=== PATIENT | female | born 1980 | race Caucasian/White ===

== ENCOUNTER 2018-09-03 10:43 | Emergency (ER) | payer OTHER ==
--- NOTE | 2018-09-03 10:47 | ERPHSYRPT ---
- History of Present Illness Time Seen by Provider: 09/03/18 10:47 Source: patient Exam Limitations: no limitations Allergies/Adverse Reactions: metoprolol Allergy (Verified 09/03/18 11:21) - Nursing Vital Signs Nursing Vital Signs: Initial Vital Signs Temperature 99.2 F 09/03/18 10:44 Pulse Rate 87 09/03/18 10:44 Respiratory Rate 16 09/03/18 10:44 Blood Pressure 136/93 09/03/18 10:44 O2 Sat by Pulse Oximetry 92 L 09/03/18 10:44 Pain Scale Pain Intensity 4 - Course Nursing assessment & vital signs reviewed: Yes EKG Interpreted by Me: RATE ([id number]), Sinus Rhythm, NORMAL AXIS, NORMAL INTERVALS, NORMAL QRS, Other (no acute ischemic changes. no comparison ekg) Ordered Tests: Active Orders 24 hr Category Date Time Status EKG-ER Only STAT Care 09/03/18 10:47 Active IV Insertion STAT Care 09/03/18 10:47 Active Pulse Oximetry (ED) STAT Care 09/03/18 10:47 Active CHEST 1 VIEW (PORTABLE) Stat Exams 09/03/18 10:47 Completed CBC W DIFF Stat Lab 09/03/18 11:00 Completed CMP Stat Lab 09/03/18 11:00 Completed D-DIMER QUANTITATION Stat Lab 09/03/18 11:00 Completed Manual Differential NC Stat Lab 09/03/18 11:00 Completed NT PRO BNP Stat Lab 09/03/18 11:00 Completed TROPONIN Q3H Lab 09/03/18 11:00 Completed TROPONIN Q3H Lab 09/03/18 14:00 Ordered TROPONIN Q3H Lab 09/03/18 17:00 Ordered TROPONIN Q3H Lab 09/03/18 20:00 Ordered TROPONIN Q3H Lab 09/03/18 23:00 Ordered Peak Expiratory Flow Rate ONCE RT 09/03/18 11:57 Completed Respiratory Therapy Assessment DAILY RT 09/03/18 11:56 Completed Medication Summary Generic Name Dose Route Start Last Admin Trade Name Freq PRN Reason Stop Dose Admin Ceftriaxone Sodium/Dextrose 1 g in 50 mls @ 100 mls/hr 09/03/18 12:19 Rocephin 1 Gm-D5w 50 Ml Bag IV 09/03/18 12:48 STAT STA Discontinued Medications Generic Name Dose Route Start Last Admin Trade Name Freq PRN Reason Stop Dose Admin Hydrocodone Bitart/Acetaminophen 10 ml 09/03/18 12:20 Hydrocodone-Acetamin 2.5-108/5 Ml Solution PO 09/03/18 12:21 STAT STA Albuterol/Ipratropium Confirm 09/03/18 11:34 Duoneb 0.5-3 Mg/3 Ml Neb Administered 09/03/18 11:35 Dose 3 ml IH .STK-MED ONE Albuterol/Ipratropium 3 ml 09/03/18 11:57 09/03/18 11:58 Duoneb 0.5-3 Mg/3 Ml Neb IH 09/03/18 11:58 3 ml STAT ONE Administration Methylprednisolone Sodium Succinate 125 mg 09/03/18 12:19 Solu-Medrol 125 Mg IV 09/03/18 12:20 STAT ONE Lab/Rad Data: Laboratory Result Diagrams 09/03/18 11:00 09/03/18 11:00 Laboratory Results 09/03/18 09/03/18 09/03/18 Range/Units 11:00 11:00 11:00 WBC (4.0-10.5) K/mm3 RBC (4.1-5.4) M/mm3 Hgb (12.0-16.0) gm/dl Hct (35-47) % MCV (78-100) fl MCH (26-32) pg MCHC (32-36) g/dl RDW (11.5-14.0) % Plt Count (150-450) K/mm3 MPV (6-9.5) fl Segmented Neutrophils (36.0-66.0) % Lymphocytes (Manual) (24-44) % Monocytes (Manual) (0.0-12.0) % Eosinophils (Manual) (0.00-3.0) % Platelet Estimate (NORMAL) RBC Morphology D-Dimer 241 (215-500) ng/mL Sodium 141 (137-145) mmol/L Potassium 4.4 (3.5-5.1) mmol/L Chloride 105 (98-107) mmol/L Carbon Dioxide 25 (22-30) mmol/L Anion Gap 16.0 H (5-15) MEQ/L BUN 20 H (7-17) mg/dL Creatinine 0.59 (0.52-1.04) mg/dL Estimated GFR > 60.0 ML/MIN Glucose 149 H (74-106) mg/dL Calcium 10.0 (8.4-10.2) mg/dL Total Bilirubin 0.40 (0.2-1.3) mg/dL AST 19 (14-36) U/L ALT 29 (0-35) U/L Alkaline Phosphatase 79 (38-126) U/L Troponin I < 0.012 (0.000-0.034) ng/mL NT-Pro-B Natriuret Pep 28.0 (0-450) pg/mL Serum Total Protein 8.2 (6.3-8.2) g/dL Albumin 4.7 (3.5-5.0) g/dL 09/03/18 Range/Units 11:00 WBC 8.4 (4.0-10.5) K/mm3 RBC 5.36 (4.1-5.4) M/mm3 Hgb 15.1 (12.0-16.0) gm/dl Hct 45.0 (35-47) % MCV 84.0 (78-100) fl MCH 28.2 (26-32) pg MCHC 33.6 (32-36) g/dl RDW 13.8 (11.5-14.0) % Plt Count 249 (150-450) K/mm3 MPV 9.7 H (6-9.5) fl Segmented Neutrophils 61 (36.0-66.0) % Lymphocytes (Manual) 33 (24-44) % Monocytes (Manual) 5 (0.0-12.0) % Eosinophils (Manual) 1 (0.00-3.0) % Platelet Estimate NORMAL (NORMAL) RBC Morphology NORMAL D-Dimer (215-500) ng/mL Sodium (137-145) mmol/L Potassium (3.5-5.1) mmol/L Chloride (98-107) mmol/L Carbon Dioxide (22-30) mmol/L Anion Gap (5-15) MEQ/L BUN (7-17) mg/dL Creatinine (0.52-1.04) mg/dL Estimated GFR ML/MIN Glucose (74-106) mg/dL Calcium (8.4-10.2) mg/dL Total Bilirubin (0.2-1.3) mg/dL AST (14-36) U/L ALT (0-35) U/L Alkaline Phosphatase (38-126) U/L Troponin I (0.000-0.034) ng/mL NT-Pro-B Natriuret Pep (0-450) pg/mL Serum Total Protein (6.3-8.2) g/dL Albumin (3.5-5.0) g/dL - Progress Progress: improved Air Movement: good Progress Note: 09/03/18 12:22 cxr-right basilar infiltrate Blood Culture(s) Obtained: No Antibiotics given: Yes Counseled pt/family regarding: lab results, diagnosis, need for follow-up, rad results - Departure Departure Disposition: Home Clinical Impression: Lung infiltrate Condition: Stable Critical Care Time: No Referrals: REKHA QUAN MD [Primary Care Provider] - Additional Instructions: drink plenty of fluids. continue same outpatient treatment plan. follow up with prescribing physician Prescriptions: Hydrocodone Bit/Acetaminophen [Hydrocodone-Acetaminophen Soln] 10 ml PO Q6H # 120 ml
[2018-09-03 11:15] LABS: Hemoglobin 15.1 gm/dl (12.0-16.0); Mean Corpuscular Hemoglobin 28.2 pg (26-32); Mean Corpuscular Hgb Concent. 33.6 g/dl (32-36); Mean Platelet Volume 9.7 fl (6-9.5); Platelet Count 249 K/mm3 (150-450); Red Blood Count 5.36 M/mm3 (4.1-5.4); Red Cell Distribution Width 13.8 % (11.5-14.0); White Blood Count 8.4 K/mm3 (4.0-10.5)
--- NOTE | 2018-09-03 11:26 | XRAY ---
Indication: Cough. Short of breath. Comparison: None Portable chest demonstrates mild right base linear opacities, infiltrate versus atelectasis. Remaining heart, lungs, and bony thorax normal.
[2018-09-03 11:31] LABS: Eosinophil 1 % (0.00-3.0); Lymphocytes 33 % (24-44); Monocyte 5 % (0.0-12.0); Neutrophils 61 % (36.0-66.0); Platelet Estimate NORMAL (NORMAL); Total Cells Counted 100
[2018-09-03] MEDS ORDERED: DUONEB 0.5-3 MG/3 ml Neb IH ONE ×2 (11:34→11:57)
[2018-09-03 11:35] LABS: ALBUMIN 4.7 g/dL (3.5-5.0); ALKALINE PHOSPHATASE 79 U/L (38-126); BLOOD UREA NITROGEN 20 mg/dL (7-17); CHLORIDE 105 mmol/L (98-107); Carbon Dioxide 25 mmol/L (22-30); Creatinine 1 0.59 mg/dL (0.52-1.04); Glucose 149 mg/dL (74-106); Potassium 4.4 mmol/L (3.5-5.1); SGOT/AST 19 U/L (14-36); SGPT/ALT 29 U/L (0-35); SODIUM 141 mmol/L (137-145); Total Protein 8.2 g/dL (6.3-8.2)
[2018-09-03 11:59] VITALS: O2SAT 96
[2018-09-03] MEDS ORDERED: ROCEPHIN 1 Gm-D5w 50 ml Bag** 1 G/50 ML IVPB IV STA (12:19)
[2018-09-03] MEDS ORDERED: solu-MEDROL 125 MG IV ONE (12:19)
[2018-09-03] MEDS ORDERED: HYDROCODONE-ACETAMIN 2.5-108/5 ML SOLUTION PO STA (12:20)
[2018-09-03] MEDS ORDERED: HYDROCODONE-ACETAMIN 2.5-108/5 ML SOLUTION ONE (12:43)
[2018-09-03] MEDS ORDERED: ROCEPHIN 1 Gm-D5w 50 ml Bag** 1 G/50 ML IVPB IV ONE (12:43)
[2018-09-03] MEDS ORDERED: solu-MEDROL 125 MG ONE (12:43)
[2018-09-03 13:27] VITALS: BP 119/77; PULSE 84
== END 2018-09-03 13:26 | disposition home or self-care (01) ==
LOC: ED 10:43
DX: R91.8 Other nonspecific abnormal finding of lung field (principal)
CPT/HCPCS: 36000; 36415; 71045; 80053; 83880; 84484; 85025; 85379; 93005; 94150; 94640; 94760; 96365; 96374; 99284; J0696; J2930; A9270-GY

== ENCOUNTER 2018-09-04 06:40 | Emergency (ER) | payer OTHER ==
[2018-09-04] MEDS ORDERED: ROCEPHIN 1 Gm-D5w 50 ml Bag** 1 G/50 ML IVPB IV STA (07:26)
[2018-09-04] MEDS ORDERED: DUONEB 0.5-3 MG/3 ml Neb IH ONE ×2 (07:26→07:35)
[2018-09-04] MEDS ORDERED: solu-MEDROL 125 MG IV ONE (07:26)
[2018-09-04] MEDS ORDERED: Sodium Chloride 0.9% 1000 ML 1,000 ML IV SCH ×2 (07:30→08:15)
--- NOTE | 2018-09-04 07:47 | ERPHSYRPT ---
- History of Present Illness Time Seen by Provider: 09/04/18 07:00 Source: patient Exam Limitations: clinical condition Patient Subjective Stated Complaint: see above Triage Nursing Assessment: see above Physician History: PATIENT WITH A HISTORY OF MORBID OBESITY, SLEEP APNEA, TYPE 2 DIABETES, YVONNE SYNDROME, HYPERTENSION WHO EVALUATED IN [facility]ALK[facility] CLIN[facility] 3 DAYS AGO AND TREATED FOR BRONCHITIS, FOR COMPLAINS OF NONPRODUCTIVE COUGH AND SHORTNESS OF BREATH. DAY 3 OF ANTIBIOTIC ZITHROMAX. EVALUATED IN EMERGENCY ROOM YESTERDAY FOR NO CHANGE IN SYMPTOMS. CHEST XRAY READING PER RADIALOGIST CONSISTENT WITH MILD RIGHT BASE LINEAR OPACITIES, INFILTRATE VS ATELECTASIS. DENIES FEVER, CHILLS. BUT COMPLAINS OF SHORTNESS OF BREATH AND CHEST TIGHTNESS. 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 TODAY PATIENT STATES SHE HAS NO IMPROVEMENT IN HER SYMPTOMS. HAS HAD INTERMITTENT CHEST PAIN HEAVINESS X 4 DAYS THIS WEEK, PAIN SCALE 4/10. Timing/Duration: day(s) Cough Quality/Degree: dry cough Possible Cause: no prior episodes Modifying Factors: Improves With: activity, exertion Associated Symptoms: shortness of breath International travel in last 2 weeks: No Allergies/Adverse Reactions: metoprolol Allergy (Verified 09/03/18 11:21) Home Medications: Albuterol Sulfate [Albuterol Sulfate Hfa] 2 puffs IH QID 09/04/18 [History] Alprazolam 0.5 mg [xanAX 0.5 MG] 0.5 mg PO TID 09/04/18 [History] Aspirin 81 gm Chew [Baby Aspirin 81 mg Chew] 81 mg PO DAILY 09/04/18 [ History] Azithromycin 250 mg [Zithromax 250 MG TABLET] 250 mg PO ZPACK 09/04/18 [ History] Dapagliflozin/Metformin HCl [Xigduo Xr 10 mg-1,000 mg Tab] 1,000 mg PO DAILY [History] Liraglutide [Victoza 2-Drew] 1.8 mg SQ DAILY 09/04/18 [History] Meloxicam 7.5 mg [Mobic 7.5 MG] 7.5 mg PO DAILY 09/04/18 [History] Nebivolol HCl 5 MG [Bystolic 5 MG] 5 mg PO DAILY 09/04/18 [History] Nitroglycerin 0.4 mg Tablet [Nitrostat 0.4 MG Tablet] 0.4 mg SL UD PRN [History] PANTOPRAZOLE 40 mg Tablet [Protonix 40MG Tablet] 40 mg PO QAM 09/04/18 [ History] PARoxetine HCl [Paroxetine HCl] 40 mg PO DAILY 09/04/18 [History] Prednisone 10 mg [Deltasone 10 mg] 20 mg PO DAILY 09/04/18 [History] Semaglutide [Ozempic] 0.5 mg IJ WEEKLY 09/04/18 [History] Hx Tetanus, Diphtheria Vaccination/Date Given: Yes Hx Influenza Vaccination/Date Given: Yes Hx Pneumococcal Vaccination/Date Given: Yes Immunizations Up to Date: Yes - Review of Systems Constitutional: No Fever, No Chills Eyes: No Symptoms Ears, Nose, & Throat: No Symptoms Respiratory: Cough, Dyspnea on Exertion (LAU), No Dyspnea Cardiac: Chest Pain, No Edema, No Syncope Abdominal/Gastrointestinal: No Abdominal Pain, No Nausea, No Vomiting, No Diarrhea Genitourinary Symptoms: No Dysuria Musculoskeletal: No Back Pain, No Neck Pain Skin: No Rash Neurological: No Dizziness, No Focal Weakness, No Sensory Changes Psychological: No Symptoms Endocrine: No Symptoms All Other Systems: Reviewed and Negative - Past Medical History Pertinent Past Medical History: Yes Cardiac History: Hypertension Endocrine Medical History: Diabetes Type II Psycho-Social History: No Pertinent History Other Medical History: cushings - Past Surgical History Past Surgical History: Yes Cardiac: Cardiac Catheterization, Cardiac Stent, Other Female Surgical History: Hysterectomy Other Surgical History: plantar fascitis surgery - Social History Smoking Status: Never smoker Drug Use: none Patient Lives Alone: No - Female History Hx Now: No (hysterectomy) - Nursing Vital Signs Nursing Vital Signs: Initial Vital Signs Temperature 97.7 F 09/04/18 06:46 Pulse Rate 68 09/04/18 06:46 Respiratory Rate 20 09/04/18 06:46 Blood Pressure 129/84 09/04/18 06:46 O2 Sat by Pulse Oximetry 98 09/04/18 06:46 Pain Scale Pain Intensity 6 - Physical Exam General Appearance: mild distress Eye Exam: PERRL/EOMI, eyes nml inspection Ears, Nose, Throat Exam: normal ENT inspection, TMs normal Neck Exam: normal inspection, non-tender Respiratory Exam: diminished breath sounds, rhonchi, wheezing (MODERATE DIFFUSE WHEEZES AND RHONCHI) Cardiovascular Exam: regular rate/rhythm, normal heart sounds Gastrointestinal/Abdomen Exam: soft, normal bowel sounds (OBESE, NONTENDER) Back Exam: normal inspection, rash Extremity Exam: normal inspection, calf tenderness Neurologic Exam: alert, oriented x 3, cooperative Skin Exam: normal color, warm SpO2 Interpretation: normal SpO2: 94 O2 Delivery: Room Air - Course EKG Interpreted by Me: RATE, Sinus Rhythm, Other (MINIMAL ST ELEVATION INFERIORLY RATE OF 76) - Radiology Exams Chest X-ray Interpretation: Interpreted by me (MINIMAL RIGHT INFRAHILAR INFILTRATE) Ordered Tests: Active Orders 24 hr Category Date Time Status CHEST 2 VIEWS (PA AND LAT) Stat Exams 09/04/18 08:24 Taken CBC W DIFF Stat Lab 09/04/18 07:45 Completed CMP Stat Lab 09/04/18 07:45 Completed Manual Differential NC Stat Lab 09/04/18 07:45 Completed PROTIME WITH INR Stat Lab 09/04/18 07:45 Completed TROPONIN Q3H Lab 09/04/18 07:45 Completed TROPONIN Q3H Lab 09/04/18 11:15 Ordered TROPONIN Q3H Lab 09/04/18 14:15 Ordered TROPONIN Q3H Lab 09/04/18 17:15 Ordered TROPONIN Q3H Lab 09/04/18 20:15 Ordered Peak Expiratory Flow Rate ONCE RT 09/04/18 07:26 Completed Respiratory Therapy Assessment DAILY RT 09/04/18 07:44 Completed Medication Summary Generic Name Dose Route Start Last Admin Trade Name Freq PRN Reason Stop Dose Admin Sodium Chloride 1,000 mls @ 50 mls/hr 09/04/18 08:15 09/04/18 08:24 Sodium Chloride 0.9% 1000 Ml IV 10/04/18 08:14 50 mls/hr .Q20H JOSE Administration Discontinued Medications Generic Name Dose Route Start Last Admin Trade Name Freq PRN Reason Stop Dose Admin Albuterol/Ipratropium 3 ml 09/04/18 07:26 09/04/18 07:44 Duoneb 0.5-3 Mg/3 Ml Neb IH 09/04/18 07:27 3 ml STAT ONE Administration Albuterol/Ipratropium Confirm 09/04/18 07:35 Duoneb 0.5-3 Mg/3 Ml Neb Administered 09/04/18 07:36 Dose 3 ml IH .STK-MED ONE Aspirin 324 mg 09/04/18 08:11 09/04/18 08:23 Baby Aspirin 81 Mg Chew PO 09/04/18 08:12 324 mg STAT ONE Administration Aspirin Confirm 09/04/18 08:21 Baby Aspirin 81 Mg Chew Administered 09/04/18 08:22 Dose 324 mg .ROUTE .STK-MED ONE Ceftriaxone Sodium/Dextrose 1 g in 50 mls @ 100 mls/hr 09/04/18 07:26 09:02 Rocephin 1 Gm-D5w 50 Ml Bag IV 09/04/18 07:55 Infused STAT STA Infusion Sodium Chloride 1,000 mls @ 100 mls/hr 09/04/18 07:30 09/04/18 07:55 Sodium Chloride 0.9% 1000 Ml IV 10/04/18 07:29 Not Given .Q10H JOSE Ceftriaxone Sodium/Dextrose Confirm 09/04/18 07:51 Rocephin 1 Gm-D5w 50 Ml Bag Administered 09/04/18 07:52 Dose 1 g in 50 mls @ ud IV .STK-MED ONE Methylprednisolone Sodium Succinate 125 mg 09/04/18 07:26 09/04/18 07:55 Solu-Medrol 125 Mg IV 09/04/18 07:27 Not Given STAT ONE Nitroglycerin 1 gm 09/04/18 08:18 09/04/18 08:24 Nitro-Bid 2% Ud Packets TOP 09/04/18 08:19 1 gm STAT ONE Administration Nitroglycerin Confirm 09/04/18 08:21 Nitro-Bid 2% Ud Packets Administered 09/04/18 08:22 Dose 1 gm .ROUTE .STK-MED ONE Lab/Rad Data: Laboratory Result Diagrams 09/04/18 07:45 09/04/18 07:45 Laboratory Results 09/04/18 09/04/18 09/04/18 Range/Units 07:45 07:45 07:45 WBC (4.0-10.5) K/mm3 RBC (4.1-5.4) M/mm3 Hgb (12.0-16.0) gm/dl Hct (35-47) % MCV (78-100) fl MCH (26-32) pg MCHC (32-36) g/dl RDW (11.5-14.0) % Plt Count (150-450) K/mm3 MPV (6-9.5) fl Segmented Neutrophils (36.0-66.0) % Band Neutrophils (0.0-2.0) % Lymphocytes (Manual) (24-44) % Monocytes (Manual) (0.0-12.0) % Eosinophils (Manual) (0.00-3.0) % Platelet Estimate (NORMAL) RBC Morphology PT 12.5 H (9.95-12.35) SECONDS INR 1.10 (0.8-3.0) Sodium 138 (137-145) mmol/L Potassium 4.3 (3.5-5.1) mmol/L Chloride 103 (98-107) mmol/L Carbon Dioxide 24 (22-30) mmol/L Anion Gap 15.0 (5-15) MEQ/L BUN 24 H (7-17) mg/dL Creatinine 0.55 (0.52-1.04) mg/dL Estimated GFR > 60.0 ML/MIN Glucose 155 H (74-106) mg/dL Calcium 9.8 (8.4-10.2) mg/dL Total Bilirubin 0.40 (0.2-1.3) mg/dL AST 15 (14-36) U/L ALT 24 (0-35) U/L Alkaline Phosphatase 76 (38-126) U/L Troponin I < 0.012 (0.000-0.034) ng/mL Serum Total Protein 7.9 (6.3-8.2) g/dL Albumin 4.6 (3.5-5.0) g/dL 09/04/18 Range/Units 07:45 WBC 10.0 (4.0-10.5) K/mm3 RBC 5.20 (4.1-5.4) M/mm3 Hgb 14.5 (12.0-16.0) gm/dl Hct 43.9 (35-47) % MCV 84.4 (78-100) fl MCH 27.9 (26-32) pg MCHC 33.0 (32-36) g/dl RDW 13.6 (11.5-14.0) % Plt Count 272 (150-450) K/mm3 MPV 9.8 H (6-9.5) fl Segmented Neutrophils 78 H (36.0-66.0) % Band Neutrophils 1 (0.0-2.0) % Lymphocytes (Manual) 14 L (24-44) % Monocytes (Manual) 6 (0.0-12.0) % Eosinophils (Manual) 1 (0.00-3.0) % Platelet Estimate NORMAL (NORMAL) RBC Morphology NORMAL PT (9.95-12.35) SECONDS INR (0.8-3.0) Sodium (137-145) mmol/L Potassium (3.5-5.1) mmol/L Chloride (98-107) mmol/L Carbon Dioxide (22-30) mmol/L Anion Gap (5-15) MEQ/L BUN (7-17) mg/dL Creatinine (0.52-1.04) mg/dL Estimated GFR ML/MIN Glucose (74-106) mg/dL Calcium (8.4-10.2) mg/dL Total Bilirubin (0.2-1.3) mg/dL AST (14-36) U/L ALT (0-35) U/L Alkaline Phosphatase (38-126) U/L Troponin I (0.000-0.034) ng/mL Serum Total Protein (6.3-8.2) g/dL Albumin (3.5-5.0) g/dL - Progress Progress: improved Progress Note: 09/04/18 09:27 IV NORMAL SALINE 50ML/HR, BABY ASPIRIN X 4 ORAL, APPLICATION NITROPASTE 1" ANTERIOR CHEST WALL, DISCUSSED WITH DR SIMS AT 0920 REGARDING CATH REPORT AND PATIENT SYMPTOMS Discussed with Dr.: Other (DISCUSSED WITH DR MILLER AT 0925 ACCEPTS TRANSFER TO [facility] VIA [facility]) - Departure Departure Disposition: Transfer Clinical Impression: ATYPICAL CHEST PAIN, ACUTE BRONCHITIS/BRONCHIOSPASM Condition: Stable Critical Care Time: No Referrals: REKHA QUAN MD [Primary Care Provider] -
[2018-09-04] MEDS ORDERED: ROCEPHIN 1 Gm-D5w 50 ml Bag** 1 G/50 ML IVPB IV ONE (07:51)
[2018-09-04] MEDS ORDERED: BABY ASPIRIN 81 MG CHEW PO ONE (08:11)
[2018-09-04] MEDS ORDERED: NITRO-BID 2% UD PACKETS TOP ONE (08:18)
[2018-09-04] MEDS ORDERED: NITRO-BID 2% UD PACKETS ONE (08:21)
[2018-09-04] MEDS ORDERED: Sodium Chloride 0.9% 1000 ML 1,000 ML ONE (08:21)
[2018-09-04] MEDS ORDERED: BABY ASPIRIN 81 MG CHEW ONE (08:21)
[2018-09-04 08:23] LABS: Hematocrit 43.9 % (35-47); Hemoglobin 14.5 gm/dl (12.0-16.0); Mean Cell Volume 84.4 fl (78-100); Mean Corpuscular Hemoglobin 27.9 pg (26-32); Mean Platelet Volume 9.8 fl (6-9.5); Platelet Count 272 K/mm3 (150-450); Red Cell Distribution Width 13.6 % (11.5-14.0)
[2018-09-04 08:32] LABS: INR 1.1 (0.8-3.0); PROTIME 12.5 SECONDS (9.95-12.35)
[2018-09-04 08:45] LABS: ALBUMIN 4.6 g/dL (3.5-5.0); ALKALINE PHOSPHATASE 76 U/L (38-126); BLOOD UREA NITROGEN 24 mg/dL (7-17); CHLORIDE 103 mmol/L (98-107); Calcium 9.8 mg/dL (8.4-10.2); Carbon Dioxide 24 mmol/L (22-30); Creatinine 1 0.55 mg/dL (0.52-1.04); Glucose 155 mg/dL (74-106); Potassium 4.3 mmol/L (3.5-5.1); SGOT/AST 15 U/L (14-36); SGPT/ALT 24 U/L (0-35); SODIUM 138 mmol/L (137-145); Total Protein 7.9 g/dL (6.3-8.2)
[2018-09-04 09:17] LABS: BAND 1 % (0.0-2.0); Eosinophil 1 % (0.00-3.0); Lymphocytes 14 % (24-44); Monocyte 6 % (0.0-12.0); Neutrophils 78 % (36.0-66.0); Platelet Estimate NORMAL (NORMAL); Total Cells Counted 100
[2018-09-04 09:54] VITALS: BP 111/63; PULSE 90
[2018-09-04 10:02] VITALS: O2SAT 94
--- NOTE | 2018-09-04 23:35 | XRAY ---
Indication: Cough. Dyspnea. Comparison: One day earlier. PA/lateral chest unchanged again demonstrating subtle right base infiltrate versus atelectasis. Remaining heart, lungs, and bony thorax are unremarkable.
== END 2018-09-04 10:00 | disposition short-term general hospital (02) ==
LOC: ED 06:40
DX: R07.89 Other chest pain (principal); J20.9 Acute bronchitis, unspecified; J98.01 Acute bronchospasm; Z79.899 Other long term (current) drug therapy; E11.9 Type 2 diabetes mellitus without complications; G47.30 Sleep apnea, unspecified; E24.9 Cushing's syndrome, unspecified
CPT/HCPCS: 36000; 36415; 71046; 80053; 84484; 85025; 85610; 93041; 94150; 94640; 96360; 96365; 99285; J0696; A9270-GY

== ENCOUNTER 2018-09-11 21:42 | Observation (INO) | payer OTHER ==
[2018-09-11] MEDS ORDERED: BABY ASPIRIN 81 MG CHEW PO ONE (21:57)
[2018-09-11] MEDS ORDERED: Sodium Chloride 0.9% 1000 ML 1,000 ML IV SCH (22:00)
[2018-09-11] MEDS ORDERED: BABY ASPIRIN 81 MG CHEW ONE (22:09)
[2018-09-11] MEDS ORDERED: Sodium Chloride 0.9% 1000 ML 1,000 ML ONE ×2 (22:09→23:26)
--- NOTE | 2018-09-11 22:11 | ERPHSYRPT ---
- History of Present Illness Time Seen by Provider: 09/11/18 22:06 Historian: patient, family Exam Limitations: no limitations Patient Subjective Stated Complaint: PT IS ALERT AND ORIENTED. PT IS AMBULATORY WITH A STEADY GAIT. PT COMES IN WITH C/O DIZZINESS. PT STATES THAT SHE WAS DIAGNOSED WITH PNEUMONIA EARLIER THIS MONTH AND THAT SHE FEELS HER COUGH AND CHEST CONGESTIONS HAS CLEARED BUT THAT SHE BEGAN FEELING DIZZY AND HAVING BODY ACHES AND CHILLS. PT SKIN IS PWD. PT IS AFEBRILE. PT BREATHING EASILY. PT MUCOUS MEMBRANES MOIST. PERRLA. PT IS SPEAKING CLEARLY AND APPROPRIATELY. Triage Nursing Assessment: SEE ABOVE Physician History: pt got out of hospital last weekend for pneumonia and has shortness of breath now with CP ( known CAD at 50% blockages recently found) now has aches and weakness all over and dizziness along with new type of posterior headache; no meningismis or reported fever; no focal neuro findings on exam; chest with few rhonchi Timing/Duration: today Activities at Onset: none Quality: pressure, tightness Location: substernal Severity of Pain-Max: moderate Severity of Pain-Current: moderate Modifying Factors: Improves With: nothing Associated Symptoms: shortness of breath, cough, fatigue, weakness, headache, dizziness Prior Chest Pain/Cardiac Workup: cardiac cath, recently seen/treated, recent hospitalization Nitro Today/Relief: no nitro taken today Aspirin Treatment Today: 81 mg x 4, provided by ED Allergies/Adverse Reactions: metoprolol Allergy (Verified 09/03/18 11:21) Home Medications: Albuterol Sulfate [Albuterol Sulfate Hfa] 2 puffs IH QID 09/04/18 [History] Alprazolam 0.5 mg [xanAX 0.5 MG] 0.5 mg PO TID 09/04/18 [History] Aspirin 81 gm Chew [Baby Aspirin 81 mg Chew] 81 mg PO DAILY 09/04/18 [ History] Azithromycin 250 mg [Zithromax 250 MG TABLET] 250 mg PO ZPACK 09/04/18 [ History] Dapagliflozin/Metformin HCl [Xigduo Xr 10 mg-1,000 mg Tab] 1,000 mg PO DAILY [History] Liraglutide [Victoza 2-Drew] 1.8 mg SQ DAILY 09/04/18 [History] Meloxicam 7.5 mg [Mobic 7.5 MG] 7.5 mg PO DAILY 09/04/18 [History] Nebivolol HCl 5 MG [Bystolic 5 MG] 5 mg PO DAILY 09/04/18 [History] Nitroglycerin 0.4 mg Tablet [Nitrostat 0.4 MG Tablet] 0.4 mg SL UD PRN [History] PANTOPRAZOLE 40 mg Tablet [Protonix 40MG Tablet] 40 mg PO QAM 09/04/18 [ History] PARoxetine HCl [Paroxetine HCl] 40 mg PO DAILY 09/04/18 [History] Prednisone 10 mg [Deltasone 10 mg] 20 mg PO DAILY 09/04/18 [History] Semaglutide [Ozempic] 0.5 mg IJ WEEKLY 09/04/18 [History] Hx Tetanus, Diphtheria Vaccination/Date Given: Yes Hx Influenza Vaccination/Date Given: Yes Hx Pneumococcal Vaccination/Date Given: Yes Immunizations Up to Date: Yes - Review of Systems Constitutional: Fatigue, Malaise, Weakness, No Fever, No Chills Eyes: No Symptoms Ears, Nose, & Throat: No Symptoms Respiratory: Cough, Dyspnea Cardiac: Chest Pain, No Edema, No Syncope Abdominal/Gastrointestinal: No Abdominal Pain, No Nausea, No Vomiting, No Diarrhea Genitourinary Symptoms: No Dysuria Musculoskeletal: Arthralgias, No Back Pain, No Neck Pain Skin: No Rash Neurological: Dizziness, No Focal Weakness, No Sensory Changes Psychological: No Symptoms Endocrine: No Symptoms Hematologic/Lymphatic: No Symptoms Immunological/Allergic: No Symptoms All Other Systems: Reviewed and Negative - Past Medical History Pertinent Past Medical History: Yes Cardiac History: Hypertension Endocrine Medical History: Diabetes Type II Psycho-Social History: No Pertinent History Other Medical History: cushings - Past Surgical History Past Surgical History: Yes Cardiac: Cardiac Catheterization, Cardiac Stent, Other Female Surgical History: Hysterectomy Other Surgical History: plantar fascitis surgery - Social History Smoking Status: Never smoker Drug Use: none Patient Lives Alone: No - Female History Hx Now: No - Nursing Vital Signs Nursing Vital Signs: Initial Vital Signs Temperature 97.8 F 09/11/18 21:47 Pulse Rate 93 H 09/11/18 21:47 Respiratory Rate 18 09/11/18 21:47 Blood Pressure 126/89 09/11/18 21:47 O2 Sat by Pulse Oximetry 96 09/11/18 21:47 Pain Scale Pain Intensity 7 - Physical Exam General Appearance: no apparent distress, alert Eye Exam: PERRL/EOMI, eyes nml inspection Ears, Nose, Throat Exam: normal ENT inspection, moist mucous membranes Neck Exam: normal inspection, non-tender, supple, full range of motion Respiratory Exam: rhonchi, No respiratory distress Cardiovascular Exam: regular rate/rhythm, normal heart sounds Gastrointestinal/Abdomen Exam: soft, No tenderness, No mass Pelvic Exam: deferred Rectal Exam: deferred Back Exam: normal inspection, No CVA tenderness, No vertebral tenderness Extremity Exam: normal inspection, normal range of motion Neurologic Exam: alert, oriented x 3, cooperative, normal mood/affect, sensation nml, No motor deficits Skin Exam: normal color, warm, dry SpO2: 96 - Course Nursing assessment & vital signs reviewed: Yes EKG Interpreted by Me: Sinus Rhythm, NORMAL AXIS, NORMAL INTERVALS, Non- specific ST Changes, Other (poor r wave progression) - Radiology Exams Chest X-ray Interpretation: Reviewed by me, Infiltrates - CT Exams Head CT Interpretation: Tele-radiologist Report, No/Intracranial Hemorrhag Ordered Tests: Active Orders 24 hr Category Date Time Status Spiral Runner STAT Care 09/11/18 21:59 Active EKG-ER Only STAT Care 09/11/18 21:57 Active IV Insertion STAT Care 09/11/18 21:57 Active Pulse Oximetry (ED) STAT Care 09/11/18 21:57 Active CHEST 2 VIEWS (PA AND LAT) Stat Exams 09/11/18 21:58 Taken HEAD WITHOUT CONTRAST [CT] Stat Exams 09/11/18 22:04 Taken CBC W DIFF Stat Lab 09/11/18 22:17 Completed CMP Stat Lab 09/11/18 22:17 Completed D-DIMER QUANTITATION Stat Lab 09/11/18 22:17 Completed HCG QUALITATIVE,SERUM Stat Lab 09/11/18 22:17 Completed Lactic Acid Stat Lab 09/11/18 22:10 Completed Lactic Acid Stat Lab 09/12/18 00:14 Ordered NT PRO BNP Stat Lab 09/11/18 22:17 Completed T4 (Thyroxine) Stat Lab 09/11/18 22:17 Completed TROPONIN Q3H Lab 09/12/18 01:00 Ordered TROPONIN Q3H Lab 09/12/18 04:00 Ordered TROPONIN Q3H Lab 09/12/18 07:00 Ordered TROPONIN Q3H Lab 09/12/18 10:00 Ordered TROPONIN Stat Lab 09/11/18 22:17 Completed TSH, 3RD Generation Stat Lab 09/11/18 22:17 Completed UA W/RFX UR CULTURE Stat Lab 09/11/18 22:17 Completed Medication Summary Generic Name Dose Route Start Last Admin Trade Name Freq PRN Reason Stop Dose Admin Sodium Chloride 1,000 mls @ 100 mls/hr 09/11/18 22:00 09/11/18 23:50 Sodium Chloride 0.9% 1000 Ml IV 10/11/18 21:59 Infused .Q10H JOSE Infusion Discontinued Medications Generic Name Dose Route Start Last Admin Trade Name Freq PRN Reason Stop Dose Admin Aspirin 324 mg 09/11/18 21:57 09/11/18 22:10 Baby Aspirin 81 Mg Chew PO 09/11/18 21:58 324 mg STAT ONE Administration Aspirin Confirm 09/11/18 22:09 Baby Aspirin 81 Mg Chew Administered 09/11/18 22:10 Dose 324 mg .ROUTE .STK-MED ONE Sodium Chloride 1,000 mls @ 999 mls/hr 09/11/18 22:39 09/11/18 23:50 Sodium Chloride 0.9% 1000 Ml IV 09/11/18 23:39 Not Given .Q1H1M STA Piperacillin Sod/Tazobactam Sod 3.375 gm in 100 mls @ 200 mls/hr 09/11/18 23: 26 09/12/18 00:01 Zosyn 3.375gm/100 Ml D5w IV 09/11/18 23:55 200 mls/hr STAT ONE Administration Sodium Chloride 1,000 mls @ 999 mls/hr 09/11/18 23:27 09/11/18 23:51 Sodium Chloride 0.9% 1000 Ml IV 09/12/18 00:27 999 mls/hr .Q1H1M STA Administration Piperacillin Sod/Tazobactam Sod Confirm 09/11/18 23:53 Zosyn 3.375gm/100 Ml D5w Administered 09/11/18 23:54 Dose 3.375 gm in 100 mls @ ud IV .STK-MED ONE Morphine Sulfate 4 mg 09/11/18 23:25 09/12/18 00:02 Morphine Sulfate 4 Mg Inj IV 09/11/18 23:26 4 mg STAT ONE Administration Morphine Sulfate Confirm 09/11/18 23:53 Morphine Sulfate 4 Mg Inj Administered 09/11/18 23:54 Dose 4 mg .ROUTE .STK-MED ONE Lab/Rad Data: Laboratory Result Diagrams 09/11/18 22:17 09/11/18 22:17 Laboratory Results 09/11/18 09/11/18 09/11/18 Range/Units 22:57 22:17 22:17 WBC (4.0-10.5) K/mm3 RBC (4.1-5.4) M/mm3 Hgb (12.0-16.0) gm/dl Hct (35-47) % MCV (78-100) fl MCH (26-32) pg MCHC (32-36) g/dl RDW (11.5-14.0) % Plt Count (150-450) K/mm3 MPV (6-9.5) fl Gran % (36.0-66.0) % Eos # (Auto) (0-0.5) Absolute Lymphs (auto) (1.0-4.6) Absolute Monos (auto) (0.0-1.3) Lymphocytes % (24.0-44.0) % Monocytes % (0.0-12.0) % Eosinophils % (0.00-5.0) % Basophils % (0.0-0.4) % Absolute Granulocytes (1.4-6.9) Basophils # (0-0.4) D-Dimer (215-500) ng/mL Sodium (137-145) mmol/L Potassium (3.5-5.1) mmol/L Chloride (98-107) mmol/L Carbon Dioxide (22-30) mmol/L Anion Gap (5-15) MEQ/L BUN (7-17) mg/dL Creatinine (0.52-1.04) mg/dL Estimated GFR ML/MIN Glucose (74-106) mg/dL Lactic Acid (0.4-2.0) Calcium (8.4-10.2) mg/dL Total Bilirubin (0.2-1.3) mg/dL AST (14-36) U/L ALT (0-35) U/L Alkaline Phosphatase (38-126) U/L Troponin I (0.000-0.034) ng/mL NT-Pro-B Natriuret Pep (0-450) pg/mL Serum Total Protein (6.3-8.2) g/dL Albumin (3.5-5.0) g/dL Thyroxine (T4) (5.53-10.96) ug/dL TSH 3rd Generation (0.47-4.68) mIU/L Serum , Qual NEGATIVE (Negative) Urine Color YELLOW (YELLOW) Urine Appearance CLEAR (CLEAR) Urine pH 5.0 (5-6) Ur Specific Mitchell 1.038 (1.005-1.025) Urine Protein NEGATIVE (Negative) Urine Ketones TRACE (NEGATIVE) Urine Blood NEGATIVE (0-5) John/ul Urine Nitrite NEGATIVE (NEGATIVE) Urine Bilirubin NEGATIVE (NEGATIVE) Urine Urobilinogen 2 (0-1) mg/dL Ur Leukocyte Esterase NEGATIVE (NEGATIVE) Urine WBC (Auto) 3-5 (0-5) /HPF Urine RBC (Auto) NONE (0-2) /HPF U Epithel Cells (Auto) RARE (FEW) /HPF Urine Bacteria (Auto) NONE (NEGATIVE) /HPF Urine Mucus (Auto) SLIGHT (NEGATIVE) /HPF Urine Culture Reflexed NO (NO) Urine Glucose >=500 (NEGATIVE) mg/dL Influenza Type A Ag NEGATIVE (NEGATIVE) Influenza Type B Ag NEGATIVE (NEGATIVE) RSV (PCR) NEGATIVE (Negative) 09/11/18 09/11/18 09/11/18 Range/Units 22:17 22:17 22:17 WBC 10.1 (4.0-10.5) K/mm3 RBC 5.24 (4.1-5.4) M/mm3 Hgb 14.8 (12.0-16.0) gm/dl Hct 44.3 (35-47) % MCV 84.5 (78-100) fl MCH 28.2 (26-32) pg MCHC 33.4 (32-36) g/dl RDW 13.9 (11.5-14.0) % Plt Count 235 (150-450) K/mm3 MPV 9.3 (6-9.5) fl Gran % 56.5 (36.0-66.0) % Eos # (Auto) 0.31 (0-0.5) Absolute Lymphs (auto) 3.57 (1.0-4.6) Absolute Monos (auto) 0.48 (0.0-1.3) Lymphocytes % 35.3 (24.0-44.0) % Monocytes % 4.7 (0.0-12.0) % Eosinophils % 3.1 (0.00-5.0) % Basophils % 0.4 (0.0-0.4) % Absolute Granulocytes 5.72 (1.4-6.9) Basophils # 0.04 (0-0.4) D-Dimer < 109 L (215-500) ng/mL Sodium 138 (137-145) mmol/L Potassium 3.8 (3.5-5.1) mmol/L Chloride 102 (98-107) mmol/L Carbon Dioxide 27 (22-30) mmol/L Anion Gap 13.4 (5-15) MEQ/L BUN 20 H (7-17) mg/dL Creatinine 0.61 (0.52-1.04) mg/dL Estimated GFR > 60.0 ML/MIN Glucose 138 H (74-106) mg/dL Lactic Acid (0.4-2.0) Calcium 9.2 (8.4-10.2) mg/dL Total Bilirubin 0.30 (0.2-1.3) mg/dL AST 18 (14-36) U/L ALT 25 (0-35) U/L Alkaline Phosphatase 83 (38-126) U/L Troponin I < 0.012 (0.000-0.034) ng/mL NT-Pro-B Natriuret Pep 21.5 (0-450) pg/mL Serum Total Protein 7.0 (6.3-8.2) g/dL Albumin 4.1 (3.5-5.0) g/dL Thyroxine (T4) 8.59 (5.53-10.96) ug/dL TSH 3rd Generation 4.240 (0.47-4.68) mIU/L Serum , Qual (Negative) Urine Color (YELLOW) Urine Appearance (CLEAR) Urine pH (5-6) Ur Specific Mitchell (1.005-1.025) Urine Protein (Negative) Urine Ketones (NEGATIVE) Urine Blood (0-5) John/ul Urine Nitrite (NEGATIVE) Urine Bilirubin (NEGATIVE) Urine Urobilinogen (0-1) mg/dL Ur Leukocyte Esterase (NEGATIVE) Urine WBC (Auto) (0-5) /HPF Urine RBC (Auto) (0-2) /HPF U Epithel Cells (Auto) (FEW) /HPF Urine Bacteria (Auto) (NEGATIVE) /HPF Urine Mucus (Auto) (NEGATIVE) /HPF Urine Culture Reflexed (NO) Urine Glucose (NEGATIVE) mg/dL Influenza Type A Ag (NEGATIVE) Influenza Type B Ag (NEGATIVE) RSV (PCR) (Negative) 09/11/18 Range/Units 22:10 WBC (4.0-10.5) K/mm3 RBC (4.1-5.4) M/mm3 Hgb (12.0-16.0) gm/dl Hct (35-47) % MCV (78-100) fl MCH (26-32) pg MCHC (32-36) g/dl RDW (11.5-14.0) % Plt Count (150-450) K/mm3 MPV (6-9.5) fl Gran % (36.0-66.0) % Eos # (Auto) (0-0.5) Absolute Lymphs (auto) (1.0-4.6) Absolute Monos (auto) (0.0-1.3) Lymphocytes % (24.0-44.0) % Monocytes % (0.0-12.0) % Eosinophils % (0.00-5.0) % Basophils % (0.0-0.4) % Absolute Granulocytes (1.4-6.9) Basophils # (0-0.4) D-Dimer (215-500) ng/mL Sodium (137-145) mmol/L Potassium (3.5-5.1) mmol/L Chloride (98-107) mmol/L Carbon Dioxide (22-30) mmol/L Anion Gap (5-15) MEQ/L BUN (7-17) mg/dL Creatinine (0.52-1.04) mg/dL Estimated GFR ML/MIN Glucose (74-106) mg/dL Lactic Acid 2.4 H (0.4-2.0) Calcium (8.4-10.2) mg/dL Total Bilirubin (0.2-1.3) mg/dL AST (14-36) U/L ALT (0-35) U/L Alkaline Phosphatase (38-126) U/L Troponin I (0.000-0.034) ng/mL NT-Pro-B Natriuret Pep (0-450) pg/mL Serum Total Protein (6.3-8.2) g/dL Albumin (3.5-5.0) g/dL Thyroxine (T4) (5.53-10.96) ug/dL TSH 3rd Generation (0.47-4.68) mIU/L Serum , Qual (Negative) Urine Color (YELLOW) Urine Appearance (CLEAR) Urine pH (5-6) Ur Specific Mitchell (1.005-1.025) Urine Protein (Negative) Urine Ketones (NEGATIVE) Urine Blood (0-5) John/ul Urine Nitrite (NEGATIVE) Urine Bilirubin (NEGATIVE) Urine Urobilinogen (0-1) mg/dL Ur Leukocyte Esterase (NEGATIVE) Urine WBC (Auto) (0-5) /HPF Urine RBC (Auto) (0-2) /HPF U Epithel Cells (Auto) (FEW) /HPF Urine Bacteria (Auto) (NEGATIVE) /HPF Urine Mucus (Auto) (NEGATIVE) /HPF Urine Culture Reflexed (NO) Urine Glucose (NEGATIVE) mg/dL Influenza Type A Ag (NEGATIVE) Influenza Type B Ag (NEGATIVE) RSV (PCR) (Negative) - Progress Progress: improved, re-examined Air Movement: good Progress Note: 09/12/18 00:29 pt still had some mild CP and has prior reactions with nitro, so given MS ; 09/12/18 00:50 pt has decreased pain; discussed with pt /family and Dr. Cano and all agree best to place pt on obs due to CAD and watch trops overnight; will also change ab to zosyn; Blood Culture(s) Obtained: No Antibiotics given: Yes Discussed with : Rachael Will see patient in: hospital (observation) Counseled pt/family regarding: lab results, diagnosis, need for follow-up, rad results - Departure Departure Disposition: Observation Clinical Impression: RML pneumonia, Chest pain Condition: Good Critical Care Time: No Referrals: REKHA QUAN MD [Primary Care Provider] -
[2018-09-11 22:14] LABS: Lactic Acid 2.4 (0.4-2.0)
[2018-09-11 22:16] LABS: BASOPHIL % 0.4 % (0.0-0.4); Basophil (Absolute #) 0.04 (0-0.4); Eosinophil % 3.1 % (0.00-5.0); Eosinophil (Absolute #) 0.31 (0-0.5); Granulocyte Absolute (ANC) 5.72 (1.4-6.9); Granulocytes % 56.5 % (36.0-66.0); Hematocrit 44.3 % (35-47); Hemoglobin 14.8 gm/dl (12.0-16.0); Lymphocyte (Absolute #) 3.57 (1.0-4.6); Lymphocytes % 35.3 % (24.0-44.0); Mean Cell Volume 84.5 fl (78-100); Mean Corpuscular Hemoglobin 28.2 pg (26-32); Mean Corpuscular Hgb Concent. 33.4 g/dl (32-36); Mean Platelet Volume 9.3 fl (6-9.5); Monocyte (Absolute #) 0.48 (0.0-1.3); Monocytes % 4.7 % (0.0-12.0); Platelet Count 235 K/mm3 (150-450); Red Blood Count 5.24 M/mm3 (4.1-5.4); Red Cell Distribution Width 13.9 % (11.5-14.0); White Blood Count 10.1 K/mm3 (4.0-10.5)
[2018-09-11 22:23] LABS: Appearance CLEAR (CLEAR); Bilirubin NEGATIVE (NEGATIVE); Blood NEGATIVE Ery/ul (0-5); Epithelial Cells RARE /HPF (FEW); Glucose >=500 mg/dL (NEGATIVE); Ketones TRACE (NEGATIVE); Leukocyte Esterase NEGATIVE (NEGATIVE); Mucus SLIGHT /HPF (NEGATIVE); Nitrite NEGATIVE (NEGATIVE); Protein,Urine Dip NEGATIVE (Negative); Specific Gravity 1.038 (1.005-1.025); Urobilinogen 2 mg/dL (0-1)
[2018-09-11] MEDS ORDERED: Sodium Chloride 0.9% 1000 ML 1,000 ML IV STA ×2 (22:39→23:27)
[2018-09-11 22:58] LABS: ALBUMIN 4.1 g/dL (3.5-5.0); ALKALINE PHOSPHATASE 83 U/L (38-126); ANION GAP 13.4 MEQ/L (5-15); BLOOD UREA NITROGEN 20 mg/dL (7-17); CHLORIDE 102 mmol/L (98-107); Calcium 9.2 mg/dL (8.4-10.2); Carbon Dioxide 27 mmol/L (22-30); Creatinine 1 0.61 mg/dL (0.52-1.04); Glucose 138 mg/dL (74-106); NT PRO BNP 21.5 pg/mL (0-450); Potassium 3.8 mmol/L (3.5-5.1); SGOT/AST 18 U/L (14-36); SGPT/ALT 25 U/L (0-35); SODIUM 138 mmol/L (137-145); T4 (Thyroxine) 8.59 ug/dL (5.53-10.96)
[2018-09-11 23:04] LABS: TROPONIN < 0.012 ng/mL (0.000-0.034)
[2018-09-11] MEDS ORDERED: MORPHINE SULFATE 4 MG INJ IV ONE (23:25)
[2018-09-11] MEDS ORDERED: Zosyn 3.375GM/100 Ml D5W 3.375 GM/100 ML IVPB IV ONE ×2 (23:26→23:53)
[2018-09-11 23:36] LABS: INFLUENZA A NEGATIVE (NEGATIVE); INFLUENZA B NEGATIVE (NEGATIVE); RESPIRATORY SYNCTIAL VIRUS NEGATIVE (Negative)
[2018-09-11] MEDS ORDERED: MORPHINE SULFATE 4 MG INJ ONE (23:53)
[2018-09-12] MEDS ORDERED: Zofran 4 MG/2 ML VIAL IV PRN (01:20)
[2018-09-12] MEDS ORDERED: DUONEB 0.5-3 MG/3 ml Neb IH PRN (01:20)
[2018-09-12] MEDS ORDERED: Sodium Chloride 0.9% 1000 ML 1,000 ML IV SCH (01:20)
[2018-09-12] MEDS ORDERED: TYLENOL 325 MG PO PRN (01:20)
[2018-09-12] MEDS: MORPHINE SULFATE 4 MG INJ IV PRN ×4 (04:38→22:13)
[2018-09-12 04:39] LABS: BASOPHIL % 0.3 % (0.0-0.4); Basophil (Absolute #) 0.02 (0-0.4); Eosinophil % 3.3 % (0.00-5.0); Eosinophil (Absolute #) 0.25 (0-0.5); Granulocyte Absolute (ANC) 3.95 (1.4-6.9); Granulocytes % 51.5 % (36.0-66.0); Hematocrit 40.2 % (35-47); Hemoglobin 13.2 gm/dl (12.0-16.0); Lymphocyte (Absolute #) 3.05 (1.0-4.6); Lymphocytes % 39.8 % (24.0-44.0); Mean Cell Volume 85.5 fl (78-100); Mean Corpuscular Hemoglobin 28.1 pg (26-32); Mean Corpuscular Hgb Concent. 32.8 g/dl (32-36); Mean Platelet Volume 9.2 fl (6-9.5); Monocyte (Absolute #) 0.39 (0.0-1.3); Monocytes % 5.1 % (0.0-12.0); Platelet Count 183 K/mm3 (150-450); Red Cell Distribution Width 13.7 % (11.5-14.0); White Blood Count 7.7 K/mm3 (4.0-10.5)
[2018-09-12 04:56] LABS: ALBUMIN 3.5 g/dL (3.5-5.0); ALKALINE PHOSPHATASE 72 U/L (38-126); ANION GAP 11.2 MEQ/L (5-15); BLOOD UREA NITROGEN 20 mg/dL (7-17); CHLORIDE 108 mmol/L (98-107); Calcium 8.9 mg/dL (8.4-10.2); Carbon Dioxide 24 mmol/L (22-30); Creatinine 1 0.49 mg/dL (0.52-1.04); Glucose 132 mg/dL (74-106); Potassium 4.1 mmol/L (3.5-5.1); SGOT/AST 17 U/L (14-36); SGPT/ALT 22 U/L (0-35); SODIUM 139 mmol/L (137-145); Total Protein 6.1 g/dL (6.3-8.2)
[2018-09-12] MEDS: Zosyn 3.375GM/100 Ml D5W 3.375 GM/100 ML IVPB IV SCH ×3 (05:26→17:55)
[2018-09-12] MEDS: DUONEB 0.5-3 MG/3 ml Neb IH SCH ×4 (06:46→19:54)
[2018-09-12] MEDS ORDERED: xanAX 0.5 MG PO PRN (09:12)
[2018-09-12] MEDS ORDERED: Nitrostat 0.4 MG Tablet SL PRN (09:12)
[2018-09-12] MEDS ORDERED: SEMAGLUTIDE 0.5 MG SQ SCH (09:15)
[2018-09-12] MEDS ORDERED: NON-FORMULARY ITEM (Paroxetine Hcl [Paroxetine Hcl] 40 MG) PO SCH (10:00)
[2018-09-12] MEDS ORDERED: BABY ASPIRIN 81 MG CHEW PO SCH (10:00)
[2018-09-12] MEDS ORDERED: METFORMIN HCL PO SCH (10:00)
[2018-09-12] MEDS ORDERED: INSULIN GLARGINE HUM REC ANLOG 15 UNIT SQ SCH (10:00)
[2018-09-12] MEDS ORDERED: [UNRECOGNIZED DRUG - OTHER] PO SCH (10:00)
[2018-09-12] MEDS ORDERED: Ventolin Hfa MDI IH SCH (10:00)
[2018-09-12] MEDS ORDERED: DAPAGLIFLOZIN PO SCH (10:00)
[2018-09-12] MEDS: Cardizem CD 120 MG PO SCH (10:07)
[2018-09-12] MEDS: Lantus Insulin SQ SCH (10:07)
[2018-09-12] MEDS: Protonix 40MG Tablet PO SCH (10:07)
[2018-09-12] MEDS: Paxil 20 MG PO SCH (10:07)
[2018-09-12] MEDS: Bystolic 5 MG PO SCH (10:08)
[2018-09-12] MEDS: Pepcid 20 MG VIAL IV SCH ×2 (10:08→20:38)
[2018-09-12] MEDS: ECOTRIN 81 MG PO SCH (10:08)
[2018-09-12] MEDS: Mobic 7.5 MG PO SCH (10:08)
[2018-09-12] MEDS ORDERED: MEDICATION INTERVENTION MC SCH ×3 (10:30→10:45)
[2018-09-12] MEDS ORDERED: PROVENTIL COMMON CANISTER IH SCH (11:00)
[2018-09-12] MEDS: PATIENT OWN MEDICATION PO SCH (12:21)
--- NOTE | 2018-09-12 13:14 | XRAY ---
Indication: Short of breath and chest pain. Comparison: September 04, 2018. PA/lateral chest obtained. Lateral view limited by respiration artifact. No focal infiltrate, consolidation, or large effusion. Heart and mediastinal structures within normal limits. Bony thorax intact. Impression: Nonacute limited chest.
--- NOTE | 2018-09-12 13:17 | XRAY ---
Indication: Headache and dizziness. Multiple contiguous axial images obtained through the head without contrast. Comparison: None Normal appearing brain parenchyma, ventricles, and bony calvarium. 1.2 cm left maxillary sinus polyp/retention cyst. Remaining visualized paranasal sinuses and mastoid air cells are clear. Impression: Left sinus polyp/retention cyst. No acute intracranial abnormalities. Comment: Preliminary interpretation was made by [facility]. No critical discrepancy. CTDI 68.15
[2018-09-13] MEDS: Zosyn 3.375GM/100 Ml D5W 3.375 GM/100 ML IVPB IV SCH ×4 (00:01→17:37)
[2018-09-13] MEDS: MORPHINE SULFATE 4 MG INJ IV PRN ×2 (02:18→06:49)
[2018-09-13 05:41] LABS: BASOPHIL % 0.3 % (0.0-0.4); Basophil (Absolute #) 0.02 (0-0.4); Eosinophil (Absolute #) 0.19 (0-0.5); Granulocyte Absolute (ANC) 3.77 (1.4-6.9); Granulocytes % 60.6 % (36.0-66.0); Hematocrit 42.5 % (35-47); Hemoglobin 13.6 gm/dl (12.0-16.0); Lymphocyte (Absolute #) 1.87 (1.0-4.6); Mean Cell Volume 86.4 fl (78-100); Mean Corpuscular Hemoglobin 27.6 pg (26-32); Mean Platelet Volume 9.5 fl (6-9.5); Monocyte (Absolute #) 0.38 (0.0-1.3); Monocytes % 6.1 % (0.0-12.0); Platelet Count 191 K/mm3 (150-450); Red Blood Count 4.92 M/mm3 (4.1-5.4); White Blood Count 6.2 K/mm3 (4.0-10.5)
[2018-09-13 06:03] LABS: ANION GAP 9.7 MEQ/L (5-15); BLOOD UREA NITROGEN 14 mg/dL (7-17); CHLORIDE 101 mmol/L (98-107); Calcium 9.4 mg/dL (8.4-10.2); Carbon Dioxide 33 mmol/L (22-30); Creatinine 1 0.62 mg/dL (0.52-1.04); Glucose 120 mg/dL (74-106); Potassium 5.1 mmol/L (3.5-5.1); SODIUM 139 mmol/L (137-145)
[2018-09-13] MEDS ORDERED: Sodium Chloride 0.9% 10 ML FLUSH Syringe IV PRN (07:00)
[2018-09-13] MEDS: DUONEB 0.5-3 MG/3 ml Neb IH SCH (07:04)
--- NOTE | 2018-09-13 08:43 | PCM.NOTE ---
Date and Time: 09/13/18 0839 Subjective Assessment: patient continues to complain of burning in her chest and heaviness, has some nonproductive cough. no fever Objective Exam General Appearance: no apparent distress, alert, obese Skin Exam: normal color, warm, dry Respiratory Exam: normal breath sounds, lungs clear, No respiratory distress Cardiovascular Exam: regular rate/rhythm, normal heart sounds Gastrointestinal/Abdomen Exam: soft, No tenderness, No mass Extremity Exam: normal inspection, normal range of motion OBJECTIVE DATA Vital Signs: Vital Signs - 24 hr Temp Pulse Resp BP Pulse Ox 09/13/18 07:21 97.6 F 72 18 122/60 92 L 09/13/18 07:07 71 18 96 09/13/18 04:05 97.8 F 80 20 99/54 09/12/18 23:59 98.2 F 76 18 99/58 94 L 09/12/18 20:00 97.6 F 82 18 112/72 95 09/12/18 19:54 70 18 95 09/12/18 16:00 98.3 F 87 18 108/56 91 L 09/12/18 15:29 73 18 95 09/12/18 11:58 97.8 F 93 H 18 115/57 92 L 09/12/18 10:46 71 18 96 Pain Assessment - Last Documented Pain Intensity 5 Pain Scale Used 0-10 Pain Scale Intake and Output: Intake & Output 09/10/18 09/11/18 09/12/18 09/13/18 11:59 11:59 11:59 11:59 Intake Total 1421 1720 Output Total 300 Balance 1121 1720 Weight 131 kg 132 kg Lab Results: Accuchecks Date 09/13/18 Date 09/12/18 Date 09/12/18 Date 09/12/18 Time 07:30 Time 21:30 Time 16:30 Time 11:30 Accucheck Value: 118 Accucheck Value: 126 Accucheck Value: 121 Lab Results-Last 24 Hours 09/12/18 09/12/18 09/13/18 Range/Units 05:30 10:01 05:10 WBC (4.0-10.5) K/mm3 RBC (4.1-5.4) M/mm3 Hgb (12.0-16.0) gm/dl Hct (35-47) % MCV (78-100) fl MCH (26-32) pg MCHC (32-36) g/dl RDW (11.5-14.0) % Plt Count (150-450) K/mm3 MPV (6-9.5) fl Gran % (36.0-66.0) % Eos # (Auto) (0-0.5) Absolute Lymphs (auto) (1.0-4.6) Absolute Monos (auto) (0.0-1.3) Lymphocytes % (24.0-44.0) % Monocytes % (0.0-12.0) % Eosinophils % (0.00-5.0) % Basophils % (0.0-0.4) % Absolute Granulocytes (1.4-6.9) Basophils # (0-0.4) Sodium 139 (137-145) mmol/L Potassium 5.1 D (3.5-5.1) mmol/L Chloride 101 (98-107) mmol/L Carbon Dioxide 33 H (22-30) mmol/L Anion Gap 9.7 (5-15) MEQ/L BUN 14 (7-17) mg/dL Creatinine 0.62 (0.52-1.04) mg/dL Estimated GFR > 60.0 ML/MIN Glucose 120 H (74-106) mg/dL Hemoglobin A1c 6.41 H (4.5-6.0) % Calcium 9.4 (8.4-10.2) mg/dL Troponin I < 0.012 (0.000-0.034) ng/mL 09/13/18 Range/Units 05:10 WBC 6.2 (4.0-10.5) K/mm3 RBC 4.92 (4.1-5.4) M/mm3 Hgb 13.6 (12.0-16.0) gm/dl Hct 42.5 (35-47) % MCV 86.4 (78-100) fl MCH 27.6 (26-32) pg MCHC 32.0 (32-36) g/dl RDW 14.0 (11.5-14.0) % Plt Count 191 (150-450) K/mm3 MPV 9.5 (6-9.5) fl Gran % 60.6 (36.0-66.0) % Eos # (Auto) 0.19 (0-0.5) Absolute Lymphs (auto) 1.87 (1.0-4.6) Absolute Monos (auto) 0.38 (0.0-1.3) Lymphocytes % 30.0 (24.0-44.0) % Monocytes % 6.1 (0.0-12.0) % Eosinophils % 3.0 (0.00-5.0) % Basophils % 0.3 (0.0-0.4) % Absolute Granulocytes 3.77 (1.4-6.9) Basophils # 0.02 (0-0.4) Sodium (137-145) mmol/L Potassium (3.5-5.1) mmol/L Chloride (98-107) mmol/L Carbon Dioxide (22-30) mmol/L Anion Gap (5-15) MEQ/L BUN (7-17) mg/dL Creatinine (0.52-1.04) mg/dL Estimated GFR ML/MIN Glucose (74-106) mg/dL Hemoglobin A1c (4.5-6.0) % Calcium (8.4-10.2) mg/dL Troponin I (0.000-0.034) ng/mL Radiology Exams: Radiology Procedures Category Date Time Status CHEST 2 VIEWS (PA AND LAT) Stat Exams 09/11/18 21:58 Completed HEAD WITHOUT CONTRAST [CT] Stat Exams 09/11/18 22:04 Completed Assessment/Plan (1) RML pneumonia Current Visit: Yes Status: Acute Assessment & Plan: clinically appears to be doing well, currently on zosyn. pulm consult is pending. will schedule nebs and continue current management. burning in chest does improve with nebs Code(s): J18.1 - LOBAR PNEUMONIA, UNSPECIFIED ORGANISM (2) Chest pain Current Visit: Yes Status: Acute Assessment & Plan: recent heart cath mild, non-critical disease. noncardiac Code(s): R07.9 - CHEST PAIN, UNSPECIFIED
[2018-09-13] MEDS: NORCO 5/325 MG PO PRN ×3 (09:34→18:34)
[2018-09-13] MEDS: Cardizem CD 120 MG PO SCH (09:34)
[2018-09-13] MEDS: Bystolic 5 MG PO SCH (09:34)
[2018-09-13] MEDS: Mobic 7.5 MG PO SCH (09:35)
[2018-09-13] MEDS: Colace 100 MG PO SCH ×2 (09:35→21:50)
[2018-09-13] MEDS: ECOTRIN 81 MG PO SCH (09:35)
[2018-09-13] MEDS: Protonix 40MG Tablet PO SCH (09:35)
[2018-09-13] MEDS: PATIENT OWN MEDICATION PO SCH (09:36)
[2018-09-13] MEDS: Paxil 20 MG PO SCH (09:36)
[2018-09-13] MEDS: Lantus Insulin SQ SCH (09:37)
[2018-09-13] MEDS: Pepcid 20 MG VIAL IV SCH ×2 (09:37→21:50)
--- NOTE | 2018-09-13 10:05 | HP ---
CHIEF COMPLAINT: Dizzy, burning-type chest pain, body aches. HISTORY OF PRESENT ILLNESS: The patient is a 38 year-old white female who had stent in overnight stay at [facility] for pneumonia earlier in the week. She was placed on Augmentin and sent home. The patient called yesterday with these complaints and was instructed to go to the emergency room after which she was admitted to the hospital for evaluation and management for suspicion of pneumonia. The patient also had a heart catheterization last week that showed less than 50% blockages. Due to the chest discomfort and complaints otherwise, we did run some serial troponins which have thus far been negative. PAST MEDICAL/SURGICAL HISTORY: Otherwise significant for diabetes mellitus type 2, morbid obesity. She also had hysterectomy and plantar fasciitis surgeries. HOME MEDICATIONS: Include Albuterol, Alprazolam 0.5 mg t.i.d. PRN anxiety. She has been taking Augmentin 875 mg b.i.d., aspirin 81 mg a day, Xigduo 10 mg - 1,000 mg in the morning, diltiazem 120 mg daily. She is on insulin, Basaglar 15 units daily, Victoza 1.8 mg subcu daily, meloxicam 7.5 mg a day, Bystolic 5 mg a day, nitroglycerin PRN, pantoprazole 40 mg daily, paroxetine 40 mg, Ozempic 0.5 mg weekly. ALLERGIES: METOPROLOL. PHYSICAL EXAMINATION: The patient's vital signs in the emergency room showed temperature 97.8F, pulse 93, respiratory rate 18, blood pressure 126/89. O2 saturation 96%. HEENT: Normocephalic, atraumatic. Pupils equal round reactive to light. Extraocular movements intact. Oropharynx is pink and moist. NECK: Supple without lymphadenopathy, thyromegaly or JVD. CHEST: Clear to auscultation with good air movement bilaterally. HEART: Regular rate and rhythm. ABDOMEN: Soft. No palpable masses. EXTREMITIES: Without cyanosis, clubbing or edema. NEUROLOGIC: The patient is alert and oriented x3. LAB DATA AND TESTS: Again, troponins less than 0.012. Her initial sugar was 132, BUN 20, creatinine 0.49. Electrolytes were normal. Liver enzymes were normal. CBC was entirely normal also with a white count of 7,700, hemoglobin 13.2, PLT count 183,000. She had a lactic acid of 2.0. ProBNP was normal. TSH was normal. T4 was normal. UA showed specific gravity 1.038, glucose greater than 500 and nitrite negative, 3-5 white blood cells per high power field. The first lactic acid was 2.4. D-dimer was less than 1.09. Influenza A, B and respiratory syncytial virus were negative. HCG was negative. She also had a CT scan of the head which was negative for acute abnormalities. ASSESSMENT: A patient with history of pneumonia. Chest x-ray has not cleared although her white count is normal and she is afebrile. We have admitted her for IV Zosyn and IV fluid hydration. We will maintain her usual home medications otherwise for her diabetes and other medication.
[2018-09-13] MEDS: PROVENTIL 2.5 MG/3 ML NEB IH SCH ×4 (11:05→22:24)
[2018-09-13] MEDS: Norco 10/325 MG Tablet PO PRN (22:40)
[2018-09-14] MEDS: Zosyn 3.375GM/100 Ml D5W 3.375 GM/100 ML IVPB IV SCH ×5 (00:26→23:35)
[2018-09-14] MEDS: PROVENTIL 2.5 MG/3 ML NEB IH SCH ×6 (02:48→23:33)
[2018-09-14] MEDS: Norco 10/325 MG Tablet PO PRN ×3 (06:04→22:06)
--- NOTE | 2018-09-14 09:12 | PCM.NOTE ---
Date and Time: 09/14/18910 Subjective Assessment: She is still having burning in the chest - was 8/10 last night, now is 3/10. Intermittent. - Review of Systems Constitutional: No Fever Respiratory: Cough, Short Of Breath Objective Exam General Appearance: no apparent distress, alert, obese Neurologic Exam: oriented x 3, cooperative Skin Exam: normal color, warm, dry, No rash Ears, Nose, Throat Exam: moist mucous membranes Neck Exam: normal inspection Respiratory Exam: normal breath sounds, lungs clear, No crackles/rales, No rhonchi, No wheezing Cardiovascular Exam: regular rate/rhythm, normal heart sounds, No murmur Extremity Exam: normal inspection, No pedal edema, No swelling OBJECTIVE DATA Vital Signs: Vital Signs - 24 hr Temp Pulse Resp BP Pulse Ox 09/14/18 07:27 97.9 F 75 18 106/57 98 09/14/18 07:07 75 18 98 09/14/18 04:00 97.9 F 85 18 108/61 93 L 09/14/18 02:49 77 18 93 L 09/14/18 00:00 97.8 F 68 20 123/75 94 L 09/13/18 22:25 81 16 97 09/13/18 20:00 98.2 F 74 18 108/59 96 09/13/18 18:47 77 18 97 09/13/18 16:00 98.4 F 71 18 115/56 93 L 09/13/18 14:21 63 18 97 09/13/18 12:00 97.7 F 79 18 110/68 91 L 09/13/18 11:10 69 18 94 L Oxygen-Last 24 hours O2 Percentage 1 Liter = 24% Pain Assessment - Last Documented Pain Intensity 3 Pain Scale Used 0-10 Pain Scale Intake and Output: Intake & Output 09/11/18 09/12/18 09/13/18 09/14/18 11:59 11:59 11:59 11:59 Intake Total 1421 2080 2152 Output Total 300 500 Balance 1121 1580 2152 Weight 131 kg 132 kg 131.6 kg Lab Results: Accuchecks Date 09/14/18 Date 09/13/18 Date 09/13/18 Date 09/13/18 Time 07:30 Time 22:00 Time 16:30 Time 11:30 Accucheck Value: 121 Accucheck Value: 151 Accucheck Value: 123 Accucheck Value: 127 Assessment/Plan (1) RML pneumonia Current Visit: Yes Status: Acute Qualifiers: Pneumonia type: due to unspecified organism Qualified Code(s): J18.1 - Lobar pneumonia, unspecified organism Assessment & Plan: She is on IV zosyn. Await pulmonology consult, thank you. Code(s): J18.1 - LOBAR PNEUMONIA, UNSPECIFIED ORGANISM (2) Chest pain Current Visit: Yes Status: Acute Qualifiers: Chest pain type: other chest pain Qualified Code(s): R07.89 - Other chest pain; R07.8 - Other chest pain Assessment & Plan: Persistent but intermittent. Better this morning. Code(s): R07.9 - CHEST PAIN, UNSPECIFIED
[2018-09-14] MEDS: Bystolic 5 MG PO SCH (10:27)
[2018-09-14] MEDS: Cardizem CD 120 MG PO SCH (10:28)
[2018-09-14] MEDS: Pepcid 20 MG VIAL IV SCH ×2 (10:28→22:16)
[2018-09-14] MEDS: Protonix 40MG Tablet PO SCH (10:28)
[2018-09-14] MEDS: Colace 100 MG PO SCH ×2 (10:28→22:16)
[2018-09-14] MEDS: Mobic 7.5 MG PO SCH (10:28)
[2018-09-14] MEDS: ECOTRIN 81 MG PO SCH (10:28)
[2018-09-14] MEDS: Paxil 20 MG PO SCH (10:28)
[2018-09-14] MEDS: Lantus Insulin SQ SCH (10:29)
[2018-09-14] MEDS: PATIENT OWN MEDICATION PO SCH (10:29)
[2018-09-14] MEDS: NovoLIN R SQ PRN (22:17)
[2018-09-15] MEDS: Norco 10/325 MG Tablet PO PRN (02:42)
[2018-09-15] MEDS: PROVENTIL 2.5 MG/3 ML NEB IH SCH ×6 (03:28→23:26)
[2018-09-15] MEDS: Zosyn 3.375GM/100 Ml D5W 3.375 GM/100 ML IVPB IV SCH ×4 (05:45→23:32)
--- NOTE | 2018-09-15 07:59 | CONS ---
CONSULT DATE: 09/15/2018 HISTORY: Aure Cedeño is a 38 year-old morbidly obese woman with multiple health problems who has been hospitalized with complaints of dizziness, lightheadedness and body aches. The patient was suspected of having possible bronchopneumonia. She recently had cardiac cath at [facility] that showed two blockages of 50% per patient for which medical management was advised. She was having bronchitis-like symptoms at the time and was discharged home on Augmentin. She did report shortness of breath and chest tightness upon admission. Her D-dimer was negative. CT head was negative as well. The patient has been admitted and being treated with IV antibiotics and bronchodilators with some clinical improvement. At the time of my evaluation she is awake, comfortable and reports improvement in symptoms. She is able to talk without difficulty. Nursing staff reports that the patient does desaturate but stays above 90% on ambulation. The patient also has underlying history of obstructive sleep apnea for which she uses CPAP. PAST MEDICAL HISTORY: Positive for history of hypertension, diabetes mellitus, gastroesophageal reflux disease, anxiety and depression. SOCIAL HISTORY: The patient is a nonsmoker. FAMILY HISTORY: Her father has chronic obstructive pulmonary disease although he has been a nonsmoker. Her mother of chronic obstructive pulmonary disease at age 53. MEDICATIONS: Home and current medications are reviewed. ALLERGIES: METOPROLOL CAUSES HIVES. PHYSICAL EXAMINATION: This is a middle aged woman who appears comfortable. Vital signs noted. HEENT: Normocephalic. Pupils are reactive. Oropharynx shows very small oropharynx. NECK: Short and supple. CVS: First and second heart sounds are normal, regular, rhythmic. RESPIRATORY: Shows diminished breath sounds, clear to auscultation. ABDOMEN: Shows truncal obesity. EXTREMITIES: Lower extremities show no significant edema. LABORATORY DATA AND TESTS: X-rays reviewed. ASSESSMENT: This is a 38 year old woman admitted with: 1) Shortness of breath, etiology? 2) Symptoms of bronchopneumonia improving with antibiotic therapy. 3) Mild hypoxemia particularly with activity. 4) Underlying obstructive sleep apnea on CPAP therapy. 5) Coronary artery disease with recent cardiac cath. 6) History of hypertension. 7) Diabetes mellitus. 8) History of problem with [place]? Followed by Dr. Argueta. 9) Obesity. RECOMMENDATIONS: 1) I agree with the current treatment. 2) The patient's D-dimer was negative. Hence, possibility of deep venous thrombosis or pulmonary embolism appears less likely. 3) Continue bronchodilators. 4) Continue antibiotics. 5) Will obtain PFT as well as possibly CT chest without IV contrast to assess pulmonary symptoms better. Deep venous thrombosis prophylaxis, continue other care, will continue to follow. I discussed this plan of care with patient. Continue CPAP therapy. Thank you, Dr. Bass, for allowing me to participate in the care of this young patient.
--- NOTE | 2018-09-15 09:01 | XRAY ---
Indication: Chest pain. Pneumonia. Multiple contiguous axial images obtained through the chest without contrast as ordered. Comparison: None Lungs are slated with minimal right middle and left lower lobe fibrosis/scarring. No suspicious pulmonary mass, infiltrate, or effusion. Heart is not enlarged. Aorta is normal in course and caliber. No pathologic mediastinal lymphadenopathy. Bony thorax intact with minimal degenerative changes throughout the spine. Limited upper abdomen demonstrates hepatic steatosis and 15 cm splenomegaly. Impression: 1. Minimal fibrosis/scarring, fatty liver, and splenomegaly. 2. Remaining CT chest without contrast exam is negative. CT DI 17.76
--- NOTE | 2018-09-15 09:26 | PCM.NOTE ---
Date and Time: 09/15/18923 Subjective Assessment: cough improved, continues to have burning chest pain, was seen by Dr Bahena who recommended ct and PFT which are pending. Objective Exam General Appearance: no apparent distress, obese Skin Exam: normal color, warm, dry Respiratory Exam: normal breath sounds, lungs clear, No respiratory distress Cardiovascular Exam: regular rate/rhythm, normal heart sounds Gastrointestinal/Abdomen Exam: soft, No tenderness, No mass Extremity Exam: normal inspection, normal range of motion OBJECTIVE DATA Vital Signs: Vital Signs - 24 hr Temp Pulse Resp BP Pulse Ox 09/15/18 08:38 98 09/15/18 07:27 97.5 F 69 20 125/59 97 09/15/18 04:05 97.4 F 63 20 117/67 95 09/15/18 03:33 70 20 98 09/15/18 00:09 98.1 F 72 18 113/56 95 09/14/18 23:37 74 20 95 09/14/18 20:00 98.3 F 73 20 112/74 96 09/14/18 19:21 70 18 96 09/14/18 16:00 98.8 F 77 18 109/61 92 L 09/14/18 15:29 84 18 97 09/14/18 12:00 98.2 F 84 18 113/54 99 09/14/18 10:45 76 18 97 Oxygen-Last 24 hours O2 Percentage 1 Liter = 24% O2 Percentage 1 Liter = 24% Pain Assessment - Last Documented Pain Intensity 8 Pain Scale Used 0-10 Pain Scale Intake and Output: Intake & Output 09/12/18 09/13/18 09/14/18 09/15/18 11:59 11:59 11:59 11:59 Intake Total 1421 2080 2512 1676 Output Total 300 500 Balance 1121 1580 2512 1676 Weight 131 kg 132 kg 131.6 kg 131.8 kg Lab Results: Accuchecks Date 09/15/18 Date 09/14/18 Date 09/14/18 Time 08:17 Time 16:30 Time 12:28 Accucheck Value: 129 Accucheck Value: 182 Accucheck Value: 136 Accucheck Value: 149 Radiology Exams: Radiology Procedures Category Date Time Status CHEST WITHOUT CONTRAST [CT] Routine Exams 09/15/18 08:00 Completed Multi-Disciplinary Progress Notes: Multi-Disciplinary Progress Notes 09/14/18 15:10 Case Management Note by Radha Saeed Talked with BRENDA OLSON regarding needs at time of discharge. Patient reports residing at [home]. Patient reports plans on returning to [ home] upon discharge. Will continue to follow for all Discharge needs. Initialized on 09/14/18 15:10 - END OF NOTE Assessment/Plan (1) RML pneumonia Current Visit: Yes Status: Acute Qualifiers: Pneumonia type: due to unspecified organism Qualified Code(s): J18.1 - Lobar pneumonia, unspecified organism Assessment & Plan: on zosyn, clinically improved Code(s): J18.1 - LOBAR PNEUMONIA, UNSPECIFIED ORGANISM (2) Chest pain Current Visit: Yes Status: Acute Qualifiers: Chest pain type: other chest pain Qualified Code(s): R07.89 - Other chest pain; R07.8 - Other chest pain Assessment & Plan: ct chest and PFT pending. Code(s): R07.9 - CHEST PAIN, UNSPECIFIED
[2018-09-15] MEDS: Cardizem CD 120 MG PO SCH (10:29)
[2018-09-15] MEDS: Bystolic 5 MG PO SCH (10:29)
[2018-09-15] MEDS: Paxil 20 MG PO SCH (10:29)
[2018-09-15] MEDS: ECOTRIN 81 MG PO SCH (10:29)
[2018-09-15] MEDS: Protonix 40MG Tablet PO SCH (10:29)
[2018-09-15] MEDS: Colace 100 MG PO SCH ×2 (10:29→22:09)
[2018-09-15] MEDS: Lantus Insulin SQ SCH (10:29)
[2018-09-15] MEDS: Mobic 7.5 MG PO SCH (10:29)
[2018-09-15] MEDS: Pepcid 20 MG VIAL IV SCH ×2 (10:29→22:09)
[2018-09-15] MEDS: PATIENT OWN MEDICATION PO SCH (10:30)
--- NOTE | 2018-09-15 16:59 | PCM.DS ---
Discharge Summary Date of Admission: 09/12/18 01:16 Admitting Physician: REKHA QUAN Consults: Consults on Case 09/12/18 01:20 Consult Pulmonology Primary Care Provider: REKHA QUAN Allergies Allergies metoprolol Allergy (Verified 09/12/18 01:34) Hospital Summary - Hospital Course Hospital Course: patient was admitted with recent pneumonia, burning pain in chest. continues to have chest pain. had minimal 50% disease on recent cardiac cath. seen by pulm, ct shows minimal fibrosis/scarring. sats are good on room air, normal white count and no fever. seen by Dr Lee, will f/u as outpatient. to continue augmentin at home upon discharge - Vitals & Intake/Output Vital Signs: Vital Signs Temperature 97.7 F 09/15/18 16:00 Pulse Rate 77 09/15/18 16:00 Respiratory Rate 18 09/15/18 16:00 Blood Pressure 98/68 09/15/18 16:00 O2 Sat by Pulse Oximetry 96 09/15/18 16:00 Oxygen-Last Documented O2 Percentage 1 Liter = 24% Intake & Output: Intake & Output 09/13/18 09/14/18 09/15/18 09/16/18 11:59 11:59 11:59 11:59 Intake Total 2080 2512 1676 600 Output Total 500 400 Balance 1580 2512 1676 200 Weight 132 kg 131.6 kg 131.8 kg - Lab Result Diagrams: 09/13/18 05:10 09/13/18 05:10 Lab Results-Last 24 Hrs: Accuchecks Date 09/15/18 Date 09/15/18 Time 11:35 Time 08:17 Accucheck Value: 182 Accucheck Value: 129 Accucheck Value: 182 Micro Results-Entire Visit: Accuchecks Date 09/15/18 Date 09/15/18 Time 11:35 Time 08:17 Accucheck Value: 182 Accucheck Value: 129 Accucheck Value: 182 - Radiology Exams Ordered Rad Exams-Entire Visit: Radiology Procedures Category Date Time Status CHEST WITHOUT CONTRAST [CT] Routine Exams 09/15/18 08:00 Completed - Procedures and Test Procedures and Tests throughout Hospitalization: Therapy Orders & Screens 09/12/18 02:24 RT Screen per Nursing Assess Comment: Protocol Order Physician Instructions: Greater than 3 points order RT Admission Screen Reason For Exam: Triggered on Admission Diagnosis: RML Pneumonia; Chest Pain Diagnosis: RML Pneumonia; Chest Pain Pneumonia: Yes Home O2: No Asthma: No CHF: No Home CPAP/BIPAP: Yes Home Nebs/MDI: Yes Total Points: 13 09/12/18 03:50 Peak Expiratory Flow Rate ONCE Comment: Reason For Exam: Diagnosis: RML Pneumonia; Chest Pain Respiratory Therapy Assessment DAILY Comment: Diagnosis: RML Pneumonia; Chest Pain 09/12/18 21:26 BiPap/CPAP ROUTINE Comment: Diagnosis: RML Pneumonia; Chest Pain 09/13/18 11:09 Oxygen NASAL CANNULA 1 lpm Comment: Diagnosis: RML Pneumonia; Chest Pain 09/15/18 07:00 PFT ONCE Comment: Reason For Exam: CHEST PAIN Diagnosis: RML Pneumonia; Chest Pain 09/15/18 08:33 PFT-Body Box-RT ONCE Comment: Reason For Exam: Diagnosis: RML Pneumonia; Chest Pain [id number] ONCE Comment: Reason For Exam: Diagnosis: RML Pneumonia; Chest Pain Discharge Exam General Appearance: no apparent distress, obese Neurologic Exam: alert, oriented x 3 Respiratory Exam: normal breath sounds, lungs clear, No respiratory distress Cardiovascular Exam: regular rate/rhythm, normal heart sounds Gastrointestinal/Abdomen Exam: soft, No tenderness, No mass Extremity Exam: normal inspection, normal range of motion Skin Exam: normal color, warm, dry Final Diagnosis/Problem List - Final Discharge Diagnosis/Problem (1) RML pneumonia Current Visit: Yes Status: Acute Code(s): J18.1 - LOBAR PNEUMONIA, UNSPECIFIED ORGANISM (2) Chest pain Current Visit: Yes Status: Acute Code(s): R07.9 - CHEST PAIN, UNSPECIFIED - Discharge Disposition: Home, Self-Care Condition: Good Prescriptions: Continue Liraglutide [Victoza 2-Drew] 1.8 mg SQ DAILY PANTOPRAZOLE 40 mg Tablet [Protonix 40MG Tablet] 40 mg PO QAM Semaglutide [Ozempic] 0.5 mg SQ WEEKLY PARoxetine HCl [Paroxetine HCl] 40 mg PO DAILY Nitroglycerin 0.4 mg Tablet [Nitrostat 0.4 MG Tablet] 0.4 mg SL UD PRN PRN Reason: Pain Nebivolol HCl 5 MG [Bystolic 5 MG] 5 mg PO DAILY Meloxicam 7.5 mg [Mobic 7.5 MG] 7.5 mg PO DAILY Dapagliflozin/Metformin HCl [Xigduo Xr 10 mg-1,000 mg Tab] 1,000 mg PO DAILY Aspirin 81 gm Chew [Baby Aspirin 81 mg Chew] 81 mg PO DAILY Alprazolam 0.5 mg [xanAX 0.5 MG] 0.5 mg PO TID PRN PRN PRN Reason: Anxiety Albuterol Sulfate [Albuterol Sulfate Hfa] 2 puffs IH QID Insulin Glargine,Hum.rec.anlog [Basaglar Kwikpen U-100] 15 unit SQ DAILY Amoxicillin 875 mg PO BID Diltiazem HCl [Cardizem Cd] 120 mg PO DAILY Follow up with: AMELIA LEE [ACTIVE STAFF] - 1 Week REKHA QUAN MD [Primary Care Provider] - 1 Week
[2018-09-15] MEDS: NovoLIN R SQ PRN (22:10)
[2018-09-16] MEDS: PROVENTIL 2.5 MG/3 ML NEB IH SCH ×3 (03:12→10:42)
[2018-09-16] MEDS: Zosyn 3.375GM/100 Ml D5W 3.375 GM/100 ML IVPB IV SCH ×2 (06:19→11:43)
[2018-09-16 07:18] VITALS: O2SAT 96
[2018-09-16] MEDS: NovoLIN R SQ PRN ×2 (07:42→11:43)
--- NOTE | 2018-09-16 08:47 | PCM.DS ---
Discharge Summary Date of Admission: 09/12/18 01:16 Admitting Physician: REKHA QUAN Consults: Consults on Case 09/12/18 01:20 Consult Pulmonology Primary Care Provider: REKHA QUAN Allergies Allergies metoprolol Allergy (Verified 09/12/18 01:34) Hospital Summary - Hospital Course Hospital Course: patient was admitted with pneumonia, having recurrent chest pain. had recent cath with no significant disease. seen by Dr Lee, her cough is better but continues to have some burning chest pain. had pft and ct that showed minimal fibrosis/scarring on 09/15 - Vitals & Intake/Output Vital Signs: Vital Signs Temperature 97.8 F 09/16/18 07:17 Pulse Rate 86 09/16/18 07:17 Respiratory Rate 20 09/16/18 07:17 Blood Pressure 105/52 09/16/18 07:17 O2 Sat by Pulse Oximetry 96 09/16/18 07:17 Oxygen-Last Documented O2 Percentage 1 Liter = 24% Intake & Output: Intake & Output 09/13/18 09/14/18 09/15/18 09/16/18 11:59 11:59 11:59 11:59 Intake Total 2080 2512 1676 2486 Output Total 500 1000 Balance 1580 2512 1676 1486 Weight 132 kg 131.6 kg 131.8 kg 131.1 kg - Lab Result Diagrams: 09/13/18 05:10 09/13/18 05:10 Lab Results-Last 24 Hrs: Accuchecks Date 09/16/18 Date 09/15/18 Date 09/15/18 Time 16:30 Time 11:35 Accucheck Value: 211 Accucheck Value: 186 Accucheck Value: 160 Accucheck Value: 182 Micro Results-Entire Visit: Accuchecks Date 09/16/18 Date 09/15/18 Date 09/15/18 Time 16:30 Time 11:35 Accucheck Value: 211 Accucheck Value: 186 Accucheck Value: 160 Accucheck Value: 182 - Radiology Exams Ordered Rad Exams-Entire Visit: Radiology Procedures Category Date Time Status CHEST WITHOUT CONTRAST [CT] Routine Exams 09/15/18 08:00 Completed - Procedures and Test Procedures and Tests throughout Hospitalization: Therapy Orders & Screens 09/12/18 02:24 RT Screen per Nursing Assess Comment: Protocol Order Physician Instructions: Greater than 3 points order RT Admission Screen Reason For Exam: Triggered on Admission Diagnosis: RML Pneumonia; Chest Pain Diagnosis: RML Pneumonia; Chest Pain Pneumonia: Yes Home O2: No Asthma: No CHF: No Home CPAP/BIPAP: Yes Home Nebs/MDI: Yes Total Points: 13 09/12/18 03:50 Peak Expiratory Flow Rate ONCE Comment: Reason For Exam: Diagnosis: RML Pneumonia; Chest Pain Respiratory Therapy Assessment DAILY Comment: Diagnosis: RML Pneumonia; Chest Pain 09/12/18 21:26 BiPap/CPAP ROUTINE Comment: Diagnosis: RML Pneumonia; Chest Pain 09/13/18 11:09 Oxygen NASAL CANNULA 1 lpm Comment: Diagnosis: RML Pneumonia; Chest Pain 09/15/18 07:00 PFT ONCE Comment: Reason For Exam: CHEST PAIN Diagnosis: RML Pneumonia; Chest Pain 09/15/18 08:33 PFT-Body Box-RT ONCE Comment: Reason For Exam: Diagnosis: RML Pneumonia; Chest Pain [id number] ONCE Comment: Reason For Exam: Diagnosis: RML Pneumonia; Chest Pain Discharge Exam General Appearance: no apparent distress, obese Neurologic Exam: alert Respiratory Exam: normal breath sounds, lungs clear, No respiratory distress Cardiovascular Exam: regular rate/rhythm, normal heart sounds Gastrointestinal/Abdomen Exam: soft, No tenderness, No mass Extremity Exam: normal inspection, normal range of motion Skin Exam: normal color, warm, dry Final Diagnosis/Problem List - Final Discharge Diagnosis/Problem (1) RML pneumonia Current Visit: Yes Status: Acute Code(s): J18.1 - LOBAR PNEUMONIA, UNSPECIFIED ORGANISM (2) Chest pain Current Visit: Yes Status: Acute Code(s): R07.9 - CHEST PAIN, UNSPECIFIED - Discharge Disposition: Home, Self-Care Condition: Good Prescriptions: Continue Liraglutide [Victoza 2-Drew] 1.8 mg SQ DAILY PANTOPRAZOLE 40 mg Tablet [Protonix 40MG Tablet] 40 mg PO QAM Semaglutide [Ozempic] 0.5 mg SQ WEEKLY PARoxetine HCl [Paroxetine HCl] 40 mg PO DAILY Nitroglycerin 0.4 mg Tablet [Nitrostat 0.4 MG Tablet] 0.4 mg SL UD PRN PRN Reason: Pain Nebivolol HCl 5 MG [Bystolic 5 MG] 5 mg PO DAILY Meloxicam 7.5 mg [Mobic 7.5 MG] 7.5 mg PO DAILY Dapagliflozin/Metformin HCl [Xigduo Xr 10 mg-1,000 mg Tab] 1,000 mg PO DAILY Aspirin 81 gm Chew [Baby Aspirin 81 mg Chew] 81 mg PO DAILY Alprazolam 0.5 mg [xanAX 0.5 MG] 0.5 mg PO TID PRN PRN PRN Reason: Anxiety Albuterol Sulfate [Albuterol Sulfate Hfa] 2 puffs IH QID Insulin Glargine,Hum.rec.anlog [Basaglar Kwikpen U-100] 15 unit SQ DAILY Amoxicillin 875 mg PO BID Diltiazem HCl [Cardizem Cd] 120 mg PO DAILY Follow up with: AMELIA LEE [ACTIVE STAFF] - 1 Week REKHA QUAN MD [Primary Care Provider] - 1 Week
[2018-09-16] MEDS: Protonix 40MG Tablet PO SCH (08:53)
[2018-09-16] MEDS: Paxil 20 MG PO SCH (08:53)
[2018-09-16] MEDS: Cardizem CD 120 MG PO SCH (08:53)
[2018-09-16] MEDS: Pepcid 20 MG VIAL IV SCH (08:53)
[2018-09-16] MEDS: Mobic 7.5 MG PO SCH (08:53)
[2018-09-16] MEDS: Lantus Insulin SQ SCH (08:54)
[2018-09-16] MEDS: Colace 100 MG PO SCH (08:54)
[2018-09-16] MEDS: Bystolic 5 MG PO SCH (08:54)
[2018-09-16] MEDS: ECOTRIN 81 MG PO SCH (08:54)
[2018-09-16] MEDS: PATIENT OWN MEDICATION PO SCH (10:26)
[2018-09-16 12:22] VITALS: BP 112/64; PULSE 88
--- NOTE | 2018-09-16 12:54 | PFT ---
INDICATION: Evaluation of shortness of breath. IMPRESSION: 1) Spirometry does not show obstructive pattern. 2) A post-bronchodilator spirometry does not show statistically significant improvement in FEV1 or FVC, this however should not preclude use of these medications if clinically indicated. 3) Maximum voluntary ventilation is mildly reduced. 4) Lung volumes are within normal limits. 5) Diffusion capacity is mildly reduced but normalizes when corrected for alveolar volume. 6) Flow volume loop is unremarkable.
== END 2018-09-16 13:10 | disposition home or self-care (01) ==
LOC: ED 21:42 → MED SURG 09-12 01:16
PROVIDERS: ADMIT Family Medicine; ATTEND Family Medicine
DX: J18.1 Lobar pneumonia, unspecified organism (principal); R42 Dizziness and giddiness; R07.9 Chest pain, unspecified; E11.9 Type 2 diabetes mellitus without complications; I10 Essential (primary) hypertension; R09.02 Hypoxemia; R52 Pain, unspecified; G47.30 Sleep apnea, unspecified; E66.01 Morbid (severe) obesity due to excess calories; Z68.42 Body mass index [BMI] 45.0-49.9, adult; Z79.899 Other long term (current) drug therapy
CPT/HCPCS: 36000; 36415; 70450; 71046; 71250; 80048; 80053; 81001; 81025; 82962; 83036; 83605; 83880; 84436; 84443; 84484; 85025; 85379; 87631; 93005; 93041; 93268; 94060; 94150; 94640; 94660; 94726; 94729; 94760; 94762; 96360; 96361; 96365; 96374; 99285; G0378; J2270; J2405; J2543; J7609; A9270-GY

== ENCOUNTER 2018-10-27 14:33 | Emergency (ER) | payer OTHER ==
[2018-10-27 14:54] VITALS: O2SAT 95
--- NOTE | 2018-10-27 15:19 | ERPHSYRPT ---
- History of Present Illness Time Seen by Provider: 10/27/18 15:05 Historian: patient Exam Limitations: no limitations Patient Subjective Stated Complaint: vomitting since , she upped her Ozempic this past week from 0.5mg to 1mg but didn't take her shot this past Thursday, unable to keep any food down but is able to keep liquids down, went to [facility] yesterday and was given Zofran that hasn't helped, hs of [facility] Triage Nursing Assessment: Pt walked into the ER, vitals wnl, pulses normal, skin N/W/D, abdomen tender to palpatation in the RUQ, bowel sounds heard in all 4, doesn't appear to be in any distress Physician History: patient has had nausea and vomiting for the past 6 days. 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 Patient has had an average of 3 episodes of vomiting per day over the past 6 days with eating being a trigger. patient was seen at an outside clinic on 10/26/2018 and prescribe Zofran, which has not helped her nausea and vomiting with her eating. Timing/Duration: day(s) (6) Activities at Onset: none Quality: other (no pain, only some discomfort after vomiting) Abdominal Pain Onset Location: other (no pain currently) Pain Radiation: no radiation Severity of Pain-Max: mild Severity of Pain-Current: none Modifying Factors: Improves With: eating, vomiting. Worsens With: breathing, coughing, defecating, exercise, lying down, palpation, urinating, position, walking Associated Symptoms: nausea, vomiting, No back, No chest pain, No diaphoresis, No diarrhea, No fever/chills, No fatigue, No headache, No heartburn, No loss of appetite, No neck pain, No rash, No shortness of breath, No syncope, No weakness Previous symptoms: no prior history Allergies/Adverse Reactions: metoprolol Allergy (Verified 10/27/18 14:54) Home Medications: Alprazolam 0.5 mg [xanAX 0.5 MG] 0.5 mg PO TID PRN PRN 09/04/18 [History] Aspirin 81 gm Chew [Baby Aspirin 81 mg Chew] 81 mg PO DAILY 09/04/18 [ History] Dapagliflozin/Metformin HCl [Xigduo Xr 10 mg-1,000 mg Tab] 1,000 mg PO DAILY [History] Liraglutide [Victoza 2-Drew] 1.8 mg SQ DAILY 09/04/18 [History] Meloxicam 7.5 mg [Mobic 7.5 MG] 7.5 mg PO DAILY 09/04/18 [History] Nebivolol HCl 5 MG [Bystolic 5 MG] 5 mg PO DAILY 09/04/18 [History] Nitroglycerin 0.4 mg Tablet [Nitrostat 0.4 MG Tablet] 0.4 mg SL UD PRN [History] PANTOPRAZOLE 40 mg Tablet [Protonix 40MG Tablet] 40 mg PO QAM 09/04/18 [ History] PARoxetine HCl [Paroxetine HCl] 40 mg PO DAILY 09/04/18 [History] Semaglutide [Ozempic] 1 mg SQ WEEKLY 09/04/18 [History] Insulin Glargine,Hum.rec.anlog [Basaglar Kwikpen U-100] 15 unit SQ DAILY [History] Amlodipine Besylate [Norvasc] 2.5 mg PO DAILY 10/27/18 [History] Mifepristone [Korlym] 300 mg PO DAILY 10/27/18 [History] Hx Tetanus, Diphtheria Vaccination/Date Given: Yes Hx Influenza Vaccination/Date Given: Yes Hx Pneumococcal Vaccination/Date Given: Yes - Review of Systems Constitutional: No Fever, No Chills Eyes: No Symptoms, No Eye Redness, No Photophobia Ears, Nose, & Throat: No Symptoms, No Nose Discharge, No Throat Pain, No Painful Swallowing Respiratory: No Cough, No Dyspnea Cardiac: No Chest Pain, No Edema, No Syncope Abdominal/Gastrointestinal: Nausea, Vomiting, No Abdominal Pain, No Diarrhea, No Hematemesis, No Hematochezia, No Melena Genitourinary Symptoms: No Dysuria, No Hematuria, No Flank Pain Musculoskeletal: No Back Pain, No Neck Pain Skin: No Rash Neurological: No Dizziness, No Focal Weakness, No Sensory Changes Psychological: No Symptoms Endocrine: No Symptoms All Other Systems: Reviewed and Negative - Past Medical History Pertinent Past Medical History: Yes Neurological History: No Pertinent History ENT History: No Pertinent History Cardiac History: Angina, Coronary Artery Disease, Hypertension Respiratory History: Pneumonia Endocrine Medical History: Diabetes Type II, Other Musculoskeletal History: No Pertinent History GI Medical History: GERD, Gallbladder Disease History: No Pertinent History Psycho-Social History: Anxiety, Other Female Reproductive Disorders: Fibroids Other Medical History: cushings, 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 mass from cushings; inflammed lymph nodes around kidneys;OCD - Past Surgical History Past Surgical History: Yes Neuro Surgical History: No Pertinent History Cardiac: Cardiac Catheterization, Other Respiratory: No Pertinent History Gastrointestinal: Cholecystectomy Musculoskeletal: Other Female Surgical History: Hysterectomy Other Surgical History: plantar fascitis surgery - Social History Smoking Status: Never smoker Exposure to second hand smoke: No Drug Use: none Patient Lives Alone: No - Female History Hx Now: No (hysterectomy) - Nursing Vital Signs Nursing Vital Signs: Initial Vital Signs Temperature 98.1 F 10/27/18 14:43 Pulse Rate 89 10/27/18 14:43 Blood Pressure 117/80 10/27/18 14:43 O2 Sat by Pulse Oximetry 95 10/27/18 14:43 Pain Scale Pain Intensity 0 - Physical Exam General Appearance: no apparent distress, alert Eye Exam: PERRL/EOMI, eyes nml inspection, No scleral icterus, No pale conjunctivae Ears, Nose, Throat Exam: normal ENT inspection, pharynx normal, moist mucous membranes Neck Exam: normal inspection, non-tender, supple, full range of motion Respiratory Exam: normal breath sounds, lungs clear, No respiratory distress Cardiovascular Exam: regular rate/rhythm, normal heart sounds Gastrointestinal/Abdomen Exam: soft, No tenderness, No mass Back Exam: normal inspection, normal range of motion, No CVA tenderness, No vertebral tenderness Extremity Exam: normal inspection, normal range of motion, pelvis stable Neurologic Exam: alert, oriented x 3, cooperative, normal mood/affect, nml cerebellar function, sensation nml, No motor deficits Skin Exam: normal color, warm, dry SpO2: 95 - CT Exams Abdomen/Pelvis CT Interpretation: Negative, Other (stable hepatomegaly and splenomegaly with no acute intra-abdominal or intrapelvic abnormalities per radiologist interpretation) Ordered Tests: Active Orders 24 hr Category Date Time Status IV Insertion STAT Care 10/27/18 15:48 Active Re-Check Vital Signs STAT Care 10/27/18 15:48 Active ABDOMEN AND PELVIS W CONTRAST [CT] Stat Exams 10/27/18 15:48 Completed AMYLASE Stat Lab 10/27/18 16:09 Completed CBC W DIFF Stat Lab 10/27/18 16:09 Completed CMP Stat Lab 10/27/18 16:09 Completed LIPASE Stat Lab 10/27/18 16:09 Completed Lactic Acid Stat Lab 10/27/18 16:25 Completed Medication Summary Discontinued Medications Generic Name Dose Route Start Last Admin Trade Name Freq PRN Reason Stop Dose Admin Famotidine 20 mg 10/27/18 15:48 10/27/18 16:11 Pepcid 20 Mg Vial IV 10/27/18 15:49 20 mg STAT ONE Administration Famotidine Confirm 10/27/18 16:09 Pepcid 20 Mg Vial Administered 10/27/18 16:10 Dose 20 mg IV .STK-MED ONE Sodium Chloride 1,000 mls @ 999 mls/hr 10/27/18 15:48 10/27/18 17:29 Sodium Chloride 0.9% 1000 Ml IV 10/27/18 16:48 Infused .Q1H1M STA Infusion Sodium Chloride Confirm 10/27/18 16:09 Sodium Chloride 0.9% 1000 Ml Administered 10/27/18 16:10 Dose 1,000 mls @ ud .ROUTE .STK-MED ONE Metoclopramide HCl 10 mg 10/27/18 15:48 10/27/18 16:11 Reglan 10 Mg/2 Ml IV 10/27/18 15:49 10 mg STAT ONE Administration Metoclopramide HCl Confirm 10/27/18 16:09 Reglan 10 Mg/2 Ml Administered 10/27/18 16:10 Dose 10 mg .ROUTE .STK-MED ONE Lab/Rad Data: Laboratory Result Diagrams 10/27/18 16:09 10/27/18 16:09 Laboratory Results 10/27/18 10/27/18 10/27/18 Range/Units 16:25 16:09 16:09 WBC 8.2 (4.0-10.5) K/mm3 RBC 5.55 H (4.1-5.4) M/mm3 Hgb 15.3 (12.0-16.0) gm/dl Hct 47.0 (35-47) % MCV 84.7 (78-100) fl MCH 27.5 (26-32) pg MCHC 32.6 (32-36) g/dl RDW 13.9 (11.5-14.0) % Plt Count 239 (150-450) K/mm3 MPV 9.7 H (6-9.5) fl Gran % 61.0 (36.0-66.0) % Eos # (Auto) 0.23 (0-0.5) Absolute Lymphs (auto) 2.36 (1.0-4.6) Absolute Monos (auto) 0.60 (0.0-1.3) Lymphocytes % 28.7 (24.0-44.0) % Monocytes % 7.3 (0.0-12.0) % Eosinophils % 2.8 (0.00-5.0) % Basophils % 0.2 (0.0-0.4) % Absolute Granulocytes 5.00 (1.4-6.9) Basophils # 0.02 (0-0.4) Sodium 140 (137-145) mmol/L Potassium 4.3 (3.5-5.1) mmol/L Chloride 100 (98-107) mmol/L Carbon Dioxide 28 (22-30) mmol/L Anion Gap 15.4 H (5-15) MEQ/L BUN 14 (7-17) mg/dL Creatinine 0.60 (0.52-1.04) mg/dL Estimated GFR > 60.0 ML/MIN Glucose 144 H (74-106) mg/dL Lactic Acid 1.3 (0.4-2.0) Calcium 9.7 (8.4-10.2) mg/dL Total Bilirubin 0.40 (0.2-1.3) mg/dL AST 42 H (14-36) U/L ALT 65 H (0-35) U/L Alkaline Phosphatase 72 (38-126) U/L Serum Total Protein 7.9 (6.3-8.2) g/dL Albumin 4.6 (3.5-5.0) g/dL Amylase 54 (30-110) U/L Lipase 71 (23-300) U/L - Progress Progress: improved, re-examined Progress Note: 10/27/18 17:31 patient has no abdominal pain and her nausea vomiting has improved after IV hydration and medication. Patient has no new pain on reexamination of the abdomen. Counseled pt/family regarding: lab results, diagnosis, need for follow-up, rad results - Departure Departure Disposition: Home Clinical Impression: Nausea and vomiting in adult patient, Fatty liver, Splenomegaly Condition: Good Critical Care Time: No Referrals: UGO NUÑEZ DO [Primary Care Provider] - 10/28/18 Instructions: Nausea -- Adult, Vomiting -- Adult, Nonalcoholic Fatty Liver Disease (DC) Additional Instructions: return immediately back to the emergency department if unable even drink, have uncontrollable nausea vomiting, any new abdominal pain, or any other concerning signs or symptoms that were not present today and return visit for immediate reevaluation. Do not use your metformin per protocol for the next two days since you had IV contrast today. Prescriptions: Metoclopramide HCl [Reglan] 10 mg PO TID PRN #10 tablet PRN Reason: Nausea Omeprazole 40 mg PO DAILY #7 capsule.
[2018-10-27] MEDS ORDERED: Reglan 10 MG/2 ML IV ONE (15:48)
[2018-10-27] MEDS ORDERED: Sodium Chloride 0.9% 1000 ML 1,000 ML IV STA (15:48)
[2018-10-27] MEDS ORDERED: Pepcid 20 MG VIAL IV ONE ×2 (15:48→16:09)
[2018-10-27] MEDS ORDERED: Reglan 10 MG/2 ML ONE (16:09)
[2018-10-27] MEDS ORDERED: Sodium Chloride 0.9% 1000 ML 1,000 ML ONE (16:09)
[2018-10-27 16:12] LABS: BASOPHIL % 0.2 % (0.0-0.4); Basophil (Absolute #) 0.02 (0-0.4); Eosinophil % 2.8 % (0.00-5.0); Eosinophil (Absolute #) 0.23 (0-0.5); Hemoglobin 15.3 gm/dl (12.0-16.0); Lymphocyte (Absolute #) 2.36 (1.0-4.6); Lymphocytes % 28.7 % (24.0-44.0); Mean Cell Volume 84.7 fl (78-100); Mean Corpuscular Hgb Concent. 32.6 g/dl (32-36); Mean Platelet Volume 9.7 fl (6-9.5); Monocytes % 7.3 % (0.0-12.0); Platelet Count 239 K/mm3 (150-450); Red Blood Count 5.55 M/mm3 (4.1-5.4); Red Cell Distribution Width 13.9 % (11.5-14.0); White Blood Count 8.2 K/mm3 (4.0-10.5)
[2018-10-27 16:20] LABS: Mean Corpuscular Hemoglobin 27.5 pg (26-32)
[2018-10-27 16:30] LABS: ALBUMIN 4.6 g/dL (3.5-5.0); ALKALINE PHOSPHATASE 72 U/L (38-126); AMYLASE 54 U/L (30-110); ANION GAP 15.4 MEQ/L (5-15); BLOOD UREA NITROGEN 14 mg/dL (7-17); CHLORIDE 100 mmol/L (98-107); Calcium 9.7 mg/dL (8.4-10.2); Carbon Dioxide 28 mmol/L (22-30); Glucose 144 mg/dL (74-106); LIPASE 71 U/L (23-300); Potassium 4.3 mmol/L (3.5-5.1); SGOT/AST 42 U/L (14-36); SGPT/ALT 65 U/L (0-35); SODIUM 140 mmol/L (137-145); Total Protein 7.9 g/dL (6.3-8.2)
--- NOTE | 2018-10-27 16:52 | XRAY ---
Indication: Nausea and vomiting. History Chelsea's disease. Multiple contiguous axial images obtained through the abdomen and pelvis using 80 cc Isovue-370 contrast only. Comparison: June 04, 2018. Lung bases demonstrates minimal bibasilar dependent atelectasis. Heart is not enlarged. Again small hiatal hernia. Noncontrasted stomach and bowel loops again appear nonobstructed. Normal appendix. Patient's reports cholecystectomy and hysterectomy. Again fatty hepatomegaly today measuring 23.4 cm in greatest CC dimension. Also stable splenomegaly today measuring 14.2 cm in greatest axial dimension. No free fluid/air. Remaining liver, pancreas, spleen, adrenal glands, kidneys, ureters, bladder, and aorta appear unremarkable. No pathologic retroperitoneal lymphadenopathy. Osseous structures intact. Impression: 1. Stable fatty hepatomegaly, splenomegaly, and small hiatal hernia. 2. No new or acute intra-abdominal/pelvic abnormalities. CTDI 35.17
[2018-10-27 18:52] VITALS: PULSE 77
[2018-10-27 19:05] VITALS: BP 104/70
== END 2018-10-27 18:55 | disposition home or self-care (01) ==
LOC: ED 14:33
DX: R11.2 Nausea with vomiting, unspecified (principal); K76.0 Fatty (change of) liver, not elsewhere classified; R16.1 Splenomegaly, not elsewhere classified
CPT/HCPCS: 36000; 36415; 74177; 80053; 82150; 83605; 83690; 85025; 96360; 96374; 96375; 99284

== ENCOUNTER 2018-11-05 13:11 | Emergency (ER) | payer OTHER ==
--- NOTE | 2018-11-05 13:26 | ERPHSYRPT ---
- History of Present Illness Time Seen by Provider: 11/05/18 13:19 Source: patient Exam Limitations: no limitations Physician History: 38 y/o white female with h/o htn, diabetes, cushings syndrome presents with 3 day h/o intraoral and perioral numbness, bilateral upper ext weakness and bilateral hand weakness. pt was recently evaluated in the ED for cp and this work up was negative. pt denies abd pain, cp, and soa. Dr. Dillard, pts pcp, sent pt to ED for MRI evaluation and repeat lab evaluation. pt was placed on a new medication by her concaving machine operator one month ago. they were contacted and stated the new med should not cause these sx. pt recently had labs drawn, , and the results were normal. pt has seen a neurologist, Dr. Elizabeth, out of [place]. Allergies/Adverse Reactions: metoprolol Allergy (Verified 10/27/18 14:54) Home Medications: Alprazolam 0.5 mg [xanAX 0.5 MG] 0.5 mg PO TID PRN PRN 09/04/18 [History] Aspirin 81 gm Chew [Baby Aspirin 81 mg Chew] 81 mg PO DAILY 09/04/18 [ History] Dapagliflozin/Metformin HCl [Xigduo Xr 10 mg-1,000 mg Tab] 1,000 mg PO DAILY [History] Liraglutide [Victoza 2-Drew] 1.8 mg SQ DAILY 09/04/18 [History] Meloxicam 7.5 mg [Mobic 7.5 MG] 7.5 mg PO DAILY 09/04/18 [History] Nebivolol HCl 5 MG [Bystolic 5 MG] 5 mg PO DAILY 09/04/18 [History] Nitroglycerin 0.4 mg Tablet [Nitrostat 0.4 MG Tablet] 0.4 mg SL UD PRN [History] PARoxetine HCl [Paroxetine HCl] 40 mg PO DAILY 09/04/18 [History] Semaglutide [Ozempic] 1 mg SQ WEEKLY 09/04/18 [History] Insulin Glargine,Hum.rec.anlog [Basaglar Kwikpen U-100] 15 unit SQ DAILY [History] Mifepristone [Korlym] 300 mg PO DAILY 10/27/18 [History] Valsartan 80 mg PO DAILY 11/05/18 [History] Hx Tetanus, Diphtheria Vaccination/Date Given: Yes Hx Influenza Vaccination/Date Given: Yes Hx Pneumococcal Vaccination/Date Given: Yes - Review of Systems Constitutional: Weakness (bilat upper ext) Eyes: No Symptoms Ears, Nose, & Throat: No Symptoms Respiratory: No Symptoms Cardiac: No Symptoms Abdominal/Gastrointestinal: No Symptoms Genitourinary Symptoms: No Symptoms Musculoskeletal: No Symptoms Neurological: Parasthesia (bilat hands) Psychological: No Symptoms Endocrine: No Symptoms Hematologic/Lymphatic: No Symptoms Immunological/Allergic: No Symptoms All Other Systems: Reviewed and Negative - Past Medical History Pertinent Past Medical History: Yes Neurological History: No Pertinent History ENT History: No Pertinent History Cardiac History: Angina, Coronary Artery Disease, Hypertension Respiratory History: Pneumonia Endocrine Medical History: Diabetes Type II, Other Musculoskeletal History: No Pertinent History GI Medical History: GERD, Gallbladder Disease History: No Pertinent History Psycho-Social History: Anxiety, Other Female Reproductive Disorders: Fibroids Other Medical History: cushings, 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 mass from cushings; inflammed lymph nodes around kidneys;OCD - Past Surgical History Past Surgical History: Yes Neuro Surgical History: No Pertinent History Cardiac: Cardiac Catheterization, Other Respiratory: No Pertinent History Gastrointestinal: Cholecystectomy Musculoskeletal: Other Female Surgical History: Hysterectomy Other Surgical History: plantar fascitis surgery - Social History Smoking Status: Never smoker Exposure to second hand smoke: No Drug Use: none Patient Lives Alone: No - Nursing Vital Signs Nursing Vital Signs: Initial Vital Signs Temperature 97.6 F 11/05/18 13:14 Pulse Rate 88 11/05/18 13:14 Respiratory Rate 22 11/05/18 13:14 Blood Pressure 121/75 11/05/18 13:14 O2 Sat by Pulse Oximetry 99 11/05/18 13:14 Pain Scale Pain Intensity 2 - [place] Coma Scale Best Eye Response ([place]): (4) open spontaneously Best Verbal Response ([place]): (5) oriented Best Motor Response ([place]): (6) obeys commands [place] Total: 15 - Physical Exam General Appearance: no apparent distress, alert, anxiety Eye Exam: bilateral eye: normal inspection, PERRL, EOMI Ears, Nose, Throat Exam: normal ENT inspection, moist mucous membranes Neck Exam: normal inspection, non-tender, supple, full range of motion Respiratory: normal breath sounds, lungs clear, airway intact, No chest tenderness, No respiratory distress Cardiovascular: regular rate/rhythm, normal heart sounds, normal peripheral pulses Gastrointestinal: soft, normal bowel sounds, No tenderness Pelvic Exam: not done Rectal Exam: not done Back Exam: normal inspection, normal range of motion, No CVA tenderness, No vertebral tenderness Extremity Exam: normal inspection, normal range of motion, pelvis stable Mental Status: alert, oriented x 3, cooperative primer inspector Exam: normal hearing, normal speech, PERRL, tongue midline Coordination/Gait: normal finger to nose, normal gait, normal cerebellar function Motor/Sensory: no motor deficit, no sensory deficit, no pronator drift Skin Exam: normal color, warm, dry SpO2 Interpretation: normal O2 Delivery: Room Air - Course Nursing assessment & vital signs reviewed: Yes EKG Interpreted by Me: RATE (73), Sinus Rhythm, NORMAL AXIS, NORMAL INTERVALS, NORMAL QRS, Other (no change in EKG from comparison EKG dated 09/11/18) Ordered Tests: Active Orders 24 hr Category Date Time Status IV Insertion STAT Care 11/05/18 13:26 Active Pulse Oximetry (ED) STAT Care 11/05/18 13:26 Active HEAD WITHOUT CONTRAST [CT] Stat Exams 11/05/18 14:19 Completed CBC W DIFF Stat Lab 11/05/18 13:40 Completed CMP Stat Lab 11/05/18 13:40 Completed CULTURE,URINE Stat Lab 11/05/18 13:45 Received MAGNESIUM Stat Lab 11/05/18 13:40 Completed UA W/RFX UR CULTURE Stat Lab 11/05/18 13:45 Completed Medication Summary Discontinued Medications Generic Name Dose Route Start Last Admin Trade Name Freq PRN Reason Stop Dose Admin Lorazepam 1 mg 11/05/18 14:17 11/05/18 14:24 Ativan 2 Mg/1 Ml Vial IV 11/05/18 14:18 1 mg STAT ONE Administration Lorazepam Confirm 11/05/18 14:20 Ativan 2 Mg/1 Ml Vial Administered 11/05/18 14:21 Dose 2 mg .ROUTE .[employer] ONE Lab/Rad Data: Laboratory Result Diagrams 11/05/18 13:40 11/05/18 13:40 Laboratory Results 11/05/18 11/05/18 11/05/18 Range/Units 13:45 13:40 13:40 WBC (4.0-10.5) K/mm3 RBC (4.1-5.4) M/mm3 Hgb (12.0-16.0) gm/dl Hct (35-47) % MCV (78-100) fl MCH (26-32) pg MCHC (32-36) g/dl RDW (11.5-14.0) % Plt Count (150-450) K/mm3 MPV (6-9.5) fl Gran % (36.0-66.0) % Eos # (Auto) (0-0.5) Absolute Lymphs (auto) (1.0-4.6) Absolute Monos (auto) (0.0-1.3) Lymphocytes % (24.0-44.0) % Monocytes % (0.0-12.0) % Eosinophils % (0.00-5.0) % Basophils % (0.0-0.4) % Absolute Granulocytes (1.4-6.9) Basophils # (0-0.4) Sodium 141 (137-145) mmol/L Potassium 4.2 (3.5-5.1) mmol/L Chloride 100 (98-107) mmol/L Carbon Dioxide 26 (22-30) mmol/L Anion Gap 19.5 H (5-15) MEQ/L BUN 13 (7-17) mg/dL Creatinine 0.58 (0.52-1.04) mg/dL Estimated GFR > 60.0 ML/MIN Glucose 119 H (74-106) mg/dL Calcium 9.6 (8.4-10.2) mg/dL Magnesium 1.7 (1.6-2.3) mg/dL Total Bilirubin 0.80 (0.2-1.3) mg/dL AST 57 H (14-36) U/L ALT 83 H (0-35) U/L Alkaline Phosphatase 67 (38-126) U/L Serum Total Protein 8.1 (6.3-8.2) g/dL Albumin 4.8 (3.5-5.0) g/dL Urine Color YELLOW (YELLOW) Urine Appearance SLIGHTLY CLOUDY (CLEAR) Urine pH 5.0 (5-6) Ur Specific [place] 1.030 (1.005-1.025) Urine Protein 30 (Negative) Urine Ketones TRACE (NEGATIVE) Urine Blood NEGATIVE (0-5) John/ul Urine Nitrite NEGATIVE (NEGATIVE) Urine Bilirubin NEGATIVE (NEGATIVE) Urine Urobilinogen NEGATIVE (0-1) mg/dL Ur Leukocyte Esterase NEGATIVE (NEGATIVE) Urine WBC (Auto) 6-10 (0-5) /HPF Urine RBC (Auto) 6-10 (0-2) /HPF U Epithel Cells (Auto) RARE (FEW) /HPF Urine Bacteria (Auto) FEW (NEGATIVE) /HPF Urine Mucus (Auto) MANY (NEGATIVE) /HPF Urine Culture Reflexed YES (NO) Urine Glucose >=500 (NEGATIVE) mg/dL 11/05/18 Range/Units 13:40 WBC 8.5 (4.0-10.5) K/mm3 RBC 5.67 H (4.1-5.4) M/mm3 Hgb 15.8 (12.0-16.0) gm/dl Hct 47.8 H (35-47) % MCV 84.3 (78-100) fl MCH 27.8 (26-32) pg MCHC 33.1 (32-36) g/dl RDW 14.0 (11.5-14.0) % Plt Count 229 (150-450) K/mm3 MPV 9.8 H (6-9.5) fl Gran % 61.8 (36.0-66.0) % Eos # (Auto) 0.21 (0-0.5) Absolute Lymphs (auto) 2.46 (1.0-4.6) Absolute Monos (auto) 0.56 (0.0-1.3) Lymphocytes % 28.9 (24.0-44.0) % Monocytes % 6.6 (0.0-12.0) % Eosinophils % 2.5 (0.00-5.0) % Basophils % 0.2 (0.0-0.4) % Absolute Granulocytes 5.26 (1.4-6.9) Basophils # 0.02 (0-0.4) Sodium (137-145) mmol/L Potassium (3.5-5.1) mmol/L Chloride (98-107) mmol/L Carbon Dioxide (22-30) mmol/L Anion Gap (5-15) MEQ/L BUN (7-17) mg/dL Creatinine (0.52-1.04) mg/dL Estimated GFR ML/MIN Glucose (74-106) mg/dL Calcium (8.4-10.2) mg/dL Magnesium (1.6-2.3) mg/dL Total Bilirubin (0.2-1.3) mg/dL AST (14-36) U/L ALT (0-35) U/L Alkaline Phosphatase (38-126) U/L Serum Total Protein (6.3-8.2) g/dL Albumin (3.5-5.0) g/dL Urine Color (YELLOW) Urine Appearance (CLEAR) Urine pH (5-6) Ur Specific [place] (1.005-1.025) Urine Protein (Negative) Urine Ketones (NEGATIVE) Urine Blood (0-5) John/ul Urine Nitrite (NEGATIVE) Urine Bilirubin (NEGATIVE) Urine Urobilinogen (0-1) mg/dL Ur Leukocyte Esterase (NEGATIVE) Urine WBC (Auto) (0-5) /HPF Urine RBC (Auto) (0-2) /HPF U Epithel Cells (Auto) (FEW) /HPF Urine Bacteria (Auto) (NEGATIVE) /HPF Urine Mucus (Auto) (NEGATIVE) /HPF Urine Culture Reflexed (NO) Urine Glucose (NEGATIVE) mg/dL - Progress Progress: unchanged Progress Note: 11/05/18 15:13 ct head-no acute process. pt was sent initially to radiology dept to have mri brain. however, pt was unable to fit in mri machine and pt became claustrophobic. we gave pt ativan iv and then performed a ct head. this was normal exam. i called pts neurologist dr. elizabeth in [place]. he is out of town until 11/15/18. pts remainder of workup negative. clinically, there is no evidence of an acute cva. pts sx present for 3 days and have had improvement. pt will be discharged to home to follow up with her specialists next and dr elizabeth the following week. Counseled pt/family regarding: lab results, diagnosis, need for follow-up, rad results - Departure Departure Disposition: Home Clinical Impression: Numbness and tingling in both hands Condition: Stable Critical Care Time: No Referrals: UGO DILLARD, [Primary Care Provider] - Additional Instructions: call your primary care doctor, neurologist, pin machine operator, and concaving machine operator on Thursday11/08/18 to arrange follow up appointment. take your medications as prescribed
[2018-11-05 13:46] LABS: BASOPHIL % 0.2 % (0.0-0.4); Basophil (Absolute #) 0.02 (0-0.4); Eosinophil % 2.5 % (0.00-5.0); Eosinophil (Absolute #) 0.21 (0-0.5); Granulocyte Absolute (ANC) 5.26 (1.4-6.9); Granulocytes % 61.8 % (36.0-66.0); Hematocrit 47.8 % (35-47); Hemoglobin 15.8 gm/dl (12.0-16.0); Lymphocyte (Absolute #) 2.46 (1.0-4.6); Lymphocytes % 28.9 % (24.0-44.0); Mean Cell Volume 84.3 fl (78-100); Mean Corpuscular Hgb Concent. 33.1 g/dl (32-36); Mean Platelet Volume 9.8 fl (6-9.5); Monocyte (Absolute #) 0.56 (0.0-1.3); Monocytes % 6.6 % (0.0-12.0); Platelet Count 229 K/mm3 (150-450); Red Blood Count 5.67 M/mm3 (4.1-5.4); White Blood Count 8.5 K/mm3 (4.0-10.5)
[2018-11-05 13:49] LABS: Mean Corpuscular Hemoglobin 27.8 pg (26-32)
[2018-11-05 14:00] LABS: ALBUMIN 4.8 g/dL (3.5-5.0); ALKALINE PHOSPHATASE 67 U/L (38-126); ANION GAP 19.5 MEQ/L (5-15); BLOOD UREA NITROGEN 13 mg/dL (7-17); CHLORIDE 100 mmol/L (98-107); Calcium 9.6 mg/dL (8.4-10.2); Carbon Dioxide 26 mmol/L (22-30); Creatinine 1 0.58 mg/dL (0.52-1.04); Glucose 119 mg/dL (74-106); Potassium 4.2 mmol/L (3.5-5.1); SGOT/AST 57 U/L (14-36); SGPT/ALT 83 U/L (0-35); SODIUM 141 mmol/L (137-145); Total Protein 8.1 g/dL (6.3-8.2)
[2018-11-05 14:15] LABS: Appearance SLIGHTLY CLOUDY (CLEAR); Bacteria FEW /HPF (NEGATIVE); Bilirubin NEGATIVE (NEGATIVE); Blood NEGATIVE Ery/ul (0-5); Epithelial Cells RARE /HPF (FEW); Glucose >=500 mg/dL (NEGATIVE); Ketones TRACE (NEGATIVE); Leukocyte Esterase NEGATIVE (NEGATIVE); Mucus MANY /HPF (NEGATIVE); Nitrite NEGATIVE (NEGATIVE); Protein,Urine Dip 30 (Negative); Urobilinogen NEGATIVE mg/dL (0-1)
[2018-11-05] MEDS ORDERED: Ativan 2 MG/1 ML VIAL IV ONE (14:17)
[2018-11-05] MEDS ORDERED: Ativan 2 MG/1 ML VIAL ONE (14:20)
[2018-11-05 15:02] VITALS: BP 108/81
--- NOTE | 2018-11-05 15:04 | XRAY ---
Indication: Facial, arm, and leg numbness 1-2 weeks.. Jumbled speech. Multiple contiguous axial images obtained through the head without contrast. Comparison: September 11, 2018. Again normal appearing brain parenchyma, ventricles, and bony calvarium. 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 Impression: Stable left maxillary sinus polyp/retention cyst. CT head without contrast exam remains normal. CTDI 71.08
[2018-11-05 15:40] VITALS: PULSE 88; O2SAT 94
== END 2018-11-05 15:41 | disposition home or self-care (01) ==
LOC: ED 13:11
DX: R20.0 Anesthesia of skin (principal); R20.2 Paresthesia of skin
CPT/HCPCS: 36415; 70450; 80053; 81001; 83735; 85025; 87086; 94760; 96374; 99284; J2060

== ENCOUNTER 2018-11-09 18:20 | Observation (INO) | payer OTHER ==
[2018-11-09 20:36] LABS: Mean Cell Volume 84.7 fl (78-100); Mean Corpuscular Hemoglobin 27.6 pg (26-32); Mean Corpuscular Hgb Concent. 32.6 g/dl (32-36); Mean Platelet Volume 9.8 fl (6-9.5); Platelet Count 258 K/mm3 (150-450); Red Blood Count 5.43 M/mm3 (4.1-5.4); Red Cell Distribution Width 13.8 % (11.5-14.0); White Blood Count 8.1 K/mm3 (4.0-10.5)
[2018-11-09 21:21] LABS: ALBUMIN 4.7 g/dL (3.5-5.0); ALKALINE PHOSPHATASE 70 U/L (38-126); ANION GAP 18.9 MEQ/L (5-15); BLOOD UREA NITROGEN 13 mg/dL (7-17); CHLORIDE 98 mmol/L (98-107); Calcium 9.8 mg/dL (8.4-10.2); Carbon Dioxide 30 mmol/L (22-30); Creatinine 1 0.64 mg/dL (0.52-1.04); Glucose 161 mg/dL (74-106); MAGNESIUM 1.6 mg/dL (1.6-2.3); Potassium 4.8 mmol/L (3.5-5.1); SGOT/AST 46 U/L (14-36); SGPT/ALT 59 U/L (0-35); SODIUM 142 mmol/L (137-145); Total Protein 7.8 g/dL (6.3-8.2)
[2018-11-09] MEDS ORDERED: DIOVAN 80 MG PO SCH (22:00)
[2018-11-09] MEDS ORDERED: Bystolic 5 MG PO SCH (22:00)
[2018-11-09] MEDS ORDERED: Paxil 20 MG PO SCH (22:00)
[2018-11-09] MEDS ORDERED: BABY ASPIRIN 81 MG CHEW PO SCH (22:00)
[2018-11-09] MEDS ORDERED: xanAX 0.5 MG PO PRN (22:00)
[2018-11-09] MEDS ORDERED: MORPHINE SULFATE 4 MG INJ IV PRN (23:30)
[2018-11-09 23:55] VITALS: BP 113/55; PULSE 85; O2SAT 96
[2018-11-10] MEDS ORDERED: NORCO 5/325 MG PO PRN
[2018-11-10] MEDS ORDERED: Zosyn 3.375GM/100 Ml D5W 3.375 GM/100 ML IVPB IV SCH
[2018-11-10] MEDS ORDERED: Zofran 4 MG/2 ML VIAL IV PRN
--- NOTE | 2018-12-02 14:03 | PCM.SSS ---
History of Present Illness - Chief Complaint Chief Complaint: PERIORAL AND TONGUE NUMBNESS PROGRESSED TO DIFFICULTY SWALLOWING, DIPLOPIA Date: 11/10/18 History of Present Illness: is a 38 year old female who developed symptoms of numbness and burning pain in her hands and feet which started about a week ago ,then developed numbness in the back of her throat and roof of mouth and tongue. The day of admission she developed difficulty swallowing even her own saliva. She has an appt with her Neurologist but he is currently out of town. 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 Patient is followed by [facility] for DM2 and Adrenal Cushings.Patient also has hypertension and Sleep apnea and uses her Cpap faithfully. - Review of Systems Constitutional: No Symptoms Eyes: Double Vision (transient ) Ears, Nose, & Throat: Other (numbness intraoral and throat and tongue progressed to trouble swallowing today) Respiratory: No Cough, No Short Of Breath Cardiac: No Chest Pain, No Edema, No Syncope Abdominal/Gastrointestinal: No Abdominal Pain, No Nausea, No Vomiting, No Diarrhea Musculoskeletal: No Back Pain, No Neck Pain Skin: No Rash Neurological: Other (numb inside entire mouth and tongue progressed to trouble swallowing day of admission) Medications & Allergies Home Medications: Home Medication List Alprazolam 0.5 mg [xanAX 0.5 MG] 0.5 mg PO TID PRN PRN 09/04/18 [History Confirmed 11/09/18] Aspirin 81 gm Chew [Baby Aspirin 81 mg Chew] 81 mg PO HS 09/04/18 [ History Confirmed 11/09/18] Dapagliflozin/Metformin HCl [Xigduo Xr 10 mg-1,000 mg Tab] 1,000 mg PO HS [History Confirmed 11/09/18] Liraglutide [Victoza 2-Drew] 1.8 mg SQ HS 09/04/18 [History Confirmed 11/09/18] Nebivolol HCl 5 MG [Bystolic 5 MG] 5 mg PO HS 09/04/18 [History Confirmed 11/09/18] Nitroglycerin 0.4 mg Tablet [Nitrostat 0.4 MG Tablet] 0.4 mg SL UD PRN [History Confirmed 11/09/18] PARoxetine HCl [Paroxetine HCl] 40 mg PO HS 09/04/18 [History Confirmed 11/09/18 ] Semaglutide [Ozempic] 1 mg SQ WEEKLY 09/04/18 [History Confirmed 11/09/18] Insulin Glargine,Hum.rec.anlog [Basaglar Kwikpen U-100] 18 unit SQ DAILY [History Confirmed 11/09/18] Metoclopramide HCl [Reglan] 10 mg PO TID PRN #10 tablet 10/27/18 [Rx Confirmed 11/09/18] Mifepristone [Korlym] 300 mg PO HS 10/27/18 [History Confirmed 11/09/18] Valsartan 80 mg PO HS 11/05/18 [History Confirmed 11/09/18] Omeprazole 40 mg PO HS 11/09/18 [History Confirmed 11/09/18] Allergies/Adverse Reactions: Allergies Allergy/AdvReac Type Severity Reaction Status Date / Time metoprolol Allergy Verified 10/27/18 14:54 - Past Medical History Past Medical History: Yes Neurological History: No Pertinent History ENT History: No Pertinent History Cardiac History: Angina, Coronary Artery Disease, Hypertension, Other Respiratory History: Pneumonia, Sleep Apnea Endocrine Medical History: Diabetes Type II, Other (cushings,adrenal) Musculoskelatal History: No Pertinent History GI Medical History: GERD, Gallbladder Disease History: No Pertinent History Pyscho-Social History: Anxiety, Other Reproductive Disorders: Fibroids Comment: cushings, 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 mass from cushings; inflammed lymph nodes around kidneys;OCD - Female History Are you now?: No - Past Surgical History Past Surgical History: Yes Neuro Surgical History: No Pertinent History Cardiac History: Cardiac Catheterization, Other Respiratory Surgery: No Pertinent History GI Surgical History: Cholecystectomy Musculskeletal Surgical Hx: Other Female Surgical History: Hysterectomy Other Surgical History: plantar fascitis surgery - Social History Smoking Status: Never smoker Exposure to second hand smoke: No Alcohol: None Drug Use: none - Physical Exam General Appearance: anxiety Neurologic Exam: alert, oriented x 3, cooperative, nml cerebellar function, nml station & gait, sensory deficit (intraoral and tongue,trouble swallowing) Eye Exam: PERRL/EOMI Ears, Nose, Throat Exam: moist mucous membranes (some drool present) Neck Exam: normal inspection Respiratory Exam: normal breath sounds Cardiovascular Exam: regular rate/rhythm Gastrointestinal/Abdomen Exam: soft (j), normal bowel sounds, No tenderness, No mass Rectal Exam: deferred Extremity Exam: swelling (hands and feet) Skin Exam: normal color, dry, other (face flushed) Assessment/Plan (1) Difficulty swallowing Status: Acute Qualifiers: Dysphagia type: oropharyngeal phase Qualified Code(s): R13.12 - Dysphagia, oropharyngeal phase Assessment & Plan: Neurology for work up and management Code(s): R13.10 - DYSPHAGIA, UNSPECIFIED (2) Paresthesia of upper and lower extremities of both sides Status: Acute Code(s): R20.2 - PARESTHESIA OF SKIN (3) Numbness of tongue Status: Acute Assessment & Plan: progressed to difficulty swallowing -workup and management referred to Neurology Code(s): R20.0 - ANESTHESIA OF SKIN (4) Adrenal Chelsea's syndrome Status: Acute Assessment & Plan: is followed by [facility] on medication [facility] Code(s): E24.9 - CHELSEA'S SYNDROME, UNSPECIFIED Hospital Summary - Vitals & Intake/Output Vital Signs: Vital Signs Temperature 98.1 F 11/09/18 23:54 Pulse Rate 85 11/09/18 23:54 Respiratory Rate 21 11/09/18 23:54 Blood Pressure 113/55 11/09/18 23:54 O2 Sat by Pulse Oximetry 96 11/09/18 23:54 - Lab Result Diagrams: 11/09/18 20:33 11/09/18 20:33 - Procedures and Test Procedures and Tests throughout Hospitalization: Therapy Orders & Screens 11/09/18 19:42 Respiratory Therapy Consult ROUTINE Comment: HOME CPAP AT HOME SETTINGS Reason For Exam: Diagnosis: PERIORAL AND TONGUE NUMBNESS PROGRESSED TO DIFFICULTY SWALLOWING, DIPLOPIA 11/09/18 20:18 BiPap/CPAP QHS Comment: Diagnosis: PERIORAL AND TONGUE NUMBNESS PROGRESSED TO DIFFICULTY SWALLOWING, DIPLOPIA 11/10/18 08:00 EEG 41-60 Minutes (Normal) ONCE Comment: Reason For Exam: Diagnosis: PERIORAL AND TONGUE NUMBNESS PROGRESSED TO DIFFICULTY SWALLOWING, DIPLOPIA - Discharge Disposition: DC TO OTHER HOSP Condition: Stable Prescriptions: No Action Liraglutide [Victoza 2-Drew] 1.8 mg SQ HS Semaglutide [Ozempic] 1 mg SQ WEEKLY PARoxetine HCl [Paroxetine HCl] 40 mg PO HS Nitroglycerin 0.4 mg Tablet [Nitrostat 0.4 MG Tablet] 0.4 mg SL UD PRN PRN Reason: Pain Nebivolol HCl 5 MG [Bystolic 5 MG] 5 mg PO HS Dapagliflozin/Metformin HCl [Xigduo Xr 10 mg-1,000 mg Tab] 1,000 mg PO HS Aspirin 81 gm Chew [Baby Aspirin 81 mg Chew] 81 mg PO HS Alprazolam 0.5 mg [xanAX 0.5 MG] 0.5 mg PO TID PRN PRN PRN Reason: Anxiety Insulin Glargine,Hum.rec.anlog [Aimeeaglvenkat Shepard U-100] 18 unit SQ DAILY Mifepristone [Korlym] 300 mg PO HS Metoclopramide HCl [Reglan] 10 mg PO TID PRN #10 tablet PRN Reason: Nausea Valsartan 80 mg PO HS Omeprazole 40 mg PO HS Follow up with: UGO NUÑEZ DO [Primary Care Provider] - 1 Week
== END 2018-11-10 02:20 ==
LOC: MED SURG 19:21
PROVIDERS: ADMIT Family Medicine; ATTEND Family Medicine
DX: R13.10 Dysphagia, unspecified (principal); R20.0 Anesthesia of skin; H53.2 Diplopia; E24.9 Cushing's syndrome, unspecified; E11.9 Type 2 diabetes mellitus without complications; I10 Essential (primary) hypertension; Z79.899 Other long term (current) drug therapy
CPT/HCPCS: 36415; 80053; 82533; 82962; 83036; 83735; 84443; 85027; 93268; 94760; G0378; Q3014

== ENCOUNTER 2019-03-01 10:27 | Observation (INO) | payer OTHER ==
[2019-03-01] MEDS ORDERED: SUBLIMAZE 100 MCG/2 ML IV ONE ×2 (10:35→12:20)
[2019-03-01] MEDS ORDERED: Sodium Chloride 0.9% 1000 ML 1,000 ML IV STA ×2 (10:35→13:00)
[2019-03-01] MEDS ORDERED: Zofran 4 MG/2 ML VIAL IV ONE (10:35)
[2019-03-01 11:03] LABS: A-aADO2 26; ABG POTASSIUM 4.1 (3.5-5.1); ARTERIAL BLOOD GAS BASE EXCESS 1.7 (-2.0-2.0); ARTERIAL BLOOD GAS PCO2 45 mmHg (35-45); ARTERIAL BLOOD GAS PO2 67 mmHg (75-100); ARTERIAL BLOOD GAS pH 7.39 (7.35-7.45); HCO3- 27.2 (22-28); HGB O2 SAT 93.8 g/dF (94-100); Lactic Acid 2.6 (0.4-2.0); Methhemoglobin 0.8 % (1.4-1.5); paO2 pAO1 0.72
[2019-03-01 11:04] LABS: ABG HEMOGLOBIN 14.7
[2019-03-01 11:05] LABS: Absolute Neutrophil Ct (ANC) 3.83 (1.4-6.9); BASOPHIL % 0.3 % (0.0-0.4); Basophil (Absolute #) 0.02 (0-0.4); Eosinophil % 1.2 % (0.00-5.0); Eosinophil (Absolute #) 0.08 (0-0.5); Hematocrit 42.2 % (35-47); Hemoglobin 14.2 gm/dl (12.0-16.0); Lymphocyte (Absolute #) 2.33 (1.0-4.6); Mean Cell Volume 85.6 fl (78-100); Mean Corpuscular Hemoglobin 28.8 pg (26-32); Mean Corpuscular Hgb Concent. 33.6 g/dl (32-36); Mean Platelet Volume 9.8 fl (7.5-11.0); Monocyte (Absolute #) 0.39 (0.0-1.3); Monocytes % 5.9 % (0.0-12.0); Neutrophil % 57.6 % (36.0-66.0); PROTIME 11.3 SECONDS (9.95-12.35); Platelet Count 217 K/mm3 (150-450); Red Blood Count 4.93 M/mm3 (4.1-5.4); White Blood Count 6.7 K/mm3 (4.0-10.5)
[2019-03-01 11:05] LABS: ARTERIAL BLOOD GAS FIO2 21 %
[2019-03-01 11:06] LABS: ABG SITE RIGHT RADIAL; ALLEN TEST OK? YES
[2019-03-01 11:10] LABS: ARTERIAL BLD GAS O2 SATURATION 96.4 % (95-100)
--- NOTE | 2019-03-01 11:10 | XRAY ---
Indication: Chest pain. Comparison: September 11, 2018. Portable chest again demonstrates normal heart and lungs. Bony thorax intact.
[2019-03-01] MEDS ORDERED: Zofran 4 MG/2 ML VIAL ONE (11:11)
[2019-03-01] MEDS ORDERED: Sodium Chloride 0.9% 1000 ML 1,000 ML ONE ×2 (11:11→13:02)
[2019-03-01] MEDS ORDERED: SUBLIMAZE 100 MCG/2 ML ONE ×2 (11:11→12:26)
[2019-03-01 11:19] LABS: ALBUMIN 4.3 g/dL (3.5-5.0); ALKALINE PHOSPHATASE 79 U/L (38-126); AMYLASE 41 U/L (30-110); ANION GAP 12.4 MEQ/L (5-15); BLOOD UREA NITROGEN 11 mg/dL (7-17); CHLORIDE 99 mmol/L (98-107); CK-Creatinine Phosphokinase 57 U/L (30-135); Calcium 9.5 mg/dL (8.4-10.2); Carbon Dioxide 29 mmol/L (22-30); Glucose 300 mg/dL (74-106); LIPASE 42 U/L (23-300); MAGNESIUM 1.7 mg/dL (1.6-2.3); Potassium 4.3 mmol/L (3.5-5.1); SGOT/AST 26 U/L (14-36); SGPT/ALT 35 U/L (0-35); SODIUM 136 mmol/L (137-145); Total Protein 7.4 g/dL (6.3-8.2)
[2019-03-01 11:22] LABS: Appearance CLEAR (CLEAR); Bilirubin NEGATIVE (NEGATIVE); Blood NEGATIVE Ery/ul (0-5); Epithelial Cells RARE /HPF (FEW); Glucose >=500 mg/dL (NEGATIVE); Ketones NEGATIVE (NEGATIVE); Leukocyte Esterase NEGATIVE (NEGATIVE); Nitrite NEGATIVE (NEGATIVE); Protein,Urine Dip NEGATIVE (Negative); Specific Gravity 1.017 (1.005-1.025); Urobilinogen NEGATIVE mg/dL (0-1); WBC 0-2 /HPF (0-5)
[2019-03-01 11:25] LABS: D-DIMER QUANTITATIVE < 215 ng/mL (215-500)
[2019-03-01 13:17] LABS: Lactic Acid 2.8 (0.4-2.0)
--- NOTE | 2019-03-01 13:42 | ERPHSYRPT ---
- History of Present Illness Time Seen by Provider: 03/01/19 10:40 Patient Subjective Stated Complaint: PATIENT ARRIVED TO ER WITH COMPLAINTS OF CHEST PAIN. PATIENT STATES " MY CHEST JUST FEELS REALLY HEAVY" PATIENT STATES PAIN IN CHEST IS 7 AND IT RADIATES AROUND INTO HER BACK. PATIENT STATED SHE WAS AT DR. UMANZOR OFFICE ON 02/28/18 AND RECEIVED SOME FLUIDS AND ATB INJECTION R/ T LEFT EAR INFECTION. PATIENT STATES SHE TOOK NITRO FOR PAIN AROUND 1000 THEN SHE STATED SHE VOMITED AFTERWORD. Triage Nursing Assessment: PATIENT ARRIVED TO ER BY FRIEND WITH COMPLAINTS NOF CHEST PAIN. CENTRAL COLOR FAIR. SKIN WARM DRY INTACT. PATIENT ABLE TO ANSWER ALL QUESTIONS APPROPRIATLEY. PATIENT NOTED WITH MOST COUGH. PATIENT STATED SHE GETS UP LITTLE AMOUNTS OF MUCOUS AT A TIME AND IT IS WHITE IN COLOR. PATIENT HAS COMPLAINTS OF LEFT EAR PAIN. LUNGS CLEAR WITH EXCEPTION SOME RHONCI/ WHEEZING HEARD IN UPPER LOBE ON INSPIRATORY AND EXPIRATORY. 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 She describes the discomfort as heaviness her blood sugars have been running extremely high she did have some urinary incontinence because of her diuresis. She was started on Humalog yesterday her blood sugar down to the 300 range blood infusion help yesterday as an outpatient she is also noted to have an ear infection by her PCP was given a Rocephin shot in her office cardiac- dias she is followed by Dr. Bowling. Timing/Duration: yesterday Activities at Onset: none Quality: fullness, tightness Location: substernal Chest Pain Radiation: back Severity of Pain-Max: mild Severity of Pain-Current: mild Modifying Factors: Improves With: nothing Associated Symptoms: nausea, vomiting, diaphoresis Nitro Today/Relief: no nitro taken today Aspirin Treatment Today: 325 mg x 1, provided by ED Allergies/Adverse Reactions: metoprolol Allergy (Mild, Verified 03/01/19 10:49) Hives Home Medications: Alprazolam 0.5 mg [xanAX 0.5 MG] 0.5 mg PO TID PRN PRN 09/04/18 [History] Aspirin 81 gm Chew [Baby Aspirin 81 mg Chew] 81 mg PO HS 09/04/18 [History ] Nebivolol HCl 5 MG [Bystolic 5 MG] 5 mg PO HS 09/04/18 [History] Nitroglycerin 0.4 mg Tablet [Nitrostat 0.4 MG Tablet] 0.4 mg SL UD PRN [History] PARoxetine HCl [Paroxetine HCl] 40 mg PO HS 09/04/18 [History] Semaglutide [Ozempic] 1 mg SQ WEEKLY 09/04/18 [History] Insulin Glargine,Hum.rec.anlog [Basaglar Kwikpen U-100] 30 unit SQ DAILY [History] Mifepristone [Korlym] 300 mg PO HS 10/27/18 [History] Valsartan 80 mg PO HS 11/05/18 [History] Omeprazole 40 mg PO HS 11/09/18 [History] Metformin HCl 500 mg [Glucophage 500 MG] 500 mg PO BIDWM 02/28/19 [History ] Hx Tetanus, Diphtheria Vaccination/Date Given: Yes Hx Influenza Vaccination/Date Given: No Hx Pneumococcal Vaccination/Date Given: Yes - Review of Systems Constitutional: Lethargy, Malaise, No Fever, No Chills Eyes: No Symptoms Ears, Nose, & Throat: No Symptoms Respiratory: Dyspnea, No Cough Cardiac: Chest Pain, No Edema, No Syncope Abdominal/Gastrointestinal: Nausea, Vomiting, No Abdominal Pain, No Diarrhea Genitourinary Symptoms: No Dysuria Musculoskeletal: No Back Pain, No Neck Pain Skin: No Rash Neurological: No Dizziness, No Focal Weakness, No Sensory Changes Psychological: No Symptoms Endocrine: No Symptoms All Other Systems: Reviewed and Negative - Past Medical History Pertinent Past Medical History: Yes Neurological History: Other ENT History: No Pertinent History Cardiac History: Angina, Coronary Artery Disease, Hypertension, Other Respiratory History: Pneumonia, Sleep Apnea Endocrine Medical History: Diabetes Type II, Other Musculoskeletal History: No Pertinent History GI Medical History: GERD, Gallbladder Disease History: No Pertinent History Psycho-Social History: Anxiety, Other Female Reproductive Disorders: Fibroids Other Medical History: cushings, 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 neurological testing currently due to swallowing issues and facial numbness- R/O Guillan barre and MS - Past Surgical History Past Surgical History: Yes Neuro Surgical History: No Pertinent History Cardiac: Cardiac Catheterization, Other Respiratory: No Pertinent History Gastrointestinal: Cholecystectomy Genitourinary: No Pertinent History Musculoskeletal: Other Female Surgical History: Hysterectomy Other Surgical History: plantar fascitis surgery - Social History Smoking Status: Never smoker Exposure to second hand smoke: No Drug Use: none Patient Lives Alone: No - Female History Hx Last Menstrual Period: HYSTERECTOMY Hx Now: No - Nursing Vital Signs Nursing Vital Signs: Initial Vital Signs Temperature 97.9 F 03/01/19 10:32 Pulse Rate 86 03/01/19 10:32 Respiratory Rate 16 03/01/19 10:32 Blood Pressure 125/81 03/01/19 10:32 O2 Sat by Pulse Oximetry 96 03/01/19 10:32 Pain Scale Pain Intensity 3 - Physical Exam General Appearance: no apparent distress, alert Eye Exam: PERRL/EOMI, eyes nml inspection Ears, Nose, Throat Exam: normal ENT inspection, moist mucous membranes Neck Exam: normal inspection, non-tender, supple, full range of motion Respiratory Exam: normal breath sounds, lungs clear, No respiratory distress Cardiovascular Exam: regular rate/rhythm, normal heart sounds Gastrointestinal/Abdomen Exam: soft, No tenderness, No mass Back Exam: normal inspection, No CVA tenderness, No vertebral tenderness Extremity Exam: normal inspection, normal range of motion Neurologic Exam: alert, oriented x 3, cooperative, normal mood/affect, sensation nml, No motor deficits Skin Exam: normal color, warm, dry SpO2 Interpretation: normal SpO2: 99 O2 Delivery: Room Air - Course Nursing assessment & vital signs reviewed: Yes EKG Interpreted by Me: RATE ([id number]), Sinus Rhythm, NORMAL AXIS, NORMAL INTERVALS, NORMAL QRS, Non-specific ST Changes - Radiology Exams Chest X-ray Interpretation: Negative Ordered Tests: Active Orders 24 hr Category Date Time Status Accucheck STAT Care 03/01/19 10:38 Active Hander In STAT Care 03/01/19 10:36 Active EKG-ER Only STAT Care 03/01/19 10:35 Active IV Insertion STAT Care 03/01/19 10:35 Active Oxygen-ED Only Nasal Cannula 2 lpm Care 03/01/19 11:23 Active CHEST 1 VIEW (PORTABLE) Stat Exams 03/01/19 10:36 Completed AMYLASE Stat Lab 03/01/19 10:40 Completed ARTERIAL BLOOD GASES Urgent Lab 03/01/19 10:55 Completed CBC W DIFF Stat Lab 03/01/19 10:40 Completed CK-Creatinine Phosphokinase Stat Lab 03/01/19 10:40 Completed CMP Stat Lab 03/01/19 10:40 Completed D-DIMER QUANTITATIVE Stat Lab 03/01/19 10:40 Completed LIPASE Stat Lab 03/01/19 10:40 Completed Lactic Acid Stat Lab 03/01/19 13:02 Results Lactic Acid Urgent Lab 03/01/19 10:55 Completed MAGNESIUM Stat Lab 03/01/19 10:40 Completed NT PRO BNP Stat Lab 03/01/19 10:40 Completed PROTIME WITH INR Stat Lab 03/01/19 10:40 Completed TROPONIN Q3H Lab 03/01/19 10:40 Completed TROPONIN Q3H Lab 03/01/19 12:37 Completed TROPONIN Q3H Lab 03/01/19 16:45 Ordered TROPONIN Q3H Lab 03/01/19 19:45 Ordered TROPONIN Q3H Lab 03/01/19 22:45 Ordered UA W/RFX UR CULTURE Stat Lab 03/01/19 11:10 Completed Medication Summary Generic Name Dose Route Start Last Admin Trade Name Freq PRN Reason Stop Dose Admin Sodium Chloride 1,000 mls @ 999 mls/hr 03/01/19 13:00 03/01/19 13:03 Sodium Chloride 0.9% 1000 Ml IV 03/01/19 14:00 999 mls/hr .Q1H1M STA Administration Discontinued Medications Generic Name Dose Route Start Last Admin Trade Name Freq PRN Reason Stop Dose Admin Fentanyl Citrate 75 mcg 03/01/19 10:35 03/01/19 11:15 Sublimaze 100 Mcg/2 Ml IV 03/01/19 10:36 75 mcg STAT ONE Administration Fentanyl Citrate Confirm 03/01/19 11:11 Sublimaze 100 Mcg/2 Ml Administered 03/01/19 11:12 Dose 100 mcg .ROUTE .STK-MED ONE Fentanyl Citrate 75 mcg 03/01/19 12:20 03/01/19 12:28 Sublimaze 100 Mcg/2 Ml IV 03/01/19 12:21 75 mcg STAT ONE Administration Fentanyl Citrate Confirm 03/01/19 12:26 Sublimaze 100 Mcg/2 Ml Administered 03/01/19 12:27 Dose 100 mcg .ROUTE .STK-MED ONE Sodium Chloride 1,000 mls @ 999 mls/hr 03/01/19 10:35 03/01/19 12:16 Sodium Chloride 0.9% 1000 Ml IV 03/01/19 11:35 Infused .Q1H1M STA Infusion Sodium Chloride Confirm 03/01/19 11:11 Sodium Chloride 0.9% 1000 Ml Administered 03/01/19 11:12 Dose 1,000 mls @ ud .ROUTE .STK-MED ONE Sodium Chloride Confirm 03/01/19 13:02 Sodium Chloride 0.9% 1000 Ml Administered 03/01/19 13:03 Dose 1,000 mls @ ud .ROUTE .STK-MED ONE Ondansetron HCl 4 mg 03/01/19 10:35 03/01/19 11:14 Zofran 4 Mg/2 Ml Vial IV 03/01/19 10:36 4 mg STAT ONE Administration Ondansetron HCl Confirm 03/01/19 11:11 Zofran 4 Mg/2 Ml Vial Administered 03/01/19 11:12 Dose 4 mg .ROUTE .STK-MED ONE Lab/Rad Data: Laboratory Result Diagrams 03/01/19 10:40 03/01/19 10:40 Laboratory Results 03/01/19 03/01/19 03/01/19 Range/Units 13:02 12:37 11:10 WBC (4.0-10.5) K/mm3 RBC (4.1-5.4) M/mm3 Hgb (12.0-16.0) gm/dl Hct (35-47) % MCV (78-100) fl MCH (26-32) pg MCHC (32-36) g/dl RDW (11.5-14.0) % Plt Count (150-450) K/mm3 MPV (7.5-11.0) fl Gran % (36.0-66.0) % Eos # (Auto) (0-0.5) Absolute Lymphs (auto) (1.0-4.6) Absolute Monos (auto) (0.0-1.3) Lymphocytes % (24.0-44.0) % Monocytes % (0.0-12.0) % Eosinophils % (0.00-5.0) % Basophils % (0.0-0.4) % Absolute Granulocytes (1.4-6.9) Basophils # (0-0.4) PT (9.95-12.35) SECONDS INR (0.8-3.0) D-Dimer (215-500) ng/mL Puncture Site pCO2 (35-45) mmHg pO2 (75-100) mmHg Base Excess (-2.0-2.0) O2 Saturation (94-100) g/dF ABG pH (7.35-7.45) ABG HCO3 (22-28) ABG O2 Sat (Measured) (95-100) % Michael Test A-a Gradient a/A Ratio Hemoglobin Carboxyhemoglobin (0.0-6.9) % THgb Methemoglobin (1.4-1.5) % Temperature C POC O2 Flow Rate % Sodium (137-145) mmol/L Potassium (3.5-5.1) mmol/L Chloride (98-107) mmol/L Carbon Dioxide (22-30) mmol/L Anion Gap (5-15) MEQ/L BUN (7-17) mg/dL Creatinine (0.52-1.04) mg/dL Estimated GFR ML/MIN Glucose (74-106) mg/dL Lactic Acid 2.8 H (0.4-2.0) Calcium (8.4-10.2) mg/dL Magnesium (1.6-2.3) mg/dL Total Bilirubin (0.2-1.3) mg/dL AST (14-36) U/L ALT (0-35) U/L Alkaline Phosphatase (38-126) U/L Creatine Kinase (30-135) U/L Troponin I < 0.012 (0.000-0.034) ng/mL NT-Pro-B Natriuret Pep (0-450) pg/mL Serum Total Protein (6.3-8.2) g/dL Albumin (3.5-5.0) g/dL Amylase (30-110) U/L Lipase (23-300) U/L Urine Color YELLOW (YELLOW) Urine Appearance CLEAR (CLEAR) Urine pH 6.0 (5-6) Ur Specific [place] 1.017 (1.005-1.025) Urine Protein NEGATIVE (Negative) Urine Ketones NEGATIVE (NEGATIVE) Urine Blood NEGATIVE (0-5) John/ul Urine Nitrite NEGATIVE (NEGATIVE) Urine Bilirubin NEGATIVE (NEGATIVE) Urine Urobilinogen NEGATIVE (0-1) mg/dL Ur Leukocyte Esterase NEGATIVE (NEGATIVE) Urine WBC (Auto) 0-2 (0-5) /HPF Urine RBC (Auto) NONE (0-2) /HPF U Epithel Cells (Auto) RARE (FEW) /HPF Urine Bacteria (Auto) NONE (NEGATIVE) /HPF Urine Culture Reflexed NO (NO) Urine Glucose >=500 (NEGATIVE) mg/dL 03/01/19 03/01/19 03/01/19 Range/Units 10:55 10:40 10:40 WBC (4.0-10.5) K/mm3 RBC (4.1-5.4) M/mm3 Hgb (12.0-16.0) gm/dl Hct (35-47) % MCV (78-100) fl MCH (26-32) pg MCHC (32-36) g/dl RDW (11.5-14.0) % Plt Count (150-450) K/mm3 MPV (7.5-11.0) fl Gran % (36.0-66.0) % Eos # (Auto) (0-0.5) Absolute Lymphs (auto) (1.0-4.6) Absolute Monos (auto) (0.0-1.3) Lymphocytes % (24.0-44.0) % Monocytes % (0.0-12.0) % Eosinophils % (0.00-5.0) % Basophils % (0.0-0.4) % Absolute Granulocytes (1.4-6.9) Basophils # (0-0.4) PT 11.3 (9.95-12.35) SECONDS INR 1.00 (0.8-3.0) D-Dimer < 215 L (215-500) ng/mL Puncture Site RIGHT RADIAL pCO2 45 (35-45) mmHg pO2 67 L (75-100) mmHg Base Excess 1.7 (-2.0-2.0) O2 Saturation 93.8 L (94-100) g/dF ABG pH 7.39 (7.35-7.45) ABG HCO3 27.2 (22-28) ABG O2 Sat (Measured) 96.4 (95-100) % Michael Test YES A-a Gradient 26 a/A Ratio 0.72 Hemoglobin 14.7 Carboxyhemoglobin 2.0 (0.0-6.9) % THgb Methemoglobin 0.8 L (1.4-1.5) % Temperature 37.0 C POC O2 Flow Rate 21 % Sodium (137-145) mmol/L Potassium 4.1 (3.5-5.1) mmol/L Chloride (98-107) mmol/L Carbon Dioxide (22-30) mmol/L Anion Gap (5-15) MEQ/L BUN (7-17) mg/dL Creatinine (0.52-1.04) mg/dL Estimated GFR ML/MIN Glucose (74-106) mg/dL Lactic Acid 2.6 H (0.4-2.0) Calcium (8.4-10.2) mg/dL Magnesium (1.6-2.3) mg/dL Total Bilirubin (0.2-1.3) mg/dL AST (14-36) U/L ALT (0-35) U/L Alkaline Phosphatase (38-126) U/L Creatine Kinase (30-135) U/L Troponin I < 0.012 (0.000-0.034) ng/mL NT-Pro-B Natriuret Pep (0-450) pg/mL Serum Total Protein (6.3-8.2) g/dL Albumin (3.5-5.0) g/dL Amylase (30-110) U/L Lipase (23-300) U/L Urine Color (YELLOW) Urine Appearance (CLEAR) Urine pH (5-6) Ur Specific [place] (1.005-1.025) Urine Protein (Negative) Urine Ketones (NEGATIVE) Urine Blood (0-5) John/ul Urine Nitrite (NEGATIVE) Urine Bilirubin (NEGATIVE) Urine Urobilinogen (0-1) mg/dL Ur Leukocyte Esterase (NEGATIVE) Urine WBC (Auto) (0-5) /HPF Urine RBC (Auto) (0-2) /HPF U Epithel Cells (Auto) (FEW) /HPF Urine Bacteria (Auto) (NEGATIVE) /HPF Urine Culture Reflexed (NO) Urine Glucose (NEGATIVE) mg/dL 03/01/19 03/01/19 Range/Units 10:40 10:40 WBC 6.7 (4.0-10.5) K/mm3 RBC 4.93 (4.1-5.4) M/mm3 Hgb 14.2 (12.0-16.0) gm/dl Hct 42.2 (35-47) % MCV 85.6 (78-100) fl MCH 28.8 (26-32) pg MCHC 33.6 (32-36) g/dl RDW 13.0 (11.5-14.0) % Plt Count 217 (150-450) K/mm3 MPV 9.8 (7.5-11.0) fl Gran % 57.6 (36.0-66.0) % Eos # (Auto) 0.08 (0-0.5) Absolute Lymphs (auto) 2.33 (1.0-4.6) Absolute Monos (auto) 0.39 (0.0-1.3) Lymphocytes % 35.0 (24.0-44.0) % Monocytes % 5.9 (0.0-12.0) % Eosinophils % 1.2 (0.00-5.0) % Basophils % 0.3 (0.0-0.4) % Absolute Granulocytes 3.83 (1.4-6.9) Basophils # 0.02 (0-0.4) PT (9.95-12.35) SECONDS INR (0.8-3.0) D-Dimer (215-500) ng/mL Puncture Site pCO2 (35-45) mmHg pO2 (75-100) mmHg Base Excess (-2.0-2.0) O2 Saturation (94-100) g/dF ABG pH (7.35-7.45) ABG HCO3 (22-28) ABG O2 Sat (Measured) (95-100) % Michael Test A-a Gradient a/A Ratio Hemoglobin Carboxyhemoglobin (0.0-6.9) % THgb Methemoglobin (1.4-1.5) % Temperature C POC O2 Flow Rate % Sodium 136 L (137-145) mmol/L Potassium 4.3 (3.5-5.1) mmol/L Chloride 99 (98-107) mmol/L Carbon Dioxide 29 (22-30) mmol/L Anion Gap 12.4 (5-15) MEQ/L BUN 11 (7-17) mg/dL Creatinine 0.60 (0.52-1.04) mg/dL Estimated GFR > 60.0 ML/MIN Glucose 300 H (74-106) mg/dL Lactic Acid (0.4-2.0) Calcium 9.5 (8.4-10.2) mg/dL Magnesium 1.7 (1.6-2.3) mg/dL Total Bilirubin 0.50 (0.2-1.3) mg/dL AST 26 (14-36) U/L ALT 35 (0-35) U/L Alkaline Phosphatase 79 (38-126) U/L Creatine Kinase 57 (30-135) U/L Troponin I (0.000-0.034) ng/mL NT-Pro-B Natriuret Pep 19.0 (0-450) pg/mL Serum Total Protein 7.4 (6.3-8.2) g/dL Albumin 4.3 (3.5-5.0) g/dL Amylase 41 (30-110) U/L Lipase 42 (23-300) U/L Urine Color (YELLOW) Urine Appearance (CLEAR) Urine pH (5-6) Ur Specific [place] (1.005-1.025) Urine Protein (Negative) Urine Ketones (NEGATIVE) Urine Blood (0-5) John/ul Urine Nitrite (NEGATIVE) Urine Bilirubin (NEGATIVE) Urine Urobilinogen (0-1) mg/dL Ur Leukocyte Esterase (NEGATIVE) Urine WBC (Auto) (0-5) /HPF Urine RBC (Auto) (0-2) /HPF U Epithel Cells (Auto) (FEW) /HPF Urine Bacteria (Auto) (NEGATIVE) /HPF Urine Culture Reflexed (NO) Urine Glucose (NEGATIVE) mg/dL - Progress Progress: unchanged Air Movement: fair Blood Culture(s) Obtained: No Antibiotics given: No Discussed with : Sujit Will see patient in: hospital (observation) - Departure Departure Disposition: Observation Clinical Impression: Dehydration, Lactic acidosis Condition: Fair Critical Care Time: No Referrals: UGO NUÑEZ DO [Primary Care Provider] -
[2019-03-01] MEDS ORDERED: TYLENOL 325 MG PO PRN ×4 (13:44→14:33)
[2019-03-01] MEDS ORDERED: Zofran 4 MG/2 ML VIAL IV PRN ×4 (13:44→14:33)
[2019-03-01] MEDS ORDERED: MAALOX ES 30 ML UNIT DOSE PO PRN ×4 (13:44→14:33)
[2019-03-01] MEDS ORDERED: Senokot-S Tablet PO PRN ×4 (13:44→14:33)
[2019-03-01] MEDS ORDERED: MILK OF MAGNESIA 30 ML PO PRN ×4 (13:44→14:33)
[2019-03-01] MEDS ORDERED: Cyclobenzaprine 10 MG PO PRN (15:33)
[2019-03-01] MEDS ORDERED: NovoLOG Insulin SQ PRN (15:45)
[2019-03-01] MEDS ORDERED: Nitrostat 0.4 MG Tablet SL PRN (15:46)
[2019-03-01] MEDS ORDERED: xanAX 0.5 MG PO PRN (15:46)
[2019-03-01] MEDS ORDERED: Reglan 10 MG PO PRN (15:46)
[2019-03-01] MEDS ORDERED: MEDICATION INTERVENTION PO SCH (16:15)
[2019-03-01] MEDS ORDERED: MEDICATION INTERVENTION MC SCH (16:15)
[2019-03-01] MEDS ORDERED: INSULIN LISPRO 20 UNIT SQ SCH (17:00)
[2019-03-01] MEDS: Glucophage 500 MG PO SCH (17:25)
[2019-03-01] MEDS: NovoLOG Insulin SQ SCH (17:59)
[2019-03-01] MEDS: ROCEPHIN 1 Gm-D5w 50 ml Bag** 1 G/50 ML IVPB IV SCH ×2 (21:54→23:01)
[2019-03-01] MEDS ORDERED: ECOTRIN 81 MG PO SCH (22:00)
[2019-03-01] MEDS ORDERED: [UNRECOGNIZED DRUG - OTHER] PO SCH (22:00)
[2019-03-01] MEDS ORDERED: NON-FORMULARY ITEM (Omeprazole [Omeprazole] 40 MG) PO SCH (22:00)
[2019-03-01] MEDS ORDERED: Paxil 20 MG PO SCH (22:00)
[2019-03-01] MEDS ORDERED: DIOVAN 80 MG PO SCH (22:00)
[2019-03-01] MEDS ORDERED: NON-FORMULARY ITEM (Paroxetine Hcl [Paroxetine Hcl] 40 MG) PO SCH (22:00)
[2019-03-01] MEDS ORDERED: Protonix 40MG Tablet PO SCH (22:00)
[2019-03-01] MEDS ORDERED: Bystolic 5 MG PO SCH (22:00)
[2019-03-01] MEDS ORDERED: BABY ASPIRIN 81 MG CHEW PO SCH (22:00)
[2019-03-02 04:38] LABS: Lactic Acid 2.3 (0.4-2.0)
[2019-03-02 04:54] LABS: Absolute Neutrophil Ct (ANC) 2.89 (1.4-6.9); BASOPHIL % 0.4 % (0.0-0.4); Basophil (Absolute #) 0.02 (0-0.4); Eosinophil % 2.7 % (0.00-5.0); Eosinophil (Absolute #) 0.15 (0-0.5); Hematocrit 38.9 % (35-47); Lymphocyte (Absolute #) 2.17 (1.0-4.6); Lymphocytes % 38.9 % (24.0-44.0); Mean Corpuscular Hemoglobin 29.1 pg (26-32); Mean Corpuscular Hgb Concent. 33.4 g/dl (32-36); Mean Platelet Volume 9.8 fl (7.5-11.0); Monocyte (Absolute #) 0.35 (0.0-1.3); Monocytes % 6.3 % (0.0-12.0); Neutrophil % 51.7 % (36.0-66.0); Platelet Count 189 K/mm3 (150-450); Red Blood Count 4.47 M/mm3 (4.1-5.4); Red Cell Distribution Width 13.1 % (11.5-14.0); White Blood Count 5.6 K/mm3 (4.0-10.5)
[2019-03-02 04:56] LABS: ALBUMIN 3.8 g/dL (3.5-5.0); ALKALINE PHOSPHATASE 59 U/L (38-126); ANION GAP 10.1 MEQ/L (5-15); BLOOD UREA NITROGEN 10 mg/dL (7-17); CHLORIDE 102 mmol/L (98-107); Carbon Dioxide 29 mmol/L (22-30); Glucose 259 mg/dL (74-106); Potassium 4.2 mmol/L (3.5-5.1); SGOT/AST 26 U/L (14-36); SGPT/ALT 34 U/L (0-35); SODIUM 137 mmol/L (137-145); Total Protein 6.4 g/dL (6.3-8.2)
[2019-03-02] MEDS: Glucophage 500 MG PO SCH ×2 (08:34→17:22)
[2019-03-02] MEDS: NovoLOG Insulin SQ SCH ×3 (08:35→17:22)
[2019-03-02] MEDS ORDERED: Lantus Insulin SQ SCH (10:00)
[2019-03-02] MEDS ORDERED: NON-FORMULARY ITEM (Insulin Glargine,Hum.Rec.Anlog [Basaglar Kwikpen U-100] 30 UNIT) SQ SCH (10:00)
--- NOTE | 2019-03-02 12:24 | PCM.SSS ---
History of Present Illness - Chief Complaint Chief Complaint: CHEST PAIN History of Present Illness: is a 38 year old female. - Review of Systems Constitutional: Weakness Eyes: No Symptoms Ears, Nose, & Throat: Other (is on antibiotic for ear/sinus infection) Respiratory: No Symptoms Cardiac: Chest Pain Abdominal/Gastrointestinal: Abdominal Pain (on exam -across low abdomen) Genitourinary Symptoms: Incontinence, Other (polyuria 2-3 weeks) Musculoskeletal: Myalgias (muscle cramps) Neurological: Parasthesia (intra oral has improved,will be following with Neurologist in [place]) Endocrine: Polyuria, Polydipsia (was managed by Dr Argueta for DM2 and Adrenal cushings) Hematologic/Lymphatic: No Symptoms Medications & Allergies Home Medications: Home Medication List Alprazolam 0.5 mg [xanAX 0.5 MG] 0.5 mg PO TID PRN PRN 09/04/18 [History Confirmed 03/01/19] Aspirin 81 gm Chew [Baby Aspirin 81 mg Chew] 81 mg PO HS 09/04/18 [ History Confirmed 03/01/19] Nebivolol HCl 5 MG [Bystolic 5 MG] 5 mg PO HS 09/04/18 [History Confirmed 03/01/19] Nitroglycerin 0.4 mg Tablet [Nitrostat 0.4 MG Tablet] 0.4 mg SL UD PRN [History Confirmed 03/01/19] PARoxetine HCl [Paroxetine HCl] 40 mg PO HS 09/04/18 [History Confirmed 03/01/19 ] Semaglutide [Ozempic] 1 mg SQ WEEKLY 09/04/18 [History Confirmed 03/01/19] Insulin Glargine,Hum.rec.anlog [Basaglar Kwikpen U-100] 30 unit SQ DAILY [History Confirmed 03/01/19] Metoclopramide HCl [Reglan] 10 mg PO TID PRN #10 tablet 10/27/18 [Rx Confirmed 03/01/19] Mifepristone [Korlym] 300 mg PO HS 10/27/18 [History Confirmed 03/01/19] Valsartan 80 mg PO HS 11/05/18 [History Confirmed 03/01/19] Omeprazole 40 mg PO HS 11/09/18 [History Confirmed 03/01/19] Metformin HCl 500 mg [Glucophage 500 MG] 500 mg PO BIDWM 02/28/19 [ History Confirmed 03/01/19] Insulin Lispro [Humalog Kwikpen] 20 unit SQ TIDWM 03/01/19 [History Confirmed ] Allergies/Adverse Reactions: Allergies Allergy/AdvReac Type Severity Reaction Status Date / Time metoprolol Allergy Mild Hives Verified 03/01/19 10:49 - Past Medical History Past Medical History: Yes Neurological History: Other ENT History: No Pertinent History Cardiac History: Angina, Coronary Artery Disease, Hypertension, Other Respiratory History: Pneumonia, Sleep Apnea Endocrine Medical History: Diabetes Type II, Other Musculoskelatal History: No Pertinent History GI Medical History: GERD, Gallbladder Disease History: No Pertinent History Pyscho-Social History: Anxiety, Other Reproductive Disorders: Fibroids Comment: cushings, 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 neurological testing currently due to swallowing issues and facial numbness- R/O Guillan barre and MS - Female History Hx Last Menstrual Period: HYSTERECTOMY Are you now?: No - Past Surgical History Past Surgical History: Yes Neuro Surgical History: No Pertinent History Cardiac History: Cardiac Catheterization, Other Respiratory Surgery: No Pertinent History GI Surgical History: Cholecystectomy Genitourinary Surgical Hx: No Pertinent History Musculskeletal Surgical Hx: Other Female Surgical History: Hysterectomy Other Surgical History: plantar fascitis surgery - Social History Smoking Status: Never smoker Exposure to second hand smoke: No Alcohol: None Drug Use: none - Physical Exam Vital Signs: Vital Signs - 24 hr Temp Pulse Resp BP Pulse Ox 03/02/19 12:00 98.0 F 83 18 125/73 95 03/02/19 08:00 97.6 F 78 16 108/65 93 L 03/02/19 07:43 92 L 03/02/19 04:00 97.8 F 80 16 107/61 95 03/02/19 00:00 98.1 F 79 20 99/51 93 L 03/01/19 22:47 94 L 03/01/19 20:00 98.2 F 89 20 104/53 93 L 03/01/19 14:49 97 03/01/19 14:35 97.7 F 81 20 112/64 98 03/01/19 13:45 74 20 97/62 97 03/01/19 13:43 99 03/01/19 12:59 84 16 100/65 99 03/01/19 12:29 76 20 102/60 96 Oxygen-Last 24 hours O2 Percentage 2 Liters = 28% O2 Percentage 2 Liters = 28% O2 Percentage 2 Liters = 28% O2 Percentage 2 Liters = 28% General Appearance: no apparent distress, other (ramirez faces apple shaped , morbidly obese) Neurologic Exam: alert, oriented x 3, cooperative, normal mood/affect Eye Exam: PERRL/EOMI Ears, Nose, Throat Exam: TM abnormal (L) (inflamed,mild nasal congestion) Neck Exam: normal inspection Respiratory Exam: normal breath sounds Cardiovascular Exam: regular rate/rhythm Gastrointestinal/Abdomen Exam: soft, normal bowel sounds, tenderness (RLQ and LLQ tenderness2+/4 no guarding no rebound) Pelvic Exam: not done Rectal Exam: not done Back Exam: normal inspection Extremity Exam: normal inspection (no edema) Results - Labs Lab/Micro Results: Accuchecks Date 03/02/19 Time 07:30 Accucheck Value: 259 Accucheck Value: 184 Lab Results-Last 24 Hours 03/01/19 03/01/19 03/01/19 Range/Units 12:37 13:02 16:30 WBC (4.0-10.5) K/mm3 RBC (4.1-5.4) M/mm3 Hgb (12.0-16.0) gm/dl Hct (35-47) % MCV (78-100) fl MCH (26-32) pg MCHC (32-36) g/dl RDW (11.5-14.0) % Plt Count (150-450) K/mm3 MPV (7.5-11.0) fl Gran % (36.0-66.0) % Eos # (Auto) (0-0.5) Absolute Lymphs (auto) (1.0-4.6) Absolute Monos (auto) (0.0-1.3) Lymphocytes % (24.0-44.0) % Monocytes % (0.0-12.0) % Eosinophils % (0.00-5.0) % Basophils % (0.0-0.4) % Absolute Granulocytes (1.4-6.9) Basophils # (0-0.4) Sodium (137-145) mmol/L Potassium (3.5-5.1) mmol/L Chloride (98-107) mmol/L Carbon Dioxide (22-30) mmol/L Anion Gap (5-15) MEQ/L BUN (7-17) mg/dL Creatinine (0.52-1.04) mg/dL Estimated GFR ML/MIN Glucose (74-106) mg/dL Hemoglobin A1c (4.5-6.0) % Lactic Acid 2.8 H (0.4-2.0) Calcium (8.4-10.2) mg/dL Total Bilirubin (0.2-1.3) mg/dL AST (14-36) U/L ALT (0-35) U/L Alkaline Phosphatase (38-126) U/L Troponin I < 0.012 < 0.012 (0.000-0.034) ng/mL Serum Total Protein (6.3-8.2) g/dL Albumin (3.5-5.0) g/dL 03/01/19 03/01/19 03/02/19 Range/Units 19:45 22:58 04:20 WBC (4.0-10.5) K/mm3 RBC (4.1-5.4) M/mm3 Hgb (12.0-16.0) gm/dl Hct (35-47) % MCV (78-100) fl MCH (26-32) pg MCHC (32-36) g/dl RDW (11.5-14.0) % Plt Count (150-450) K/mm3 MPV (7.5-11.0) fl Gran % (36.0-66.0) % Eos # (Auto) (0-0.5) Absolute Lymphs (auto) (1.0-4.6) Absolute Monos (auto) (0.0-1.3) Lymphocytes % (24.0-44.0) % Monocytes % (0.0-12.0) % Eosinophils % (0.00-5.0) % Basophils % (0.0-0.4) % Absolute Granulocytes (1.4-6.9) Basophils # (0-0.4) Sodium (137-145) mmol/L Potassium (3.5-5.1) mmol/L Chloride (98-107) mmol/L Carbon Dioxide (22-30) mmol/L Anion Gap (5-15) MEQ/L BUN (7-17) mg/dL Creatinine (0.52-1.04) mg/dL Estimated GFR ML/MIN Glucose (74-106) mg/dL Hemoglobin A1c (4.5-6.0) % Lactic Acid 2.3 H (0.4-2.0) Calcium (8.4-10.2) mg/dL Total Bilirubin (0.2-1.3) mg/dL AST (14-36) U/L ALT (0-35) U/L Alkaline Phosphatase (38-126) U/L Troponin I < 0.012 < 0.012 (0.000-0.034) ng/mL Serum Total Protein (6.3-8.2) g/dL Albumin (3.5-5.0) g/dL 03/02/19 03/02/19 03/02/19 Range/Units 04:43 04:43 05:00 WBC 5.6 (4.0-10.5) K/mm3 RBC 4.47 (4.1-5.4) M/mm3 Hgb 13.0 (12.0-16.0) gm/dl Hct 38.9 (35-47) % MCV 87.0 (78-100) fl MCH 29.1 (26-32) pg MCHC 33.4 (32-36) g/dl RDW 13.1 (11.5-14.0) % Plt Count 189 (150-450) K/mm3 MPV 9.8 (7.5-11.0) fl Gran % 51.7 (36.0-66.0) % Eos # (Auto) 0.15 (0-0.5) Absolute Lymphs (auto) 2.17 (1.0-4.6) Absolute Monos (auto) 0.35 (0.0-1.3) Lymphocytes % 38.9 (24.0-44.0) % Monocytes % 6.3 (0.0-12.0) % Eosinophils % 2.7 (0.00-5.0) % Basophils % 0.4 (0.0-0.4) % Absolute Granulocytes 2.89 (1.4-6.9) Basophils # 0.02 (0-0.4) Sodium 137 (137-145) mmol/L Potassium 4.2 (3.5-5.1) mmol/L Chloride 102 (98-107) mmol/L Carbon Dioxide 29 (22-30) mmol/L Anion Gap 10.1 (5-15) MEQ/L BUN 10 (7-17) mg/dL Creatinine 0.50 L (0.52-1.04) mg/dL Estimated GFR > 60.0 ML/MIN Glucose 259 H (74-106) mg/dL Hemoglobin A1c 8.96 H (4.5-6.0) % Lactic Acid (0.4-2.0) Calcium 9.0 (8.4-10.2) mg/dL Total Bilirubin 0.40 (0.2-1.3) mg/dL AST 26 (14-36) U/L ALT 34 (0-35) U/L Alkaline Phosphatase 59 (38-126) U/L Troponin I (0.000-0.034) ng/mL Serum Total Protein 6.4 (6.3-8.2) g/dL Albumin 3.8 (3.5-5.0) g/dL Accuchecks Date 03/02/19 Time 07:30 Accucheck Value: 259 Accucheck Value: 184 - Radiology Impressions Radiology Exams & Impressions: Radiology Procedures Category Date Time Status ABDOMEN AND PELVIS W CONTRAST [CT] Stat Exams 03/02/19 12:21 Ordered CHEST 1 VIEW (PORTABLE) Stat Exams 03/01/19 10:36 Completed - Other Procedures and Tests Respiratory Therapy 03/01/19 14:50 Oxygen NASAL CANNULA 2 lpm 03/02/19 21:00 BiPap/CPAP ROUTINE 03/03/19 05:00 EKG ONCE 03/04/19 05:00 EKG ONCE Assessment/Plan (1) Chest pain Status: Ruled-out Qualifiers: Chest pain type: other chest pain Qualified Code(s): R07.89 - Other chest pain; R07.8 - Other chest pain Assessment & Plan: troponin serial not elevated,symptoms resolved with hydration Code(s): R07.9 - CHEST PAIN, UNSPECIFIED (2) Dehydration Status: Acute Assessment & Plan: volume depletion due to polyuria due to 2 weeks hyperglycemia 300s-400s over the Holidays. Code(s): E86.0 - DEHYDRATION (3) Abdominal pain determined by examination Status: Acute Assessment & Plan: CT abd and pelvis no acute findings Code(s): R10.9 - UNSPECIFIED ABDOMINAL PAIN Hospital Summary - Vitals & Intake/Output Vital Signs: Vital Signs Temperature 98.0 F 03/02/19 12:00 Pulse Rate 83 03/02/19 12:00 Respiratory Rate 18 03/02/19 12:00 Blood Pressure 125/73 03/02/19 12:00 O2 Sat by Pulse Oximetry 95 03/02/19 12:00 Oxygen-Last Documented O2 Percentage 2 Liters = 28% Intake & Output: Intake & Output 02/28/19 03/01/19 03/02/19 03/03/19 11:59 11:59 11:59 11:59 Intake Total 881 Balance 881 Weight 134.263 kg 134.4 kg - Lab Result Diagrams: 03/02/19 04:43 03/02/19 04:43 Lab Results-Last 24 Hrs: Accuchecks Date 03/02/19 Time 07:30 Accucheck Value: 259 Accucheck Value: 184 Lab Results-Last 24 Hours 03/01/19 03/01/19 03/01/19 Range/Units 12:37 13:02 16:30 WBC (4.0-10.5) K/mm3 RBC (4.1-5.4) M/mm3 Hgb (12.0-16.0) gm/dl Hct (35-47) % MCV (78-100) fl MCH (26-32) pg MCHC (32-36) g/dl RDW (11.5-14.0) % Plt Count (150-450) K/mm3 MPV (7.5-11.0) fl Gran % (36.0-66.0) % Eos # (Auto) (0-0.5) Absolute Lymphs (auto) (1.0-4.6) Absolute Monos (auto) (0.0-1.3) Lymphocytes % (24.0-44.0) % Monocytes % (0.0-12.0) % Eosinophils % (0.00-5.0) % Basophils % (0.0-0.4) % Absolute Granulocytes (1.4-6.9) Basophils # (0-0.4) Sodium (137-145) mmol/L Potassium (3.5-5.1) mmol/L Chloride (98-107) mmol/L Carbon Dioxide (22-30) mmol/L Anion Gap (5-15) MEQ/L BUN (7-17) mg/dL Creatinine (0.52-1.04) mg/dL Estimated GFR ML/MIN Glucose (74-106) mg/dL Hemoglobin A1c (4.5-6.0) % Lactic Acid 2.8 H (0.4-2.0) Calcium (8.4-10.2) mg/dL Total Bilirubin (0.2-1.3) mg/dL AST (14-36) U/L ALT (0-35) U/L Alkaline Phosphatase (38-126) U/L Troponin I < 0.012 < 0.012 (0.000-0.034) ng/mL Serum Total Protein (6.3-8.2) g/dL Albumin (3.5-5.0) g/dL 03/01/19 03/01/19 03/02/19 Range/Units 19:45 22:58 04:20 WBC (4.0-10.5) K/mm3 RBC (4.1-5.4) M/mm3 Hgb (12.0-16.0) gm/dl Hct (35-47) % MCV (78-100) fl MCH (26-32) pg MCHC (32-36) g/dl RDW (11.5-14.0) % Plt Count (150-450) K/mm3 MPV (7.5-11.0) fl Gran % (36.0-66.0) % Eos # (Auto) (0-0.5) Absolute Lymphs (auto) (1.0-4.6) Absolute Monos (auto) (0.0-1.3) Lymphocytes % (24.0-44.0) % Monocytes % (0.0-12.0) % Eosinophils % (0.00-5.0) % Basophils % (0.0-0.4) % Absolute Granulocytes (1.4-6.9) Basophils # (0-0.4) Sodium (137-145) mmol/L Potassium (3.5-5.1) mmol/L Chloride (98-107) mmol/L Carbon Dioxide (22-30) mmol/L Anion Gap (5-15) MEQ/L BUN (7-17) mg/dL Creatinine (0.52-1.04) mg/dL Estimated GFR ML/MIN Glucose (74-106) mg/dL Hemoglobin A1c (4.5-6.0) % Lactic Acid 2.3 H (0.4-2.0) Calcium (8.4-10.2) mg/dL Total Bilirubin (0.2-1.3) mg/dL AST (14-36) U/L ALT (0-35) U/L Alkaline Phosphatase (38-126) U/L Troponin I < 0.012 < 0.012 (0.000-0.034) ng/mL Serum Total Protein (6.3-8.2) g/dL Albumin (3.5-5.0) g/dL 03/02/19 03/02/19 03/02/19 Range/Units 04:43 04:43 05:00 WBC 5.6 (4.0-10.5) K/mm3 RBC 4.47 (4.1-5.4) M/mm3 Hgb 13.0 (12.0-16.0) gm/dl Hct 38.9 (35-47) % MCV 87.0 (78-100) fl MCH 29.1 (26-32) pg MCHC 33.4 (32-36) g/dl RDW 13.1 (11.5-14.0) % Plt Count 189 (150-450) K/mm3 MPV 9.8 (7.5-11.0) fl Gran % 51.7 (36.0-66.0) % Eos # (Auto) 0.15 (0-0.5) Absolute Lymphs (auto) 2.17 (1.0-4.6) Absolute Monos (auto) 0.35 (0.0-1.3) Lymphocytes % 38.9 (24.0-44.0) % Monocytes % 6.3 (0.0-12.0) % Eosinophils % 2.7 (0.00-5.0) % Basophils % 0.4 (0.0-0.4) % Absolute Granulocytes 2.89 (1.4-6.9) Basophils # 0.02 (0-0.4) Sodium 137 (137-145) mmol/L Potassium 4.2 (3.5-5.1) mmol/L Chloride 102 (98-107) mmol/L Carbon Dioxide 29 (22-30) mmol/L Anion Gap 10.1 (5-15) MEQ/L BUN 10 (7-17) mg/dL Creatinine 0.50 L (0.52-1.04) mg/dL Estimated GFR > 60.0 ML/MIN Glucose 259 H (74-106) mg/dL Hemoglobin A1c 8.96 H (4.5-6.0) % Lactic Acid (0.4-2.0) Calcium 9.0 (8.4-10.2) mg/dL Total Bilirubin 0.40 (0.2-1.3) mg/dL AST 26 (14-36) U/L ALT 34 (0-35) U/L Alkaline Phosphatase 59 (38-126) U/L Troponin I (0.000-0.034) ng/mL Serum Total Protein 6.4 (6.3-8.2) g/dL Albumin 3.8 (3.5-5.0) g/dL Micro Results-Entire Visit: Accuchecks Date 03/02/19 Time 07:30 Accucheck Value: 259 Accucheck Value: 184 - Radiology Exams Ordered Rad Exams-Entire Visit: Radiology Procedures Category Date Time Status ABDOMEN AND PELVIS W CONTRAST [CT] Stat Exams 03/02/19 12:21 Ordered CHEST 1 VIEW (PORTABLE) Stat Exams 03/01/19 10:36 Completed - Procedures and Test Procedures and Tests throughout Hospitalization: Therapy Orders & Screens 03/01/19 14:50 Oxygen NASAL CANNULA 2 lpm Comment: Diagnosis: CHEST PAIN 03/01/19 18:30 EKG ONCE Comment: Q8 X2, QAM X 3, PRN Diagnosis: CHEST PAIN 03/02/19 05:00 EKG ONCE Comment: QAM Diagnosis: CHEST PAIN 03/02/19 21:00 BiPap/CPAP ROUTINE Comment: HOME CPAP UNIT Diagnosis: CHEST PAIN 03/03/19 05:00 EKG ONCE Comment: QAM Diagnosis: CHEST PAIN 03/04/19 05:00 EKG ONCE Comment: Diagnosis: CHEST PAIN - Discharge Disposition: Home, Self-Care Condition: Fair Prescriptions: No Action Semaglutide [Ozempic] 1 mg SQ WEEKLY PARoxetine HCl [Paroxetine HCl] 40 mg PO HS Nitroglycerin 0.4 mg Tablet [Nitrostat 0.4 MG Tablet] 0.4 mg SL UD PRN PRN Reason: Pain Nebivolol HCl 5 MG [Bystolic 5 MG] 5 mg PO HS Aspirin 81 gm Chew [Baby Aspirin 81 mg Chew] 81 mg PO HS Alprazolam 0.5 mg [xanAX 0.5 MG] 0.5 mg PO TID PRN PRN PRN Reason: Anxiety Insulin Glargine,Hum.rec.anlog [Basaglar Kwikpen U-100] 30 unit SQ DAILY Mifepristone [Korlym] 300 mg PO HS Metoclopramide HCl [Reglan] 10 mg PO TID PRN #10 tablet PRN Reason: Nausea Valsartan 80 mg PO HS Omeprazole 40 mg PO HS Metformin HCl 500 mg [Glucophage 500 MG] 500 mg PO BIDWM Insulin Lispro [Humalog Kwikpen] 20 unit SQ TIDWM Instructions: Chest Pain That Is Not Caused by the Heart (DC) Additional Instructions: no restrictions Follow up with: UGO NUÑEZ DO [Primary Care Provider] - 03/04/19 10:30 am Forms: Discharge Instructions
--- NOTE | 2019-03-02 13:12 | XRAY ---
Indication: Lower abdomen pain. Elevated lactic acid. Multiple contiguous axial images obtained through the abdomen and pelvis using 80 cc Isovue 370 contrast only. Comparison: October 27, 2018. Lung bases are clear. Heart is not enlarged. Noncontrasted stomach and bowel loops appear nonobstructed. Normal appendix. There is now mild diffuse scattered colonic fecal debris throughout. Again previous cholecystectomy and hysterectomy. There remains fatty hepatomegaly today measuring 25 cm and splenomegaly today measuring 15 cm. No free fluid/air. Remaining pancreas, adrenal glands, kidneys, ureters, bladder, and aorta appear unremarkable. No pathologic retroperitoneal lymphadenopathy. Osseous structures remain intact. Impression: 1. New mild diffuse fecal stasis without obstruction. 2. Stable fatty hepatomegaly and splenomegaly. 3. Remaining CT abdomen/pelvis with contrast exam is negative.
[2019-03-02] MEDS ORDERED: Sodium Chloride 0.9% 1000 ML 1,000 ML IV SCH (15:30)
[2019-03-02 17:11] VITALS: BP 107/63; PULSE 86; O2SAT 93
[2019-03-02] MEDS: ROCEPHIN 1 Gm-D5w 50 ml Bag** 1 G/50 ML IVPB IV SCH (18:10)
== END 2019-03-02 19:00 | disposition home or self-care (01) ==
LOC: ED 10:27 → INTOOBSV 14:10 → MED SURG 14:10 → ED 14:11
PROVIDERS: ADMIT Family Medicine; ATTEND Family Medicine
DX: R07.9 Chest pain, unspecified (principal); I10 Essential (primary) hypertension; E11.9 Type 2 diabetes mellitus without complications; I25.10 Atherosclerotic heart disease of native coronary artery without angina pectoris; E24.9 Cushing's syndrome, unspecified; Z79.899 Other long term (current) drug therapy
CPT/HCPCS: 36000; 36415; 36600; 71045; 74177; 80053; 81001; 82150; 82375; 82550; 82803; 82962; 83036; 83605; 83690; 83735; 83880; 84484; 85025; 85379; 85610; 87040; 93005; 93041; 93268; 94760; 96360; 96374; 96375; 96376; 99285; J0696; J2405; J3010; A9270-GY; G0378

== ENCOUNTER 2019-03-09 16:47 | Emergency (ER) | payer OTHER ==
[2019-03-09] MEDS ORDERED: MORPHINE SULFATE 4 MG INJ IV ONE (18:00)
[2019-03-09] MEDS ORDERED: Zofran 4 MG/2 ML VIAL IV ONE (18:00)
[2019-03-09] MEDS ORDERED: Sodium Chloride 0.9% 1000 ML 1,000 ML IV STA (18:00)
[2019-03-09 18:13] LABS: Absolute Neutrophil Ct (ANC) 3.56 (1.4-6.9); BASOPHIL % 0.4 % (0.0-0.4); Basophil (Absolute #) 0.03 (0-0.4); Eosinophil % 1.9 % (0.00-5.0); Eosinophil (Absolute #) 0.13 (0-0.5); Hematocrit 44.9 % (35-47); Hemoglobin 15.1 gm/dl (12.0-16.0); Lymphocyte (Absolute #) 2.79 (1.0-4.6); Lymphocytes % 39.9 % (24.0-44.0); Mean Cell Volume 85.7 fl (78-100); Mean Corpuscular Hemoglobin 28.8 pg (26-32); Mean Corpuscular Hgb Concent. 33.6 g/dl (32-36); Mean Platelet Volume 9.7 fl (7.5-11.0); Monocyte (Absolute #) 0.48 (0.0-1.3); Monocytes % 6.9 % (0.0-12.0); Neutrophil % 50.9 % (36.0-66.0); Platelet Count 246 K/mm3 (150-450); Red Blood Count 5.24 M/mm3 (4.1-5.4); Red Cell Distribution Width 12.9 % (11.5-14.0)
[2019-03-09] MEDS ORDERED: Sodium Chloride 0.9% 1000 ML 1,000 ML ONE (18:16)
[2019-03-09] MEDS ORDERED: Zofran 4 MG/2 ML VIAL ONE (18:16)
[2019-03-09] MEDS ORDERED: MORPHINE SULFATE 4 MG INJ ONE (18:16)
[2019-03-09 18:20] LABS: Appearance SLIGHTLY CLOUDY (CLEAR); Bilirubin NEGATIVE (NEGATIVE); Blood NEGATIVE Ery/ul (0-5); Epithelial Cells MODERATE /HPF (FEW); Glucose 150 mg/dL (NEGATIVE); Ketones NEGATIVE (NEGATIVE); Leukocyte Esterase NEGATIVE (NEGATIVE); Mucus SLIGHT /HPF (NEGATIVE); Nitrite NEGATIVE (NEGATIVE); Protein,Urine Dip NEGATIVE (Negative); Urobilinogen NEGATIVE mg/dL (0-1)
[2019-03-09 18:24] LABS: ALBUMIN 4.7 g/dL (3.5-5.0); ALKALINE PHOSPHATASE 67 U/L (38-126); ANION GAP 15.3 MEQ/L (5-15); BLOOD UREA NITROGEN 11 mg/dL (7-17); CHLORIDE 97 mmol/L (98-107); Calcium 9.3 mg/dL (8.4-10.2); Carbon Dioxide 30 mmol/L (22-30); Creatinine 1 0.58 mg/dL (0.52-1.04); Glucose 155 mg/dL (74-106); LIPASE 53 U/L (23-300); Potassium 4.2 mmol/L (3.5-5.1); SGOT/AST 33 U/L (14-36); SGPT/ALT 43 U/L (0-35); SODIUM 138 mmol/L (137-145); Total Protein 7.8 g/dL (6.3-8.2)
--- NOTE | 2019-03-09 18:31 | ERPHSYRPT ---
<CHELSEY MENON - Last Filed: 03/09/19 19:44> - History of Present Illness Historian: patient Exam Limitations: no limitations Patient Subjective Stated Complaint: Flank pain Triage Nursing Assessment: Patient ambulated back to ED and transferred self to bed. Patient A+O X3. Patient's skin pink, warm and dry. Patient complains of left sided flank pain for the past two days that has gotten worse. Patient denies any problems urinating. Patient states pain is constant throbbing and intermittent sharp. Abdomen round and distended with BS X 4. Timing/Duration: day(s) (1) Activities at Onset: rest Quality: sharpness, stabbing Abdominal Pain Onset Location: LUQ, flank Pain Radiation: back Severity of Pain-Max: moderate Severity of Pain-Current: moderate Modifying Factors: Improves With: movement, palpation Associated Symptoms: nausea Hx Tetanus, Diphtheria Vaccination/Date Given: Yes Hx Influenza Vaccination/Date Given: No Hx Pneumococcal Vaccination/Date Given: Yes Immunizations Up to Date: Yes <SHAKIRA FOLEY - Last Filed: 03/10/19 16:47> - History of Present Illness Time Seen by Provider: 03/09/19 17:27 Physician History: 38 years old female wwith diabetes mellitus/[place]'s syndrome resided in the ER with chief complaint of left flank pain since yesterday, gradual onset, border to severe intensity, sharp stabbing in nature, intermittent,, aggravated with movement and palpation, sutured with nausea but no vomiting. Denies any urinary frequency urgency or hematuria. No fever but has chills at times. (SHAKIRA FOLEY) Allergies/Adverse Reactions: metoprolol Allergy (Mild, Verified 03/09/19 17:34) Hives Home Medications: Alprazolam 0.5 mg [xanAX 0.5 MG] 0.5 mg PO TID PRN PRN 09/04/18 [History] Aspirin 81 gm Chew [Baby Aspirin 81 mg Chew] 81 mg PO HS 09/04/18 [History ] Nebivolol HCl 5 MG [Bystolic 5 MG] 5 mg PO HS 09/04/18 [History] Nitroglycerin 0.4 mg Tablet [Nitrostat 0.4 MG Tablet] 0.4 mg SL UD PRN [History] PARoxetine HCl [Paroxetine HCl] 40 mg PO HS 09/04/18 [History] Semaglutide [Ozempic] 1 mg SQ WEEKLY 09/04/18 [History] Insulin Glargine,Hum.rec.anlog [Basaglar Kwikpen U-100] 30 unit SQ DAILY [History] Mifepristone [Korlym] 300 mg PO HS 10/27/18 [History] Valsartan 80 mg PO HS 11/05/18 [History] Omeprazole 40 mg PO HS 11/09/18 [History] Metformin HCl 500 mg [Glucophage 500 MG] 500 mg PO BIDWM 02/28/19 [History ] Insulin Lispro [Humalog Kwikpen] 20 unit SQ TIDWM 03/01/19 [History] - Review of Systems Constitutional: Chills Eyes: No Symptoms Ears, Nose, & Throat: No Symptoms Respiratory: No Symptoms Cardiac: No Symptoms Abdominal/Gastrointestinal: Abdominal Pain, Nausea Genitourinary Symptoms: No Symptoms Musculoskeletal: No Symptoms Skin: No Symptoms Neurological: No Symptoms Psychological: No Symptoms Endocrine: No Symptoms Hematologic/Lymphatic: No Symptoms Immunological/Allergic: No Symptoms <SHAKIRA FOLEY - Last Filed: 03/10/19 16:47> - Past Medical History Pertinent Past Medical History: Yes Neurological History: Other ENT History: No Pertinent History Cardiac History: Angina, Coronary Artery Disease, Hypertension, Other Respiratory History: Pneumonia, Sleep Apnea Endocrine Medical History: Diabetes Type II, Other Musculoskeletal History: No Pertinent History GI Medical History: GERD, Gallbladder Disease History: No Pertinent History Psycho-Social History: Anxiety, Other Female Reproductive Disorders: Fibroids Other Medical History: cushings, 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 neurological testing currently due to swallowing issues and facial numbness- R/O Guill[place] barre and MS - Past Surgical History Past Surgical History: Yes Neuro Surgical History: No Pertinent History Cardiac: Cardiac Catheterization, Other Respiratory: No Pertinent History Gastrointestinal: Cholecystectomy Genitourinary: No Pertinent History Musculoskeletal: Other Female Surgical History: Hysterectomy Other Surgical History: plantar fascitis surgery - Social History Smoking Status: Never smoker Exposure to second hand smoke: No Drug Use: none Patient Lives Alone: No - Female History Hx Last Menstrual Period: complete hysterectomy Hx Now: No <ALAINA,SHAKIRA - Last Filed: 03/10/19 16:47> - Physical Exam General Appearance: no apparent distress Eye Exam: PERRL/EOMI, eyes nml inspection Ears, Nose, Throat Exam: normal ENT inspection, TMs normal, pharynx normal Neck Exam: normal inspection, non-tender, supple Respiratory Exam: normal breath sounds, lungs clear Cardiovascular Exam: regular rate/rhythm, normal heart sounds Gastrointestinal/Abdomen Exam: soft, tenderness (left flank ), No distention, No mass Back Exam: normal inspection, normal range of motion, CVA tenderness Extremity Exam: normal inspection, normal range of motion Neurologic Exam: alert, oriented x 3, cooperative, normal mood/affect Skin Exam: normal color SpO2 Interpretation: normal SpO2: 94 O2 Delivery: Room Air <ALAINASHAKIRA - Last Filed: 03/10/19 16:47> - Nursing Vital Signs Nursing Vital Signs: Initial Vital Signs Pulse Rate 83 03/09/19 17:34 Respiratory Rate 18 03/09/19 17:34 Blood Pressure 133/92 03/09/19 17:34 O2 Sat by Pulse Oximetry 95 03/09/19 17:34 Pain Scale Pain Intensity 4 - Course Nursing assessment & vital signs reviewed: Yes <CHELSEY MENON - Last Filed: 03/09/19 19:44> Ordered Tests: Active Orders 24 hr Category Date Time Status IV Insertion STAT Care 03/09/19 18:00 Active ABDOMEN AND PELVIS W CONTRAST [CT] Stat Exams 03/09/19 18:01 Completed CBC W DIFF Stat Lab 03/09/19 18:06 Completed CMP Stat Lab 03/09/19 18:06 Completed HCG,QUALITATIVE URINE Stat Lab 03/09/19 18:06 Completed LIPASE Stat Lab 03/09/19 18:06 Completed UA W/RFX UR CULTURE Stat Lab 03/09/19 18:06 Completed Medication Summary Discontinued Medications Generic Name Dose Route Start Last Admin Trade Name Freq PRN Reason Stop Dose Admin Hydromorphone HCl 1 mg 03/09/19 19:43 03/09/19 19:49 Hydromorphone 1 Mg/Ml Ampule IV 03/09/19 19:44 1 mg STAT ONE Administration Hydromorphone HCl Confirm 03/09/19 19:47 Hydromorphone 1 Mg/Ml Ampule Administered 03/09/19 19:48 Dose 1 mg .ROUTE .STK-MED ONE Sodium Chloride 1,000 mls @ 999 mls/hr 03/09/19 18:00 03/09/19 19:39 Sodium Chloride 0.9% 1000 Ml IV 03/09/19 19:00 Infused .Q1H1M STA Infusion Sodium Chloride Confirm 03/09/19 18:16 Sodium Chloride 0.9% 1000 Ml Administered 03/09/19 18:17 Dose 1,000 mls @ ud .ROUTE .STK-MED ONE Morphine Sulfate 4 mg 03/09/19 18:00 03/09/19 18:19 Morphine Sulfate 4 Mg Inj IV 03/09/19 18:01 4 mg STAT ONE Administration Morphine Sulfate Confirm 03/09/19 18:16 Morphine Sulfate 4 Mg Inj Administered 03/09/19 18:17 Dose 4 mg .ROUTE .STK-MED ONE Ondansetron HCl 4 mg 03/09/19 18:00 03/09/19 18:18 Zofran 4 Mg/2 Ml Vial IV 03/09/19 18:01 4 mg STAT ONE Administration Ondansetron HCl Confirm 03/09/19 18:16 Zofran 4 Mg/2 Ml Vial Administered 03/09/19 18:17 Dose 4 mg .ROUTE .STK-MED ONE Lab/Rad Data: Laboratory Result Diagrams 03/09/19 18:06 03/09/19 18:06 Laboratory Results 03/09/19 03/09/19 03/09/19 Range/Units 18:06 18:06 18:06 WBC (4.0-10.5) K/mm3 RBC (4.1-5.4) M/mm3 Hgb (12.0-16.0) gm/dl Hct (35-47) % MCV (78-100) fl MCH (26-32) pg MCHC (32-36) g/dl RDW (11.5-14.0) % Plt Count (150-450) K/mm3 MPV (7.5-11.0) fl Gran % (36.0-66.0) % Eos # (Auto) (0-0.5) Absolute Lymphs (auto) (1.0-4.6) Absolute Monos (auto) (0.0-1.3) Lymphocytes % (24.0-44.0) % Monocytes % (0.0-12.0) % Eosinophils % (0.00-5.0) % Basophils % (0.0-0.4) % Absolute Granulocytes (1.4-6.9) Basophils # (0-0.4) Sodium 138 (137-145) mmol/L Potassium 4.2 (3.5-5.1) mmol/L Chloride 97 L (98-107) mmol/L Carbon Dioxide 30 (22-30) mmol/L Anion Gap 15.3 H (5-15) MEQ/L BUN 11 (7-17) mg/dL Creatinine 0.58 (0.52-1.04) mg/dL Estimated GFR > 60.0 ML/MIN Glucose 155 H (74-106) mg/dL Calcium 9.3 (8.4-10.2) mg/dL Total Bilirubin 0.50 (0.2-1.3) mg/dL AST 33 (14-36) U/L ALT 43 H (0-35) U/L Alkaline Phosphatase 67 (38-126) U/L Serum Total Protein 7.8 (6.3-8.2) g/dL Albumin 4.7 (3.5-5.0) g/dL Lipase 53 (23-300) U/L Urine Color YELLOW (YELLOW) Urine Appearance SLIGHTLY CLOUDY (CLEAR) Urine pH 6.0 (5-6) Ur Specific [place] 1.010 (1.005-1.025) Urine Protein NEGATIVE (Negative) Urine Ketones NEGATIVE (NEGATIVE) Urine Blood NEGATIVE (0-5) John/ul Urine Nitrite NEGATIVE (NEGATIVE) Urine Bilirubin NEGATIVE (NEGATIVE) Urine Urobilinogen NEGATIVE (0-1) mg/dL Ur Leukocyte Esterase NEGATIVE (NEGATIVE) Urine WBC (Auto) NONE (0-5) /HPF Urine RBC (Auto) NONE (0-2) /HPF U Epithel Cells (Auto) MODERATE (FEW) /HPF Urine Bacteria (Auto) NONE (NEGATIVE) /HPF Urine Mucus (Auto) SLIGHT (NEGATIVE) /HPF Urine Culture Reflexed NO (NO) Urine Glucose 150 (NEGATIVE) mg/dL Urine HCG, Qual NEGATIVE (Negative) 03/09/19 Range/Units 18:06 WBC 7.0 (4.0-10.5) K/mm3 RBC 5.24 (4.1-5.4) M/mm3 Hgb 15.1 (12.0-16.0) gm/dl Hct 44.9 (35-47) % MCV 85.7 (78-100) fl MCH 28.8 (26-32) pg MCHC 33.6 (32-36) g/dl RDW 12.9 (11.5-14.0) % Plt Count 246 (150-450) K/mm3 MPV 9.7 (7.5-11.0) fl Gran % 50.9 (36.0-66.0) % Eos # (Auto) 0.13 (0-0.5) Absolute Lymphs (auto) 2.79 (1.0-4.6) Absolute Monos (auto) 0.48 (0.0-1.3) Lymphocytes % 39.9 (24.0-44.0) % Monocytes % 6.9 (0.0-12.0) % Eosinophils % 1.9 (0.00-5.0) % Basophils % 0.4 (0.0-0.4) % Absolute Granulocytes 3.56 (1.4-6.9) Basophils # 0.03 (0-0.4) Sodium (137-145) mmol/L Potassium (3.5-5.1) mmol/L Chloride (98-107) mmol/L Carbon Dioxide (22-30) mmol/L Anion Gap (5-15) MEQ/L BUN (7-17) mg/dL Creatinine (0.52-1.04) mg/dL Estimated GFR ML/MIN Glucose (74-106) mg/dL Calcium (8.4-10.2) mg/dL Total Bilirubin (0.2-1.3) mg/dL AST (14-36) U/L ALT (0-35) U/L Alkaline Phosphatase (38-126) U/L Serum Total Protein (6.3-8.2) g/dL Albumin (3.5-5.0) g/dL Lipase (23-300) U/L Urine Color (YELLOW) Urine Appearance (CLEAR) Urine pH (5-6) Ur Specific [place] (1.005-1.025) Urine Protein (Negative) Urine Ketones (NEGATIVE) Urine Blood (0-5) John/ul Urine Nitrite (NEGATIVE) Urine Bilirubin (NEGATIVE) Urine Urobilinogen (0-1) mg/dL Ur Leukocyte Esterase (NEGATIVE) Urine WBC (Auto) (0-5) /HPF Urine RBC (Auto) (0-2) /HPF U Epithel Cells (Auto) (FEW) /HPF Urine Bacteria (Auto) (NEGATIVE) /HPF Urine Mucus (Auto) (NEGATIVE) /HPF Urine Culture Reflexed (NO) Urine Glucose (NEGATIVE) mg/dL Urine HCG, Qual (Negative) - Progress Progress: improved, pain not gone completely, re-examined Counseled pt/family regarding: lab results, diagnosis, need for follow-up, rad results <CHELSEY MENON - Last Filed: 03/09/19 19:44> <SHAKIRA FOLEY - Last Filed: 03/10/19 16:47> - Progress Progress Note: 03/09/19 19:44 ct abd/pelvis-no acute process. (CHELSEY MENON) - Departure Departure Disposition: Home Critical Care Time: No <CHELSEY MENON - Last Filed: 03/09/19 19:44> <SHAKIRA FOLEY - Last Filed: 03/10/19 16:47> - Departure Clinical Impression: Abdominal pain Condition: Stable Referrals: UGO NUÑEZ DO [Primary Care Provider] - Additional Instructions: drink clear liquids. may use stool softeners, over the counter enemas or suppositories. follow up with primary doctor for further management Prescriptions: Hydrocodone/APAP 5-325 Tab^^^ [[place] 5-325 Tablet^^^] 1 tab PO Q8H PRN PRN #7 tablet MDD 6 PRN Reason: Pain
[2019-03-09] MEDS ORDERED: Hydromorphone 1 mg/ml Ampule IV ONE (19:43)
[2019-03-09] MEDS ORDERED: Hydromorphone 1 mg/ml Ampule ONE (19:47)
[2019-03-09 19:54] VITALS: PULSE 94
[2019-03-09 19:55] VITALS: BP 118/73
--- NOTE | 2019-03-10 08:42 | XRAY ---
Indication: Right abdomen/right flank pain. Multiple contiguous axial images obtained through the abdomen and pelvis using 80 cc Isovue 370 contrast only. Comparison: March 02, 2019. Lung bases demonstrates minimal right middle lobe fibrosis/scarring and minimal bibasilar dependent atelectasis. No infiltrate or effusion. Heart is not enlarged. Noncontrasted stomach and bowel loops remain nonobstructed. Normal appendix. There remains mild scattered colonic fecal debris throughout, fatty hepatomegaly, splenomegaly, cholecystectomy, and hysterectomy. No free fluid/air. Remaining pancreas, adrenal glands, kidneys, ureters, and bladder are unremarkable. Stable minimal aortic calcifications. No AAA or pathologic retroperitoneal lymphadenopathy. Osseous structures again intact. Impression: 1. Stable mild fecal stasis, fatty hepatomegaly, and splenomegaly. 2. Remaining CT abdomen/pelvis with contrast exam remains negative.
[2019-03-10 16:47] VITALS: O2SAT 94
== END 2019-03-09 20:39 | disposition home or self-care (01) ==
LOC: ED 16:47
DX: R10.9 Unspecified abdominal pain (principal); I10 Essential (primary) hypertension; I25.10 Atherosclerotic heart disease of native coronary artery without angina pectoris; E11.9 Type 2 diabetes mellitus without complications; G47.30 Sleep apnea, unspecified; K21.9 Gastro-esophageal reflux disease without esophagitis; F41.9 Anxiety disorder, unspecified; E24.9 Cushing's syndrome, unspecified; Z79.4 Long term (current) use of insulin; Z79.899 Other long term (current) drug therapy
CPT/HCPCS: 36000; 36415; 74177; 80053; 81001; 83690; 84703; 85025; 96360; 96374; 96375; 99284; J1170; J2270; J2405

== ENCOUNTER 2019-03-24 16:28 | Emergency (ER) | payer OTHER ==
[2019-03-24] MEDS ORDERED: TORAdol 30 mg Injection IM ONE (17:27)
[2019-03-24] MEDS ORDERED: Norflex 60 MG/2 ML IM ONE (17:27)
[2019-03-24] MEDS ORDERED: Zofran 4 MG/2 ML VIAL IV ONE (17:30)
[2019-03-24] MEDS ORDERED: Sodium Chloride 0.9% 1000 ML 1,000 ML IV STA (17:30)
[2019-03-24] MEDS ORDERED: MORPHINE SULFATE 4 MG INJ IV ONE (17:30)
[2019-03-24 18:00] LABS: Absolute Neutrophil Ct (ANC) 4.86 (1.4-6.9); BASOPHIL % 0.2 % (0.0-0.4); Basophil (Absolute #) 0.02 (0-0.4); Eosinophil % 1.7 % (0.00-5.0); Eosinophil (Absolute #) 0.14 (0-0.5); Hematocrit 43.6 % (35-47); Hemoglobin 14.8 gm/dl (12.0-16.0); Lymphocyte (Absolute #) 2.47 (1.0-4.6); Lymphocytes % 30.8 % (24.0-44.0); Mean Cell Volume 85.7 fl (78-100); Mean Corpuscular Hemoglobin 29.1 pg (26-32); Mean Corpuscular Hgb Concent. 33.9 g/dl (32-36); Mean Platelet Volume 9.3 fl (7.5-11.0); Monocyte (Absolute #) 0.54 (0.0-1.3); Monocytes % 6.7 % (0.0-12.0); Neutrophil % 60.6 % (36.0-66.0); Platelet Count 224 K/mm3 (150-450); Red Blood Count 5.09 M/mm3 (4.1-5.4); Red Cell Distribution Width 12.6 % (11.5-14.0)
[2019-03-24 18:01] LABS: Appearance SLIGHTLY CLOUDY (CLEAR); Bacteria RARE /HPF (NEGATIVE); Bilirubin NEGATIVE (NEGATIVE); Blood NEGATIVE Ery/ul (0-5); Epithelial Cells RARE /HPF (FEW); Glucose NEGATIVE (NEGATIVE); Hyaline Casts 0-2 /LPF (0-2); Ketones NEGATIVE (NEGATIVE); Leukocyte Esterase NEGATIVE (NEGATIVE); Mucus SLIGHT /HPF (NEGATIVE); Nitrite NEGATIVE (NEGATIVE); Protein,Urine Dip 100 (Negative); Specific Gravity 1.021 (1.005-1.025); Urobilinogen NEGATIVE mg/dL (0-1); WBC 0-2 /HPF (0-5)
[2019-03-24] MEDS ORDERED: MORPHINE SULFATE 4 MG INJ ONE (18:11)
[2019-03-24] MEDS ORDERED: Zofran 4 MG/2 ML VIAL ONE (18:11)
[2019-03-24] MEDS ORDERED: Sodium Chloride 0.9% 1000 ML 1,000 ML ONE (18:11)
[2019-03-24 18:12] VITALS: BP 115/86; PULSE 87; O2SAT 93
[2019-03-24 18:12] LABS: ALBUMIN 4.6 g/dL (3.5-5.0); ALKALINE PHOSPHATASE 73 U/L (38-126); AMYLASE 41 U/L (30-110); ANION GAP 14.4 MEQ/L (5-15); BLOOD UREA NITROGEN 13 mg/dL (7-17); CHLORIDE 98 mmol/L (98-107); Calcium 9.5 mg/dL (8.4-10.2); Carbon Dioxide 32 mmol/L (22-30); Creatinine 1 0.67 mg/dL (0.52-1.04); Glucose 126 mg/dL (74-106); LIPASE 38 U/L (23-300); Potassium 4.5 mmol/L (3.5-5.1); SGOT/AST 30 U/L (14-36); SGPT/ALT 38 U/L (0-35); SODIUM 139 mmol/L (137-145); Total Protein 7.6 g/dL (6.3-8.2)
--- NOTE | 2019-03-24 18:33 | ERPHSYRPT ---
- History of Present Illness Time Seen by Provider: 03/24/19 17:11 Historian: patient Exam Limitations: no limitations Patient Subjective Stated Complaint: pt here for upper left abd pain for 2 weeks now with nausea, she has been seen in er and seen family doc as well as dr Whitley, he ordered testing for thursday morning. pt was called in an antiboitc today but has not filled camren Triage Nursing Assessment: pt alert, walked in, holding left side, resp easy, skin w/d/p. abd soft, moves all ext well Physician History: 38 years old female with history ofdiabetes mellitus, pushing syndrome with left upper quadrant pain going on for the last few weeks, was evaluated initially [facility] and later here in the middle of February this year with no acute findings on the CT at the bases presented again with the same left upper quadrant/flank area pain, border to severe menorrhagia that moments and palpation and no significant relieving factors. She was evaluated by GI and general surgeon is scheduled to have upper GI with follow-through study early next week. Patient reports her pain is gradually worsening and is also having loose stool or correction with constipation for the last few days. Denies any nausea or vomiting. No fever chills reported. Pain is similar to previous episodes. Patient called her primary care and is sent in here for evaluation. I have discussed with Dr. Leon, recommended lab work and calling her back with results. Timing/Duration: week(s), intermittent, worse Quality: sharpness, stabbing Abdominal Pain Onset Location: LLQ, flank Pain Radiation: no radiation Severity of Pain-Max: moderate Severity of Pain-Current: severe Modifying Factors: Improves With: movement, palpation Associated Symptoms: diarrhea, nausea Previous symptoms: no prior history (review does) Allergies/Adverse Reactions: metoprolol Allergy (Mild, Verified 03/24/19 16:53) Hives Home Medications: Alprazolam 0.5 mg [xanAX 0.5 MG] 0.5 mg PO TID PRN PRN 09/04/18 [History] Aspirin 81 gm Chew [Baby Aspirin 81 mg Chew] 81 mg PO HS 09/04/18 [History ] Nebivolol HCl 5 MG [Bystolic 5 MG] 5 mg PO HS 09/04/18 [History] Nitroglycerin 0.4 mg Tablet [Nitrostat 0.4 MG Tablet] 0.4 mg SL UD PRN [History] PARoxetine HCl [Paroxetine HCl] 40 mg PO HS 09/04/18 [History] Semaglutide [Ozempic] 1 mg SQ WEEKLY 09/04/18 [History] Insulin Glargine,Hum.rec.anlog [Basaglar Kwikpen U-100] 30 unit SQ DAILY [History] Mifepristone [Korlym] 300 mg PO HS 10/27/18 [History] Valsartan 80 mg PO HS 11/05/18 [History] Omeprazole 40 mg PO HS 11/09/18 [History] Metformin HCl 500 mg [Glucophage 500 MG] 500 mg PO BIDWM 02/28/19 [History ] Insulin Lispro [Humalog Kwikpen U-100] 20 unit SQ TIDWM 03/01/19 [History] Hx Tetanus, Diphtheria Vaccination/Date Given: Yes Hx Influenza Vaccination/Date Given: No Hx Pneumococcal Vaccination/Date Given: No Immunizations Up to Date: Yes - Review of Systems Constitutional: No Symptoms Eyes: No Symptoms Ears, Nose, & Throat: No Symptoms Respiratory: No Symptoms Cardiac: No Symptoms ( like to see the) Abdominal/Gastrointestinal: Nausea (codeGI bleed he had he is a), Diarrhea Genitourinary Symptoms: No Symptoms Musculoskeletal: No Symptoms Skin: No Symptoms Neurological: No Symptoms Psychological: No Symptoms Endocrine: No Symptoms Hematologic/Lymphatic: No Symptoms Immunological/Allergic: No Symptoms - Past Medical History Pertinent Past Medical History: Yes Neurological History: Other ENT History: No Pertinent History Cardiac History: Angina, Coronary Artery Disease, Hypertension, Other Respiratory History: Pneumonia, Sleep Apnea Endocrine Medical History: Diabetes Type II, Other Musculoskeletal History: No Pertinent History GI Medical History: GERD, Gallbladder Disease History: No Pertinent History Psycho-Social History: Anxiety, Other Female Reproductive Disorders: Fibroids Other Medical History: cushings, 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 - Past Surgical History Past Surgical History: Yes Neuro Surgical History: No Pertinent History Cardiac: Cardiac Catheterization, Other Respiratory: No Pertinent History Gastrointestinal: Cholecystectomy Genitourinary: No Pertinent History Musculoskeletal: Other Female Surgical History: Hysterectomy Other Surgical History: plantar fascitis surgery - Social History Smoking Status: Never smoker Exposure to second hand smoke: No Drug Use: none Patient Lives Alone: No - Female History Hx Last Menstrual Period: hyster Hx Now: No - Nursing Vital Signs Nursing Vital Signs: Initial Vital Signs Temperature 98.1 F 03/24/19 16:44 Pulse Rate 91 H 03/24/19 16:44 Respiratory Rate 16 03/24/19 16:44 Blood Pressure 134/89 03/24/19 16:44 O2 Sat by Pulse Oximetry 96 03/24/19 16:44 Pain Scale Pain Intensity 10 - Physical Exam General Appearance: no apparent distress Eye Exam: eyes nml inspection Ears, Nose, Throat Exam: normal ENT inspection, pharynx normal Neck Exam: normal inspection, non-tender, full range of motion Respiratory Exam: normal breath sounds, lungs clear Cardiovascular Exam: regular rate/rhythm, normal heart sounds Gastrointestinal/Abdomen Exam: soft, normal bowel sounds, tenderness (LUQ/Flank ), No guarding, No rebound Back Exam: normal inspection, normal range of motion, No CVA tenderness Extremity Exam: normal inspection Neurologic Exam: alert, oriented x 3, cooperative Skin Exam: normal color SpO2 Interpretation: normal SpO2: 93 O2 Delivery: Room Air - Course Nursing assessment & vital signs reviewed: Yes Ordered Tests: Active Orders 24 hr Category Date Time Status IV Insertion STAT Care 03/24/19 17:30 Active AMYLASE Stat Lab 03/24/19 17:50 Completed CBC W DIFF Stat Lab 03/24/19 17:50 Completed CMP Stat Lab 03/24/19 17:50 Completed HCG,QUALITATIVE URINE Stat Lab 03/24/19 17:50 Completed LIPASE Stat Lab 03/24/19 17:50 Completed Lactic Acid Stat Lab 03/24/19 18:18 Completed UA W/RFX UR CULTURE Stat Lab 03/24/19 17:50 Completed Medication Summary Discontinued Medications Generic Name Dose Route Start Last Admin Trade Name Freq PRN Reason Stop Dose Admin Sodium Chloride 1,000 mls @ 999 mls/hr 03/24/19 17:30 03/24/19 19:53 Sodium Chloride 0.9% 1000 Ml IV 03/24/19 18:30 Infused .Q1H1M STA Infusion Sodium Chloride Confirm 03/24/19 18:11 Sodium Chloride 0.9% 1000 Ml Administered 03/24/19 18:12 Dose 1,000 mls @ ud .ROUTE .STK-MED ONE Ketorolac Tromethamine 30 mg 03/24/19 17:27 03/24/19 18:10 Toradol 30 Mg Injection IM 03/24/19 17:28 Not Given STAT ONE Morphine Sulfate 4 mg 03/24/19 17:30 03/24/19 18:17 Morphine Sulfate 4 Mg Inj IV 03/24/19 17:31 4 mg STAT ONE Administration Morphine Sulfate Confirm 03/24/19 18:11 Morphine Sulfate 4 Mg Inj Administered 03/24/19 18:12 Dose 4 mg .ROUTE .STK-MED ONE Ondansetron HCl 4 mg 03/24/19 17:30 03/24/19 18:16 Zofran 4 Mg/2 Ml Vial IV 03/24/19 17:31 4 mg STAT ONE Administration Ondansetron HCl Confirm 03/24/19 18:11 Zofran 4 Mg/2 Ml Vial Administered 03/24/19 18:12 Dose 4 mg .ROUTE .STK-MED ONE Orphenadrine Citrate 60 mg 03/24/19 17:27 03/24/19 18:10 Norflex 60 Mg/2 Ml IM 03/24/19 17:28 Not Given STAT ONE Lab/Rad Data: Laboratory Result Diagrams 03/24/19 17:50 03/24/19 17:50 Laboratory Results 03/24/19 03/24/19 03/24/19 Range/Units 18:18 17:50 17:50 WBC (4.0-10.5) K/mm3 RBC (4.1-5.4) M/mm3 Hgb (12.0-16.0) gm/dl Hct (35-47) % MCV (78-100) fl MCH (26-32) pg MCHC (32-36) g/dl RDW (11.5-14.0) % Plt Count (150-450) K/mm3 MPV (7.5-11.0) fl Gran % (36.0-66.0) % Eos # (Auto) (0-0.5) Absolute Lymphs (auto) (1.0-4.6) Absolute Monos (auto) (0.0-1.3) Lymphocytes % (24.0-44.0) % Monocytes % (0.0-12.0) % Eosinophils % (0.00-5.0) % Basophils % (0.0-0.4) % Absolute Granulocytes (1.4-6.9) Basophils # (0-0.4) Sodium (137-145) mmol/L Potassium (3.5-5.1) mmol/L Chloride (98-107) mmol/L Carbon Dioxide (22-30) mmol/L Anion Gap (5-15) MEQ/L BUN (7-17) mg/dL Creatinine (0.52-1.04) mg/dL Estimated GFR ML/MIN Glucose (74-106) mg/dL Lactic Acid 1.4 (0.4-2.0) Calcium (8.4-10.2) mg/dL Total Bilirubin (0.2-1.3) mg/dL AST (14-36) U/L ALT (0-35) U/L Alkaline Phosphatase (38-126) U/L Serum Total Protein (6.3-8.2) g/dL Albumin (3.5-5.0) g/dL Amylase (30-110) U/L Lipase (23-300) U/L Urine Color YELLOW (YELLOW) Urine Appearance SLIGHTLY CLOUDY (CLEAR) Urine pH 6.0 (5-6) Ur Specific [place] 1.021 (1.005-1.025) Urine Protein 100 (Negative) Urine Ketones NEGATIVE (NEGATIVE) Urine Blood NEGATIVE (0-5) John/ul Urine Nitrite NEGATIVE (NEGATIVE) Urine Bilirubin NEGATIVE (NEGATIVE) Urine Urobilinogen NEGATIVE (0-1) mg/dL Ur Leukocyte Esterase NEGATIVE (NEGATIVE) Urine WBC (Auto) 0-2 (0-5) /HPF Urine RBC (Auto) NONE (0-2) /HPF U Hyaline Cast (Auto) 0-2 (0-2) /LPF U Epithel Cells (Auto) RARE (FEW) /HPF Urine Bacteria (Auto) RARE (NEGATIVE) /HPF Urine Mucus (Auto) SLIGHT (NEGATIVE) /HPF Urine Culture Reflexed NO (NO) Urine Glucose NEGATIVE (NEGATIVE) mg/dL Urine HCG, Qual NEGATIVE (Negative) 03/24/19 03/24/19 Range/Units 17:50 17:50 WBC 8.0 (4.0-10.5) K/mm3 RBC 5.09 (4.1-5.4) M/mm3 Hgb 14.8 (12.0-16.0) gm/dl Hct 43.6 (35-47) % MCV 85.7 (78-100) fl MCH 29.1 (26-32) pg MCHC 33.9 (32-36) g/dl RDW 12.6 (11.5-14.0) % Plt Count 224 (150-450) K/mm3 MPV 9.3 (7.5-11.0) fl Gran % 60.6 (36.0-66.0) % Eos # (Auto) 0.14 (0-0.5) Absolute Lymphs (auto) 2.47 (1.0-4.6) Absolute Monos (auto) 0.54 (0.0-1.3) Lymphocytes % 30.8 (24.0-44.0) % Monocytes % 6.7 (0.0-12.0) % Eosinophils % 1.7 (0.00-5.0) % Basophils % 0.2 (0.0-0.4) % Absolute Granulocytes 4.86 (1.4-6.9) Basophils # 0.02 (0-0.4) Sodium 139 (137-145) mmol/L Potassium 4.5 (3.5-5.1) mmol/L Chloride 98 (98-107) mmol/L Carbon Dioxide 32 H (22-30) mmol/L Anion Gap 14.4 (5-15) MEQ/L BUN 13 (7-17) mg/dL Creatinine 0.67 (0.52-1.04) mg/dL Estimated GFR > 60.0 ML/MIN Glucose 126 H (74-106) mg/dL Lactic Acid (0.4-2.0) Calcium 9.5 (8.4-10.2) mg/dL Total Bilirubin 0.50 (0.2-1.3) mg/dL AST 30 (14-36) U/L ALT 38 H (0-35) U/L Alkaline Phosphatase 73 (38-126) U/L Serum Total Protein 7.6 (6.3-8.2) g/dL Albumin 4.6 (3.5-5.0) g/dL Amylase 41 (30-110) U/L Lipase 38 (23-300) U/L Urine Color (YELLOW) Urine Appearance (CLEAR) Urine pH (5-6) Ur Specific [place] (1.005-1.025) Urine Protein (Negative) Urine Ketones (NEGATIVE) Urine Blood (0-5) John/ul Urine Nitrite (NEGATIVE) Urine Bilirubin (NEGATIVE) Urine Urobilinogen (0-1) mg/dL Ur Leukocyte Esterase (NEGATIVE) Urine WBC (Auto) (0-5) /HPF Urine RBC (Auto) (0-2) /HPF U Hyaline Cast (Auto) (0-2) /LPF U Epithel Cells (Auto) (FEW) /HPF Urine Bacteria (Auto) (NEGATIVE) /HPF Urine Mucus (Auto) (NEGATIVE) /HPF Urine Culture Reflexed (NO) Urine Glucose (NEGATIVE) mg/dL Urine HCG, Qual (Negative) - Progress Progress: improved, pain not gone completely, re-examined Progress Note: 03/24/19 19:53 38 years old is evaluated for leftupper quadrant/flank pain. She's been having this pain for quite some times. She has no guarding or rebound tenderness. ppain is better after one dose of morphine. No vomiting, does have some intermittent diarrhea/constipation alternating. I have seen her in the past as well and was obtained CT which did not show any acute finding but constipation. The patient is scheduled to see her GI and general surgery for barium swallow with upper GI with follow-through study. No acute findings in thelab work. I have discussed lab findings with Dr. Joyce who does not think patient needs another CAT/imaging and I agree with that. Recommended giving pain medication until morning and she would evaluate her in the office again tomorrow. Discussed signs of worsening ER with patient in detail but she seems understanding. Discussed with : Sujit Will see patient in: office Counseled pt/family regarding: lab results, diagnosis, need for follow-up - Departure Departure Disposition: Home Clinical Impression: Abdominal pain Qualifiers: Abdominal location: left upper quadrant Qualified Code(s): R10.12 - Left upper quadrant pain Condition: Stable Critical Care Time: No Referrals: UGO NUÑEZ, [Primary Care Provider] - (tomorrow for re evaluation) Instructions: Acute Abdomen (Belly Pain), Adult (DC) Additional Instructions: take pain medications as needed. Followup with your primary care physician for reevaluation in the morning. Return to ER for any worsening. Keep appointment with GI and general surgery for reevaluation. Prescriptions: Hydrocodone/Acetaminophen [[place] 7.5-325 Tablet] 1 each PO Q4-6HPRN PRN 1 Days # 4 tablet MDD 4 tabs PRN Reason: Pain
== END 2019-03-24 20:11 | disposition home or self-care (01) ==
LOC: ED 16:28
DX: R10.12 Left upper quadrant pain (principal); I10 Essential (primary) hypertension; I25.10 Atherosclerotic heart disease of native coronary artery without angina pectoris; E11.9 Type 2 diabetes mellitus without complications; Z79.4 Long term (current) use of insulin; G47.30 Sleep apnea, unspecified; K21.9 Gastro-esophageal reflux disease without esophagitis; F41.9 Anxiety disorder, unspecified
CPT/HCPCS: 36000; 36415; 80053; 81001; 82150; 83605; 83690; 84703; 85025; 96360; 96374; 96375; 99284; J2270; J2405

== ENCOUNTER 2019-08-06 18:45 | Observation (INO) | payer OTHER ==
[2019-08-06] MEDS ORDERED: MORPHINE SULFATE 4 MG INJ IV ONE ×2 (19:32→21:22)
[2019-08-06] MEDS ORDERED: Sodium Chloride 0.9% 1000 ML 1,000 ML IV STA (19:32)
[2019-08-06] MEDS ORDERED: Zofran 4 MG/2 ML VIAL IV ONE (19:32)
[2019-08-06] MEDS ORDERED: ROCEPHIN 1 Gm-D5w 50 ml Bag** 1 G/50 ML IVPB IV STA (19:36)
[2019-08-06] MEDS ORDERED: Zofran 4 MG/2 ML VIAL ONE (19:40)
[2019-08-06] MEDS ORDERED: MORPHINE SULFATE 4 MG INJ ONE ×2 (19:40→21:45)
[2019-08-06] MEDS ORDERED: Sodium Chloride 0.9% 1000 ML 1,000 ML ONE (19:40)
[2019-08-06] MEDS ORDERED: ROCEPHIN 1 Gm-D5w 50 ml Bag** 1 G/50 ML IVPB IV ONE (19:40)
--- NOTE | 2019-08-06 19:41 | ERPHSYRPT ---
- History of Present Illness Time Seen by Provider: 08/06/19 19:37 Historian: patient, family Exam Limitations: no limitations Patient Subjective Stated Complaint: pt states that on Thursday for a rectal fistula repair, pt states that yesterday she began to not feel well, pt states that she took her temp this morning and temp was 99.9, pt states that she took a norco at 1300, pt states that she took 1,000 mg of extra strength tylenol at 1700, pt states that she has heaviness to chest, headache, be nausea, dizziness , sleepy Triage Nursing Assessment: pt ambulated into the er, pt is axo x3, pt c/o fever , afebrile, c/o chest heaviness, nausea, dizziness, sleepiness, RUL wheezing with exhaulation, hypoactive bowel sounds, hypertensive, pupils 3 mm and PERRL, strong pulses to all extremities, abdomen obsese, soft, non tender with palpation, c/o 7/10 pain to head, c/o headache Physician History: pt has fever SP drainage of rectal abscess; n but no V. no resp symptoms denies Covid exposure/travel abd is nontender but some distension. Timing/Duration: today Activities at Onset: none Abdominal Pain Onset Location: generalized abdomen Pain Radiation: other (rectum) Severity of Pain-Max: moderate Severity of Pain-Current: moderate Modifying Factors: Improves With: nothing Associated Symptoms: diaphoresis, fever/chills, nausea Previous symptoms: no prior history Allergies/Adverse Reactions: metoprolol Allergy (Mild, Verified 08/06/19 18:56) Hives Home Medications: Alprazolam 0.5 mg [xanAX 0.5 MG] 0.5 mg PO TID PRN PRN 09/04/18 [History] Aspirin 81 gm Chew [Baby Aspirin 81 mg Chew] 81 mg PO HS 09/04/18 [History ] Nebivolol HCl 5 MG [Bystolic 5 MG] 5 mg PO HS 09/04/18 [History] Nitroglycerin 0.4 mg Tablet [Nitrostat 0.4 MG Tablet] 0.4 mg SL UD PRN [History] PARoxetine HCL [Paroxetine HCl] 40 mg PO HS 09/04/18 [History] Insulin Glargine,Hum.rec.anlog [Basaglar Kwikpen U-100] 30 unit SQ DAILY [History] Valsartan 80 mg PO HS 11/05/18 [History] Omeprazole 40 mg PO HS 11/09/18 [History] Metformin HCl 500 mg [Glucophage 500 MG] 500 mg PO BIDWM 02/28/19 [History ] Insulin Lispro [Humalog Kwikpen U-100] 20 unit SQ TIDWM 03/01/19 [History] Hx Tetanus, Diphtheria Vaccination/Date Given: Yes Hx Influenza Vaccination/Date Given: No Hx Pneumococcal Vaccination/Date Given: No Travel Risk - International Travel Have you traveled outside of the country in past 3 weeks: No - Coronavirus Screening Close contact with a COVID-19 positive Pt in past 14-21 Days: No - Review of Systems Constitutional: Fever, Chills, Malaise Eyes: No Symptoms Ears, Nose, & Throat: No Symptoms Respiratory: No Cough, No Dyspnea Cardiac: No Chest Pain, No Edema, No Syncope Abdominal/Gastrointestinal: Abdominal Pain, Nausea, No Vomiting, No Diarrhea Genitourinary Symptoms: No Dysuria Musculoskeletal: No Symptoms, No Back Pain, No Neck Pain Skin: No Symptoms, No Rash Neurological: No Symptoms, No Dizziness, No Focal Weakness, No Sensory Changes Psychological: No Symptoms Endocrine: No Symptoms All Other Systems: Reviewed and Negative - Past Medical History Pertinent Past Medical History: Yes Neurological History: Other ENT History: No Pertinent History Cardiac History: Angina, Coronary Artery Disease, Hypertension, Other Respiratory History: Pneumonia, Sleep Apnea Endocrine Medical History: Diabetes Type II, Other Musculoskeletal History: No Pertinent History GI Medical History: GERD, Gallbladder Disease, Irritable Bowel History: No Pertinent History Psycho-Social History: Anxiety, Other Female Reproductive Disorders: Fibroids Other Medical History: cushings, 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 - Past Surgical History Past Surgical History: Yes Neuro Surgical History: No Pertinent History Cardiac: Cardiac Catheterization, Other Respiratory: No Pertinent History Gastrointestinal: Cholecystectomy Genitourinary: No Pertinent History Musculoskeletal: Other Female Surgical History: Hysterectomy Other Surgical History: plantar fascitis surgery, rectal fistula repair - Social History Smoking Status: Never smoker Exposure to second hand smoke: No Drug Use: none Patient Lives Alone: No - Female History Hx Now: No - Nursing Vital Signs Nursing Vital Signs: Initial Vital Signs Temperature 98.6 F 08/06/19 19:00 Pulse Rate 88 08/06/19 19:00 Respiratory Rate 22 08/06/19 19:00 Blood Pressure 149/97 08/06/19 19:00 O2 Sat by Pulse Oximetry 95 08/06/19 19:00 Pain Scale Pain Intensity 6 - Physical Exam General Appearance: no apparent distress, alert Eye Exam: PERRL/EOMI, eyes nml inspection Ears, Nose, Throat Exam: normal ENT inspection, pharynx normal, moist mucous membranes Neck Exam: normal inspection, non-tender, supple, full range of motion Respiratory Exam: normal breath sounds, lungs clear, No respiratory distress Cardiovascular Exam: regular rate/rhythm, normal heart sounds Gastrointestinal/Abdomen Exam: soft, No tenderness, No mass Pelvic Exam: deferred Rectal Exam: deferred, other (wound has minimal drainage and minimal erythema good granulation- rectal) Back Exam: normal inspection, normal range of motion, No CVA tenderness, No vertebral tenderness Extremity Exam: normal inspection, normal range of motion, pelvis stable Neurologic Exam: alert, oriented x 3, cooperative, normal mood/affect, nml cerebellar function, sensation nml, No motor deficits Skin Exam: normal color, warm, dry SpO2 Interpretation: normal SpO2: 95 O2 Delivery: Room Air - Course Nursing assessment & vital signs reviewed: Yes EKG Interpreted by Me: Sinus Rhythm, NORMAL AXIS, NORMAL INTERVALS, NORMAL QRS, NORMAL ST-T - Radiology Exams Chest X-ray Interpretation: Reviewed by me, Infiltrates (rml may be similar to the previous) Abdomen X-ray Interpretation: Teleradiologist Report, Other (no abscess - fluid in anterior umbilical area extraperitoneal) - CT Exams Abdomen/Pelvis CT Interpretation: Tele-radiologist Report, Other (umbilical collection 3 x 2 cm ) Head CT Interpretation: Tele-radiologist Report Ordered Tests: Active Orders 24 hr Category Date Time Status EKG-ER Only STAT Care 08/06/19 19:32 Active IV Insertion STAT Care 08/06/19 19:32 Active ABDOMEN AND PELVIS W CONTRAST [CT] Stat Exams 08/06/19 19:33 Taken CHEST 1 VIEW (PORTABLE) Stat Exams 08/06/19 22:59 Taken HEAD WITHOUT CONTRAST [CT] Stat Exams 08/07/19 00:14 Taken AMYLASE Stat Lab 08/06/19 20:10 Completed BLOOD CULTURE Stat Lab 08/06/19 20:10 Received CBC W DIFF Stat Lab 08/06/19 20:10 Completed CMP Stat Lab 08/06/19 20:10 Completed LIPASE Stat Lab 08/06/19 20:10 Completed Lactic Acid Stat Lab 08/06/19 20:05 Completed UA W/RFX UR CULTURE Stat Lab 08/06/19 20:10 Completed Medication Summary Discontinued Medications Generic Name Dose Route Start Last Admin Trade Name Freq PRN Reason Stop Dose Admin Diphenhydramine HCl 25 mg 08/07/19 00:16 08/07/19 00:36 Benadryl 50 Mg/Ml IV 08/07/19 00:17 25 mg STAT ONE Administration Diphenhydramine HCl Confirm 08/07/19 00:34 Benadryl 50 Mg/Ml Administered 08/07/19 00:35 Dose 50 mg .ROUTE .STK-MED ONE Sodium Chloride 1,000 mls @ 999 mls/hr 08/06/19 19:32 08/06/19 21:07 Sodium Chloride 0.9% 1000 Ml IV 08/06/19 20:32 Infused .Q1H1M STA Infusion Ceftriaxone Sodium/Dextrose 1 g in 50 mls @ 100 mls/hr 08/06/19 19:36 21:06 Rocephin 1 Gm-D5w 50 Ml Bag IV 08/06/19 20:05 Infused STAT STA Infusion Sodium Chloride Confirm 08/06/19 19:40 Sodium Chloride 0.9% 1000 Ml Administered 08/06/19 19:41 Dose 1,000 mls @ ud .ROUTE .STK-MED ONE Ceftriaxone Sodium/Dextrose Confirm 08/06/19 19:40 Rocephin 1 Gm-D5w 50 Ml Bag Administered 08/06/19 19:41 Dose 1 g in 50 mls @ ud IV .STK-MED ONE Metoclopramide HCl 10 mg 08/07/19 00:15 08/07/19 00:36 Reglan 10 Mg/2 Ml IV 08/07/19 00:16 10 mg STAT ONE Administration Metoclopramide HCl Confirm 08/07/19 00:34 Reglan 10 Mg/2 Ml Administered 08/07/19 00:35 Dose 10 mg .ROUTE .STK-MED ONE Morphine Sulfate 4 mg 08/06/19 19:32 08/06/19 19:42 Morphine Sulfate 4 Mg Inj IV 08/06/19 19:33 4 mg STAT ONE Administration Morphine Sulfate Confirm 08/06/19 19:40 Morphine Sulfate 4 Mg Inj Administered 08/06/19 19:41 Dose 4 mg .ROUTE .STK-MED ONE Morphine Sulfate 4 mg 08/06/19 21:22 08/06/19 21:49 Morphine Sulfate 4 Mg Inj IV 08/06/19 21:23 4 mg STAT ONE Administration Morphine Sulfate Confirm 08/06/19 21:45 Morphine Sulfate 4 Mg Inj Administered 08/06/19 21:46 Dose 4 mg .ROUTE .STK-MED ONE Ondansetron HCl 4 mg 08/06/19 19:32 08/06/19 19:42 Zofran 4 Mg/2 Ml Vial IV 08/06/19 19:33 4 mg STAT ONE Administration Ondansetron HCl Confirm 08/06/19 19:40 Zofran 4 Mg/2 Ml Vial Administered 08/06/19 19:41 Dose 4 mg .ROUTE .STK-MED ONE Promethazine HCl 25 mg 08/06/19 21:22 08/06/19 21:49 Phenergan 25 Mg Inj IM 08/06/19 21:23 25 mg STAT ONE Administration Promethazine HCl Confirm 08/06/19 21:44 Phenergan 25 Mg Inj Administered 08/06/19 21:45 Dose 25 mg .ROUTE .STK-MED ONE Lab/Rad Data: Laboratory Result Diagrams 08/06/19 20:10 08/06/19 20:10 Laboratory Results 08/06/19 08/06/19 08/06/19 Range/Units 20:10 20:10 20:10 WBC 7.5 (4.0-10.5) K/mm3 RBC 5.22 (4.1-5.4) M/mm3 Hgb 14.9 (12.0-16.0) gm/dl Hct 44.0 (35-47) % MCV 84.3 (78-100) fl MCH 28.5 (26-32) pg MCHC 33.9 (32-36) g/dl RDW 12.9 (11.5-14.0) % Plt Count 212 (150-450) K/mm3 MPV 9.8 (7.5-11.0) fl Gran % 65.0 (36.0-66.0) % Eos # (Auto) 0.26 (0-0.5) Absolute Lymphs (auto) 1.92 (1.0-4.6) Absolute Monos (auto) 0.41 (0.0-1.3) Lymphocytes % 25.7 (24.0-44.0) % Monocytes % 5.5 (0.0-12.0) % Eosinophils % 3.5 (0.00-5.0) % Basophils % 0.3 (0.0-0.4) % Absolute Granulocytes 4.87 (1.4-6.9) Basophils # 0.02 (0-0.4) Sodium 139 (137-145) mmol/L Potassium 4.1 (3.5-5.1) mmol/L Chloride 99 (98-107) mmol/L Carbon Dioxide 30 (22-30) mmol/L Anion Gap 14.4 (5-15) MEQ/L BUN 11 (7-17) mg/dL Creatinine 0.53 (0.52-1.04) mg/dL Estimated GFR > 60.0 ML/MIN Glucose 175 H (74-106) mg/dL Lactic Acid (0.4-2.0) Calcium 9.5 (8.4-10.2) mg/dL Total Bilirubin 0.60 (0.2-1.3) mg/dL AST 27 (14-36) U/L ALT 35 (0-35) U/L Alkaline Phosphatase 112 (38-126) U/L Serum Total Protein 7.6 (6.3-8.2) g/dL Albumin 4.3 (3.5-5.0) g/dL Amylase 41 (30-110) U/L Lipase 19 L (23-300) U/L Urine Color YELLOW (YELLOW) Urine Appearance SLIGHTLY CLOUDY (CLEAR) Urine pH 7.0 (5-6) Ur Specific [place] 1.012 (1.005-1.025) Urine Protein NEGATIVE (Negative) Urine Ketones NEGATIVE (NEGATIVE) Urine Blood NEGATIVE (0-5) John/ul Urine Nitrite NEGATIVE (NEGATIVE) Urine Bilirubin NEGATIVE (NEGATIVE) Urine Urobilinogen NEGATIVE (0-1) mg/dL Ur Leukocyte Esterase NEGATIVE (NEGATIVE) Urine WBC (Auto) NONE (0-5) /HPF Urine RBC (Auto) NONE (0-2) /HPF U Epithel Cells (Auto) RARE (FEW) /HPF Urine Bacteria (Auto) NONE SEEN (NEGATIVE) /HPF Urine Mucus (Auto) SLIGHT (NEGATIVE) /HPF Urine Culture Reflexed NO (NO) Urine Glucose NEGATIVE (NEGATIVE) mg/dL 08/06/19 Range/Units 20:05 WBC (4.0-10.5) K/mm3 RBC (4.1-5.4) M/mm3 Hgb (12.0-16.0) gm/dl Hct (35-47) % MCV (78-100) fl MCH (26-32) pg MCHC (32-36) g/dl RDW (11.5-14.0) % Plt Count (150-450) K/mm3 MPV (7.5-11.0) fl Gran % (36.0-66.0) % Eos # (Auto) (0-0.5) Absolute Lymphs (auto) (1.0-4.6) Absolute Monos (auto) (0.0-1.3) Lymphocytes % (24.0-44.0) % Monocytes % (0.0-12.0) % Eosinophils % (0.00-5.0) % Basophils % (0.0-0.4) % Absolute Granulocytes (1.4-6.9) Basophils # (0-0.4) Sodium (137-145) mmol/L Potassium (3.5-5.1) mmol/L Chloride (98-107) mmol/L Carbon Dioxide (22-30) mmol/L Anion Gap (5-15) MEQ/L BUN (7-17) mg/dL Creatinine (0.52-1.04) mg/dL Estimated GFR ML/MIN Glucose (74-106) mg/dL Lactic Acid 1.8 (0.4-2.0) Calcium (8.4-10.2) mg/dL Total Bilirubin (0.2-1.3) mg/dL AST (14-36) U/L ALT (0-35) U/L Alkaline Phosphatase (38-126) U/L Serum Total Protein (6.3-8.2) g/dL Albumin (3.5-5.0) g/dL Amylase (30-110) U/L Lipase (23-300) U/L Urine Color (YELLOW) Urine Appearance (CLEAR) Urine pH (5-6) Ur Specific [place] (1.005-1.025) Urine Protein (Negative) Urine Ketones (NEGATIVE) Urine Blood (0-5) John/ul Urine Nitrite (NEGATIVE) Urine Bilirubin (NEGATIVE) Urine Urobilinogen (0-1) mg/dL Ur Leukocyte Esterase (NEGATIVE) Urine WBC (Auto) (0-5) /HPF Urine RBC (Auto) (0-2) /HPF U Epithel Cells (Auto) (FEW) /HPF Urine Bacteria (Auto) (NEGATIVE) /HPF Urine Mucus (Auto) (NEGATIVE) /HPF Urine Culture Reflexed (NO) Urine Glucose (NEGATIVE) mg/dL - Progress Progress: improved, re-examined Progress Note: 08/06/19 23:16 pt has pleural effusions on ABd CT. and needs CXR to rule out pathology with fever but x-ray is backed up so will take longer. 08/07/19 00:13 pt now complains of headache and wishes CT after discussion of risk and benefit 08/07/19 01:58 discussed with pt and Dr. Kali eugene and will place in on obs for pain control and to obs wbc and for fever. and for nausea - we will hold off on surgery consult at this time as no indication on CT or exam. 08/07/19 01:59 pt had negative covid test on the 4th for this surgery. Counseled pt/family regarding: lab results, diagnosis, need for follow-up, rad results - Departure Departure Disposition: Observation Clinical Impression: intractible pain SP drainage of rectal a, nausea / anorexia , Abdominal pain Condition: Good Critical Care Time: No Referrals: UGO NUÑEZ DO [Primary Care Provider] -
[2019-08-06 20:09] LABS: Absolute Neutrophil Ct (ANC) 4.87 (1.4-6.9); BASOPHIL % 0.3 % (0.0-0.4); Basophil (Absolute #) 0.02 (0-0.4); Eosinophil % 3.5 % (0.00-5.0); Eosinophil (Absolute #) 0.26 (0-0.5); Hemoglobin 14.9 gm/dl (12.0-16.0); Lymphocyte (Absolute #) 1.92 (1.0-4.6); Lymphocytes % 25.7 % (24.0-44.0); Mean Cell Volume 84.3 fl (78-100); Mean Corpuscular Hemoglobin 28.5 pg (26-32); Mean Corpuscular Hgb Concent. 33.9 g/dl (32-36); Mean Platelet Volume 9.8 fl (7.5-11.0); Monocyte (Absolute #) 0.41 (0.0-1.3); Monocytes % 5.5 % (0.0-12.0); Platelet Count 212 K/mm3 (150-450); Red Blood Count 5.22 M/mm3 (4.1-5.4); Red Cell Distribution Width 12.9 % (11.5-14.0); White Blood Count 7.5 K/mm3 (4.0-10.5)
[2019-08-06 20:21] LABS: Appearance SLIGHTLY CLOUDY (CLEAR); Bilirubin NEGATIVE (NEGATIVE); Blood NEGATIVE Ery/ul (0-5); Epithelial Cells RARE /HPF (FEW); Glucose NEGATIVE (NEGATIVE); Ketones NEGATIVE (NEGATIVE); Leukocyte Esterase NEGATIVE (NEGATIVE); Mucus SLIGHT /HPF (NEGATIVE); Nitrite NEGATIVE (NEGATIVE); Protein,Urine Dip NEGATIVE (Negative); Specific Gravity 1.012 (1.005-1.025); Urobilinogen NEGATIVE mg/dL (0-1)
[2019-08-06 20:22] LABS: ALBUMIN 4.3 g/dL (3.5-5.0); ALKALINE PHOSPHATASE 112 U/L (38-126); AMYLASE 41 U/L (30-110); ANION GAP 14.4 MEQ/L (5-15); BLOOD UREA NITROGEN 11 mg/dL (7-17); CHLORIDE 99 mmol/L (98-107); Calcium 9.5 mg/dL (8.4-10.2); Carbon Dioxide 30 mmol/L (22-30); Creatinine 1 0.53 mg/dL (0.52-1.04); Glucose 175 mg/dL (74-106); LIPASE 19 U/L (23-300); Potassium 4.1 mmol/L (3.5-5.1); SGOT/AST 27 U/L (14-36); SGPT/ALT 35 U/L (0-35); SODIUM 139 mmol/L (137-145); Total Protein 7.6 g/dL (6.3-8.2)
[2019-08-06 20:25] LABS: Bacteria NONE SEEN /HPF (NEGATIVE)
[2019-08-06] MEDS ORDERED: Phenergan 25 MG INJ IM ONE (21:22)
[2019-08-06] MEDS ORDERED: Phenergan 25 MG INJ ONE (21:44)
[2019-08-07] MEDS ORDERED: Reglan 10 MG/2 ML IV ONE (00:15)
[2019-08-07] MEDS ORDERED: BENADRYL 50 MG/ML IV ONE (00:16)
[2019-08-07] MEDS ORDERED: Reglan 10 MG/2 ML ONE (00:34)
[2019-08-07] MEDS ORDERED: BENADRYL 50 MG/ML ONE (00:34)
[2019-08-07] MEDS ORDERED: Phenergan 25 MG INJ IM PRN (02:42)
[2019-08-07] MEDS ORDERED: Zofran 4 MG/2 ML VIAL IV PRN (02:42)
[2019-08-07] MEDS ORDERED: TYLENOL 325 MG PO PRN (02:42)
[2019-08-07] MEDS: DILAUDID 2 MG INJECTION IV PRN ×4 (03:42→21:34)
[2019-08-07 06:15] LABS: Absolute Neutrophil Ct (ANC) 3.71 (1.4-6.9); BASOPHIL % 0.3 % (0.0-0.4); Basophil (Absolute #) 0.02 (0-0.4); Eosinophil (Absolute #) 0.25 (0-0.5); Hematocrit 40.4 % (35-47); Hemoglobin 13.2 gm/dl (12.0-16.0); Lymphocyte (Absolute #) 1.94 (1.0-4.6); Lymphocytes % 30.7 % (24.0-44.0); Mean Cell Volume 86.3 fl (78-100); Mean Corpuscular Hemoglobin 28.2 pg (26-32); Mean Corpuscular Hgb Concent. 32.7 g/dl (32-36); Mean Platelet Volume 9.7 fl (7.5-11.0); Monocyte (Absolute #) 0.39 (0.0-1.3); Monocytes % 6.2 % (0.0-12.0); Neutrophil % 58.8 % (36.0-66.0); Platelet Count 188 K/mm3 (150-450); Red Blood Count 4.68 M/mm3 (4.1-5.4); Red Cell Distribution Width 13.1 % (11.5-14.0); White Blood Count 6.3 K/mm3 (4.0-10.5)
[2019-08-07 06:23] LABS: ALBUMIN 3.8 g/dL (3.5-5.0); ALKALINE PHOSPHATASE 99 U/L (38-126); ANION GAP 11.9 MEQ/L (5-15); BLOOD UREA NITROGEN 9 mg/dL (7-17); CHLORIDE 102 mmol/L (98-107); Calcium 8.7 mg/dL (8.4-10.2); Carbon Dioxide 30 mmol/L (22-30); Creatinine 1 0.46 mg/dL (0.52-1.04); Glucose 190 mg/dL (74-106); Potassium 3.9 mmol/L (3.5-5.1); SGOT/AST 28 U/L (14-36); SGPT/ALT 30 U/L (0-35); SODIUM 139 mmol/L (137-145); Total Protein 6.6 g/dL (6.3-8.2)
--- NOTE | 2019-08-07 06:40 | XRAY ---
Indication: Abdomen and rectal pain. Nausea and fever. Status post surgery for rectal fistula repair August 01, 2019. Multiple contiguous axial images obtained through the abdomen and pelvis using 80 cc Isovue 370 contrast only. Comparison: March 09, 2019. Lung bases demonstrates new small bibasilar effusions without cardiomegaly. Noncontrasted stomach and bowel loops remain nonobstructed. Normal appendix. No free fluid/air. Stable fatty hepatomegaly, splenomegaly, cholecystectomy, and hysterectomy. Remaining pancreas, adrenal glands, kidneys, ureters, and bladder are unremarkable. Stable minimal aortic calcifications. Again no AAA or pathological 2. Lymphadenopathy. Osseous structures intact. Umbilicus demonstrates new small fluid collection measuring 3.2 x 2.3 cm without abnormal enhancement or air bubbles. No ventral or inguinal hernias. Impression: 1. New small indeterminant but benign appearing umbilicus fluid collection. 2. New small bibasilar effusions without cardiomegaly. 3. Stable fatty hepatomegaly and splenomegaly. Comment: Preliminary interpretation was made by [facility]. No critical discrepancy.
--- NOTE | 2019-08-07 07:00 | XRAY ---
Indication: Postop fever. Comparison: March 01, 2019. Portable apical lordotic chest less inflated with now mild medial right base infiltrate versus atelectasis. Remaining heart, lungs, and bony thorax unremarkable.
--- NOTE | 2019-08-07 07:02 | XRAY ---
Indication: Headache. Multiple contiguous axial images obtained through the head without contrast. Comparison: November 05, 2018. Continued normal-appearing brain parenchyma, ventricles, and bony calvarium. Again minimal left maxillary sinus mucosal thickening. Remaining visualized paranasal sinuses and mastoid air cells are clear. Impression: Stable left maxillary sinus disease. Remaining CT head without contrast exam is normal. Comment: Preliminary interpretation was made by [facility]. No critical discrepancy.
[2019-08-07] MEDS: HUMULIN R SQ PRN ×4 (08:55→21:35)
--- NOTE | 2019-08-07 10:06 | PCM.SSS ---
History of Present Illness - Chief Complaint Chief Complaint: intractable pain SP rectal surgery, nausea anorexia, subjective fever sensa History of Present Illness: is a 39 year old female who had drainage of rectal abscess 6 days ago, she complains of pain in her upper stomach and rectum, nausea but no vomiting, no fever, no cough, no shortness of breath. She continues to have some pain but requests to go home today, has prior hernia repair and cholecystectomy. - Review of Systems Constitutional: No Fever, No Chills Respiratory: No Cough, No Short Of Breath Cardiac: No Chest Pain, No Edema, No Syncope Abdominal/Gastrointestinal: Abdominal Pain, Nausea, No Vomiting, No Diarrhea, No Constipation Genitourinary Symptoms: No Dysuria All Other Systems: Reviewed and Negative Medications & Allergies Home Medications: Home Medication List Alprazolam 0.5 mg [xanAX 0.5 MG] 0.5 mg PO BID PRN PRN 09/04/18 [History Confirmed 08/07/19] Aspirin 81 gm Chew [Baby Aspirin 81 mg Chew] 81 mg PO HS 09/04/18 [ History Confirmed 08/07/19] Nebivolol HCl 5 MG [Bystolic 5 MG] 5 mg PO HS 09/04/18 [History Confirmed 08/07/19] Nitroglycerin 0.4 mg Tablet [Nitrostat 0.4 MG Tablet] 0.4 mg SL UD PRN [History Confirmed 08/07/19] PARoxetine HCL [Paroxetine HCl] 40 mg PO HS 09/04/18 [History Confirmed 08/07/19 ] Insulin Glargine,Hum.rec.anlog [Basaglar Kwikpen U-100] 30 unit SQ DAILY [History Confirmed 08/07/19] Valsartan 80 mg PO HS 11/05/18 [History Confirmed 08/07/19] Omeprazole 40 mg PO HS 11/09/18 [History Confirmed 08/07/19] Metformin HCl 500 mg [Glucophage 500 MG] 500 mg PO BIDWM 02/28/19 [ History Confirmed 08/07/19] Hydrocodone/Acetaminophen [[place] 7.5-325 Tablet] 1 each PO Q4-6HPRN PRN 1 Days # 4 tablet MDD 4 tabs 03/24/19 [Rx Confirmed 08/07/19] Promethazine HCl 12.5 mg PO Q6-8HPRN PRN #20 tablet 08/07/19 [Rx] Allergies/Adverse Reactions: Allergies Allergy/AdvReac Type Severity Reaction Status Date / Time metoprolol Allergy Mild Hives Verified 08/06/19 18:56 - Past Medical History Past Medical History: Yes Neurological History: Other ENT History: No Pertinent History Cardiac History: Angina, Coronary Artery Disease, Hypertension, Other Respiratory History: Pneumonia, Sleep Apnea Endocrine Medical History: Diabetes Type II, Other Musculoskelatal History: No Pertinent History GI Medical History: GERD, Gallbladder Disease, Irritable Bowel History: No Pertinent History Pyscho-Social History: Anxiety, Other Reproductive Disorders: Fibroids Comment: cushings, 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 - Female History Are you now?: No - Past Surgical History Past Surgical History: Yes Neuro Surgical History: No Pertinent History Cardiac History: Cardiac Catheterization, Other Respiratory Surgery: No Pertinent History GI Surgical History: Cholecystectomy Genitourinary Surgical Hx: No Pertinent History Musculskeletal Surgical Hx: Other Female Surgical History: Hysterectomy Other Surgical History: plantar fascitis surgery, rectal fistula repair, umbilical hernia repair and adhesion removal - Social History Smoking Status: Never smoker Exposure to second hand smoke: No Alcohol: None Drug Use: none - Physical Exam Vital Signs: Vital Signs - 24 hr Temp Pulse Resp BP Pulse Ox 08/07/19 07:08 98.1 F 82 18 114/68 94 L 08/07/19 03:55 96 08/07/19 03:53 97.9 F 81 18 136/67 91 L 08/07/19 03:50 86 17 89 L 08/07/19 02:58 97.9 F 81 18 136/67 91 L 08/07/19 02:42 91 L 08/07/19 02:03 95 08/07/19 02:00 88 18 146/98 98 08/07/19 00:00 78 18 140/79 95 08/06/19 23:02 89 18 135/78 98 08/06/19 22:57 83 18 134/78 93 L 08/06/19 20:48 89 139/89 93 L 08/06/19 19:00 98.6 F 88 22 149/97 95 General Appearance: no apparent distress, alert, obese Neurologic Exam: alert, oriented x 3, cooperative Respiratory Exam: normal breath sounds, lungs clear, No respiratory distress Cardiovascular Exam: regular rate/rhythm, normal heart sounds, normal peripheral pulses Gastrointestinal/Abdomen Exam: soft, other (morbidly obese), No tenderness, No distention, No mass, No guarding Rectal Exam: other (wound appears healing) Results - Labs Lab/Micro Results: Lab Results-Last 24 Hours 08/06/19 08/06/19 08/06/19 Range/Units 20:05 20:10 20:10 WBC 7.5 (4.0-10.5) K/mm3 RBC 5.22 (4.1-5.4) M/mm3 Hgb 14.9 (12.0-16.0) gm/dl Hct 44.0 (35-47) % MCV 84.3 (78-100) fl MCH 28.5 (26-32) pg MCHC 33.9 (32-36) g/dl RDW 12.9 (11.5-14.0) % Plt Count 212 (150-450) K/mm3 MPV 9.8 (7.5-11.0) fl Gran % 65.0 (36.0-66.0) % Eos # (Auto) 0.26 (0-0.5) Absolute Lymphs (auto) 1.92 (1.0-4.6) Absolute Monos (auto) 0.41 (0.0-1.3) Lymphocytes % 25.7 (24.0-44.0) % Monocytes % 5.5 (0.0-12.0) % Eosinophils % 3.5 (0.00-5.0) % Basophils % 0.3 (0.0-0.4) % Absolute Granulocytes 4.87 (1.4-6.9) Basophils # 0.02 (0-0.4) Sodium 139 (137-145) mmol/L Potassium 4.1 (3.5-5.1) mmol/L Chloride 99 (98-107) mmol/L Carbon Dioxide 30 (22-30) mmol/L Anion Gap 14.4 (5-15) MEQ/L BUN 11 (7-17) mg/dL Creatinine 0.53 (0.52-1.04) mg/dL Estimated GFR > 60.0 ML/MIN Glucose 175 H (74-106) mg/dL Lactic Acid 1.8 (0.4-2.0) Calcium 9.5 (8.4-10.2) mg/dL Total Bilirubin 0.60 (0.2-1.3) mg/dL AST 27 (14-36) U/L ALT 35 (0-35) U/L Alkaline Phosphatase 112 (38-126) U/L Serum Total Protein 7.6 (6.3-8.2) g/dL Albumin 4.3 (3.5-5.0) g/dL Amylase 41 (30-110) U/L Lipase 19 L (23-300) U/L Urine Color (YELLOW) Urine Appearance (CLEAR) Urine pH (5-6) Ur Specific [place] (1.005-1.025) Urine Protein (Negative) Urine Ketones (NEGATIVE) Urine Blood (0-5) John/ul Urine Nitrite (NEGATIVE) Urine Bilirubin (NEGATIVE) Urine Urobilinogen (0-1) mg/dL Ur Leukocyte Esterase (NEGATIVE) Urine WBC (Auto) (0-5) /HPF Urine RBC (Auto) (0-2) /HPF U Epithel Cells (Auto) (FEW) /HPF Urine Bacteria (Auto) (NEGATIVE) /HPF Urine Mucus (Auto) (NEGATIVE) /HPF Urine Culture Reflexed (NO) Urine Glucose (NEGATIVE) mg/dL 08/06/19 08/07/19 08/07/19 Range/Units 20:10 05:40 05:40 WBC 6.3 (4.0-10.5) K/mm3 RBC 4.68 (4.1-5.4) M/mm3 Hgb 13.2 (12.0-16.0) gm/dl Hct 40.4 (35-47) % MCV 86.3 (78-100) fl MCH 28.2 (26-32) pg MCHC 32.7 (32-36) g/dl RDW 13.1 (11.5-14.0) % Plt Count 188 (150-450) K/mm3 MPV 9.7 (7.5-11.0) fl Gran % 58.8 (36.0-66.0) % Eos # (Auto) 0.25 (0-0.5) Absolute Lymphs (auto) 1.94 (1.0-4.6) Absolute Monos (auto) 0.39 (0.0-1.3) Lymphocytes % 30.7 (24.0-44.0) % Monocytes % 6.2 (0.0-12.0) % Eosinophils % 4.0 (0.00-5.0) % Basophils % 0.3 (0.0-0.4) % Absolute Granulocytes 3.71 (1.4-6.9) Basophils # 0.02 (0-0.4) Sodium 139 (137-145) mmol/L Potassium 3.9 (3.5-5.1) mmol/L Chloride 102 (98-107) mmol/L Carbon Dioxide 30 (22-30) mmol/L Anion Gap 11.9 (5-15) MEQ/L BUN 9 (7-17) mg/dL Creatinine 0.46 L (0.52-1.04) mg/dL Estimated GFR > 60.0 ML/MIN Glucose 190 H (74-106) mg/dL Lactic Acid (0.4-2.0) Calcium 8.7 (8.4-10.2) mg/dL Total Bilirubin 0.40 (0.2-1.3) mg/dL AST 28 (14-36) U/L ALT 30 (0-35) U/L Alkaline Phosphatase 99 (38-126) U/L Serum Total Protein 6.6 (6.3-8.2) g/dL Albumin 3.8 (3.5-5.0) g/dL Amylase (30-110) U/L Lipase (23-300) U/L Urine Color YELLOW (YELLOW) Urine Appearance SLIGHTLY CLOUDY (CLEAR) Urine pH 7.0 (5-6) Ur Specific [place] 1.012 (1.005-1.025) Urine Protein NEGATIVE (Negative) Urine Ketones NEGATIVE (NEGATIVE) Urine Blood NEGATIVE (0-5) John/ul Urine Nitrite NEGATIVE (NEGATIVE) Urine Bilirubin NEGATIVE (NEGATIVE) Urine Urobilinogen NEGATIVE (0-1) mg/dL Ur Leukocyte Esterase NEGATIVE (NEGATIVE) Urine WBC (Auto) NONE (0-5) /HPF Urine RBC (Auto) NONE (0-2) /HPF U Epithel Cells (Auto) RARE (FEW) /HPF Urine Bacteria (Auto) NONE SEEN (NEGATIVE) /HPF Urine Mucus (Auto) SLIGHT (NEGATIVE) /HPF Urine Culture Reflexed NO (NO) Urine Glucose NEGATIVE (NEGATIVE) mg/dL 08/07/19 Range/Units 05:48 WBC (4.0-10.5) K/mm3 RBC (4.1-5.4) M/mm3 Hgb (12.0-16.0) gm/dl Hct (35-47) % MCV (78-100) fl MCH (26-32) pg MCHC (32-36) g/dl RDW (11.5-14.0) % Plt Count (150-450) K/mm3 MPV (7.5-11.0) fl Gran % (36.0-66.0) % Eos # (Auto) (0-0.5) Absolute Lymphs (auto) (1.0-4.6) Absolute Monos (auto) (0.0-1.3) Lymphocytes % (24.0-44.0) % Monocytes % (0.0-12.0) % Eosinophils % (0.00-5.0) % Basophils % (0.0-0.4) % Absolute Granulocytes (1.4-6.9) Basophils # (0-0.4) Sodium (137-145) mmol/L Potassium (3.5-5.1) mmol/L Chloride (98-107) mmol/L Carbon Dioxide (22-30) mmol/L Anion Gap (5-15) MEQ/L BUN (7-17) mg/dL Creatinine (0.52-1.04) mg/dL Estimated GFR ML/MIN Glucose (74-106) mg/dL Lactic Acid 1.2 (0.4-2.0) Calcium (8.4-10.2) mg/dL Total Bilirubin (0.2-1.3) mg/dL AST (14-36) U/L ALT (0-35) U/L Alkaline Phosphatase (38-126) U/L Serum Total Protein (6.3-8.2) g/dL Albumin (3.5-5.0) g/dL Amylase (30-110) U/L Lipase (23-300) U/L Urine Color (YELLOW) Urine Appearance (CLEAR) Urine pH (5-6) Ur Specific [place] (1.005-1.025) Urine Protein (Negative) Urine Ketones (NEGATIVE) Urine Blood (0-5) John/ul Urine Nitrite (NEGATIVE) Urine Bilirubin (NEGATIVE) Urine Urobilinogen (0-1) mg/dL Ur Leukocyte Esterase (NEGATIVE) Urine WBC (Auto) (0-5) /HPF Urine RBC (Auto) (0-2) /HPF U Epithel Cells (Auto) (FEW) /HPF Urine Bacteria (Auto) (NEGATIVE) /HPF Urine Mucus (Auto) (NEGATIVE) /HPF Urine Culture Reflexed (NO) Urine Glucose (NEGATIVE) mg/dL - Radiology Impressions Radiology Exams & Impressions: Radiology Procedures Category Date Time Status ABDOMEN AND PELVIS W CONTRAST [CT] Stat Exams 08/06/19 19:33 Completed CHEST 1 VIEW (PORTABLE) Stat Exams 08/06/19 22:59 Completed HEAD WITHOUT CONTRAST [CT] Stat Exams 08/07/19 00:14 Completed - Other Procedures and Tests Respiratory Therapy 08/07/19 03:56 BiPap/CPAP ROUTINE Oxygen NASAL CANNULA 2 lpm Respiratory Therapy Assessment DAILY Assessment/Plan (1) Rectal pain Current Visit: Yes Status: Acute Code(s): K62.89 - OTHER SPECIFIED DISEASES OF ANUS AND RECTUM (2) Abdominal pain Current Visit: Yes Status: Acute Code(s): R10.9 - UNSPECIFIED ABDOMINAL PAIN (3) Nausea and vomiting in adult patient Current Visit: No Status: Acute Code(s): R11.2 - NAUSEA WITH VOMITING, UNSPECIFIED Hospital Summary - Vitals & Intake/Output Vital Signs: Vital Signs Temperature 98.1 F 08/07/19 07:08 Pulse Rate 82 08/07/19 07:08 Respiratory Rate 18 08/07/19 07:08 Blood Pressure 114/68 08/07/19 07:08 O2 Sat by Pulse Oximetry 94 L 08/07/19 07:08 Intake & Output: Intake & Output 08/04/19 08/05/19 08/06/19 08/07/19 11:59 11:59 11:59 11:59 Intake Total 240 Balance 240 Weight 135.2 kg - Lab Result Diagrams: 08/07/19 05:40 08/07/19 05:40 Lab Results-Last 24 Hrs: Lab Results-Last 24 Hours 08/06/19 08/06/19 08/06/19 Range/Units 20:05 20:10 20:10 WBC 7.5 (4.0-10.5) K/mm3 RBC 5.22 (4.1-5.4) M/mm3 Hgb 14.9 (12.0-16.0) gm/dl Hct 44.0 (35-47) % MCV 84.3 (78-100) fl MCH 28.5 (26-32) pg MCHC 33.9 (32-36) g/dl RDW 12.9 (11.5-14.0) % Plt Count 212 (150-450) K/mm3 MPV 9.8 (7.5-11.0) fl Gran % 65.0 (36.0-66.0) % Eos # (Auto) 0.26 (0-0.5) Absolute Lymphs (auto) 1.92 (1.0-4.6) Absolute Monos (auto) 0.41 (0.0-1.3) Lymphocytes % 25.7 (24.0-44.0) % Monocytes % 5.5 (0.0-12.0) % Eosinophils % 3.5 (0.00-5.0) % Basophils % 0.3 (0.0-0.4) % Absolute Granulocytes 4.87 (1.4-6.9) Basophils # 0.02 (0-0.4) Sodium 139 (137-145) mmol/L Potassium 4.1 (3.5-5.1) mmol/L Chloride 99 (98-107) mmol/L Carbon Dioxide 30 (22-30) mmol/L Anion Gap 14.4 (5-15) MEQ/L BUN 11 (7-17) mg/dL Creatinine 0.53 (0.52-1.04) mg/dL Estimated GFR > 60.0 ML/MIN Glucose 175 H (74-106) mg/dL Lactic Acid 1.8 (0.4-2.0) Calcium 9.5 (8.4-10.2) mg/dL Total Bilirubin 0.60 (0.2-1.3) mg/dL AST 27 (14-36) U/L ALT 35 (0-35) U/L Alkaline Phosphatase 112 (38-126) U/L Serum Total Protein 7.6 (6.3-8.2) g/dL Albumin 4.3 (3.5-5.0) g/dL Amylase 41 (30-110) U/L Lipase 19 L (23-300) U/L Urine Color (YELLOW) Urine Appearance (CLEAR) Urine pH (5-6) Ur Specific [place] (1.005-1.025) Urine Protein (Negative) Urine Ketones (NEGATIVE) Urine Blood (0-5) John/ul Urine Nitrite (NEGATIVE) Urine Bilirubin (NEGATIVE) Urine Urobilinogen (0-1) mg/dL Ur Leukocyte Esterase (NEGATIVE) Urine WBC (Auto) (0-5) /HPF Urine RBC (Auto) (0-2) /HPF U Epithel Cells (Auto) (FEW) /HPF Urine Bacteria (Auto) (NEGATIVE) /HPF Urine Mucus (Auto) (NEGATIVE) /HPF Urine Culture Reflexed (NO) Urine Glucose (NEGATIVE) mg/dL 08/06/19 08/07/19 08/07/19 Range/Units 20:10 05:40 05:40 WBC 6.3 (4.0-10.5) K/mm3 RBC 4.68 (4.1-5.4) M/mm3 Hgb 13.2 (12.0-16.0) gm/dl Hct 40.4 (35-47) % MCV 86.3 (78-100) fl MCH 28.2 (26-32) pg MCHC 32.7 (32-36) g/dl RDW 13.1 (11.5-14.0) % Plt Count 188 (150-450) K/mm3 MPV 9.7 (7.5-11.0) fl Gran % 58.8 (36.0-66.0) % Eos # (Auto) 0.25 (0-0.5) Absolute Lymphs (auto) 1.94 (1.0-4.6) Absolute Monos (auto) 0.39 (0.0-1.3) Lymphocytes % 30.7 (24.0-44.0) % Monocytes % 6.2 (0.0-12.0) % Eosinophils % 4.0 (0.00-5.0) % Basophils % 0.3 (0.0-0.4) % Absolute Granulocytes 3.71 (1.4-6.9) Basophils # 0.02 (0-0.4) Sodium 139 (137-145) mmol/L Potassium 3.9 (3.5-5.1) mmol/L Chloride 102 (98-107) mmol/L Carbon Dioxide 30 (22-30) mmol/L Anion Gap 11.9 (5-15) MEQ/L BUN 9 (7-17) mg/dL Creatinine 0.46 L (0.52-1.04) mg/dL Estimated GFR > 60.0 ML/MIN Glucose 190 H (74-106) mg/dL Lactic Acid (0.4-2.0) Calcium 8.7 (8.4-10.2) mg/dL Total Bilirubin 0.40 (0.2-1.3) mg/dL AST 28 (14-36) U/L ALT 30 (0-35) U/L Alkaline Phosphatase 99 (38-126) U/L Serum Total Protein 6.6 (6.3-8.2) g/dL Albumin 3.8 (3.5-5.0) g/dL Amylase (30-110) U/L Lipase (23-300) U/L Urine Color YELLOW (YELLOW) Urine Appearance SLIGHTLY CLOUDY (CLEAR) Urine pH 7.0 (5-6) Ur Specific [place] 1.012 (1.005-1.025) Urine Protein NEGATIVE (Negative) Urine Ketones NEGATIVE (NEGATIVE) Urine Blood NEGATIVE (0-5) John/ul Urine Nitrite NEGATIVE (NEGATIVE) Urine Bilirubin NEGATIVE (NEGATIVE) Urine Urobilinogen NEGATIVE (0-1) mg/dL Ur Leukocyte Esterase NEGATIVE (NEGATIVE) Urine WBC (Auto) NONE (0-5) /HPF Urine RBC (Auto) NONE (0-2) /HPF U Epithel Cells (Auto) RARE (FEW) /HPF Urine Bacteria (Auto) NONE SEEN (NEGATIVE) /HPF Urine Mucus (Auto) SLIGHT (NEGATIVE) /HPF Urine Culture Reflexed NO (NO) Urine Glucose NEGATIVE (NEGATIVE) mg/dL 08/07/19 Range/Units 05:48 WBC (4.0-10.5) K/mm3 RBC (4.1-5.4) M/mm3 Hgb (12.0-16.0) gm/dl Hct (35-47) % MCV (78-100) fl MCH (26-32) pg MCHC (32-36) g/dl RDW (11.5-14.0) % Plt Count (150-450) K/mm3 MPV (7.5-11.0) fl Gran % (36.0-66.0) % Eos # (Auto) (0-0.5) Absolute Lymphs (auto) (1.0-4.6) Absolute Monos (auto) (0.0-1.3) Lymphocytes % (24.0-44.0) % Monocytes % (0.0-12.0) % Eosinophils % (0.00-5.0) % Basophils % (0.0-0.4) % Absolute Granulocytes (1.4-6.9) Basophils # (0-0.4) Sodium (137-145) mmol/L Potassium (3.5-5.1) mmol/L Chloride (98-107) mmol/L Carbon Dioxide (22-30) mmol/L Anion Gap (5-15) MEQ/L BUN (7-17) mg/dL Creatinine (0.52-1.04) mg/dL Estimated GFR ML/MIN Glucose (74-106) mg/dL Lactic Acid 1.2 (0.4-2.0) Calcium (8.4-10.2) mg/dL Total Bilirubin (0.2-1.3) mg/dL AST (14-36) U/L ALT (0-35) U/L Alkaline Phosphatase (38-126) U/L Serum Total Protein (6.3-8.2) g/dL Albumin (3.5-5.0) g/dL Amylase (30-110) U/L Lipase (23-300) U/L Urine Color (YELLOW) Urine Appearance (CLEAR) Urine pH (5-6) Ur Specific [place] (1.005-1.025) Urine Protein (Negative) Urine Ketones (NEGATIVE) Urine Blood (0-5) John/ul Urine Nitrite (NEGATIVE) Urine Bilirubin (NEGATIVE) Urine Urobilinogen (0-1) mg/dL Ur Leukocyte Esterase (NEGATIVE) Urine WBC (Auto) (0-5) /HPF Urine RBC (Auto) (0-2) /HPF U Epithel Cells (Auto) (FEW) /HPF Urine Bacteria (Auto) (NEGATIVE) /HPF Urine Mucus (Auto) (NEGATIVE) /HPF Urine Culture Reflexed (NO) Urine Glucose (NEGATIVE) mg/dL - Radiology Exams Ordered Rad Exams-Entire Visit: Radiology Procedures Category Date Time Status ABDOMEN AND PELVIS W CONTRAST [CT] Stat Exams 08/06/19 19:33 Completed CHEST 1 VIEW (PORTABLE) Stat Exams 08/06/19 22:59 Completed HEAD WITHOUT CONTRAST [CT] Stat Exams 08/07/19 00:14 Completed - Procedures and Test Procedures and Tests throughout Hospitalization: Therapy Orders & Screens 08/07/19 02:42 Respiratory Therapy Consult ROUTINE Comment: Reason For Exam: 08/07/19 03:56 BiPap/CPAP ROUTINE Comment: CPAP 12 Diagnosis: intractable pain SP rectal surgery, nausea anorexia, subjective fever sensa Oxygen NASAL CANNULA 2 lpm Comment: Diagnosis: intractable pain SP rectal surgery, nausea anorexia, subjective fever sensa Respiratory Therapy Assessment DAILY Comment: Diagnosis: intractable pain SP rectal surgery, nausea anorexia, subjective fever sensa - Discharge Disposition: Home, Self-Care Condition: Good Prescriptions: New Promethazine HCl 12.5 mg PO Q6-8HPRN PRN #20 tablet PRN Reason: Nausea Continue PARoxetine HCL [Paroxetine HCl] 40 mg PO HS Nitroglycerin 0.4 mg Tablet [Nitrostat 0.4 MG Tablet] 0.4 mg SL UD PRN PRN Reason: Pain Nebivolol HCl 5 MG [Bystolic 5 MG] 5 mg PO HS Aspirin 81 gm Chew [Baby Aspirin 81 mg Chew] 81 mg PO HS Alprazolam 0.5 mg [xanAX 0.5 MG] 0.5 mg PO BID PRN PRN PRN Reason: Anxiety Insulin Glargine,Hum.rec.anlog [Basaglvenkat [place] U-100] 30 unit SQ DAILY Valsartan 80 mg PO HS Omeprazole 40 mg PO HS Metformin HCl 500 mg [Glucophage 500 MG] 500 mg PO BIDWM Hydrocodone/Acetaminophen [[place] 7.5-325 Tablet] 1 each PO Q4-6HPRN PRN 1 Days #4 tablet MDD 4 tabs PRN Reason: Pain Follow up with: UGO NUÑEZ DO [Primary Care Provider] - 1 Week
[2019-08-07] MEDS: Pepcid 20 MG VIAL IV SCH ×2 (10:17→21:35)
[2019-08-07] MEDS ORDERED: NORCO 7.5/325 MG TAB PO PRN (11:59)
[2019-08-07] MEDS ORDERED: Nitrostat 0.4 MG Tablet SL PRN (11:59)
[2019-08-07] MEDS ORDERED: xanAX 0.5 MG PO PRN (11:59)
[2019-08-07] MEDS: Lantus Insulin SQ SCH (12:32)
[2019-08-07] MEDS: Sodium Chloride 0.9% 1000 ML 1,000 ML IV SCH ×2 (12:32→21:36)
[2019-08-07] MEDS: Glucophage 500 MG PO SCH (17:01)
[2019-08-07] MEDS ORDERED: DIOVAN 80 MG PO SCH (22:00)
[2019-08-07] MEDS ORDERED: Paxil 20 MG PO SCH (22:00)
[2019-08-07] MEDS ORDERED: ECOTRIN 81 MG PO SCH (22:00)
[2019-08-07] MEDS ORDERED: Bystolic 5 MG PO SCH (22:00)
[2019-08-07] MEDS ORDERED: NON-FORMULARY ITEM (Omeprazole [Omeprazole] 40 MG) PO SCH (22:00)
[2019-08-07] MEDS ORDERED: ROCEPHIN 1 Gm-D5w 50 ml Bag** 1 G/50 ML IVPB IV SCH (22:00)
[2019-08-07] MEDS ORDERED: Protonix 40MG Tablet PO SCH (22:00)
[2019-08-07] MEDS ORDERED: NON-FORMULARY ITEM (Paroxetine Hcl [Paroxetine Hcl] 40 MG) PO SCH (22:00)
[2019-08-07] MEDS ORDERED: BABY ASPIRIN 81 MG CHEW PO SCH (22:00)
[2019-08-08] MEDS: Glucophage 500 MG PO SCH (07:59)
[2019-08-08] MEDS: Lantus Insulin SQ SCH (07:59)
[2019-08-08] MEDS: HUMULIN R SQ PRN ×2 (07:59→12:39)
[2019-08-08] MEDS: Pepcid 20 MG VIAL IV SCH (08:00)
--- NOTE | 2019-08-08 08:55 | PCM.DS ---
Discharge Summary Date of Admission: 08/07/19 02:22 Admitting Physician: REKHA QUAN Primary Care Provider: UGO DILLARD DO Allergies Allergies metoprolol Allergy (Mild, Verified 08/06/19 18:56) [facility] Summary - Hospital Course Hospital Course: Pt is 39 yo female pt of Dr. Dillard with DM who was admitted for pain control after having rectal abscess drained 1 week ago. She is now just taking po norco with good pain control. Tolerating po. She did have some hypoxemia into the high 80s when she was tired - does use CPAP regularly at home and is morbidly obese. She had pleural effusions on CT chest, mild. She is on day #2 of rocephin here. Will discharge pt to home. Discussed that since she uses CPAP it's likely when she was sleepy her respiratory effort was decreased. She is tolerating po well. Afebrile. Pain is now controlled with po meds, and she states she has norco at home. Resume home antibiotics. - Vitals & Intake/Output Vital Signs: Vital Signs Temperature 97.3 F 08/08/19 07:51 Pulse Rate 68 08/08/19 07:51 Respiratory Rate 16 08/08/19 07:51 Blood Pressure 124/60 08/08/19 07:51 O2 Sat by Pulse Oximetry 92 L 08/08/19 07:51 Intake & Output: Intake & Output 08/05/19 08/06/19 08/07/19 08/08/19 11:59 11:59 11:59 11:59 Intake Total 240 5756 Output Total 500 Balance 240 5256 Weight 135.2 kg 135 kg - Lab Result Diagrams: 08/07/19 05:40 08/07/19 05:40 Micro Results-Entire Visit: Microbiology 08/06/19 20:10 Blood Culture - Preliminary Blood NO GROWTH TO DATE 08/06/19 20:10 Blood Culture - Preliminary Blood NO GROWTH TO DATE - Radiology Exams Ordered Rad Exams-Entire Visit: Radiology Procedures Category Date Time Status ABDOMEN AND PELVIS W CONTRAST [CT] Stat Exams 08/06/19 19:33 Completed CHEST 1 VIEW (PORTABLE) Stat Exams 08/06/19 22:59 Completed HEAD WITHOUT CONTRAST [CT] Stat Exams 08/07/19 00:14 Completed - Procedures and Test Procedures and Tests throughout Hospitalization: Therapy Orders & Screens 08/07/19 02:42 Respiratory Therapy Consult ROUTINE Comment: Reason For Exam: 08/07/19 03:56 BiPap/CPAP ROUTINE Comment: CPAP 12 Diagnosis: intractable pain SP rectal surgery, nausea anorexia, subjective fever sensa Oxygen NASAL CANNULA 2 lpm Comment: Diagnosis: intractable pain SP rectal surgery, nausea anorexia, subjective fever sensa Respiratory Therapy Assessment DAILY Comment: Diagnosis: intractable pain SP rectal surgery, nausea anorexia, subjective fever sensa Discharge Exam General Appearance: no apparent distress, alert, obese Neurologic Exam: oriented x 3, cooperative Eye Exam: eyes nml inspection Ears, Nose, Throat Exam: moist mucous membranes Respiratory Exam: normal breath sounds, lungs clear, No crackles/rales, No rhonchi, No wheezing Cardiovascular Exam: regular rate/rhythm, normal heart sounds, No murmur Gastrointestinal/Abdomen Exam: soft, normal bowel sounds, No tenderness, No distention, No mass, No guarding Rectal Exam: other (perirectal area without induration or erythema; there is a small open defect with some sanguinous drainage.) Extremity Exam: No pedal edema, No swelling Skin Exam: normal color, warm, dry, No rash Final Diagnosis/Problem List - Final Discharge Diagnosis/Problem (1) Perirectal abscess Current Visit: Yes Status: Resolved Assessment & Plan: Her pain is better and the abscess is still draining. Would have her finish her previously rx'd course of antibiotics. F/u with surgery in 1 week as already scheduled (surgeon in [place]). Code(s): K61.1 - RECTAL ABSCESS (2) Rectal pain Current Visit: Yes Status: Acute Assessment & Plan: improved Code(s): K62.89 - OTHER SPECIFIED DISEASES OF ANUS AND RECTUM (3) Diabetes mellitus Current Visit: Yes Status: Chronic Code(s): E11.9 - TYPE 2 DIABETES MELLITUS WITHOUT COMPLICATIONS (4) Hypoxemia Current Visit: Yes Status: Acute Assessment & Plan: RN just told me that pt's O2 sat dropped when they were walking yesterday; will try walking pt again today. If sats drop, pt may either need to stay or to be sent home on O2 temporarily. Code(s): R09.02 - HYPOXEMIA - Discharge Disposition: Home, Self-Care Condition: Good Prescriptions: New Promethazine HCl 12.5 mg PO Q6-8HPRN PRN #20 tablet PRN Reason: Nausea Continue PARoxetine HCL [Paroxetine HCl] 40 mg PO HS Nitroglycerin 0.4 mg Tablet [Nitrostat 0.4 MG Tablet] 0.4 mg SL UD PRN PRN Reason: Pain Nebivolol HCl 5 MG [Bystolic 5 MG] 5 mg PO HS Aspirin 81 gm Chew [Baby Aspirin 81 mg Chew] 81 mg PO HS Alprazolam 0.5 mg [xanAX 0.5 MG] 0.5 mg PO BID PRN PRN PRN Reason: Anxiety Insulin Glargine,Hum.rec.anlog [Basaglar Kwikpen U-100] 30 unit SQ DAILY Valsartan 80 mg PO HS Omeprazole 40 mg PO HS Metformin HCl 500 mg [Glucophage 500 MG] 500 mg PO BIDWM Hydrocodone/Acetaminophen [[place] 7.5-325 Tablet] 1 each PO Q4-6HPRN PRN 1 Days #4 tablet MDD 4 tabs PRN Reason: Pain Instructions: Acute Abdomen (Belly Pain), Adult (DC) Follow up with: UGO DILLARD DO [Primary Care Provider] - 1 Week Forms: Discharge Instructions
[2019-08-08] MEDS ORDERED: NON-FORMULARY ITEM (Insulin Glargine,Hum.Rec.Anlog [Basaglar Kwikpen U-100] 30 UNIT) SQ SCH (10:00)
[2019-08-08 12:16] VITALS: BP 131/69; PULSE 82; O2SAT 98
== END 2019-08-08 15:55 | disposition home or self-care (01) ==
LOC: ED 18:45 → MED SURG 08-07 02:22
PROVIDERS: ADMIT Family Medicine; ATTEND Family Medicine
DX: K61.1 Rectal abscess (principal); K62.89 Other specified diseases of anus and rectum; G89.18 Other acute postprocedural pain; E11.9 Type 2 diabetes mellitus without complications; J96.91 Respiratory failure, unspecified with hypoxia; I10 Essential (primary) hypertension; R51 Headache; Z98.890 Other specified postprocedural states; G47.30 Sleep apnea, unspecified; R11.2 Nausea with vomiting, unspecified; E24.9 Cushing's syndrome, unspecified; Z79.899 Other long term (current) drug therapy
CPT/HCPCS: 36000; 36415; 70450; 71045; 74177; 80053; 81001; 82150; 82962; 83036; 83605; 83690; 85025; 87040; 93005; 93268; 94660; 94762; 96360; 96365; 96372; 96374; 96375; 99285; G0378; J0696; J1170; J1200; J1815; J2270; J2405; J2550; A9270-GY

== ENCOUNTER 2019-08-19 14:00 | Observation (INO) | payer OTHER ==
--- NOTE | 2019-08-19 14:49 | XRAY ---
Indication: Chest pain. Short of breath. Comparison: August 06, 2019. Portable chest again demonstrates mild right hemidiaphragm elevation with adjacent atelectasis/scarring. Remaining heart, lungs, and bony thorax unremarkable. No new/acute findings.
[2019-08-19 14:50] LABS: Absolute Neutrophil Ct (ANC) 2.95 (1.4-6.9); BASOPHIL % 0.4 % (0.0-0.4); Basophil (Absolute #) 0.02 (0-0.4); Eosinophil % 5.4 % (0.00-5.0); Eosinophil (Absolute #) 0.29 (0-0.5); Hematocrit 41.2 % (35-47); Hemoglobin 13.8 gm/dl (12.0-16.0); Lymphocyte (Absolute #) 1.82 (1.0-4.6); Lymphocytes % 33.6 % (24.0-44.0); Mean Cell Volume 84.9 fl (78-100); Mean Corpuscular Hemoglobin 28.5 pg (26-32); Mean Corpuscular Hgb Concent. 33.5 g/dl (32-36); Monocyte (Absolute #) 0.34 (0.0-1.3); Monocytes % 6.3 % (0.0-12.0); Neutrophil % 54.3 % (36.0-66.0); Platelet Count 191 K/mm3 (150-450); Red Blood Count 4.85 M/mm3 (4.1-5.4); Red Cell Distribution Width 12.8 % (11.5-14.0); White Blood Count 5.4 K/mm3 (4.0-10.5)
[2019-08-19 14:56] LABS: INR 1.07 (0.8-3.0); PROTIME 12.1 SECONDS (9.95-12.35)
[2019-08-19 14:58] LABS: PTT 29.3 SECONDS (25.3-37.0)
[2019-08-19 15:09] LABS: ALBUMIN 4.3 g/dL (3.5-5.0); ALKALINE PHOSPHATASE 124 U/L (38-126); AMYLASE 42 U/L (30-110); ANION GAP 14.7 MEQ/L (5-15); BLOOD UREA NITROGEN 13 mg/dL (7-17); CHLORIDE 98 mmol/L (98-107); Calcium 9.5 mg/dL (8.4-10.2); Carbon Dioxide 28 mmol/L (22-30); Creatinine 1 0.47 mg/dL (0.52-1.04); Glucose 240 mg/dL (74-106); LIPASE 45 U/L (23-300); MAGNESIUM 1.6 mg/dL (1.6-2.3); Potassium 3.9 mmol/L (3.5-5.1); SGOT/AST 25 U/L (14-36); SGPT/ALT 31 U/L (0-35); SODIUM 137 mmol/L (137-145); Total Protein 7.4 g/dL (6.3-8.2)
--- NOTE | 2019-08-19 15:34 | ERPHSYRPT ---
- History of Present Illness Time Seen by Provider: 08/19/19 14:20 Patient Subjective Stated Complaint: pt reports anterior chest pain starting last evening. pt reports she took a nitro which helped and she went to bed. pt reports this morning she was short of breath as well as experiencing chest heaviness again, states she called her tire installer who advised her to take another nitro and present to the ED for evaluation. pt states she was hospitalized recently for a fistula repair and would desat while walking, so she has home oxygen she wears at 3L. pt reports she also saw her copyist yesterday and was prescribed symbicort and told her lungs were weak. Triage Nursing Assessment: pt is aox3, pupils perrl, afebrile, pt appears slightly short of breath with exertion, pt lung sounds are clear throughout all segundo, radial pulses are strong and equal, cap refill < 3 seconds. pt skin pink warm dry. Physician History: Patient is a 39-year-old female who presents with chest heaviness and shortness of breath started last night at approximately 4 AM she took a nitroglycerin and to get some relief and this morning when she awoke the discomfort and heaviness in her chest return. She took a nitroglycerin today which did not seem to help that much she called Dr. Lopez's office and was directed to come to the ER. She recently had a fistula repair at [place] and during that hospitalization was noted to have low O2 sats especially when sleeping she saw her copyist Dr. jessica lilly and had some pulmonary function test done apparently and was sta rted on Symbicort for "weak lungs" she did have a cath a year ago which showed minimal disease according to Dr. Dial who is on-call for Dr. Burkett. Activities at Onset: none, sleep Quality: pressure Location: substernal Chest Pain Radiation: back Severity of Pain-Max: mild Severity of Pain-Current: mild Modifying Factors: Improves With: nothing Associated Symptoms: denies symptoms Prior Chest Pain/Cardiac Workup: cardiac cath (Cardiac cath done 1 year ago essentially negative per Dr. Dial) Nitro Today/Relief: 0.4 mg x 2 Aspirin Treatment Today: unknown Allergies/Adverse Reactions: metoprolol Allergy (Mild, Verified 08/19/19 14:22) Hives Home Medications: Alprazolam 0.5 mg [xanAX 0.5 MG] 0.5 mg PO BID PRN PRN 09/04/18 [History] Aspirin 81 gm Chew [Baby Aspirin 81 mg Chew] 81 mg PO HS 09/04/18 [History] Nebivolol HCl 5 MG [Bystolic 5 MG] 5 mg PO HS 09/04/18 [History] Nitroglycerin 0.4 mg Tablet [Nitrostat 0.4 MG Tablet] 0.4 mg SL UD PRN 09/04/18 [History] PARoxetine HCL [Paroxetine HCl] 40 mg PO HS 09/04/18 [History] Insulin Glargine,Hum.rec.anlog [Basaglar Kwikpen U-100] 30 unit SQ DAILY 09/12/18 [History] Valsartan 80 mg PO HS 11/05/18 [History] Omeprazole 40 mg PO HS 11/09/18 [History] Metformin HCl 500 mg [Glucophage 500 MG] 500 mg PO BIDWM 02/28/19 [History] Albuterol Sulfate [Albuterol Sulfate Hfa] 1 puff IH Q4-6HPRN PRN 08/19/19 [History] Budesonide/Formoterol Fumarate [Symbicort 80-4.5 Mcg Inhaler] 2 puffs IH BID 08/19/19 [History] Hx Tetanus, Diphtheria Vaccination/Date Given: Yes Hx Influenza Vaccination/Date Given: No Hx Pneumococcal Vaccination/Date Given: Yes Immunizations Up to Date: Yes Travel Risk - International Travel Have you traveled outside of the country in past 3 weeks: No - Coronavirus Screening Close contact with a COVID-19 positive Pt in past 14-21 Days: No - Review of Systems Constitutional: No Fever, No Chills Eyes: No Symptoms Ears, Nose, & Throat: No Symptoms Respiratory: Dyspnea, No Cough Cardiac: Chest Pain, No Edema, No Syncope Abdominal/Gastrointestinal: No Abdominal Pain, No Nausea, No Vomiting, No Diarrhea Genitourinary Symptoms: No Dysuria Musculoskeletal: No Back Pain, No Neck Pain Skin: No Rash Neurological: No Dizziness, No Focal Weakness, No Sensory Changes Psychological: No Symptoms Endocrine: No Symptoms All Other Systems: Reviewed and Negative - Past Medical History Pertinent Past Medical History: Yes Neurological History: Other ENT History: No Pertinent History Cardiac History: Angina, Coronary Artery Disease, Hypertension, Other Respiratory History: Pneumonia, Sleep Apnea Endocrine Medical History: Diabetes Type II, Other Musculoskeletal History: No Pertinent History GI Medical History: GERD, Gallbladder Disease, Irritable Bowel History: No Pertinent History Psycho-Social History: Anxiety, Other Female Reproductive Disorders: Fibroids Other Medical History: cushings, 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 - Past Surgical History Past Surgical History: Yes Neuro Surgical History: No Pertinent History Cardiac: Cardiac Catheterization, Other Respiratory: No Pertinent History Gastrointestinal: Cholecystectomy Genitourinary: No Pertinent History Musculoskeletal: Other Female Surgical History: Hysterectomy Other Surgical History: plantar fascitis surgery, rectal fistula repair, umbilical hernia repair and adhesion removal - Social History Smoking Status: Never smoker Exposure to second hand smoke: No Drug Use: none Patient Lives Alone: No - Female History Hx Last Menstrual Period: 2018 hyst Hx Now: No - Nursing Vital Signs Nursing Vital Signs: Initial Vital Signs Temperature 98.2 F 08/19/19 14:01 Pulse Rate 94 H 08/19/19 14:01 Respiratory Rate 20 08/19/19 14:01 Blood Pressure 150/91 08/19/19 14:01 O2 Sat by Pulse Oximetry 98 08/19/19 14:01 Pain Scale Pain Intensity 6 - Physical Exam General Appearance: mild distress, alert Eye Exam: PERRL/EOMI, eyes nml inspection Ears, Nose, Throat Exam: normal ENT inspection, moist mucous membranes Neck Exam: normal inspection, non-tender, supple, full range of motion Respiratory Exam: normal breath sounds, lungs clear, No respiratory distress Cardiovascular Exam: regular rate/rhythm, normal heart sounds Gastrointestinal/Abdomen Exam: soft, No tenderness, No mass Back Exam: normal inspection, No CVA tenderness, No vertebral tenderness Extremity Exam: normal inspection, normal range of motion Neurologic Exam: alert, oriented x 3, cooperative, normal mood/affect, sensation nml, No motor deficits Skin Exam: normal color, warm, dry SpO2: 98 - Course Nursing assessment & vital signs reviewed: Yes EKG Interpreted by Me: RATE, Sinus Rhythm, NORMAL AXIS, NORMAL INTERVALS, NORMAL QRS, NORMAL ST-T - Radiology Exams Chest X-ray Interpretation: Reviewed by me Ordered Tests: Active Orders 24 hr Category Date Time Status Legal Records Clerk STAT Care 08/19/19 14:21 Active EKG-ER Only STAT Care 08/19/19 14:20 Active IV Insertion STAT Care 08/19/19 14:20 Active Oxygen-ED Only Nasal Cannula 3 lpm Care 08/19/19 14:20 Active CHEST 1 VIEW (PORTABLE) Stat Exams 08/19/19 14:21 Completed AMYLASE Stat Lab 08/19/19 14:30 Completed CBC W DIFF Stat Lab 08/19/19 14:30 Completed CMP Stat Lab 08/19/19 14:30 Completed D-DIMER QUANTITATIVE Stat Lab 08/19/19 14:30 Completed LIPASE Stat Lab 08/19/19 14:30 Completed Lactic Acid Stat Lab 08/19/19 14:20 Completed MAGNESIUM Stat Lab 08/19/19 14:30 Completed NT PRO BNP Stat Lab 08/19/19 14:30 Completed PROTIME WITH INR Stat Lab 08/19/19 14:30 Completed PTT Stat Lab 08/19/19 14:30 Completed TROPONIN Q3H Lab 08/19/19 14:30 Completed TROPONIN Q3H Lab 08/19/19 17:30 Ordered TROPONIN Q3H Lab 08/19/19 20:30 Ordered TROPONIN Q3H Lab 08/19/19 23:30 Ordered TROPONIN Q3H Lab 08/20/19 02:30 Ordered UA W/RFX UR CULTURE Stat Lab 08/19/19 14:21 Uncollected Lab/Rad Data: Laboratory Result Diagrams 08/19/19 14:30 08/19/19 14:30 Laboratory Results 08/19/19 08/19/19 08/19/19 Range/Units 14:30 14:30 14:30 WBC (4.0-10.5) K/mm3 RBC (4.1-5.4) M/mm3 Hgb (12.0-16.0) gm/dl Hct (35-47) % MCV (78-100) fl MCH (26-32) pg MCHC (32-36) g/dl RDW (11.5-14.0) % Plt Count (150-450) K/mm3 MPV (7.5-11.0) fl Gran % (36.0-66.0) % Eos # (Auto) (0-0.5) Absolute Lymphs (auto) (1.0-4.6) Absolute Monos (auto) (0.0-1.3) Lymphocytes % (24.0-44.0) % Monocytes % (0.0-12.0) % Eosinophils % (0.00-5.0) % Basophils % (0.0-0.4) % Absolute Granulocytes (1.4-6.9) Basophils # (0-0.4) PT 12.1 (9.95-12.35) SECONDS INR 1.07 (0.8-3.0) APTT 29.3 (25.3-37.0) SECONDS D-Dimer 254 (215-500) ng/mL Sodium 137 (137-145) mmol/L Potassium 3.9 (3.5-5.1) mmol/L Chloride 98 (98-107) mmol/L Carbon Dioxide 28 (22-30) mmol/L Anion Gap 14.7 (5-15) MEQ/L BUN 13 (7-17) mg/dL Creatinine 0.47 L (0.52-1.04) mg/dL Estimated GFR > 60.0 ML/MIN Glucose 240 H (74-106) mg/dL Lactic Acid (0.4-2.0) Calcium 9.5 (8.4-10.2) mg/dL Magnesium 1.6 (1.6-2.3) mg/dL Total Bilirubin 0.50 (0.2-1.3) mg/dL AST 25 (14-36) U/L ALT 31 (0-35) U/L Alkaline Phosphatase 124 (38-126) U/L Troponin I < 0.012 (0.000-0.034) ng/mL NT-Pro-B Natriuret Pep 30.0 (0-450) pg/mL Serum Total Protein 7.4 (6.3-8.2) g/dL Albumin 4.3 (3.5-5.0) g/dL Amylase 42 (30-110) U/L Lipase 45 (23-300) U/L 08/19/19 08/19/19 Range/Units 14:30 14:20 WBC 5.4 (4.0-10.5) K/mm3 RBC 4.85 (4.1-5.4) M/mm3 Hgb 13.8 (12.0-16.0) gm/dl Hct 41.2 (35-47) % MCV 84.9 (78-100) fl MCH 28.5 (26-32) pg MCHC 33.5 (32-36) g/dl RDW 12.8 (11.5-14.0) % Plt Count 191 (150-450) K/mm3 MPV 10.0 (7.5-11.0) fl Gran % 54.3 (36.0-66.0) % Eos # (Auto) 0.29 (0-0.5) Absolute Lymphs (auto) 1.82 (1.0-4.6) Absolute Monos (auto) 0.34 (0.0-1.3) Lymphocytes % 33.6 (24.0-44.0) % Monocytes % 6.3 (0.0-12.0) % Eosinophils % 5.4 H (0.00-5.0) % Basophils % 0.4 (0.0-0.4) % Absolute Granulocytes 2.95 (1.4-6.9) Basophils # 0.02 (0-0.4) PT (9.95-12.35) SECONDS INR (0.8-3.0) APTT (25.3-37.0) SECONDS D-Dimer (215-500) ng/mL Sodium (137-145) mmol/L Potassium (3.5-5.1) mmol/L Chloride (98-107) mmol/L Carbon Dioxide (22-30) mmol/L Anion Gap (5-15) MEQ/L BUN (7-17) mg/dL Creatinine (0.52-1.04) mg/dL Estimated GFR ML/MIN Glucose (74-106) mg/dL Lactic Acid 2.1 H (0.4-2.0) Calcium (8.4-10.2) mg/dL Magnesium (1.6-2.3) mg/dL Total Bilirubin (0.2-1.3) mg/dL AST (14-36) U/L ALT (0-35) U/L Alkaline Phosphatase (38-126) U/L Troponin I (0.000-0.034) ng/mL NT-Pro-B Natriuret Pep (0-450) pg/mL Serum Total Protein (6.3-8.2) g/dL Albumin (3.5-5.0) g/dL Amylase (30-110) U/L Lipase (23-300) U/L - Progress Progress: unchanged Air Movement: good Blood Culture(s) Obtained: No Antibiotics given: No - Departure Departure Disposition: Observation (Dr. Dial requested observation but did not feel this represented a cardiac emergency) Clinical Impression: Chest pain Condition: Stable Critical Care Time: No Referrals: UGO NUÑEZ DO [Primary Care Provider] -
[2019-08-19] MEDS ORDERED: Senokot-S Tablet PO PRN (16:51)
[2019-08-19] MEDS ORDERED: Zofran 4 MG/2 ML VIAL IV PRN (16:51)
[2019-08-19] MEDS ORDERED: MILK OF MAGNESIA 30 ML PO PRN (16:51)
[2019-08-19] MEDS ORDERED: TYLENOL 325 MG PO PRN (16:51)
[2019-08-19] MEDS ORDERED: MAALOX ES 30 ML UNIT DOSE PO PRN (16:51)
[2019-08-19] MEDS ORDERED: TYLENOL 325 MG ONE (16:54)
[2019-08-19 17:16] LABS: Appearance SLIGHTLY CLOUDY (CLEAR); Bilirubin NEGATIVE (NEGATIVE); Blood NEGATIVE Ery/ul (0-5); Epithelial Cells RARE /HPF (FEW); Glucose 50 mg/dL (NEGATIVE); Ketones NEGATIVE (NEGATIVE); Leukocyte Esterase NEGATIVE (NEGATIVE); Mucus SLIGHT /HPF (NEGATIVE); Nitrite NEGATIVE (NEGATIVE); Protein,Urine Dip NEGATIVE (Negative); Specific Gravity 1.019 (1.005-1.025); Urobilinogen NEGATIVE mg/dL (0-1)
[2019-08-19] MEDS: Nitrostat 0.4 MG Tablet SL PRN ×2 (17:51→21:58)
[2019-08-19] MEDS ORDERED: HUMALOG ONE (18:23)
[2019-08-19] MEDS: HUMALOG SQ SCH (18:40)
[2019-08-19] MEDS ORDERED: NITRO-BID 2% UD PACKETS ONE (21:49)
[2019-08-19] MEDS ORDERED: ECOTRIN 81 MG PO ONE (21:51)
[2019-08-19] MEDS: DIOVAN 80 MG PO SCH (21:56)
[2019-08-19] MEDS: Paxil 20 MG PO SCH (21:56)
[2019-08-19] MEDS: Bystolic 5 MG PO SCH (21:56)
[2019-08-19] MEDS: Protonix 40MG Tablet PO SCH (21:57)
[2019-08-19] MEDS: NITRO-BID 2% UD PACKETS TOP SCH (21:57)
[2019-08-19] MEDS ORDERED: BABY ASPIRIN 81 MG CHEW PO SCH (22:00)
[2019-08-19] MEDS: Lantus Insulin SQ SCH (22:03)
[2019-08-20] MEDS: NITRO-BID 2% UD PACKETS TOP SCH ×3 (06:38→22:13)
[2019-08-20] MEDS ORDERED: HUMALOG SQ SCH (08:00)
[2019-08-20] MEDS: HUMALOG SQ SCH ×3 (08:09→17:06)
[2019-08-20] MEDS: Nitrostat 0.4 MG Tablet SL PRN ×4 (09:40→18:09)
[2019-08-20] MEDS ORDERED: Ecotrin 325 MG PO SCH (10:00)
[2019-08-20] MEDS ORDERED: GI COCKTAIL 45 ML (Maalox/Lidocaine) PO ONE (10:13)
[2019-08-20] MEDS ORDERED: NON-FORMULARY ITEM (Promethazine Hcl [Promethazine Hcl] 12.5 MG) PO PRN (10:38)
[2019-08-20] MEDS ORDERED: Ventolin Hfa MDI IH PRN (10:38)
[2019-08-20] MEDS ORDERED: VENTOLIN COMMON CANISTER IH PRN (10:42)
[2019-08-20] MEDS ORDERED: PHENERGAN 25 MG PO PRN (10:43)
--- NOTE | 2019-08-20 10:44 | PCM.HP ---
History of Present Illness - Chief Complaint Chief Complaint: chest pain Date: 08/20/19 History of Present Illness: is a 39 year old female seen this am following ER admission for chest pain. Patient reports that she started with chest pain yesterday that was not improving even after taking nitro. She had a cardiac cath done by Dr Mariee last august that showed 40% blockages of two of the cardiac vessels and some microischemia. She reports this pain is different then what she was having when she had the heart cath. She reports a sensation of something sitting on her chest and that she gets minimal relief with the nitro. She also reports that her chest pain happens at rest but worsens with activity. Patient also reports that she has had some pulmonary issues. She reports that she was recently diagnosed with COPD and denies ever smoking. She was unsure if she had an abnormal alpha1 anti trypsin level. Patient reports that she has been seeing pulm. She has LEONIDES and uses her cpap regularly. She reports being extremely short of breath during the day which she attributed to being overweight but she was found to have decreased oxygenation levels and was sating around 80% so she now wear 3l of oxygen all the time. A few weeks ago she had rectal surgery for a rectal abscess. She reports that she is healing well from that and denies any issues at this time. She has a echo scheduled for august 24. - Review of Systems Constitutional: Fever (right after her surgery), No Chills Eyes: No Symptoms Ears, Nose, & Throat: No Symptoms Respiratory: Short Of Breath, Other (LEONIDES), No Cough, No Wheezing Cardiac: Chest Pain, No Edema, No Palpitations, No Syncope Abdominal/Gastrointestinal: Other (recent rectal surgery), No Abdominal Pain, No Nausea, No Vomiting, No Diarrhea, No Constipation Genitourinary Symptoms: No Symptoms Musculoskeletal: No Symptoms Neurological: Parasthesia, Sensory Changes Psychological: Anxiety, No Alcohol Abuse, No Drug Abuse Endocrine: No Symptoms Hematologic/Lymphatic: No Symptoms Medications & Allergies Home Medications: Home Medication List Alprazolam 0.5 mg [xanAX 0.5 MG] 0.5 mg PO BID PRN PRN 09/04/18 [History Confirmed 08/19/19] Aspirin 81 gm Chew [Baby Aspirin 81 mg Chew] 81 mg PO HS 09/04/18 [History Confirmed 08/19/19] Nebivolol HCl 5 MG [Bystolic 5 MG] 5 mg PO HS 09/04/18 [History Confirmed 08/19/19] Nitroglycerin 0.4 mg Tablet [Nitrostat 0.4 MG Tablet] 0.4 mg SL UD PRN 09/04/18 [History Confirmed 08/19/19] PARoxetine HCL [Paroxetine HCl] 40 mg PO HS 09/04/18 [History Confirmed 08/19/19] Insulin Glargine,Hum.rec.anlog [Basaglar Kwikpen U-100] 30 unit SQ HS 09/12/18 [History Confirmed 08/19/19] Valsartan 80 mg PO HS 11/05/18 [History Confirmed 08/19/19] Omeprazole 40 mg PO HS 11/09/18 [History Confirmed 08/19/19] Metformin HCl 500 mg [Glucophage 500 MG] 500 mg PO BIDWM 02/28/19 [History Confirmed 08/19/19] Hydrocodone/Acetaminophen [Jean 7.5-325 Tablet] 1 each PO Q4-6HPRN PRN 1 Days #4 tablet MDD 4 tabs 03/24/19 [Rx Confirmed 08/19/19] Promethazine HCl 12.5 mg PO Q6-8HPRN PRN #20 tablet 08/07/19 [Rx Confirmed 08/19/19] Albuterol Sulfate [Albuterol Sulfate Hfa] 1 puff IH Q4-6HPRN PRN 08/19/19 [History Confirmed 08/19/19] Budesonide/Formoterol Fumarate [Symbicort 80-4.5 Mcg Inhaler] 2 puffs IH BID 08/19/19 [History Confirmed 08/19/19] Insulin Lispro [Humalog Kwikpen U-100] 25 units SQ AC 08/19/19 [History Confirmed 08/19/19] Allergies/Adverse Reactions: Allergies Allergy/AdvReac Type Severity Reaction Status Date / Time metoprolol Allergy Mild Hives Verified 08/19/19 14:22 - Past Medical History Past Medical History: Yes Neurological History: Other ENT History: No Pertinent History Cardiac History: Angina, Coronary Artery Disease, Hypertension, Other CARDIAC HISTORY: Hypertension Respiratory History: Pneumonia, Sleep Apnea Endocrine Medical History: Diabetes Type II, Other Musculoskelatal History: No Pertinent History GI Medical History: GERD, Gallbladder Disease, Irritable Bowel History: No Pertinent History Pyscho-Social History: Anxiety, Other Reproductive Disorders: Fibroids Comment: cushings, 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 - Female History Hx Last Menstrual Period: 2018 hyst Are you now?: No - Past Surgical History Past Surgical History: Yes Neuro Surgical History: No Pertinent History Cardiac History: Cardiac Catheterization, Other Respiratory Surgery: No Pertinent History GI Surgical History: Cholecystectomy Genitourinary Surgical Hx: No Pertinent History Musculskeletal Surgical Hx: Other Female Surgical History: Hysterectomy Other Surgical History: plantar fascitis surgery, rectal fistula repair, umbilical hernia repair and adhesion removal - Social History Smoking Status: Never smoker Exposure to second hand smoke: No Alcohol: None Drug Use: none - Physical Exam Vital Signs: Vital Signs - 24 hr Temp Pulse Pulse Resp BP BP Pulse Ox 08/20/19 07:17 97 F 76 17 108/59 96 08/20/19 03:45 97.8 F 75 18 100/58 97 08/20/19 00:00 98.5 F 92 H 21 141/69 94 L 08/19/19 21:58 106 H 115/59 08/19/19 21:33 96 08/19/19 20:00 98.2 F 106 H 20 115/59 97 08/19/19 18:48 99 08/19/19 17:54 98.5 F 91 H 132/78 99 08/19/19 17:51 91 H 132/78 08/19/19 17:15 98.5 F 91 H 132/78 99 08/19/19 16:51 98.5 F 91 H 132/78 99 08/19/19 16:29 87 22 114/66 98 08/19/19 16:00 85 20 114/69 99 08/19/19 15:40 98 08/19/19 15:00 76 20 115/61 98 08/19/19 14:01 98.2 F 95 H 94 H 20 150/91 98 General Appearance: mild distress, alert, obese Neurologic Exam: oriented x 3, normal mood/affect Eye Exam: No scleral icterus Ears, Nose, Throat Exam: moist mucous membranes Neck Exam: No carotid bruit, No JVD Respiratory Exam: lungs clear, diminished breath sounds, No respiratory distress, No wheezing Cardiovascular Exam: regular rate/rhythm, other (Distant heart sounds. I initially appreciated a systolic mumur but then did not hear it after I had patient change positions.), No friction rub, No gallop Gastrointestinal/Abdomen Exam: soft, No normal bowel sounds, No tenderness, No distention Pelvic Exam: not done Rectal Exam: not done Extremity Exam: No pedal edema, No swelling, No tenderness Skin Exam: normal color, warm, dry, No rash Wound Assessment: Skin/Wound Assessment Wound/Incision Assessment Start: 08/19/19 18:09 Text: Status: Active Freq: Q6H Protocol: Document 08/20/19 08:00 MARISOL (Rec: 08/20/19 08:03 MARISOL [id number]) Wound/Incision Assessment Buttock Wound Assessment Shift Assessment Wound Type rectal fistula Wound Stage Non Pressure Wound Drainage Amount Minimal General Appearance Open to air Primary Dressing Gauze Pads Comment rectal fistula abcess repaired Wound Photo Photo Taken No Results - Labs Lab/Micro Results: Accuchecks Date 08/20/19 Date 08/19/19 Date 08/19/19 Time 08:17 Time 21:00 Time 17:30 Accucheck Value: 251 Accucheck Value: 223 Accucheck Value: 215 Lab Results-Last 24 Hours 08/19/19 08/19/19 08/19/19 Range/Units 14:20 14:30 14:30 WBC 5.4 (4.0-10.5) K/mm3 RBC 4.85 (4.1-5.4) M/mm3 Hgb 13.8 (12.0-16.0) gm/dl Hct 41.2 (35-47) % MCV 84.9 (78-100) fl MCH 28.5 (26-32) pg MCHC 33.5 (32-36) g/dl RDW 12.8 (11.5-14.0) % Plt Count 191 (150-450) K/mm3 MPV 10.0 (7.5-11.0) fl Gran % 54.3 (36.0-66.0) % Eos # (Auto) 0.29 (0-0.5) Absolute Lymphs (auto) 1.82 (1.0-4.6) Absolute Monos (auto) 0.34 (0.0-1.3) Lymphocytes % 33.6 (24.0-44.0) % Monocytes % 6.3 (0.0-12.0) % Eosinophils % 5.4 H (0.00-5.0) % Basophils % 0.4 (0.0-0.4) % Absolute Granulocytes 2.95 (1.4-6.9) Basophils # 0.02 (0-0.4) PT (9.95-12.35) SECONDS INR (0.8-3.0) APTT (25.3-37.0) SECONDS D-Dimer (215-500) ng/mL Sodium 137 (137-145) mmol/L Potassium 3.9 (3.5-5.1) mmol/L Chloride 98 (98-107) mmol/L Carbon Dioxide 28 (22-30) mmol/L Anion Gap 14.7 (5-15) MEQ/L BUN 13 (7-17) mg/dL Creatinine 0.47 L (0.52-1.04) mg/dL Estimated GFR > 60.0 ML/MIN Glucose 240 H (74-106) mg/dL Lactic Acid 2.1 H (0.4-2.0) Calcium 9.5 (8.4-10.2) mg/dL Magnesium 1.6 (1.6-2.3) mg/dL Total Bilirubin 0.50 (0.2-1.3) mg/dL AST 25 (14-36) U/L ALT 31 (0-35) U/L Alkaline Phosphatase 124 (38-126) U/L Troponin I (0.000-0.034) ng/mL NT-Pro-B Natriuret Pep 30.0 (0-450) pg/mL Serum Total Protein 7.4 (6.3-8.2) g/dL Albumin 4.3 (3.5-5.0) g/dL Prealbumin (17.6-36.0) mg/dL Triglycerides (30-150) mg/dL Cholesterol (50-200) mg/dL LDL Cholesterol (30-100) mg/dL HDL Cholesterol (40-60) mg/dL Heart Disease Risk Ratio Amylase 42 (30-110) U/L Lipase 45 (23-300) U/L Urine Color (YELLOW) Urine Appearance (CLEAR) Urine pH (5-6) Ur Specific [place] (1.005-1.025) Urine Protein (Negative) Urine Ketones (NEGATIVE) Urine Blood (0-5) John/ul Urine Nitrite (NEGATIVE) Urine Bilirubin (NEGATIVE) Urine Urobilinogen (0-1) mg/dL Ur Leukocyte Esterase (NEGATIVE) Urine WBC (Auto) (0-5) /HPF Urine RBC (Auto) (0-2) /HPF U Epithel Cells (Auto) (FEW) /HPF Urine Bacteria (Auto) (NEGATIVE) /HPF Urine Mucus (Auto) (NEGATIVE) /HPF Urine Culture Reflexed (NO) Urine Glucose (NEGATIVE) mg/dL 08/19/19 08/19/19 08/19/19 Range/Units 14:30 14:30 15:00 WBC (4.0-10.5) K/mm3 RBC (4.1-5.4) M/mm3 Hgb (12.0-16.0) gm/dl Hct (35-47) % MCV (78-100) fl MCH (26-32) pg MCHC (32-36) g/dl RDW (11.5-14.0) % Plt Count (150-450) K/mm3 MPV (7.5-11.0) fl Gran % (36.0-66.0) % Eos # (Auto) (0-0.5) Absolute Lymphs (auto) (1.0-4.6) Absolute Monos (auto) (0.0-1.3) Lymphocytes % (24.0-44.0) % Monocytes % (0.0-12.0) % Eosinophils % (0.00-5.0) % Basophils % (0.0-0.4) % Absolute Granulocytes (1.4-6.9) Basophils # (0-0.4) PT 12.1 (9.95-12.35) SECONDS INR 1.07 (0.8-3.0) APTT 29.3 (25.3-37.0) SECONDS D-Dimer 254 (215-500) ng/mL Sodium (137-145) mmol/L Potassium (3.5-5.1) mmol/L Chloride (98-107) mmol/L Carbon Dioxide (22-30) mmol/L Anion Gap (5-15) MEQ/L BUN (7-17) mg/dL Creatinine (0.52-1.04) mg/dL Estimated GFR ML/MIN Glucose (74-106) mg/dL Lactic Acid (0.4-2.0) Calcium (8.4-10.2) mg/dL Magnesium (1.6-2.3) mg/dL Total Bilirubin (0.2-1.3) mg/dL AST (14-36) U/L ALT (0-35) U/L Alkaline Phosphatase (38-126) U/L Troponin I < 0.012 (0.000-0.034) ng/mL NT-Pro-B Natriuret Pep (0-450) pg/mL Serum Total Protein (6.3-8.2) g/dL Albumin (3.5-5.0) g/dL Prealbumin 29.72 (17.6-36.0) mg/dL Triglycerides (30-150) mg/dL Cholesterol (50-200) mg/dL LDL Cholesterol (30-100) mg/dL HDL Cholesterol (40-60) mg/dL Heart Disease Risk Ratio Amylase (30-110) U/L Lipase (23-300) U/L Urine Color (YELLOW) Urine Appearance (CLEAR) Urine pH (5-6) Ur Specific [place] (1.005-1.025) Urine Protein (Negative) Urine Ketones (NEGATIVE) Urine Blood (0-5) John/ul Urine Nitrite (NEGATIVE) Urine Bilirubin (NEGATIVE) Urine Urobilinogen (0-1) mg/dL Ur Leukocyte Esterase (NEGATIVE) Urine WBC (Auto) (0-5) /HPF Urine RBC (Auto) (0-2) /HPF U Epithel Cells (Auto) (FEW) /HPF Urine Bacteria (Auto) (NEGATIVE) /HPF Urine Mucus (Auto) (NEGATIVE) /HPF Urine Culture Reflexed (NO) Urine Glucose (NEGATIVE) mg/dL 08/19/19 08/19/19 08/19/19 Range/Units 16:38 17:05 17:25 WBC (4.0-10.5) K/mm3 RBC (4.1-5.4) M/mm3 Hgb (12.0-16.0) gm/dl Hct (35-47) % MCV (78-100) fl MCH (26-32) pg MCHC (32-36) g/dl RDW (11.5-14.0) % Plt Count (150-450) K/mm3 MPV (7.5-11.0) fl Gran % (36.0-66.0) % Eos # (Auto) (0-0.5) Absolute Lymphs (auto) (1.0-4.6) Absolute Monos (auto) (0.0-1.3) Lymphocytes % (24.0-44.0) % Monocytes % (0.0-12.0) % Eosinophils % (0.00-5.0) % Basophils % (0.0-0.4) % Absolute Granulocytes (1.4-6.9) Basophils # (0-0.4) PT (9.95-12.35) SECONDS INR (0.8-3.0) APTT (25.3-37.0) SECONDS D-Dimer (215-500) ng/mL Sodium (137-145) mmol/L Potassium (3.5-5.1) mmol/L Chloride (98-107) mmol/L Carbon Dioxide (22-30) mmol/L Anion Gap (5-15) MEQ/L BUN (7-17) mg/dL Creatinine (0.52-1.04) mg/dL Estimated GFR ML/MIN Glucose (74-106) mg/dL Lactic Acid 1.9 (0.4-2.0) Calcium (8.4-10.2) mg/dL Magnesium (1.6-2.3) mg/dL Total Bilirubin (0.2-1.3) mg/dL AST (14-36) U/L ALT (0-35) U/L Alkaline Phosphatase (38-126) U/L Troponin I < 0.012 (0.000-0.034) ng/mL NT-Pro-B Natriuret Pep (0-450) pg/mL Serum Total Protein (6.3-8.2) g/dL Albumin (3.5-5.0) g/dL Prealbumin (17.6-36.0) mg/dL Triglycerides (30-150) mg/dL Cholesterol (50-200) mg/dL LDL Cholesterol (30-100) mg/dL HDL Cholesterol (40-60) mg/dL Heart Disease Risk Ratio Amylase (30-110) U/L Lipase (23-300) U/L Urine Color YELLOW (YELLOW) Urine Appearance SLIGHTLY CLOUDY (CLEAR) Urine pH 5.0 (5-6) Ur Specific [place] 1.019 (1.005-1.025) Urine Protein NEGATIVE (Negative) Urine Ketones NEGATIVE (NEGATIVE) Urine Blood NEGATIVE (0-5) John/ul Urine Nitrite NEGATIVE (NEGATIVE) Urine Bilirubin NEGATIVE (NEGATIVE) Urine Urobilinogen NEGATIVE (0-1) mg/dL Ur Leukocyte Esterase NEGATIVE (NEGATIVE) Urine WBC (Auto) NONE (0-5) /HPF Urine RBC (Auto) NONE (0-2) /HPF U Epithel Cells (Auto) RARE (FEW) /HPF Urine Bacteria (Auto) NONE (NEGATIVE) /HPF Urine Mucus (Auto) SLIGHT (NEGATIVE) /HPF Urine Culture Reflexed NO (NO) Urine Glucose 50 (NEGATIVE) mg/dL 08/19/19 08/19/19 08/20/19 Range/Units 20:30 23:45 03:40 WBC (4.0-10.5) K/mm3 RBC (4.1-5.4) M/mm3 Hgb (12.0-16.0) gm/dl Hct (35-47) % MCV (78-100) fl MCH (26-32) pg MCHC (32-36) g/dl RDW (11.5-14.0) % Plt Count (150-450) K/mm3 MPV (7.5-11.0) fl Gran % (36.0-66.0) % Eos # (Auto) (0-0.5) Absolute Lymphs (auto) (1.0-4.6) Absolute Monos (auto) (0.0-1.3) Lymphocytes % (24.0-44.0) % Monocytes % (0.0-12.0) % Eosinophils % (0.00-5.0) % Basophils % (0.0-0.4) % Absolute Granulocytes (1.4-6.9) Basophils # (0-0.4) PT (9.95-12.35) SECONDS INR (0.8-3.0) APTT (25.3-37.0) SECONDS D-Dimer (215-500) ng/mL Sodium (137-145) mmol/L Potassium (3.5-5.1) mmol/L Chloride (98-107) mmol/L Carbon Dioxide (22-30) mmol/L Anion Gap (5-15) MEQ/L BUN (7-17) mg/dL Creatinine (0.52-1.04) mg/dL Estimated GFR ML/MIN Glucose (74-106) mg/dL Lactic Acid (0.4-2.0) Calcium (8.4-10.2) mg/dL Magnesium (1.6-2.3) mg/dL Total Bilirubin (0.2-1.3) mg/dL AST (14-36) U/L ALT (0-35) U/L Alkaline Phosphatase (38-126) U/L Troponin I < 0.012 < 0.012 < 0.012 (0.000-0.034) ng/mL NT-Pro-B Natriuret Pep (0-450) pg/mL Serum Total Protein (6.3-8.2) g/dL Albumin (3.5-5.0) g/dL Prealbumin (17.6-36.0) mg/dL Triglycerides (30-150) mg/dL Cholesterol (50-200) mg/dL LDL Cholesterol (30-100) mg/dL HDL Cholesterol (40-60) mg/dL Heart Disease Risk Ratio Amylase (30-110) U/L Lipase (23-300) U/L Urine Color (YELLOW) Urine Appearance (CLEAR) Urine pH (5-6) Ur Specific [place] (1.005-1.025) Urine Protein (Negative) Urine Ketones (NEGATIVE) Urine Blood (0-5) John/ul Urine Nitrite (NEGATIVE) Urine Bilirubin (NEGATIVE) Urine Urobilinogen (0-1) mg/dL Ur Leukocyte Esterase (NEGATIVE) Urine WBC (Auto) (0-5) /HPF Urine RBC (Auto) (0-2) /HPF U Epithel Cells (Auto) (FEW) /HPF Urine Bacteria (Auto) (NEGATIVE) /HPF Urine Mucus (Auto) (NEGATIVE) /HPF Urine Culture Reflexed (NO) Urine Glucose (NEGATIVE) mg/dL 08/20/19 Range/Units 03:40 WBC (4.0-10.5) K/mm3 RBC (4.1-5.4) M/mm3 Hgb (12.0-16.0) gm/dl Hct (35-47) % MCV (78-100) fl MCH (26-32) pg MCHC (32-36) g/dl RDW (11.5-14.0) % Plt Count (150-450) K/mm3 MPV (7.5-11.0) fl Gran % (36.0-66.0) % Eos # (Auto) (0-0.5) Absolute Lymphs (auto) (1.0-4.6) Absolute Monos (auto) (0.0-1.3) Lymphocytes % (24.0-44.0) % Monocytes % (0.0-12.0) % Eosinophils % (0.00-5.0) % Basophils % (0.0-0.4) % Absolute Granulocytes (1.4-6.9) Basophils # (0-0.4) PT (9.95-12.35) SECONDS INR (0.8-3.0) APTT (25.3-37.0) SECONDS D-Dimer (215-500) ng/mL Sodium (137-145) mmol/L Potassium (3.5-5.1) mmol/L Chloride (98-107) mmol/L Carbon Dioxide (22-30) mmol/L Anion Gap (5-15) MEQ/L BUN (7-17) mg/dL Creatinine (0.52-1.04) mg/dL Estimated GFR ML/MIN Glucose (74-106) mg/dL Lactic Acid (0.4-2.0) Calcium (8.4-10.2) mg/dL Magnesium (1.6-2.3) mg/dL Total Bilirubin (0.2-1.3) mg/dL AST (14-36) U/L ALT (0-35) U/L Alkaline Phosphatase (38-126) U/L Troponin I (0.000-0.034) ng/mL NT-Pro-B Natriuret Pep (0-450) pg/mL Serum Total Protein (6.3-8.2) g/dL Albumin (3.5-5.0) g/dL Prealbumin (17.6-36.0) mg/dL Triglycerides 438 H (30-150) mg/dL Cholesterol 194 (50-200) mg/dL LDL Cholesterol 118 H (30-100) mg/dL HDL Cholesterol 39 L (40-60) mg/dL Heart Disease Risk Ratio 5.0 Amylase (30-110) U/L Lipase (23-300) U/L Urine Color (YELLOW) Urine Appearance (CLEAR) Urine pH (5-6) Ur Specific [place] (1.005-1.025) Urine Protein (Negative) Urine Ketones (NEGATIVE) Urine Blood (0-5) John/ul Urine Nitrite (NEGATIVE) Urine Bilirubin (NEGATIVE) Urine Urobilinogen (0-1) mg/dL Ur Leukocyte Esterase (NEGATIVE) Urine WBC (Auto) (0-5) /HPF Urine RBC (Auto) (0-2) /HPF U Epithel Cells (Auto) (FEW) /HPF Urine Bacteria (Auto) (NEGATIVE) /HPF Urine Mucus (Auto) (NEGATIVE) /HPF Urine Culture Reflexed (NO) Urine Glucose (NEGATIVE) mg/dL Accuchecks Date 08/20/19 Date 08/19/19 Date 08/19/19 Time 08:17 Time 21:00 Time 17:30 Accucheck Value: 251 Accucheck Value: 223 Accucheck Value: 215 - Radiology Impressions Radiology Exams & Impressions: Radiology Procedures Category Date Time Status CHEST 1 VIEW (PORTABLE) Stat Exams 08/19/19 14:21 Completed - Other Procedures and Tests Respiratory Therapy 08/19/19 16:51 Oxygen Nasal Cannula 3 lpm 08/19/19 21:32 BiPap/CPAP ROUTINE 08/21/19 05:00 EKG ONCE 08/22/19 05:00 EKG ONCE Assessment/Plan (1) Angina at rest Current Visit: Yes Status: Acute Assessment & Plan: patient had 2 ekgs which showed t wave inversion on lead v1 but normal sinus rhythm. Her trops were neg. Dr Espinoza discussed this case with Dr krishna yesterday who did not feel her pain was cardiac related as patient had normal studies in ER and her cath in august showed mild blockages. I discussed this case with Dr Krishna this morning. I explained that patient had nitro paste and was receiving sublingual nitro as well and was still symptomatic. He still did not feel that it was cardiac in nature or that it was ACS. We discussed GI cocktail which patient later received and did not get any relief of symptoms. We also discussed alternative medications such as beta xavi and patient is on one, amlodipine imdur and other various medications for angina. He recommended that patient call on thursday and get an appt with Dr Mariee. Patient will continue on tele at this time. Imdur was given this evening and will follow up in am to see how patient is doing. Code(s): I20.8 - OTHER FORMS OF ANGINA PECTORIS (2) Chest pain Current Visit: Yes Status: Acute Assessment & Plan: 2 ekg and 3 trops neg. Patient is getting nitro for pain Code(s): R07.9 - CHEST PAIN, UNSPECIFIED (3) Adrenal Montague's syndrome Current Visit: No Status: Acute Assessment & Plan: Will continue on any routine medications for this. Code(s): E24.9 - YVONNE'S SYNDROME, UNSPECIFIED (4) Diabetes mellitus Current Visit: No Status: Chronic Assessment & Plan: Will continue on home medications for this Code(s): E11.9 - TYPE 2 DIABETES MELLITUS WITHOUT COMPLICATIONS (5) Perirectal abscess Current Visit: No Status: Resolved Assessment & Plan: Patient had surgical repair. It is still healing but doing well. Code(s): K61.1 - RECTAL ABSCESS (6) LEONIDES (obstructive sleep apnea) Current Visit: Yes Status: Acute Assessment & Plan: Patient will have cpap while in hospital Code(s): G47.33 - OBSTRUCTIVE SLEEP APNEA (ADULT) (PEDIATRIC) (7) Obesity hypoventilation syndrome Current Visit: Yes Status: Acute Assessment & Plan: patient is morbidly obese and lower oxygen saturations requiring oxygen. Code(s): E66.2 - MORBID (SEVERE) OBESITY WITH ALVEOLAR HYPOVENTILATION (8) COPD (chronic obstructive pulmonary disease) Current Visit: Yes Status: Acute Assessment & Plan: Possibly and alpha1 antitrypsin type as patient has never smoked and has family member who has it that never smoked. Will continue to monitor oxygen sats and continue any routine home meds
[2019-08-20] MEDS: Glucophage 500 MG PO SCH ×2 (11:56→17:05)
[2019-08-20] MEDS: NORCO 7.5/325 MG TAB PO PRN ×3 (11:56→22:43)
[2019-08-20] MEDS ORDERED: Calcium Gluconate 10% 1000 MG IV ONE (18:34)
[2019-08-20] MEDS ORDERED: Lasix 40 MG/4 ML IV ONE (18:35)
[2019-08-20] MEDS ORDERED: VENTOLIN 20 ML BOTTLE IH ONE (18:40)
[2019-08-20] MEDS: Advair Hfa 115/21 Common canister IH SCH (20:58)
[2019-08-20] MEDS ORDERED: Imdur 30 MG PO SCH (22:00)
[2019-08-20] MEDS ORDERED: NON-FORMULARY ITEM (Budesonide/Formoterol Fumarate [Symbicort 80-4.5 Mcg Inhaler] 2 PUFFS) IH SCH (22:00)
[2019-08-20] MEDS: Protonix 40MG Tablet PO SCH (22:12)
[2019-08-20] MEDS: Paxil 20 MG PO SCH (22:12)
[2019-08-20] MEDS: ECOTRIN 81 MG PO SCH (22:13)
[2019-08-20] MEDS: Lantus Insulin SQ SCH (22:13)
[2019-08-20] MEDS: ZOCOR 20MG PO SCH (22:13)
[2019-08-20] MEDS: Bystolic 5 MG PO SCH (22:13)
[2019-08-20] MEDS: DIOVAN 80 MG PO SCH (22:24)
[2019-08-21] MEDS: Nitrostat 0.4 MG Tablet SL PRN ×6 (00:17→20:50)
[2019-08-21] MEDS: NORCO 7.5/325 MG TAB PO PRN ×3 (02:41→13:09)
[2019-08-21] MEDS: xanAX 0.5 MG PO PRN ×3 (02:41→22:33)
[2019-08-21 05:54] LABS: Hematocrit 38.3 % (35-47); Hemoglobin 12.3 gm/dl (12.0-16.0); Mean Cell Volume 87.8 fl (78-100); Mean Corpuscular Hemoglobin 28.2 pg (26-32); Mean Corpuscular Hgb Concent. 32.1 g/dl (32-36); Mean Platelet Volume 9.7 fl (7.5-11.0); Platelet Count 180 K/mm3 (150-450); Red Blood Count 4.36 M/mm3 (4.1-5.4)
[2019-08-21 06:24] LABS: ANION GAP 11.2 MEQ/L (5-15); BLOOD UREA NITROGEN 14 mg/dL (7-17); CHLORIDE 101 mmol/L (98-107); Calcium 9.1 mg/dL (8.4-10.2); Carbon Dioxide 31 mmol/L (22-30); Creatinine 1 0.56 mg/dL (0.52-1.04); Glucose 200 mg/dL (74-106); SODIUM 139 mmol/L (137-145)
[2019-08-21] MEDS: NITRO-BID 2% UD PACKETS TOP SCH ×3 (06:31→22:34)
[2019-08-21] MEDS: Advair Hfa 115/21 Common canister IH SCH ×3 (07:11→20:15)
[2019-08-21] MEDS: HUMALOG SQ SCH ×3 (08:08→17:22)
[2019-08-21] MEDS: Glucophage 500 MG PO SCH ×2 (08:08→16:39)
[2019-08-21] MEDS: MORPHINE SULFATE 2 MG INJ IV PRN ×4 (11:14→20:49)
--- NOTE | 2019-08-21 14:18 | PCM.NOTE ---
Date and Time: 08/21/19 1406 Subjective Assessment: 39 yr old female seen and examined this am. Patient reports that she still has the chest pressure. The imdur did not help her at all last night. She reports that the GI cocktail she was given yesterday did not help with her symptoms. She reports that the sublingual nitro gave her more symptom relief then imdur. She was given morphine which relieves some pain but not the chest pressure. Patient reports that she feels her lungs are burning. She has had a bad BOND since she has gotten the nitro. No other reported concerns at this time. - Review of Systems Constitutional: No Symptoms Eyes: No Symptoms Ears, Nose, & Throat: No Symptoms Respiratory: Short Of Breath, No Cough, No Wheezing Cardiac: Chest Pain, Edema, No Palpitations Abdominal/Gastrointestinal: Other (Recent perianal abscess surgery), No Abdominal Pain, No Nausea, No Vomiting, No Diarrhea Genitourinary Symptoms: No Symptoms Musculoskeletal: No Symptoms Skin: No Symptoms Neurological: Headache, Parasthesia Psychological: Anxiety Objective Exam General Appearance: mild distress, obese Neurologic Exam: alert, oriented x 3, cooperative, normal mood/affect Skin Exam: normal color, warm, dry, No rash Wound Assessment: Skin/Wound Assessment Wound/Incision Assessment Start: 08/19/19 18:09 Text: Status: Active Freq: Q6H Protocol: Document 08/21/19 07:35 MARISOL (Rec: 08/21/19 07:36 MARISOL [id number]) Wound/Incision Assessment Buttock Wound Assessment Shift Assessment Wound Type rectal fistula Wound Stage Non Pressure Wound Drainage Amount Minimal General Appearance Open to air Primary Dressing Gauze Pads Comment rectal fistula abcess repaired Wound Photo Photo Taken No Eye Exam: eyes nml inspection, No scleral icterus Ears, Nose, Throat Exam: moist mucous membranes Neck Exam: normal inspection Respiratory Exam: lungs clear, diminished breath sounds, No respiratory distress, No wheezing Cardiovascular Exam: regular rate/rhythm, other (Patient has distant heart sounds), No murmur (I thought I appreciated a murmur on yesterday's exam.) Gastrointestinal/Abdomen Exam: soft, normal bowel sounds, No tenderness, No distention Extremity Exam: normal inspection, pedal edema OBJECTIVE DATA Vital Signs: Vital Signs - 24 hr Temp Pulse Resp BP BP Pulse Ox 08/21/19 11:23 97.9 F 92 H 22 117/69 97 08/21/19 09:44 88 16 97 08/21/19 07:56 98.7 F 84 16 100/55 97 08/21/19 03:56 97.5 F 91 H 20 122/64 95 08/21/19 00:17 103 H 139/79 08/20/19 23:21 97.7 F 103 H 21 139/79 94 L 08/20/19 20:59 91 H 24 97 08/20/19 19:58 98.3 F 86 26 H 114/59 97 08/20/19 18:09 85 104/63 08/20/19 16:00 98.7 F 85 18 104/63 98 08/20/19 14:25 98 Pain Assessment - Last Documented Pain Intensity 3 Pain Scale Used 0-10 Pain Scale Intake and Output: Intake & Output 08/19/19 08/20/19 08/21/19 08/22/19 11:59 11:59 11:59 11:59 Intake Total 1680 1900 240 Balance 1680 1900 240 Weight 121.7 kg Lab Results: Accuchecks Date 08/21/19 Date 08/21/19 Date 08/20/19 Date 08/20/19 Time 11:23 Time 07:34 Time 21:00 Time 16:38 Accucheck Value: 282 Accucheck Value: 200 Accucheck Value: 203 Accucheck Value: 154 Lab Results-Last 24 Hours 08/21/19 08/21/19 Range/Units 05:15 05:15 WBC 7.0 (4.0-10.5) K/mm3 RBC 4.36 (4.1-5.4) M/mm3 Hgb 12.3 (12.0-16.0) gm/dl Hct 38.3 (35-47) % MCV 87.8 (78-100) fl MCH 28.2 (26-32) pg MCHC 32.1 (32-36) g/dl RDW 13.0 (11.5-14.0) % Plt Count 180 (150-450) K/mm3 MPV 9.7 (7.5-11.0) fl Sodium 139 (137-145) mmol/L Potassium 4.0 (3.5-5.1) mmol/L Chloride 101 (98-107) mmol/L Carbon Dioxide 31 H (22-30) mmol/L Anion Gap 11.2 (5-15) MEQ/L BUN 14 (7-17) mg/dL Creatinine 0.56 (0.52-1.04) mg/dL Estimated GFR > 60.0 ML/MIN Glucose 200 H (74-106) mg/dL Calcium 9.1 (8.4-10.2) mg/dL Radiology Exams: Radiology Procedures Category Date Time Status CHEST 1 VIEW (PORTABLE) Stat Exams 08/19/19 14:21 Completed Assessment/Plan (1) Unstable angina Current Visit: Yes Status: Acute Assessment & Plan: Patient's chest pressure only eases with nitro. She was given morphine which helped the pain. We attempted to give GI cocktail with no symptom improvement. Patient is on oxygen now at baseline. Will start on lovenox. Patient is on losartan, bystolic aspirin morphine nitro paste nitro and nitro sublingual. I attempted to transfer patient yesterday but the synthetic resin operator did not feel this w as cardiac in nature as patient had normal ekg x2 and neg trops x3. She had cath last year that showed 40% blockages of two vessels. Dr Mariee who is her regular synthetic resin operator will be working tomorrow and patient's case needs to be discussed with him. Patient was also started on a statin as her ASCVD score met criteria (2) Angina at rest Current Visit: Yes Status: Acute Code(s): I20.8 - OTHER FORMS OF ANGINA PECTORIS (3) Chest pain Current Visit: Yes Status: Acute Assessment & Plan: Not improving. Will continue same plan for unstable angina Code(s): R07.9 - CHEST PAIN, UNSPECIFIED (4) Adrenal Waterbury's syndrome Current Visit: No Status: Acute Assessment & Plan: Will continue routine home meds Code(s): E24.9 - YVONNE'S SYNDROME, UNSPECIFIED (5) Diabetes mellitus Current Visit: No Status: Chronic Assessment & Plan: Will check BS ac/hs. Will continue routine home meds. Will have to hold metformin if patient is to have any contrast. Code(s): E11.9 - TYPE 2 DIABETES MELLITUS WITHOUT COMPLICATIONS (6) Perirectal abscess Current Visit: No Status: Resolved Assessment & Plan: Patient is still healing from her recent surgery performed on the of this month Code(s): K61.1 - RECTAL ABSCESS (7) LEONIDES (obstructive sleep apnea) Current Visit: Yes Status: Acute Assessment & Plan: Patient will wear cpap for LEONIDES Code(s): G47.33 - OBSTRUCTIVE SLEEP APNEA (ADULT) (PEDIATRIC) (8) Obesity hypoventilation syndrome Current Visit: Yes Status: Acute Code(s): E66.2 - MORBID (SEVERE) OBESITY WITH ALVEOLAR HYPOVENTILATION (9) COPD (chronic obstructive pulmonary disease) Current Visit: Yes Status: Acute Assessment & Plan: Patient denies hx of smoking. She sees pulm for this. Will continue with routine meds. She has follow up with pulm. She is also requiring oxygen 3L all the time
[2019-08-21] MEDS ORDERED: ENOXAPARIN SODIUM SQ SCH (22:00)
[2019-08-21] MEDS: Bystolic 5 MG PO SCH (22:33)
[2019-08-21] MEDS: Paxil 20 MG PO SCH (22:33)
[2019-08-21] MEDS: Protonix 40MG Tablet PO SCH (22:33)
[2019-08-21] MEDS: ECOTRIN 81 MG PO SCH (22:33)
[2019-08-21] MEDS: ZOCOR 20MG PO SCH (22:33)
[2019-08-21] MEDS: DIOVAN 80 MG PO SCH (22:34)
[2019-08-21] MEDS: Lantus Insulin SQ SCH (22:34)
[2019-08-22] MEDS: MORPHINE SULFATE 2 MG INJ IV PRN ×2 (00:34→04:15)
[2019-08-22] MEDS: Nitrostat 0.4 MG Tablet SL PRN ×2 (00:35→04:12)
[2019-08-22] MEDS: Advair Hfa 115/21 Common canister IH SCH (05:48)
[2019-08-22] MEDS: NITRO-BID 2% UD PACKETS TOP SCH (05:51)
[2019-08-22 06:00] VITALS: O2SAT 98
[2019-08-22] MEDS: Glucophage 500 MG PO SCH (07:45)
[2019-08-22] MEDS: HUMALOG SQ SCH (07:49)
[2019-08-22 08:15] VITALS: BP 102/59; PULSE 91
--- NOTE | 2019-08-22 11:21 | SSS ---
DISCHARGE DIAGNOSES: 1) UNSTABLE ANGINA PECTORIS. 2) DIABETES MELLITUS TYPE II. HOSPITAL COURSE: The patient is a 39 year old white female who has been problems with chest pains. She was seen in the emergency room and admitted to the hospital to rule out myocardial infarction. The patient's troponins have all been essentially negative, less than 0.012. Dr. Guevara had spoken with Dr. Dial the covering physician for Dr. Mariee who is the patient's primary soft crab shedder. The plan was to rule out the patient for myocardial infarction which she has done and to discharge her to see her primary soft crab shedder this morning. He will be coming down to our facility to see the patient. The patient reports that she is still having some chest heaviness but with the plan being developed and being negative for obvious injury, the patient will be discharged per previous plan to see her soft crab shedder this morning. The patient's home medications have been alprazolam 0.5 mg a day, aspirin 81 mg a day, Bystolic 5 mg at night, Nitro-Stat PRN, paroxetine 40 mg a day, Basaglar insulin 30 units, valsartan 80 mg, omeprazole 40 mg, metformin 500 mg b.i.d. and Symbicort inhaler. PHYSICAL EXAMINATION: Revealed an obese, white female in no obvious distress. HEENT: Normocephalic, atraumatic. Pupils equal round reactive to light. Extraocular movements intact. Oropharynx is pink and moist. NECK: Supple without lymphadenopathy, thyromegaly or JVD. CHEST: Clear to auscultation. HEART: Regular rate and rhythm. ABDOMEN: Soft. No palpable masses. EXTREMITIES: Without cyanosis, clubbing or edema. NEUROLOGIC: The patient is alert and oriented x3. LAB DATA AND TESTS: Lactic acid 2.1 initially. All troponins have been less than 0.012. D-dimer was 254. Sugar was initially 240, BUN 13, creatinine 0.47. Electrolytes normal. Liver enzymes are normal. ProBNP was normal. Amylase and lipase normal. CBC normal. UA normal. Chest x-ray showed no acute findings. EKG showed normal sinus rhythm with no chronic injury and essentially a normal appearing tracing. ASSESSMENT: A patient with unstable angina. She is being discharged this morning to see her soft crab shedder this morning as well. She is to continue her home medications.
== END 2019-08-22 09:00 | disposition home or self-care (01) ==
LOC: ED 14:00 → MED SURG 16:40
PROVIDERS: ADMIT Family Medicine; ATTEND Family Medicine
DX: I20.9 Angina pectoris, unspecified (principal); E11.9 Type 2 diabetes mellitus without complications; I10 Essential (primary) hypertension; E24.9 Cushing's syndrome, unspecified; K61.1 Rectal abscess; G47.33 Obstructive sleep apnea (adult) (pediatric); J44.9 Chronic obstructive pulmonary disease, unspecified; Z79.899 Other long term (current) drug therapy
CPT/HCPCS: 36000; 36415; 71045; 80048; 80053; 80061; 81001; 82150; 82962; 83605; 83690; 83721; 83735; 83880; 84134; 84484; 85025; 85027; 85379; 85610; 85730; 93005; 93041; 93268; 94640; 94660; 94760; 94762; 99285; J1650; J1817; J2270; A9270-GY; G0378

== ENCOUNTER 2020-02-09 11:49 | Emergency (ER) | payer OTHER ==
[2020-02-09 12:16] LABS: Absolute Neutrophil Ct (ANC) 3.93 (1.4-6.9); BASOPHIL % 0.3 % (0.0-0.4); Basophil (Absolute #) 0.02 (0-0.4); Eosinophil % 1.4 % (0.00-5.0); Eosinophil (Absolute #) 0.09 (0-0.5); Hematocrit 42.9 % (35-47); Hemoglobin 13.9 gm/dl (12.0-16.0); Lymphocyte (Absolute #) 2.02 (1.0-4.6); Lymphocytes % 31.4 % (24.0-44.0); Mean Cell Volume 85.1 fl (78-100); Mean Corpuscular Hemoglobin 27.6 pg (26-32); Mean Corpuscular Hgb Concent. 32.4 g/dl (32-36); Mean Platelet Volume 9.8 fl (7.5-11.0); Monocyte (Absolute #) 0.37 (0.0-1.3); Monocytes % 5.8 % (0.0-12.0); Neutrophil % 61.1 % (36.0-66.0); Platelet Count 183 K/mm3 (150-450); Red Blood Count 5.04 M/mm3 (4.1-5.4); Red Cell Distribution Width 14.2 % (11.5-14.0); White Blood Count 6.4 K/mm3 (4.0-10.5)
[2020-02-09] MEDS ORDERED: TORAdol 30 mg Injection ONE (12:19)
[2020-02-09] MEDS ORDERED: TORAdol 30 mg Injection IV ONE (12:19)
--- NOTE | 2020-02-09 12:19 | ERPHSYRPT ---
- History of Present Illness Historian: patient Exam Limitations: no limitations Patient Subjective Stated Complaint: pt here for heaviness to center of chest and pain to left rib area off and on since last night, is being treated for left ear infection, pt also co sweating, no fever, Triage Nursing Assessment: pt alert, resp easy, face mask in place, skin w/p/d,chest clear, no edema noted Physician History: 39 yo obese wf w multiple medical problems presents w L lateral-posterior thoracic pain x 17 hours. Pain is 7/10 and stabbing. She has chronic chest pain and currently has 4/10 mid-sternal chest pain. Pt has N/diarrhea wo vomiting. Timing/Duration: other (17hrs) Activities at Onset: rest Quality: stabbing Location: central Severity of Pain-Max: moderate Severity of Pain-Current: moderate Modifying Factors: Improves With: nothing Associated Symptoms: nausea, No vomiting Prior Chest Pain/Cardiac Workup: cardiac cath (Mild CAD) Nitro Today/Relief: no nitro taken today Aspirin Treatment Today: no aspirin today Allergies/Adverse Reactions: metoprolol Allergy (Mild, Verified 02/09/20 12:00) Hives Home Medications: Alprazolam 0.5 mg [xanAX 0.5 MG] 0.5 mg PO BID PRN PRN 09/04/18 [History] Aspirin 81 gm Chew [Baby Aspirin 81 mg Chew] 81 mg PO HS 09/04/18 [History] Nebivolol HCl 5 MG [Bystolic 5 MG] 5 mg PO HS 09/04/18 [History] Nitroglycerin 0.4 mg Tablet [Nitrostat 0.4 MG Tablet] 0.4 mg SL UD PRN 09/04/18 [History] PARoxetine HCL [Paroxetine HCl] 40 mg PO HS 09/04/18 [History] Insulin Glargine,Hum.rec.anlog [Basaglar Kwikpen U-100] 30 unit SQ HS 09/12/18 [History] Valsartan 80 mg PO BID 11/05/18 [History] Omeprazole 40 mg PO HS 11/09/18 [History] Metformin HCl 500 mg [Glucophage 500 MG] 500 mg PO BIDWM 02/28/19 [History] Albuterol Sulfate [Albuterol Sulfate Hfa] 1 puff IH Q4-6HPRN PRN 08/19/19 [History] Budesonide/Formoterol Fumarate [Symbicort 80-4.5 Mcg Inhaler] 2 puffs IH BID 08/19/19 [History] Insulin Lispro [Humalog Kwikpen U-100] 25 units SQ AC 08/19/19 [History] Amlodipine Besylate [Norvasc] 2.5 mg PO DAILY 11/02/19 [History] Dicyclomine HCl 20 mg [Bentyl 20 mg] 20 mg PO DAILY 11/02/19 [History] Isosorbide Mononitrate [Isosorbide Mononitrate ER] 60 mg PO DAILY 11/02/19 [History] Rosuvastatin Calcium [Crestor] 20 mg PO DAILY 11/02/19 [History] Levocetirizine Dihydrochloride [Xyzal] 10 mg PO HS 01/31/20 [History] Cefdinir 1 ea DAILY 02/09/20 [History] Hx Tetanus, Diphtheria Vaccination/Date Given: Yes Hx Influenza Vaccination/Date Given: Yes Hx Pneumococcal Vaccination/Date Given: No Immunizations Up to Date: Yes Travel Risk - International Travel Have you traveled outside of the country in past 3 weeks: No - Coronavirus Screening Are you exhibiting any of the following symptoms?: No Close contact with a COVID-19 positive Pt in past 14-21 Days: No - Review of Systems Constitutional: No Symptoms Eyes: No Symptoms Ears, Nose, & Throat: No Symptoms Respiratory: No Symptoms Abdominal/Gastrointestinal: Nausea, Diarrhea, No Vomiting, No Constipation, No Hematemesis, No Hematochezia Genitourinary Symptoms: No Dysuria, No Frequency, No Hematuria, No Hesitancy, No Incontinence, No Urgency, No Urinary Retention Musculoskeletal: No Symptoms Skin: No Symptoms Neurological: No Symptoms Psychological: No Symptoms Endocrine: No Symptoms Hematologic/Lymphatic: No Symptoms Immunological/Allergic: No Symptoms - Past Medical History Pertinent Past Medical History: Yes Neurological History: Other ENT History: No Pertinent History Cardiac History: Angina, Coronary Artery Disease, Hypertension, Other Respiratory History: Pneumonia, Sleep Apnea Endocrine Medical History: Diabetes Type II, Other Musculoskeletal History: No Pertinent History GI Medical History: GERD, Gallbladder Disease, Irritable Bowel History: No Pertinent History Psycho-Social History: Anxiety, Other Female Reproductive Disorders: Fibroids Other Medical History: cushings, 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 mass from cushings; inflammed lymph nodes around kidneys;OCD, 3L O2 at hs. - Past Surgical History Past Surgical History: Yes Neuro Surgical History: No Pertinent History Cardiac: Cardiac Catheterization, Other Respiratory: No Pertinent History Gastrointestinal: Cholecystectomy Genitourinary: No Pertinent History Musculoskeletal: Other Female Surgical History: Hysterectomy Other Surgical History: plantar fascitis surgery, rectal fistula repair, umbilical hernia repair and adhesion removal - Social History Smoking Status: Never smoker Exposure to second hand smoke: No Drug Use: none Patient Lives Alone: No Significant Family History: no pertinent family hx - Female History Hx Last Menstrual Period: hyster Hx Now: No - Nursing Vital Signs Nursing Vital Signs: Initial Vital Signs Temperature 97.5 F 02/09/20 11:52 Pulse Rate 97 H 02/09/20 11:52 Respiratory Rate 18 02/09/20 11:52 Blood Pressure 138/84 02/09/20 11:52 O2 Sat by Pulse Oximetry 97 02/09/20 11:52 Pain Scale Pain Intensity 2 - Physical Exam General Appearance: no apparent distress Eye Exam: PERRL/EOMI, eyes nml inspection Neck Exam: normal inspection, non-tender, supple Respiratory Exam: normal breath sounds, lungs clear, airway intact Cardiovascular Exam: regular rate/rhythm, normal heart sounds, normal peripheral pulses, No murmur Gastrointestinal/Abdomen Exam: soft Pelvic Exam: not done Back Exam: normal inspection, normal range of motion, No CVA tenderness Extremity Exam: normal inspection, normal range of motion Neurologic Exam: alert, oriented x 3, cooperative, database dba II-XII nml as tested, normal mood/affect, sensation nml, No motor deficits, No sensory deficit Skin Exam: normal color, warm, dry Lymphatic Exam: No adenopathy SpO2 Interpretation: normal SpO2: 97 O2 Delivery: Room Air - Course Nursing assessment & vital signs reviewed: Yes EKG Interpreted by Me: RATE (NSR/Rate 95/Low voltage/Borderline prolonged QTc/normal ST-T waves) - Radiology Exams Chest X-ray Interpretation: Discussed w/ radiologist (Nothing acute) - CT Exams Abdomen/Pelvis CT Interpretation: Discussed w/radiologist (Mckenna/Nothing acute) Ordered Tests: Active Orders 24 hr Category Date Time Status EKG-ER Only STAT Care 12/17/20 12:01 Completed IV Insertion STAT Care 02/09/20 12:01 Completed ABDOMEN AND PELVIS W/0 CONTRAS [CT] Stat Exams 02/09/20 13:26 Completed CHEST 1 VIEW (PORTABLE) Stat Exams 02/09/20 12:01 Completed CBC W DIFF Stat Lab 02/09/20 12:02 Completed CMP Stat Lab 02/09/20 12:02 Completed D-DIMER QUANTITATIVE Stat Lab 02/09/20 12:46 Completed NT PRO BNP Stat Lab 02/09/20 12:02 Completed PROTIME WITH INR Stat Lab 02/09/20 12:02 Completed PTT Stat Lab 02/09/20 12:02 Completed TROPONIN Q3H Lab 02/09/20 12:02 Completed TROPONIN Q3H Lab 02/09/20 15:09 Completed UA W/RFX UR CULTURE Stat Lab 02/09/20 12:03 Completed Medication Summary Discontinued Medications Generic Name Dose Route Start Last Admin Trade Name Freq PRN Reason Stop Dose Admin Fentanyl Citrate 50 mcg 02/09/20 14:32 02/09/20 14:45 Sublimaze 100 Mcg/2 Ml IV 02/09/20 14:33 50 mcg STAT ONE Administration Fentanyl Citrate Confirm 02/09/20 14:38 Sublimaze 100 Mcg/2 Ml Administered 02/09/20 14:39 Dose 100 mcg .ROUTE .STK-MED ONE Fentanyl Citrate 50 mcg 02/09/20 16:20 02/09/20 16:26 Sublimaze 100 Mcg/2 Ml IV 02/09/20 16:21 50 mcg STAT ONE Administration Fentanyl Citrate Confirm 02/09/20 16:25 Sublimaze 100 Mcg/2 Ml Administered 02/09/20 16:26 Dose 100 mcg .ROUTE .STK-MED ONE Ketorolac Tromethamine 15 mg 02/09/20 12:19 02/09/20 12:20 Toradol 30 Mg Injection IV 02/09/20 12:20 15 mg STAT ONE Administration Ketorolac Tromethamine Confirm 02/09/20 12:19 Toradol 30 Mg Injection Administered 02/09/20 12:20 Dose 30 mg .ROUTE .STK-MED ONE Ondansetron HCl 4 mg 02/09/20 14:32 02/09/20 14:45 Zofran 4 Mg/2 Ml Vial IV 02/09/20 14:33 4 mg STAT ONE Administration Ondansetron HCl Confirm 02/09/20 14:43 Zofran 4 Mg/2 Ml Vial Administered 02/09/20 14:44 Dose 4 mg .ROUTE .STK-MED ONE Lab/Rad Data: Laboratory Result Diagrams 02/09/20 12:02 02/09/20 12:02 Laboratory Results 02/09/20 02/09/20 02/09/20 Range/Units 15:09 12:46 12:03 WBC (4.0-10.5) K/mm3 RBC (4.1-5.4) M/mm3 Hgb (12.0-16.0) gm/dl Hct (35-47) % MCV (78-100) fl MCH (26-32) pg MCHC (32-36) g/dl RDW (11.5-14.0) % Plt Count (150-450) K/mm3 MPV (7.5-11.0) fl Gran % (36.0-66.0) % Eos # (Auto) (0-0.5) Absolute Lymphs (auto) (1.0-4.6) Absolute Monos (auto) (0.0-1.3) Lymphocytes % (24.0-44.0) % Monocytes % (0.0-12.0) % Eosinophils % (0.00-5.0) % Basophils % (0.0-0.4) % Absolute Granulocytes (1.4-6.9) Basophils # (0-0.4) PT (9.95-12.35) SECONDS INR (0.8-3.0) APTT (25.3-37.0) SECONDS D-Dimer < 215 L (215-500) ng/mL Sodium (137-145) mmol/L Potassium (3.5-5.1) mmol/L Chloride (98-107) mmol/L Carbon Dioxide (22-30) mmol/L Anion Gap (5-15) MEQ/L BUN (7-17) mg/dL Creatinine (0.52-1.04) mg/dL Estimated GFR ML/MIN Glucose (74-106) mg/dL Calcium (8.4-10.2) mg/dL Total Bilirubin (0.2-1.3) mg/dL AST (14-36) U/L ALT (0-35) U/L Alkaline Phosphatase (38-126) U/L Troponin I < 0.012 (0.000-0.034) ng/mL NT-Pro-B Natriuret Pep (0-450) pg/mL Serum Total Protein (6.3-8.2) g/dL Albumin (3.5-5.0) g/dL Urine Color YELLOW (YELLOW) Urine Appearance CLEAR (CLEAR) Urine pH 5.5 (5-6) Ur Specific [place] 1.020 (1.005-1.025) Urine Protein NEGATIVE (Negative) Urine Ketones NEGATIVE (NEGATIVE) Urine Blood NEGATIVE (0-5) John/ul Urine Nitrite NEGATIVE (NEGATIVE) Urine Bilirubin NEGATIVE (NEGATIVE) Urine Urobilinogen 0.2 (0-1) mg/dL Ur Leukocyte Esterase NEGATIVE (NEGATIVE) Urine WBC (Auto) NONE (0-5) /HPF Urine RBC (Auto) NONE (0-2) /HPF U Epithel Cells (Auto) RARE (FEW) /HPF Urine Bacteria (Auto) NONE (NEGATIVE) /HPF Urine Culture Reflexed NO (NO) Urine Glucose >=1000 (NEGATIVE) mg/dL 02/09/20 02/09/20 02/09/20 Range/Units 12:02 12:02 12:02 WBC (4.0-10.5) K/mm3 RBC (4.1-5.4) M/mm3 Hgb (12.0-16.0) gm/dl Hct (35-47) % MCV (78-100) fl MCH (26-32) pg MCHC (32-36) g/dl RDW (11.5-14.0) % Plt Count (150-450) K/mm3 MPV (7.5-11.0) fl Gran % (36.0-66.0) % Eos # (Auto) (0-0.5) Absolute Lymphs (auto) (1.0-4.6) Absolute Monos (auto) (0.0-1.3) Lymphocytes % (24.0-44.0) % Monocytes % (0.0-12.0) % Eosinophils % (0.00-5.0) % Basophils % (0.0-0.4) % Absolute Granulocytes (1.4-6.9) Basophils # (0-0.4) PT 12.3 (9.95-12.35) SECONDS INR 1.09 (0.8-3.0) APTT 30.0 (25.3-37.0) SECONDS D-Dimer (215-500) ng/mL Sodium 135 L (137-145) mmol/L Potassium 4.2 (3.5-5.1) mmol/L Chloride 98 (98-107) mmol/L Carbon Dioxide 27 (22-30) mmol/L Anion Gap 14.2 (5-15) MEQ/L BUN 14 (7-17) mg/dL Creatinine 0.46 L (0.52-1.04) mg/dL Estimated GFR > 60.0 ML/MIN Glucose 347 H (74-106) mg/dL Calcium 9.6 (8.4-10.2) mg/dL Total Bilirubin 0.30 (0.2-1.3) mg/dL AST 32 (14-36) U/L ALT 35 (0-35) U/L Alkaline Phosphatase 124 (38-126) U/L Troponin I < 0.012 (0.000-0.034) ng/mL NT-Pro-B Natriuret Pep 21.0 (0-450) pg/mL Serum Total Protein 7.0 (6.3-8.2) g/dL Albumin 4.3 (3.5-5.0) g/dL Urine Color (YELLOW) Urine Appearance (CLEAR) Urine pH (5-6) Ur Specific [place] (1.005-1.025) Urine Protein (Negative) Urine Ketones (NEGATIVE) Urine Blood (0-5) John/ul Urine Nitrite (NEGATIVE) Urine Bilirubin (NEGATIVE) Urine Urobilinogen (0-1) mg/dL Ur Leukocyte Esterase (NEGATIVE) Urine WBC (Auto) (0-5) /HPF Urine RBC (Auto) (0-2) /HPF U Epithel Cells (Auto) (FEW) /HPF Urine Bacteria (Auto) (NEGATIVE) /HPF Urine Culture Reflexed (NO) Urine Glucose (NEGATIVE) mg/dL 12/17/20 Range/Units 12:02 WBC 6.4 (4.0-10.5) K/mm3 RBC 5.04 (4.1-5.4) M/mm3 Hgb 13.9 (12.0-16.0) gm/dl Hct 42.9 (35-47) % MCV 85.1 (78-100) fl MCH 27.6 (26-32) pg MCHC 32.4 (32-36) g/dl RDW 14.2 H (11.5-14.0) % Plt Count 183 (150-450) K/mm3 MPV 9.8 (7.5-11.0) fl Gran % 61.1 (36.0-66.0) % Eos # (Auto) 0.09 (0-0.5) Absolute Lymphs (auto) 2.02 (1.0-4.6) Absolute Monos (auto) 0.37 (0.0-1.3) Lymphocytes % 31.4 (24.0-44.0) % Monocytes % 5.8 (0.0-12.0) % Eosinophils % 1.4 (0.00-5.0) % Basophils % 0.3 (0.0-0.4) % Absolute Granulocytes 3.93 (1.4-6.9) Basophils # 0.02 (0-0.4) PT (9.95-12.35) SECONDS INR (0.8-3.0) APTT (25.3-37.0) SECONDS D-Dimer (215-500) ng/mL Sodium (137-145) mmol/L Potassium (3.5-5.1) mmol/L Chloride (98-107) mmol/L Carbon Dioxide (22-30) mmol/L Anion Gap (5-15) MEQ/L BUN (7-17) mg/dL Creatinine (0.52-1.04) mg/dL Estimated GFR ML/MIN Glucose (74-106) mg/dL Calcium (8.4-10.2) mg/dL Total Bilirubin (0.2-1.3) mg/dL AST (14-36) U/L ALT (0-35) U/L Alkaline Phosphatase (38-126) U/L Troponin I (0.000-0.034) ng/mL NT-Pro-B Natriuret Pep (0-450) pg/mL Serum Total Protein (6.3-8.2) g/dL Albumin (3.5-5.0) g/dL Urine Color (YELLOW) Urine Appearance (CLEAR) Urine pH (5-6) Ur Specific [place] (1.005-1.025) Urine Protein (Negative) Urine Ketones (NEGATIVE) Urine Blood (0-5) John/ul Urine Nitrite (NEGATIVE) Urine Bilirubin (NEGATIVE) Urine Urobilinogen (0-1) mg/dL Ur Leukocyte Esterase (NEGATIVE) Urine WBC (Auto) (0-5) /HPF Urine RBC (Auto) (0-2) /HPF U Epithel Cells (Auto) (FEW) /HPF Urine Bacteria (Auto) (NEGATIVE) /HPF Urine Culture Reflexed (NO) Urine Glucose (NEGATIVE) mg/dL - Progress Progress: improved Progress Note: 01/2302/09/20 16:23 15mg IV Toradol wo relief 50umg IV Fentanyl-4mg IV Zofran w mild relief 50umg IV Fentanyl before discharge Counseled pt/family regarding: lab results, diagnosis, need for follow-up, rad results - Departure Departure Disposition: Home Clinical Impression: Abdominal pain, Flank pain, MCKENNA (nonalcoholic steatohepatitis) Condition: Stable Critical Care Time: No Referrals: UGO NUÑEZ DO [Primary Care Provider] - Instructions: Acute Abdomen (Belly Pain), Adult (DC) Additional Instructions: Follow up with your family MD in 2-3 days Return to ER for increasing pain or temperature greater than 100.5 Prescriptions: Hydrocodone Bit/Acetaminophen [Weems 10-325 Tablet] 1 each PO Q4-6HPRN PRN #3 tablet PRN Reason: Pain
[2020-02-09 12:29] LABS: INR 1.09 (0.8-3.0); PROTIME 12.3 SECONDS (9.95-12.35)
[2020-02-09 12:40] LABS: Appearance CLEAR (CLEAR); Bilirubin NEGATIVE (NEGATIVE); Blood NEGATIVE Ery/ul (0-5); Glucose >=1000 mg/dL (NEGATIVE); Ketones NEGATIVE (NEGATIVE); Leukocyte Esterase NEGATIVE (NEGATIVE); Nitrite NEGATIVE (NEGATIVE); Ph 5.5 (5-6); Protein,Urine Dip NEGATIVE (Negative); Urobilinogen 0.2 mg/dL (0-1)
[2020-02-09 12:43] LABS: ALBUMIN 4.3 g/dL (3.5-5.0); ALKALINE PHOSPHATASE 124 U/L (38-126); ANION GAP 14.2 MEQ/L (5-15); BLOOD UREA NITROGEN 14 mg/dL (7-17); CHLORIDE 98 mmol/L (98-107); Calcium 9.6 mg/dL (8.4-10.2); Carbon Dioxide 27 mmol/L (22-30); Creatinine 1 0.46 mg/dL (0.52-1.04); EST GLOMERULAR FILTRATION RATE > 60.0 ML/MIN; Glucose 347 mg/dL (74-106); Potassium 4.2 mmol/L (3.5-5.1); SGOT/AST 32 U/L (14-36); SGPT/ALT 35 U/L (0-35); SODIUM 135 mmol/L (137-145)
[2020-02-09 12:47] LABS: Epithelial Cells RARE /HPF (FEW)
--- NOTE | 2020-02-09 12:49 | XRAY ---
Indication: Chest pain. Comparison: August 19, 2019. Portable chest limited as left costophrenic angle not completely included. Remaining heart, visualized lungs, and bony thorax normal with again incidental right hemidiaphragm elevation.
--- NOTE | 2020-02-09 14:15 | XRAY ---
Indication: Left flank pain. Nausea and diarrhea. Multiple contiguous images obtained through the abdomen and pelvis without contrast as ordered. Comparison: August 06, 2019. Lung bases are clear of infiltrate/effusion. Heart is not enlarged. Noncontrasted stomach and bowel loops remain nonobstructed. Normal appendix. No free fluid/air. Stable fatty 26 cm hepatomegaly, 13.7 cm splenomegaly, cholecystectomy, and hysterectomy. Remaining liver, pancreas, spleen, adrenal glands, kidneys, ureters, and bladder are unremarkable for noncontrast exam. Stable minimal aortic calcifications without AAA. Osseous structures intact. Previous umbilicus fluid collection has cleared. No ventral or inguinal hernias. Impression: 1. Stable fatty hepatomegaly and splenomegaly. 2. Remaining CT abdomen/pelvis without contrast exam is negative.
[2020-02-09] MEDS ORDERED: SUBLIMAZE 100 MCG/2 ML IV ONE ×2 (14:32→16:20)
[2020-02-09] MEDS ORDERED: Zofran 4 MG/2 ML VIAL IV ONE (14:32)
[2020-02-09] MEDS ORDERED: SUBLIMAZE 100 MCG/2 ML ONE ×2 (14:38→16:25)
[2020-02-09] MEDS ORDERED: Zofran 4 MG/2 ML VIAL ONE (14:43)
[2020-02-09 17:02] VITALS: BP 130/82; PULSE 70
[2020-02-09 17:54] VITALS: O2SAT 97
== END 2020-02-09 17:02 | disposition home or self-care (01) ==
LOC: ED 11:49
DX: R10.9 Unspecified abdominal pain (principal); K75.81 Nonalcoholic steatohepatitis (NASH); R07.89 Other chest pain; R11.2 Nausea with vomiting, unspecified; R19.7 Diarrhea, unspecified; Z79.899 Other long term (current) drug therapy; E11.9 Type 2 diabetes mellitus without complications
CPT/HCPCS: 36000; 36415; 71045; 74176; 80053; 81001; 83880; 84484; 85025; 85379; 85610; 85730; 93005; 93041; 96374; 96375; 96376; 99284; J1885; J2405; J3010

== ENCOUNTER 2020-02-15 14:36 | Emergency (ER) | payer OTHER ==
--- NOTE | 2020-02-15 15:37 | XRAY ---
Indication: Fever, cough, short of breath, and headache. Comparison: February 09, 2020. Portable chest again demonstrates normal heart, lungs, and bony thorax with incidental mild right hemidiaphragm elevation. No new/acute findings.
--- NOTE | 2020-02-15 15:54 | ERPHSYRPT ---
- History of Present Illness Time Seen by Provider: 02/15/20 14:55 Source: patient Exam Limitations: no limitations Patient Subjective Stated Complaint: fever Triage Nursing Assessment: Patient ambulated back to ED and transferred self to bed. Patient A+O X 3. Patient's skin pink, warm and dry. Patient complains of fever since Thursday on and off. Patient was COVID tested on Thursday and received results of Negative today. Patient complains of constant aching pain to jeff legs, head, left side of abdomen and back 09/01. Patient also complains of fever as high as 102.0 that comes down with Tylenol. Patient also complains of fatigue. Patient complains of non productive cough with occasional SOB, which isn't new for her. Physician History: This is a morbidly obese 39-year-old white female who presents to the emergency department with multiple complaints. She said that she has a headache bilateral leg pain generalized myalgias and arthralgias as well as left-sided abdominal pain. She stated that she has a mild cough mild shortness of breath, and chest tightness. Patient also stated that she had fever as high as 102 F. She stated she took Tylenol earlier today and arrives to the emergency department afebrile. Patient was seen here in this emergency department on 02/09/2020 had extensive work-up. She was complaining of left upper quadrant abdominal pain and flank pain at that time as well. A CAT scan on 02/09/2020 was negative for any acute intra-abdominal process. A chest x-ray was performed on 02/09/2020 and there was no evidence of any acute cardiopulmonary process. Patient states that she has been seen by gastroenterology for this pain issue and actually had a laparoscopic evaluation and lysis of adhesions in April 2019. She then stated that her symptoms improved after that adhesiolysis. Patient has a history of hypertension, gastroesophageal reflux disease, insulin-dependent diabetes, coronary artery disease, COPD, anxiety, sleep apnea and adrenal [place]'s syndrome. Patient underwent COVID-19 testing on 02/13/2020 and the report came back today that that was a negative test. Timing/Duration: day(s) (4-5) Severity: mild Associated Symptoms: shortness of breath, cough, chills, headaches, No chest pa in Allergies/Adverse Reactions: metoprolol Allergy (Mild, Verified 02/15/20 14:49) Hives Home Medications: Alprazolam 0.5 mg [xanAX 0.5 MG] 0.5 mg PO BID PRN PRN 09/04/18 [History] Aspirin 81 gm Chew [Baby Aspirin 81 mg Chew] 81 mg PO HS 09/04/18 [History] Nebivolol HCl 5 MG [Bystolic 5 MG] 5 mg PO HS 09/04/18 [History] Nitroglycerin 0.4 mg Tablet [Nitrostat 0.4 MG Tablet] 0.4 mg SL UD PRN 09/04/18 [History] PARoxetine HCL [Paroxetine HCl] 40 mg PO HS 09/04/18 [History] Insulin Glargine,Hum.rec.anlog [Basaglar Kwikpen U-100] 30 unit SQ HS 09/12/18 [History] Valsartan 80 mg PO DINNER 11/05/18 [History] Omeprazole 40 mg PO HS 11/09/18 [History] Metformin HCl 500 mg [Glucophage 500 MG] 500 mg PO BIDWM 02/28/19 [History] Albuterol Sulfate [Albuterol Sulfate Hfa] 1 puff IH Q4-6HPRN PRN 08/19/19 [History] Budesonide/Formoterol Fumarate [Symbicort 80-4.5 Mcg Inhaler] 2 puffs IH BID 08/19/19 [History] Insulin Lispro [Humalog Kwikpen U-100] 25 units SQ AC 08/19/19 [History] Amlodipine Besylate [Norvasc] 2.5 mg PO DAILY 11/02/19 [History] Dicyclomine HCl 20 mg [Bentyl 20 mg] 20 mg PO DAILY 11/02/19 [History] Isosorbide Mononitrate [Isosorbide Mononitrate ER] 60 mg PO DAILY 11/02/19 [History] Rosuvastatin Calcium [Crestor] 20 mg PO DAILY 11/02/19 [History] Levocetirizine Dihydrochloride [Xyzal] 10 mg PO HS 01/31/20 [History] Hx Tetanus, Diphtheria Vaccination/Date Given: Yes Hx Influenza Vaccination/Date Given: Yes Hx Pneumococcal Vaccination/Date Given: No Immunizations Up to Date: Yes Travel Risk - International Travel Have you traveled outside of the country in past 3 weeks: No - Coronavirus Screening Are you exhibiting any of the following symptoms?: Yes Symptoms: Fever, Cough: New Onset, Shortness of Breath, Headaches/Body Aches/Fatigue - Review of Systems Constitutional: Fever, Chills Eyes: No Symptoms Ears, Nose, & Throat: No Symptoms Respiratory: Cough, Dyspnea Cardiac: Chest Pain (Described as tightness) Abdominal/Gastrointestinal: No Symptoms Genitourinary Symptoms: No Symptoms Musculoskeletal: Arthralgias, Myalgias Skin: No Symptoms Neurological: No Symptoms Psychological: No Symptoms Endocrine: No Symptoms Hematologic/Lymphatic: No Symptoms Immunological/Allergic: No Symptoms All Other Systems: Reviewed and Negative - Past Medical History Pertinent Past Medical History: Yes Neurological History: Other ENT History: No Pertinent History Cardiac History: Angina, Coronary Artery Disease, Hypertension, Other Respiratory History: Pneumonia, Sleep Apnea Endocrine Medical History: Diabetes Type II, Other Musculoskeletal History: No Pertinent History GI Medical History: GERD, Gallbladder Disease, Irritable Bowel History: No Pertinent History Psycho-Social History: Anxiety, Other Female Reproductive Disorders: Fibroids Other Medical History: cushings, 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 mass from cushings; inflammed lymph nodes around kidneys;OCD, 3L O2 at hs. - Past Surgical History Past Surgical History: Yes Neuro Surgical History: No Pertinent History Cardiac: Cardiac Catheterization, Other Respiratory: No Pertinent History Gastrointestinal: Cholecystectomy Genitourinary: No Pertinent History Musculoskeletal: Other Female Surgical History: Hysterectomy Other Surgical History: plantar fascitis surgery, rectal fistula repair, umbilical hernia repair and adhesion removal - Social History Smoking Status: Never smoker Exposure to second hand smoke: No Drug Use: none Patient Lives Alone: No Significant Family History: no pertinent family hx - Female History Hx Last Menstrual Period: hysterctomy Hx Now: No - Nursing Vital Signs Nursing Vital Signs: Initial Vital Signs Temperature 98.2 F 02/15/20 14:53 Pulse Rate 106 H 02/15/20 14:53 Respiratory Rate 02/15/20 14:53 Blood Pressure 161/112 02/15/20 14:53 O2 Sat by Pulse Oximetry 95 02/15/20 14:53 Pain Scale Pain Intensity 6 - Physical Exam General Appearance: no apparent distress, alert, anxiety, obese Eye Exam: PERRL/EOMI, eyes nml inspection Ears, Nose, Throat Exam: normal ENT inspection, TMs normal, pharynx normal, moist mucous membranes Neck Exam: normal inspection, non-tender, supple, full range of motion Respiratory Exam: normal breath sounds, lungs clear, airway intact, No chest tenderness, No respiratory distress Cardiovascular Exam: regular rate/rhythm, normal heart sounds, normal peripheral pulses Gastrointestinal/Abdomen Exam: soft, normal bowel sounds, No tenderness, No guarding, No rebound Pelvic Exam: not done Rectal Exam: not done Back Exam: normal inspection, normal range of motion, No CVA tenderness, No vertebral tenderness Extremity Exam: normal inspection, normal range of motion, pelvis stable Neurologic Exam: alert, oriented x 3, cooperative, 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 Care 02/15/20 15:09 Active EKG-ER Only STAT Care 02/15/20 15:08 Active IV Insertion STAT Care 02/15/20 15:08 Active Pulse Oximetry (ED) STAT Care 02/15/20 15:08 Active CHEST 1 VIEW (PORTABLE) Stat Exams 02/15/20 15:09 Completed CBC W DIFF Stat Lab 02/15/20 15:05 Completed CMP Stat Lab 02/15/20 15:05 Completed D-DIMER QUANTITATIVE Stat Lab 02/15/20 15:05 Completed INFLUENZA A+B VIDAL Stat Lab 02/15/20 15:40 Completed [place] Screen Stat Lab 02/15/20 15:05 Completed NT PRO BNP Stat Lab 02/15/20 15:05 Completed TROPONIN Q3H Lab 02/15/20 15:15 Completed TROPONIN Q3H Lab 02/15/20 18:15 Ordered TROPONIN Q3H Lab 02/15/20 21:15 Ordered TROPONIN Q3H Lab 02/16/20 00:15 Ordered TROPONIN Q3H Lab 02/16/20 03:15 Ordered UA W/RFX UR CULTURE Stat Lab 02/15/20 15:13 Completed Medication Summary Discontinued Medications Generic Name Dose Route Start Last Admin Trade Name Juan José PRN Reason Stop Dose Admin Sodium Chloride 500 mls @ 500 mls/hr 02/15/20 15:59 02/15/20 17:16 Sodium Chloride 0.9% 500 Ml IV 02/15/20 16:58 Infused .Q1H ONE Infusion Sodium Chloride Confirm 02/15/20 16:03 Sodium Chloride 0.9% 500 Ml Administered 02/15/20 16:04 Dose 500 mls @ ud IV .STK-MED ONE Morphine Sulfate 4 mg 02/15/20 16:33 02/15/20 16:38 Morphine Sulfate 4 Mg Inj IV 02/15/20 16:34 4 mg STAT ONE Administration Morphine Sulfate Confirm 02/15/20 16:36 Morphine Sulfate 4 Mg Inj Administered 02/15/20 16:37 Dose 4 mg .ROUTE .STK-MED ONE Ondansetron HCl 4 mg 02/15/20 16:33 02/15/20 16:38 Zofran 4 Mg/2 Ml Vial IV 02/15/20 16:34 4 mg STAT ONE Administration Ondansetron HCl Confirm 02/15/20 16:36 Zofran 4 Mg/2 Ml Vial Administered 02/15/20 16:37 Dose 4 mg .ROUTE .STK-MED ONE Lab/Rad Data: Laboratory Result Diagrams 02/15/20 15:05 02/15/20 15:05 Laboratory Results 02/15/20 02/15/20 02/15/20 Range/Units 15:40 15:40 15:15 WBC (4.0-10.5) K/mm3 RBC (4.1-5.4) M/mm3 Hgb (12.0-16.0) gm/dl Hct (35-47) % MCV (78-100) fl MCH (26-32) pg MCHC (32-36) g/dl RDW (11.5-14.0) % Plt Count (150-450) K/mm3 MPV (7.5-11.0) fl Gran % (36.0-66.0) % Eos # (Auto) (0-0.5) Absolute Lymphs (auto) (1.0-4.6) Absolute Monos (auto) (0.0-1.3) Lymphocytes % (24.0-44.0) % Monocytes % (0.0-12.0) % Eosinophils % (0.00-5.0) % Basophils % (0.0-0.4) % Absolute Granulocytes (1.4-6.9) Basophils # (0-0.4) D-Dimer (215-500) ng/mL Sodium (137-145) mmol/L Potassium (3.5-5.1) mmol/L Chloride (98-107) mmol/L Carbon Dioxide (22-30) mmol/L Anion Gap (5-15) MEQ/L BUN (7-17) mg/dL Creatinine (0.52-1.04) mg/dL Estimated GFR ML/MIN Glucose (74-106) mg/dL Calcium (8.4-10.2) mg/dL Total Bilirubin (0.2-1.3) mg/dL AST (14-36) U/L ALT (0-35) U/L Alkaline Phosphatase (38-126) U/L Troponin I < 0.012 (0.000-0.034) ng/mL NT-Pro-B Natriuret Pep (0-450) pg/mL Serum Total Protein (6.3-8.2) g/dL Albumin (3.5-5.0) g/dL Urine Color (YELLOW) Urine Appearance (CLEAR) Urine pH (5-6) Ur Specific [place] (1.005-1.025) Urine Protein (Negative) Urine Ketones (NEGATIVE) Urine Blood (0-5) John/ul Urine Nitrite (NEGATIVE) Urine Bilirubin (NEGATIVE) Urine Urobilinogen (0-1) mg/dL Ur Leukocyte Esterase (NEGATIVE) Urine WBC (Auto) (0-5) /HPF Urine RBC (Auto) (0-2) /HPF U Epithel Cells (Auto) (FEW) /HPF Urine Bacteria (Auto) (NEGATIVE) /HPF Urine Mucus (Auto) (NEGATIVE) /HPF Urine Culture Reflexed (NO) Urine Glucose (NEGATIVE) mg/dL Monoscreen (Negative) Influenza Type A Ag NEGATIVE (NEGATIVE) Influenza Type B Ag NEGATIVE (NEGATIVE) Group A Strep Antibody NOT DETECTED (NEGATIVE) 02/15/20 02/15/20 02/15/20 Range/Units 15:13 15:05 15:05 WBC (4.0-10.5) K/mm3 RBC (4.1-5.4) M/mm3 Hgb (12.0-16.0) gm/dl Hct (35-47) % MCV (78-100) fl MCH (26-32) pg MCHC (32-36) g/dl RDW (11.5-14.0) % Plt Count (150-450) K/mm3 MPV (7.5-11.0) fl Gran % (36.0-66.0) % Eos # (Auto) (0-0.5) Absolute Lymphs (auto) (1.0-4.6) Absolute Monos (auto) (0.0-1.3) Lymphocytes % (24.0-44.0) % Monocytes % (0.0-12.0) % Eosinophils % (0.00-5.0) % Basophils % (0.0-0.4) % Absolute Granulocytes (1.4-6.9) Basophils # (0-0.4) D-Dimer < 215 L (215-500) ng/mL Sodium (137-145) mmol/L Potassium (3.5-5.1) mmol/L Chloride (98-107) mmol/L Carbon Dioxide (22-30) mmol/L Anion Gap (5-15) MEQ/L BUN (7-17) mg/dL Creatinine (0.52-1.04) mg/dL Estimated GFR ML/MIN Glucose (74-106) mg/dL Calcium (8.4-10.2) mg/dL Total Bilirubin (0.2-1.3) mg/dL AST (14-36) U/L ALT (0-35) U/L Alkaline Phosphatase (38-126) U/L Troponin I (0.000-0.034) ng/mL NT-Pro-B Natriuret Pep (0-450) pg/mL Serum Total Protein (6.3-8.2) g/dL Albumin (3.5-5.0) g/dL Urine Color YELLOW (YELLOW) Urine Appearance CLEAR (CLEAR) Urine pH 6.0 (5-6) Ur Specific [place] 1.036 (1.005-1.025) Urine Protein NEGATIVE (Negative) Urine Ketones NEGATIVE (NEGATIVE) Urine Blood NEGATIVE (0-5) John/ul Urine Nitrite NEGATIVE (NEGATIVE) Urine Bilirubin NEGATIVE (NEGATIVE) Urine Urobilinogen NEGATIVE (0-1) mg/dL Ur Leukocyte Esterase NEGATIVE (NEGATIVE) Urine WBC (Auto) NONE (0-5) /HPF Urine RBC (Auto) NONE (0-2) /HPF U Epithel Cells (Auto) RARE (FEW) /HPF Urine Bacteria (Auto) NONE (NEGATIVE) /HPF Urine Mucus (Auto) SLIGHT (NEGATIVE) /HPF Urine Culture Reflexed NO (NO) Urine Glucose >=500 (NEGATIVE) mg/dL Monoscreen NEGATIVE (Negative) Influenza Type A Ag (NEGATIVE) Influenza Type B Ag (NEGATIVE) Group A Strep Antibody (NEGATIVE) 02/15/20 02/15/20 Range/Units 15:05 15:05 WBC 6.5 (4.0-10.5) K/mm3 RBC 5.46 H (4.1-5.4) M/mm3 Hgb 15.1 (12.0-16.0) gm/dl Hct 45.8 (35-47) % MCV 83.9 (78-100) fl MCH 27.7 (26-32) pg MCHC 33.0 (32-36) g/dl RDW 13.9 (11.5-14.0) % Plt Count 201 (150-450) K/mm3 MPV 10.0 (7.5-11.0) fl Gran % 59.7 (36.0-66.0) % Eos # (Auto) 0.12 (0-0.5) Absolute Lymphs (auto) 2.17 (1.0-4.6) Absolute Monos (auto) 0.29 (0.0-1.3) Lymphocytes % 33.6 (24.0-44.0) % Monocytes % 4.5 (0.0-12.0) % Eosinophils % 1.9 (0.00-5.0) % Basophils % 0.3 (0.0-0.4) % Absolute Granulocytes 3.86 (1.4-6.9) Basophils # 0.02 (0-0.4) D-Dimer (215-500) ng/mL Sodium 135 L (137-145) mmol/L Potassium 4.1 (3.5-5.1) mmol/L Chloride 96 L (98-107) mmol/L Carbon Dioxide 29 (22-30) mmol/L Anion Gap 14.2 (5-15) MEQ/L BUN 12 (7-17) mg/dL Creatinine 0.59 (0.52-1.04) mg/dL Estimated GFR > 60.0 ML/MIN Glucose 354 H (74-106) mg/dL Calcium 9.6 (8.4-10.2) mg/dL Total Bilirubin 0.50 (0.2-1.3) mg/dL AST 24 (14-36) U/L ALT 37 H (0-35) U/L Alkaline Phosphatase 151 H (38-126) U/L Troponin I (0.000-0.034) ng/mL NT-Pro-B Natriuret Pep 16.2 (0-450) pg/mL Serum Total Protein 7.6 (6.3-8.2) g/dL Albumin 4.5 (3.5-5.0) g/dL Urine Color (YELLOW) Urine Appearance (CLEAR) Urine pH (5-6) Ur Specific [place] (1.005-1.025) Urine Protein (Negative) Urine Ketones (NEGATIVE) Urine Blood (0-5) John/ul Urine Nitrite (NEGATIVE) Urine Bilirubin (NEGATIVE) Urine Urobilinogen (0-1) mg/dL Ur Leukocyte Esterase (NEGATIVE) Urine WBC (Auto) (0-5) /HPF Urine RBC (Auto) (0-2) /HPF U Epithel Cells (Auto) (FEW) /HPF Urine Bacteria (Auto) (NEGATIVE) /HPF Urine Mucus (Auto) (NEGATIVE) /HPF Urine Culture Reflexed (NO) Urine Glucose (NEGATIVE) mg/dL Monoscreen (Negative) Influenza Type A Ag (NEGATIVE) Influenza Type B Ag (NEGATIVE) Group A Strep Antibody (NEGATIVE) - Progress Progress: improved, pain not gone completely, re-examined Progress Note: 02/15/20 15:58 Chest x-ray shows no acute cardiopulmonary process. Repeat twelve-lead EKG (second) performed today at 3:49 PM shows normal sinus rhythm no acute ischemic changes noted. Counseled pt/family regarding: lab results, diagnosis, need for follow-up, rad results - Departure Departure Disposition: Home Clinical Impression: Viral syndrome, Hyperglycemia due to diabetes mellitus Condition: Stable Critical Care Time: No Referrals: UGO NUÑEZ DO [Primary Care Provider] - Additional Instructions: Drink plenty of fluids. Use Tylenol and ibuprofen for pain and fever control. Follow-up with your primary care physician for persistent symptoms.
[2020-02-15 15:59] LABS: Absolute Neutrophil Ct (ANC) 3.86 (1.4-6.9); BASOPHIL % 0.3 % (0.0-0.4); Basophil (Absolute #) 0.02 (0-0.4); Eosinophil % 1.9 % (0.00-5.0); Eosinophil (Absolute #) 0.12 (0-0.5); Hematocrit 45.8 % (35-47); Hemoglobin 15.1 gm/dl (12.0-16.0); Lymphocyte (Absolute #) 2.17 (1.0-4.6); Lymphocytes % 33.6 % (24.0-44.0); Mean Cell Volume 83.9 fl (78-100); Mean Corpuscular Hemoglobin 27.7 pg (26-32); Monocyte (Absolute #) 0.29 (0.0-1.3); Monocytes % 4.5 % (0.0-12.0); Neutrophil % 59.7 % (36.0-66.0); Platelet Count 201 K/mm3 (150-450); Red Blood Count 5.46 M/mm3 (4.1-5.4); Red Cell Distribution Width 13.9 % (11.5-14.0); White Blood Count 6.5 K/mm3 (4.0-10.5)
[2020-02-15] MEDS ORDERED: Sodium Chloride 0.9% 500 ML 500 ML IV ONE ×2 (15:59→16:03)
[2020-02-15 16:02] LABS: Appearance CLEAR (CLEAR); Bilirubin NEGATIVE (NEGATIVE); Blood NEGATIVE Ery/ul (0-5); Epithelial Cells RARE /HPF (FEW); Glucose >=500 mg/dL (NEGATIVE); Ketones NEGATIVE (NEGATIVE); Leukocyte Esterase NEGATIVE (NEGATIVE); Mucus SLIGHT /HPF (NEGATIVE); Nitrite NEGATIVE (NEGATIVE); Protein,Urine Dip NEGATIVE (Negative); Specific Gravity 1.036 (1.005-1.025); Urobilinogen NEGATIVE mg/dL (0-1)
[2020-02-15 16:21] LABS: ALBUMIN 4.5 g/dL (3.5-5.0); ALKALINE PHOSPHATASE 151 U/L (38-126); ANION GAP 14.2 MEQ/L (5-15); BLOOD UREA NITROGEN 12 mg/dL (7-17); CHLORIDE 96 mmol/L (98-107); Calcium 9.6 mg/dL (8.4-10.2); Carbon Dioxide 29 mmol/L (22-30); Creatinine 1 0.59 mg/dL (0.52-1.04); EST GLOMERULAR FILTRATION RATE > 60.0 ML/MIN; Glucose 354 mg/dL (74-106); NT PRO BNP 16.2 pg/mL (0-450); Potassium 4.1 mmol/L (3.5-5.1); SGOT/AST 24 U/L (14-36); SGPT/ALT 37 U/L (0-35); SODIUM 135 mmol/L (137-145); Total Protein 7.6 g/dL (6.3-8.2)
[2020-02-15 16:26] LABS: INFLUENZA A NEGATIVE (NEGATIVE); INFLUENZA B NEGATIVE (NEGATIVE)
[2020-02-15] MEDS ORDERED: Zofran 4 MG/2 ML VIAL IV ONE (16:33)
[2020-02-15] MEDS ORDERED: MORPHINE SULFATE 4 MG INJ IV ONE (16:33)
[2020-02-15] MEDS ORDERED: MORPHINE SULFATE 4 MG INJ ONE (16:36)
[2020-02-15] MEDS ORDERED: Zofran 4 MG/2 ML VIAL ONE (16:36)
[2020-02-15 17:22] VITALS: O2SAT 95
[2020-02-15 17:27] VITALS: BP 154/100; PULSE 92
== END 2020-02-15 17:30 | disposition home or self-care (01) ==
LOC: ED 14:36
DX: B34.9 Viral infection, unspecified (principal); R50.9 Fever, unspecified; R06.02 Shortness of breath; J44.9 Chronic obstructive pulmonary disease, unspecified; I10 Essential (primary) hypertension; G47.30 Sleep apnea, unspecified; K21.9 Gastro-esophageal reflux disease without esophagitis
CPT/HCPCS: 36000; 36415; 71045; 80053; 81001; 83880; 84484; 85025; 85379; 86308; 87400; 87651; 93005; 93041; 94760; 96360; 96374; 96375; 99284; J2270; J2405

== ENCOUNTER 2020-02-18 17:43 | Observation (INO) | payer OTHER ==
[2020-02-18] MEDS ORDERED: BABY ASPIRIN 81 MG CHEW PO ONE (18:00)
[2020-02-18] MEDS ORDERED: Nitrostat 0.4 MG (ED) SL ONE ×2 (18:00→18:07)
[2020-02-18] MEDS ORDERED: Sodium Chloride 0.9% 1000 ML 1,000 ML IV SCH ×2 (18:00→20:56)
[2020-02-18] MEDS ORDERED: Sodium Chloride 0.9% 1000 ML 1,000 ML ONE (18:07)
[2020-02-18] MEDS ORDERED: BABY ASPIRIN 81 MG CHEW ONE (18:07)
--- NOTE | 2020-02-18 18:10 | ERPHSYRPT ---
- History of Present Illness Time Seen by Provider: 02/18/20 18:04 Historian: patient, family Exam Limitations: no limitations Physician History: pt has had about 2 week hx of low grade fever, short of breath and now chest pain- neg Covid test on Thursday. some diarrhea, some N, aching all over. left flank pain last week with negative Abd CT except fatty liver and enlarged spleen by pts report. chest clear today and abd soft nontender. Timing/Duration: day(s) Activities at Onset: none Quality: pressure, tightness Location: substernal Chest Pain Radiation: back, abdomen Severity of Pain-Max: moderate Severity of Pain-Current: moderate Associated Symptoms: nausea, shortness of breath, cough Prior Chest Pain/Cardiac Workup: recently seen/treated Nitro Today/Relief: 0.4 mg x 1, provided by ED, no relief Aspirin Treatment Today: 81 mg x 4 Allergies/Adverse Reactions: metoprolol Allergy (Mild, Verified 02/15/20 14:49) Hives Home Medications: Alprazolam 0.5 mg [xanAX 0.5 MG] 0.5 mg PO BID PRN PRN 09/04/18 [History] Aspirin 81 gm Chew [Baby Aspirin 81 mg Chew] 81 mg PO HS 09/04/18 [History] Nebivolol HCl 5 MG [Bystolic 5 MG] 5 mg PO HS 09/04/18 [History] Nitroglycerin 0.4 mg Tablet [Nitrostat 0.4 MG Tablet] 0.4 mg SL UD PRN 09/04/18 [History] PARoxetine HCL [Paroxetine HCl] 40 mg PO HS 09/04/18 [History] Insulin Glargine,Hum.rec.anlog [Basaglar Kwikpen U-100] 30 unit SQ HS 09/12/18 [History] Valsartan 80 mg PO DINNER 11/05/18 [History] Omeprazole 40 mg PO HS 11/09/18 [History] Metformin HCl 500 mg [Glucophage 500 MG] 500 mg PO BIDWM 02/28/19 [History] Albuterol Sulfate [Albuterol Sulfate Hfa] 1 puff IH Q4-6HPRN PRN 08/19/19 [History] Budesonide/Formoterol Fumarate [Symbicort 80-4.5 Mcg Inhaler] 2 puffs IH BID 08/19/19 [History] Insulin Lispro [Humalog Kwikpen U-100] 25 units SQ AC 08/19/19 [History] Amlodipine Besylate [Norvasc] 2.5 mg PO DAILY 11/02/19 [History] Dicyclomine HCl 20 mg [Bentyl 20 mg] 20 mg PO DAILY 11/02/19 [History] Isosorbide Mononitrate [Isosorbide Mononitrate ER] 60 mg PO DAILY 11/02/19 [History] Rosuvastatin Calcium [Crestor] 20 mg PO DAILY 11/02/19 [History] Levocetirizine Dihydrochloride [Xyzal] 10 mg PO HS 01/31/20 [History] Hx Tetanus, Diphtheria Vaccination/Date Given: Yes Hx Influenza Vaccination/Date Given: Yes Hx Pneumococcal Vaccination/Date Given: No - Review of Systems Constitutional: No Fever, No Chills Eyes: No Symptoms Ears, Nose, & Throat: No Symptoms Respiratory: Dyspnea, No Cough Cardiac: Chest Pain, No Edema, No Syncope Abdominal/Gastrointestinal: Nausea, Diarrhea, No Abdominal Pain, No Vomiting Genitourinary Symptoms: No Dysuria Musculoskeletal: No Back Pain, No Neck Pain Skin: No Rash Neurological: No Dizziness, No Focal Weakness, No Sensory Changes Psychological: No Symptoms Endocrine: No Symptoms Hematologic/Lymphatic: No Symptoms Immunological/Allergic: No Symptoms All Other Systems: Reviewed and Negative - Past Medical History Pertinent Past Medical History: Yes Neurological History: Other ENT History: No Pertinent History Cardiac History: Angina, Coronary Artery Disease, Hypertension, Other Respiratory History: Pneumonia, Sleep Apnea Endocrine Medical History: Diabetes Type II, Other Musculoskeletal History: No Pertinent History GI Medical History: GERD, Gallbladder Disease, Irritable Bowel History: No Pertinent History Psycho-Social History: Anxiety, Other Female Reproductive Disorders: Fibroids Other Medical History: cushings, 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 mass from cushings; inflammed lymph nodes around kidneys;OCD, 3L O2 at hs. - Past Surgical History Past Surgical History: Yes Neuro Surgical History: No Pertinent History Cardiac: Cardiac Catheterization, Other Respiratory: No Pertinent History Gastrointestinal: Cholecystectomy Genitourinary: No Pertinent History Musculoskeletal: Other Female Surgical History: Hysterectomy Other Surgical History: plantar fascitis surgery, rectal fistula repair, umbilical hernia repair and adhesion removal - Social History Smoking Status: Never smoker Exposure to second hand smoke: No Drug Use: none Patient Lives Alone: No Significant Family History: no pertinent family hx - Nursing Vital Signs Nursing Vital Signs: Initial Vital Signs Temperature 99.0 F 02/18/20 17:50 Pulse Rate 115 H 02/18/20 17:50 Respiratory Rate 24 02/18/20 17:50 Blood Pressure 172/105 02/18/20 17:50 O2 Sat by Pulse Oximetry 95 02/18/20 17:50 Pain Scale Pain Intensity 5 - Physical Exam General Appearance: no apparent distress, alert Eye Exam: PERRL/EOMI, eyes nml inspection Ears, Nose, Throat Exam: normal ENT inspection, moist mucous membranes Neck Exam: normal inspection, non-tender, supple, full range of motion Respiratory Exam: normal breath sounds, lungs clear, No respiratory distress Cardiovascular Exam: regular rate/rhythm, normal heart sounds Gastrointestinal/Abdomen Exam: soft, No tenderness, No mass Pelvic Exam: deferred Rectal Exam: deferred Back Exam: normal inspection, No CVA tenderness, No vertebral tenderness Extremity Exam: normal inspection, normal range of motion Neurologic Exam: alert, oriented x 3, cooperative, normal mood/affect, sensation nml, No motor deficits Skin Exam: normal color, warm, dry SpO2 Interpretation: hypoxic SpO2: 90 O2 Delivery: Room Air - Course Nursing assessment & vital signs reviewed: Yes EKG Interpreted by Me: Sinus Tach, NORMAL AXIS, Non-specific ST Changes, Other (poor R wave progression) - Radiology Exams Chest X-ray Interpretation: Reviewed by me, Infiltrates - CT Exams Chest CT Interpretation: Tele-radiologist Report, Other (No major vessel PE, subseg and seg not evaluated. ) Ordered Tests: Active Orders 24 hr Category Date Time Status Ticket Dispenser Changer STAT Care 02/18/20 18:01 Active EKG-ER Only STAT Care 02/18/20 18:00 Active IV Insertion STAT Care 02/18/20 18:00 Active Oxygen-ED Only Nasal Cannula 2 lpm Care 02/18/20 18:40 Active Pulse Oximetry (ED) STAT Care 02/18/20 18:00 Active CHEST 1 VIEW (PORTABLE) Stat Exams 02/18/20 18:01 Completed CHEST WITH CONTRAST [CT] Stat Exams 02/18/20 18:44 Taken AMYLASE Stat Lab 02/18/20 18:19 Completed CBC W DIFF Stat Lab 02/18/20 18:19 Completed CMP Stat Lab 02/18/20 18:19 Completed D-DIMER QUANTITATIVE Stat Lab 02/18/20 18:19 Completed HCG QUALITATIVE,SERUM Stat Lab 02/18/20 18:19 Completed LIPASE Stat Lab 02/18/20 18:19 Completed Lactic Acid Stat Lab 02/18/20 18:20 Completed NT PRO BNP Stat Lab 02/18/20 18:19 Completed TROPONIN Q3H Lab 02/18/20 18:19 Completed TROPONIN Q3H Lab 02/18/20 21:15 Ordered TROPONIN Q3H Lab 02/19/20 00:15 Ordered TROPONIN Q3H Lab 02/19/20 03:15 Ordered TROPONIN Q3H Lab 02/19/20 06:15 Ordered UA W/RFX UR CULTURE Stat Lab 02/18/20 18:15 Completed Medication Summary Generic Name Dose Route Start Last Admin Trade Name Freq PRN Reason Stop Dose Admin Sodium Chloride 1,000 mls @ 200 mls/hr 02/18/20 18:00 02/18/20 18:10 Sodium Chloride 0.9% 1000 Ml IV 03/19/20 17:59 100 mls/hr .Q5H JOSE Administration Discontinued Medications Generic Name Dose Route Start Last Admin Trade Name Freq PRN Reason Stop Dose Admin Aspirin 324 mg 02/18/20 18:00 02/18/20 18:11 Baby Aspirin 81 Mg Chew PO 02/18/20 18:01 324 mg STAT ONE Administration Aspirin Confirm 02/18/20 18:07 Baby Aspirin 81 Mg Chew Administered 02/18/20 18:08 Dose 324 mg .ROUTE .STK-MED ONE Diphenhydramine HCl 25 mg 02/18/20 18:30 02/18/20 18:32 Benadryl 50 Mg/Ml IV 02/18/20 18:31 25 mg STAT ONE Administration Diphenhydramine HCl Confirm 02/18/20 18:30 Benadryl 50 Mg/Ml Administered 02/18/20 18:31 Dose 50 mg .ROUTE .STK-MED ONE Ceftriaxone Sodium/Dextrose 1 g in 50 mls @ 100 mls/hr 02/18/20 18:26 02/18/20 19:01 Rocephin 1 Gm-D5w 50 Ml Bag IV 02/18/20 18:55 Infused STAT STA Infusion Ceftriaxone Sodium/Dextrose Confirm 02/18/20 18:30 Rocephin 1 Gm-D5w 50 Ml Bag Administered 02/18/20 18:31 Dose 1 g in 50 mls @ ud IV .STK-MED ONE Morphine Sulfate 4 mg 02/18/20 18:27 02/18/20 18:31 Morphine Sulfate 4 Mg Inj IV 02/18/20 18:28 4 mg STAT ONE Administration Morphine Sulfate Confirm 02/18/20 18:30 Morphine Sulfate 4 Mg Inj Administered 02/18/20 18:31 Dose 4 mg .ROUTE .STK-MED ONE Morphine Sulfate 4 mg 02/18/20 19:38 02/18/20 19:50 Morphine Sulfate 4 Mg Inj IV 02/18/20 19:39 4 mg STAT ONE Administration Morphine Sulfate Confirm 02/18/20 19:49 Morphine Sulfate 4 Mg Inj Administered 02/18/20 19:50 Dose 4 mg .ROUTE .STK-MED ONE Nitroglycerin 0.4 mg 02/18/20 18:00 02/18/20 18:11 Nitrostat 0.4 Mg (Ed) SL 02/18/20 18:01 0.4 mg STAT ONE Administration Nitroglycerin Confirm 02/18/20 18:07 Nitrostat 0.4 Mg (Ed) Administered 02/18/20 18:08 Dose 0.4 mg SL .STK-MED ONE Ondansetron HCl 4 mg 02/18/20 18:29 02/18/20 18:31 Zofran 4 Mg/2 Ml Vial IV 02/18/20 18:30 4 mg STAT ONE Administration Ondansetron HCl Confirm 02/18/20 18:29 Zofran 4 Mg/2 Ml Vial Administered 02/18/20 18:30 Dose 4 mg .ROUTE .STK-MED ONE Lab/Rad Data: Laboratory Result Diagrams 02/18/20 18:19 02/18/20 18:19 Laboratory Results 02/18/20 02/18/20 02/18/20 Range/Units 18:56 18:20 18:19 WBC (4.0-10.5) K/mm3 RBC (4.1-5.4) M/mm3 Hgb (12.0-16.0) gm/dl Hct (35-47) % MCV (78-100) fl MCH (26-32) pg MCHC (32-36) g/dl RDW (11.5-14.0) % Plt Count (150-450) K/mm3 MPV (7.5-11.0) fl Gran % (36.0-66.0) % Eos # (Auto) (0-0.5) Absolute Lymphs (auto) (1.0-4.6) Absolute Monos (auto) (0.0-1.3) Lymphocytes % (24.0-44.0) % Monocytes % (0.0-12.0) % Eosinophils % (0.00-5.0) % Basophils % (0.0-0.4) % Absolute Granulocytes (1.4-6.9) Basophils # (0-0.4) D-Dimer (215-500) ng/mL Sodium (137-145) mmol/L Potassium (3.5-5.1) mmol/L Chloride (98-107) mmol/L Carbon Dioxide (22-30) mmol/L Anion Gap (5-15) MEQ/L BUN (7-17) mg/dL Creatinine (0.52-1.04) mg/dL Estimated GFR ML/MIN Glucose (74-106) mg/dL Lactic Acid 2.7 H (0.4-2.0) Calcium (8.4-10.2) mg/dL Total Bilirubin (0.2-1.3) mg/dL AST (14-36) U/L ALT (0-35) U/L Alkaline Phosphatase (38-126) U/L Troponin I < 0.012 (0.000-0.034) ng/mL NT-Pro-B Natriuret Pep (0-450) pg/mL Serum Total Protein (6.3-8.2) g/dL Albumin (3.5-5.0) g/dL Amylase (30-110) U/L Lipase (23-300) U/L Serum , Qual (Negative) Urine Color (YELLOW) Urine Appearance (CLEAR) Urine pH (5-6) Ur Specific [place] (1.005-1.025) Urine Protein (Negative) Urine Ketones (NEGATIVE) Urine Blood (0-5) John/ul Urine Nitrite (NEGATIVE) Urine Bilirubin (NEGATIVE) Urine Urobilinogen (0-1) mg/dL Ur Leukocyte Esterase (NEGATIVE) Urine WBC (Auto) (0-5) /HPF Urine RBC (Auto) (0-2) /HPF U Epithel Cells (Auto) (FEW) /HPF Urine Bacteria (Auto) (NEGATIVE) /HPF Urine Mucus (Auto) (NEGATIVE) /HPF Urine Culture Reflexed (NO) Urine Glucose (NEGATIVE) mg/dL SARS-CoV-2 (PCR) POSITIVE A (NEGATIVE) 02/18/20 02/18/20 02/18/20 Range/Units 18:19 18:19 18:19 WBC (4.0-10.5) K/mm3 RBC (4.1-5.4) M/mm3 Hgb (12.0-16.0) gm/dl Hct (35-47) % MCV (78-100) fl MCH (26-32) pg MCHC (32-36) g/dl RDW (11.5-14.0) % Plt Count (150-450) K/mm3 MPV (7.5-11.0) fl Gran % (36.0-66.0) % Eos # (Auto) (0-0.5) Absolute Lymphs (auto) (1.0-4.6) Absolute Monos (auto) (0.0-1.3) Lymphocytes % (24.0-44.0) % Monocytes % (0.0-12.0) % Eosinophils % (0.00-5.0) % Basophils % (0.0-0.4) % Absolute Granulocytes (1.4-6.9) Basophils # (0-0.4) D-Dimer 936 H* (215-500) ng/mL Sodium 134 L (137-145) mmol/L Potassium 4.1 (3.5-5.1) mmol/L Chloride 98 (98-107) mmol/L Carbon Dioxide 26 (22-30) mmol/L Anion Gap 14.7 (5-15) MEQ/L BUN 14 (7-17) mg/dL Creatinine 0.53 (0.52-1.04) mg/dL Estimated GFR > 60.0 ML/MIN Glucose 362 H (74-106) mg/dL Lactic Acid (0.4-2.0) Calcium 9.2 (8.4-10.2) mg/dL Total Bilirubin 0.50 (0.2-1.3) mg/dL AST 30 (14-36) U/L ALT 32 (0-35) U/L Alkaline Phosphatase 154 H (38-126) U/L Troponin I (0.000-0.034) ng/mL NT-Pro-B Natriuret Pep 21.2 (0-450) pg/mL Serum Total Protein 7.7 (6.3-8.2) g/dL Albumin 4.5 (3.5-5.0) g/dL Amylase 32 (30-110) U/L Lipase 78 (23-300) U/L Serum , Qual NEGATIVE (Negative) Urine Color (YELLOW) Urine Appearance (CLEAR) Urine pH (5-6) Ur Specific [place] (1.005-1.025) Urine Protein (Negative) Urine Ketones (NEGATIVE) Urine Blood (0-5) John/ul Urine Nitrite (NEGATIVE) Urine Bilirubin (NEGATIVE) Urine Urobilinogen (0-1) mg/dL Ur Leukocyte Esterase (NEGATIVE) Urine WBC (Auto) (0-5) /HPF Urine RBC (Auto) (0-2) /HPF U Epithel Cells (Auto) (FEW) /HPF Urine Bacteria (Auto) (NEGATIVE) /HPF Urine Mucus (Auto) (NEGATIVE) /HPF Urine Culture Reflexed (NO) Urine Glucose (NEGATIVE) mg/dL SARS-CoV-2 (PCR) (NEGATIVE) 02/18/20 02/18/20 Range/Units 18:19 18:15 WBC 7.8 (4.0-10.5) K/mm3 RBC 5.41 H (4.1-5.4) M/mm3 Hgb 16.1 H (12.0-16.0) gm/dl Hct 45.1 (35-47) % MCV 83.4 (78-100) fl MCH 29.8 (26-32) pg MCHC 35.7 (32-36) g/dl RDW 13.9 (11.5-14.0) % Plt Count 198 (150-450) K/mm3 MPV 9.6 (7.5-11.0) fl Gran % 62.7 (36.0-66.0) % Eos # (Auto) 0.12 (0-0.5) Absolute Lymphs (auto) 2.34 (1.0-4.6) Absolute Monos (auto) 0.40 (0.0-1.3) Lymphocytes % 30.2 (24.0-44.0) % Monocytes % 5.2 (0.0-12.0) % Eosinophils % 1.5 (0.00-5.0) % Basophils % 0.4 (0.0-0.4) % Absolute Granulocytes 4.86 (1.4-6.9) Basophils # 0.03 (0-0.4) D-Dimer (215-500) ng/mL Sodium (137-145) mmol/L Potassium (3.5-5.1) mmol/L Chloride (98-107) mmol/L Carbon Dioxide (22-30) mmol/L Anion Gap (5-15) MEQ/L BUN (7-17) mg/dL Creatinine (0.52-1.04) mg/dL Estimated GFR ML/MIN Glucose (74-106) mg/dL Lactic Acid (0.4-2.0) Calcium (8.4-10.2) mg/dL Total Bilirubin (0.2-1.3) mg/dL AST (14-36) U/L ALT (0-35) U/L Alkaline Phosphatase (38-126) U/L Troponin I (0.000-0.034) ng/mL NT-Pro-B Natriuret Pep (0-450) pg/mL Serum Total Protein (6.3-8.2) g/dL Albumin (3.5-5.0) g/dL Amylase (30-110) U/L Lipase (23-300) U/L Serum , Qual (Negative) Urine Color YELLOW (YELLOW) Urine Appearance SLIGHTLY CLOUDY (CLEAR) Urine pH 6.0 (5-6) Ur Specific [place] 1.039 (1.005-1.025) Urine Protein NEGATIVE (Negative) Urine Ketones TRACE (NEGATIVE) Urine Blood NEGATIVE (0-5) John/ul Urine Nitrite NEGATIVE (NEGATIVE) Urine Bilirubin NEGATIVE (NEGATIVE) Urine Urobilinogen 2 (0-1) mg/dL Ur Leukocyte Esterase NEGATIVE (NEGATIVE) Urine WBC (Auto) NONE (0-5) /HPF Urine RBC (Auto) NONE (0-2) /HPF U Epithel Cells (Auto) RARE (FEW) /HPF Urine Bacteria (Auto) NONE SEEN (NEGATIVE) /HPF Urine Mucus (Auto) SLIGHT (NEGATIVE) /HPF Urine Culture Reflexed NO (NO) Urine Glucose >=500 (NEGATIVE) mg/dL SARS-CoV-2 (PCR) (NEGATIVE) - Progress Progress: improved, re-examined Air Movement: good Progress Note: 02/18/20 20:19 discussed with pt and Dr. Negrete and will place in on Obs for COvid and follow trops , and proph levonox, deximethasone, and redesivir. 02/18/20 20:28 hypoxia responded well to O2 NC Blood Culture(s) Obtained: No Antibiotics given: No Discussed with Dr.: Other (Dr. Negrete) Will see patient in: hospital (observation) Counseled pt/family regarding: lab results, diagnosis, need for follow-up, rad results - Departure Departure Disposition: Observation Clinical Impression: Lung infiltrate, COVID-19, Chest pain, CAD (coronary artery disease), Hypoxia Condition: Good Critical Care Time: No Referrals: UGO NUÑEZ DO [Primary Care Provider] -
[2020-02-18 18:25] LABS: Absolute Neutrophil Ct (ANC) 4.86 (1.4-6.9); BASOPHIL % 0.4 % (0.0-0.4); Basophil (Absolute #) 0.03 (0-0.4); Eosinophil % 1.5 % (0.00-5.0); Eosinophil (Absolute #) 0.12 (0-0.5); Hematocrit 45.1 % (35-47); Hemoglobin 16.1 gm/dl (12.0-16.0); Lymphocyte (Absolute #) 2.34 (1.0-4.6); Lymphocytes % 30.2 % (24.0-44.0); Mean Cell Volume 83.4 fl (78-100); Mean Corpuscular Hemoglobin 29.8 pg (26-32); Mean Corpuscular Hgb Concent. 35.7 g/dl (32-36); Mean Platelet Volume 9.6 fl (7.5-11.0); Monocytes % 5.2 % (0.0-12.0); Neutrophil % 62.7 % (36.0-66.0); Platelet Count 198 K/mm3 (150-450); Red Blood Count 5.41 M/mm3 (4.1-5.4); Red Cell Distribution Width 13.9 % (11.5-14.0); White Blood Count 7.8 K/mm3 (4.0-10.5)
[2020-02-18] MEDS ORDERED: ROCEPHIN 1 Gm-D5w 50 ml Bag** 1 G/50 ML IVPB IV STA (18:26)
[2020-02-18 18:27] LABS: Appearance SLIGHTLY CLOUDY (CLEAR); Bilirubin NEGATIVE (NEGATIVE); Blood NEGATIVE Ery/ul (0-5); Epithelial Cells RARE /HPF (FEW); Glucose >=500 mg/dL (NEGATIVE); Ketones TRACE (NEGATIVE); Leukocyte Esterase NEGATIVE (NEGATIVE); Mucus SLIGHT /HPF (NEGATIVE); Nitrite NEGATIVE (NEGATIVE); Protein,Urine Dip NEGATIVE (Negative); Specific Gravity 1.039 (1.005-1.025); Urobilinogen 2 mg/dL (0-1)
[2020-02-18] MEDS ORDERED: MORPHINE SULFATE 4 MG INJ IV ONE ×2 (18:27→19:38)
[2020-02-18] MEDS ORDERED: Zofran 4 MG/2 ML VIAL IV ONE (18:29)
[2020-02-18] MEDS ORDERED: Zofran 4 MG/2 ML VIAL ONE (18:29)
[2020-02-18] MEDS ORDERED: MORPHINE SULFATE 4 MG INJ ONE ×2 (18:30→19:49)
[2020-02-18] MEDS ORDERED: BENADRYL 50 MG/ML ONE (18:30)
[2020-02-18] MEDS ORDERED: ROCEPHIN 1 Gm-D5w 50 ml Bag** 1 G/50 ML IVPB IV ONE (18:30)
[2020-02-18] MEDS ORDERED: BENADRYL 50 MG/ML IV ONE (18:30)
[2020-02-18 18:44] LABS: Bacteria NONE SEEN /HPF (NEGATIVE)
[2020-02-18 18:49] LABS: ALBUMIN 4.5 g/dL (3.5-5.0); ALKALINE PHOSPHATASE 154 U/L (38-126); AMYLASE 32 U/L (30-110); ANION GAP 14.7 MEQ/L (5-15); BLOOD UREA NITROGEN 14 mg/dL (7-17); CHLORIDE 98 mmol/L (98-107); Calcium 9.2 mg/dL (8.4-10.2); Carbon Dioxide 26 mmol/L (22-30); Creatinine 1 0.53 mg/dL (0.52-1.04); EST GLOMERULAR FILTRATION RATE > 60.0 ML/MIN; Glucose 362 mg/dL (74-106); LIPASE 78 U/L (23-300); NT PRO BNP 21.2 pg/mL (0-450); Potassium 4.1 mmol/L (3.5-5.1); SGOT/AST 30 U/L (14-36); SGPT/ALT 32 U/L (0-35); SODIUM 134 mmol/L (137-145); Total Protein 7.7 g/dL (6.3-8.2)
--- NOTE | 2020-02-18 19:40 | XRAY ---
Indication: Short of breath. Comparison: February 15, 2020. Portable chest continues to demonstrate normal heart, lungs, and bony thorax.
[2020-02-18] MEDS ORDERED: REMDESIVIR 100 MG in Sodium Chloride 0.9% 100 ML IVPB 100 ML IV SCH (20:56)
[2020-02-18] MEDS ORDERED: Zofran 4 MG/2 ML VIAL IV PRN ×2 (20:56→22:37)
[2020-02-18] MEDS ORDERED: Hydromorphone 1 mg/ml Injection IV PRN (20:56)
[2020-02-18] MEDS ORDERED: TYLENOL 325 MG PO PRN (20:56)
[2020-02-18] MEDS ORDERED: HUMULIN R SQ PRN (20:56)
[2020-02-18] MEDS ORDERED: VENTOLIN COMMON CANISTER IH PRN (20:56)
[2020-02-18] MEDS ORDERED: REMDESIVIR IV ONE (21:16)
[2020-02-18] MEDS ORDERED: Sodium Chloride 0.9% 250 ML 250 ML IV ONE (21:16)
[2020-02-18] MEDS ORDERED: Protonix 40MG Tablet PO SCH (22:00)
[2020-02-18] MEDS ORDERED: BABY ASPIRIN 81 MG CHEW PO SCH (22:00)
--- NOTE | 2020-02-18 22:01 | XRAY ---
Indication: Elevated d-dimer. Multiple contiguous axial images obtained through the chest using 80 cc Isovue 370 contrast and PE protocol. Comparison: September 15, 2018. There is good opacification of the pulmonary arteries to include the lobar and segmental branches. No pulmonary embolus. Heart is not enlarged. Aorta is normal in course and caliber. No pathologic mediastinal/hilar lymphadenopathy. Lungs are inflated and clear. Bony thorax intact again with minimal degenerative changes throughout the spine. Limited upper abdomen again demonstrates fatty liver. Impression: 1. Negative pulmonary embolus. No new/acute cardiopulmonary abnormalities. 2. Again incidental fatty liver. Comment: Preliminary interpretation was made by [facility]. No critical discrepancy.
[2020-02-18] MEDS ORDERED: NEURONTIN 300 MG PO PRN (22:24)
[2020-02-18] MEDS ORDERED: PATIENT OWN MEDICATION IH PRN (22:28)
[2020-02-18] MEDS ORDERED: REMDESIVIR 200 MG in Sodium Chloride 0.9% 250 ML 250 ML IV ONE (22:30)
[2020-02-18] MEDS ORDERED: Ativan 1 MG PO PRN (22:30)
[2020-02-18] MEDS ORDERED: Cozaar 50 MG ONE (23:29)
[2020-02-18] MEDS ORDERED: HUMALOG ONE (23:29)
[2020-02-18] MEDS ORDERED: Paxil 20 MG ONE (23:29)
[2020-02-18] MEDS ORDERED: ECOTRIN 81 MG PO ONE (23:31)
[2020-02-18] MEDS ORDERED: Lantus Insulin ONE (23:31)
[2020-02-18] MEDS ORDERED: Protonix 40MG Tablet ONE (23:40)
[2020-02-18] MEDS ORDERED: Bystolic 5 MG ONE (23:50)
[2020-02-18] MEDS ORDERED: Nitrostat 0.4 MG Tablet SL PRN (23:50)
[2020-02-19] MEDS: Pepcid 20 MG VIAL IV SCH ×3 (00:19→20:50)
[2020-02-19] MEDS: Bystolic 5 MG PO SCH ×2 (00:27→20:49)
[2020-02-19] MEDS ORDERED: Lantus Insulin SQ ONE ×2 (00:30)
[2020-02-19] MEDS ORDERED: HUMALOG SQ ONE (00:30)
[2020-02-19] MEDS ORDERED: BABY ASPIRIN 81 MG CHEW PO SCH ×3 (00:36→22:00)
[2020-02-19 06:39] LABS: Absolute Neutrophil Ct (ANC) 3.31 (1.4-6.9); BASOPHIL % 0.2 % (0.0-0.4); Basophil (Absolute #) 0.01 (0-0.4); Eosinophil % 1.9 % (0.00-5.0); Eosinophil (Absolute #) 0.12 (0-0.5); Hematocrit 43.4 % (35-47); Mean Cell Volume 85.8 fl (78-100); Mean Corpuscular Hemoglobin 27.7 pg (26-32); Mean Corpuscular Hgb Concent. 32.3 g/dl (32-36); Mean Platelet Volume 9.5 fl (7.5-11.0); Monocyte (Absolute #) 0.32 (0.0-1.3); Monocytes % 5.2 % (0.0-12.0); Neutrophil % 53.7 % (36.0-66.0); Platelet Count 169 K/mm3 (150-450); Red Blood Count 5.06 M/mm3 (4.1-5.4); Red Cell Distribution Width 14.1 % (11.5-14.0); White Blood Count 6.2 K/mm3 (4.0-10.5)
[2020-02-19 07:07] LABS: ALKALINE PHOSPHATASE 111 U/L (38-126); ANION GAP 11.3 MEQ/L (5-15); BLOOD UREA NITROGEN 14 mg/dL (7-17); CHLORIDE 100 mmol/L (98-107); Calcium 8.9 mg/dL (8.4-10.2); Carbon Dioxide 29 mmol/L (22-30); Creatinine 1 0.45 mg/dL (0.52-1.04); EST GLOMERULAR FILTRATION RATE > 60.0 ML/MIN; Glucose 237 mg/dL (74-106); NT PRO BNP 24.3 pg/mL (0-450); Potassium 4.5 mmol/L (3.5-5.1); SGOT/AST 22 U/L (14-36); SGPT/ALT 27 U/L (0-35); SODIUM 136 mmol/L (137-145); Total Protein 6.9 g/dL (6.3-8.2)
[2020-02-19] MEDS ORDERED: NEURONTIN 300 MG PO PRN (07:45)
[2020-02-19] MEDS: HUMALOG SQ SCH ×3 (08:08→16:25)
[2020-02-19] MEDS: BENTYL 20 MG PO SCH (08:09)
[2020-02-19] MEDS: PATIENT OWN MEDICATION IH SCH ×2 (08:23→20:44)
[2020-02-19] MEDS: TYLENOL EXTRA STRENGTH 500 MG PO PRN ×2 (08:28→16:27)
[2020-02-19] MEDS: MORPHINE SULFATE 4 MG INJ IV PRN ×4 (09:15→23:09)
[2020-02-19] MEDS: ENOXAPARIN SODIUM SQ SCH (09:24)
[2020-02-19] MEDS: Decadron 4 MG INJ IV SCH ×2 (09:25→20:50)
[2020-02-19] MEDS: NORVASC 5 MG PO SCH (09:25)
[2020-02-19] MEDS: ZOCOR 20MG PO SCH (09:27)
[2020-02-19] MEDS: Imdur 60MG PO SCH (09:27)
[2020-02-19] MEDS ORDERED: Decadron 4 MG INJ IV SCH ×2 (10:00)
[2020-02-19] MEDS ORDERED: ENOXAPARIN SODIUM SQ SCH (10:00)
[2020-02-19] MEDS: REMDESIVIR 100 MG in Sodium Chloride 0.9% 100 ML IVPB 100 ML IV SCH (16:25)
[2020-02-19] MEDS: Paxil 20 MG PO SCH (20:49)
[2020-02-19] MEDS: ECOTRIN 81 MG PO SCH (20:49)
[2020-02-19] MEDS: CLARITIN 10 MG PO SCH (20:50)
[2020-02-19] MEDS: Protonix 40MG Tablet PO SCH (20:50)
[2020-02-19] MEDS: Lantus Insulin SQ SCH (20:50)
[2020-02-19] MEDS: DIOVAN 80 MG PO SCH (20:50)
[2020-02-19] MEDS: xanAX 0.5 MG PO PRN (20:52)
[2020-02-19] MEDS ORDERED: Protonix 40MG Tablet PO SCH (22:00)
[2020-02-19] MEDS ORDERED: LEVOCETIRIZINE DIHYDROCHLORIDE 10 MG PO SCH (22:00)
[2020-02-19] MEDS ORDERED: Cozaar 50 MG PO SCH (22:00)
[2020-02-19] MEDS ORDERED: NON-FORMULARY ITEM (Omeprazole [Omeprazole] 40 MG) PO SCH (22:00)
[2020-02-19] MEDS ORDERED: Bystolic 5 MG PO SCH (22:00)
[2020-02-19] MEDS ORDERED: Paxil 20 MG PO SCH (22:00)
[2020-02-19] MEDS: Ativan 1 MG PO PRN (23:09)
[2020-02-19] MEDS ORDERED: MORPHINE SULFATE 2 MG INJ IV STA (23:29)
[2020-02-20] MEDS ORDERED: ENOXAPARIN SODIUM SQ ONE (01:53)
[2020-02-20] MEDS ORDERED: ENOXAPARIN SODIUM SQ STA (01:57)
[2020-02-20] MEDS: MORPHINE SULFATE 4 MG INJ IV PRN ×2 (06:19→18:15)
[2020-02-20] MEDS: PATIENT OWN MEDICATION IH SCH ×2 (07:04→22:44)
[2020-02-20] MEDS: HUMALOG SQ SCH ×3 (07:52→17:05)
[2020-02-20] MEDS: BENTYL 20 MG PO SCH (07:52)
--- NOTE | 2020-02-20 08:43 | XRAY ---
Indication: Left chest pain. Diaphoresis. Multiple contiguous axial images obtained through the chest using 100 cc Isovue 370 contrast. Comparison: February 18, 2020. Lungs demonstrate new bilateral dependent atelectasis. No suspicious pulmonary mass, infiltrate, or effusion. Heart is not enlarged. Aorta remains normal in course and caliber. Distal left lower lobe pulmonary artery demonstrates new nonoccluding pulmonary embolus (image 37). No pathologic mediastinal/hilar lymphadenopathy. Bony thorax intact again with minimal degenerative changes throughout the spine. Limited upper abdomen again demonstrates fatty liver. Impression: 1. New nonoccluding left lower lobe pulmonary embolus. 2. Again incidental fatty liver. Comment: Preliminary interpretation was made by C. No critical discrepancy.
[2020-02-20] MEDS: NORVASC 5 MG PO SCH (09:40)
[2020-02-20] MEDS: Imdur 60MG PO SCH (09:40)
[2020-02-20] MEDS: ZOCOR 20MG PO SCH (09:41)
[2020-02-20] MEDS: Pepcid 20 MG VIAL IV SCH ×2 (09:41→21:01)
[2020-02-20] MEDS: Decadron 4 MG INJ IV SCH ×2 (09:41→21:00)
[2020-02-20] MEDS: ENOXAPARIN SODIUM SQ SCH (09:45)
[2020-02-20] MEDS ORDERED: PHARMACY DOSING REQUEST MC ONE (10:20)
--- NOTE | 2020-02-20 10:59 | HP ---
CHIEF COMPLAINT: Fever, shortness of breath, chest pain, aching all over. HISTORY OF PRESENT ILLNESS: The patient actually has had this going on for almost two weeks. She had a negative COVID test in the past and today it is positive. She had some diarrhea a few days ago but she has no GI symptoms now. 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 Most of the pain is from the front of her chest to the back, some nausea and she is short of breath. She does not smoke. MEDICATIONS: Xanax 0.5 every six hours PRN, aspirin 81 q.d., Bystolic 5 q.d., Nitro 0.4 PRN, Paxil 40 q.d., insulin 30 subcu h.s., losartan 80 q.d., Prilosec 40 q.d. Metformin 500 b.i.d., Albuterol PRN, Symbicort 80 two puffs b.i.d., Humalog pen 25 units a.c., Norvasc 2.5 q.d., Bentyl 20 a.c. and h.s. PRN, isosorbide mononitrate 60 mg q.d., rosuvastatin 20 q.d., Xyzal 10 q.h.s. ALLERGIES: METOPROLOL. PAST MEDICAL HISTORY: Diabetes. Asthma. She was once told she had Chelsea's and a second specialist told her she did not have that. She has an adrenal mass which is usually an adenoma of course and I think that is what they saw. Some lymph nodes around the kidneys which has been followed for quite a while. Obstructive sleep apnea and takes 3 liters of oxygen at night. PAST SURGICAL HISTORY: Cholecystectomy. Hysterectomy. Plantar fascia surgery. Rectal fistula repair. Umbilical hernia repair. Adhesion removal. REVIEW OF SYSTEMS: CONSTITUTIONAL: No fever. No chills. Just the chest aching and myalgia. RESPIRATORY: The patient has some asthma. She has never smoked. CARDIAC: The patient has had catheterizations. She has got two - 40% blockages, no definite myocardial infarction. ABDOMEN: Had some diarrhea earlier, occasional pain but this has pretty well gone away in the last 24 hours. MUSCULOSKELETAL: Just achiness. NEUROLOGIC: No dizziness, migraines or sensory changes. PSYCHOLOGIC: No diagnosis. ENDOCRINE: The patient has history of diabetes, obesity, asthma. 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 PHYSICAL EXAMINATION: VITAL SIGNS: Temperature 99F, pulse 90, respirations 20, blood pressure 160/90. O2 saturation 95% on room air. HEENT: Pupils equal and reactive to light. NECK: Supple without adenopathy. CHEST: Clear. CVS: No murmurs or gallops. ABDOMEN: Obese. No masses or organomegaly. EXTREMITIES: Color is good. No edema. LAB DATA AND TESTS: Chest x-ray showed bilateral infiltrates typical for COVID pneumonia. D-dimer was approximately 1,000. CBC was normal. IMPRESSION: The patient has COVID pneumonia going on for perhaps one week. She has some nonspecific back pain felt to be secondary to the pneumonia. History of chest pain with 40% obstruction of two arteries for which she takes numerous medications, possible small coronary artery vessel disease. PLAN: The patient will be treated with oxygen, Remdesivir, simvastatin and Decadron. PROGNOSIS: [place] to be good.
[2020-02-20] MEDS: XARELTO 10 MG TABLET PO SCH (17:03)
[2020-02-20] MEDS: REMDESIVIR 100 MG in Sodium Chloride 0.9% 100 ML IVPB 100 ML IV SCH (17:05)
[2020-02-20] MEDS ORDERED: Glucophage 500 MG PO SCH (19:00)
[2020-02-20] MEDS: Protonix 40MG Tablet PO SCH (21:00)
[2020-02-20] MEDS: DIOVAN 80 MG PO SCH (21:00)
[2020-02-20] MEDS: Paxil 20 MG PO SCH (21:00)
[2020-02-20] MEDS: ECOTRIN 81 MG PO SCH (21:00)
[2020-02-20] MEDS: CLARITIN 10 MG PO SCH (21:00)
[2020-02-20] MEDS: Bystolic 5 MG PO SCH (21:00)
[2020-02-20] MEDS: Lantus Insulin SQ SCH (21:01)
[2020-02-20] MEDS: xanAX 0.5 MG PO PRN (21:04)
[2020-02-20] MEDS: Ativan 1 MG PO PRN (22:15)
[2020-02-21] MEDS: PATIENT OWN MEDICATION IH SCH (06:30)
[2020-02-21] MEDS: BENTYL 20 MG PO SCH (08:29)
[2020-02-21] MEDS: HUMALOG SQ SCH (08:33)
[2020-02-21 08:50] VITALS: BP 120/66
[2020-02-21] MEDS: XARELTO 10 MG TABLET PO SCH (09:53)
[2020-02-21] MEDS: Decadron 4 MG INJ IV SCH (09:55)
[2020-02-21] MEDS: Imdur 60MG PO SCH (09:55)
[2020-02-21] MEDS: NORVASC 5 MG PO SCH (09:56)
[2020-02-21] MEDS: Pepcid 20 MG VIAL IV SCH (09:58)
[2020-02-21] MEDS: ZOCOR 20MG PO SCH (09:59)
[2020-02-21 10:13] VITALS: PULSE 81; O2SAT 96
[2020-02-23] MEDS ORDERED: Glucophage 500 MG PO SCH (10:00)
== END 2020-02-21 11:15 | disposition home or self-care (01) ==
LOC: ED 17:43 → MED SURG 20:50
PROVIDERS: ADMIT Family Medicine; ATTEND Family Medicine
DX: U07.1 COVID-19 (principal); J12.89 Other viral pneumonia; R07.9 Chest pain, unspecified; Z79.899 Other long term (current) drug therapy; E11.9 Type 2 diabetes mellitus without complications; G47.33 Obstructive sleep apnea (adult) (pediatric); E78.5 Hyperlipidemia, unspecified; I25.10 Atherosclerotic heart disease of native coronary artery without angina pectoris; M54.9 Dorsalgia, unspecified; G62.9 Polyneuropathy, unspecified; E66.9 Obesity, unspecified
CPT/HCPCS: 36000; 36415; 71045; 71260; 80053; 81001; 81025; 82150; 82947; 83036; 83605; 83690; 83880; 84484; 85025; 85379; 93005; 93041; 94640; 94660; 94760; 94762; 96360; 96361; 96365; 96374; 96375; 96376; 99285; U0003; 93268; J0696; J1100; J1200; J1650; J1815; J1817; J2270; J2405; A9270-GY; G0378

== ENCOUNTER 2020-02-25 14:39 | Emergency (ER) | payer OTHER ==
[2020-02-25] MEDS ORDERED: TYLENOL EXTRA STRENGTH 500 MG PO STA (14:55)
[2020-02-25] MEDS ORDERED: VENTOLIN COMMON CANISTER IH ONE (14:55)
[2020-02-25 15:06] LABS: Hematocrit 46.8 % (35-47); Hemoglobin 15.6 gm/dl (12.0-16.0); Mean Corpuscular Hgb Concent. 33.3 g/dl (32-36); Mean Platelet Volume 9.8 fl (7.5-11.0); Platelet Count 201 K/mm3 (150-450); Red Blood Count 5.57 M/mm3 (4.1-5.4); Red Cell Distribution Width 13.6 % (11.5-14.0); White Blood Count 9.1 K/mm3 (4.0-10.5)
--- NOTE | 2020-02-25 15:13 | ERPHSYRPT ---
- History of Present Illness Time Seen by Provider: 02/25/20 15:11 Source: patient Exam Limitations: no limitations Patient Subjective Stated Complaint: chest pain. cough, SOB, fever, body aches, "getting crackley" Triage Nursing Assessment: pt to ED c/o CP and multiple COVID sx x 1 week. states she was tested for COVID and was positive last Thursday. was DC from hospital on Thursday and has not felt any better per pt. also reports that she sounds like she is "getting crackley." on auscultation L lung throughout crackles on expiration. R side lung clear throughout insp&exp. Physician History: chest pain cough, SOB, fever, body aches, "getting crackley" for 2-3 days she was tested for COVID and was positive last Thursday. was Discharged from hospital on Thursday and has not felt any better. also reports that she sounds like she is "getting crackley." Timing/Duration: today Severity: moderate Associated Symptoms: shortness of breath, cough, chills, chest pain, fever, malaise Allergies/Adverse Reactions: metoprolol Allergy (Mild, Verified 02/15/20 14:49) Hives Home Medications: Alprazolam 0.5 mg [xanAX 0.5 MG] 0.5 mg PO BID PRN PRN 09/04/18 [History] Aspirin 81 gm Chew [Baby Aspirin 81 mg Chew] 81 mg PO HS 09/04/18 [History] Nebivolol HCl 5 MG [Bystolic 5 MG] 5 mg PO HS 09/04/18 [History] Nitroglycerin 0.4 mg Tablet [Nitrostat 0.4 MG Tablet] 0.4 mg SL UD PRN 09/04/18 [History] PARoxetine HCL [Paroxetine HCl] 40 mg PO HS 09/04/18 [History] Insulin Glargine,Hum.rec.anlog [Basaglar Yoditikpen U-100] 30 unit SQ HS 09/12/18 [History] Valsartan 80 mg PO DINNER 11/05/18 [History] Omeprazole 40 mg PO HS 11/09/18 [History] Metformin HCl 500 mg [Glucophage 500 MG] 500 mg PO BIDWM 02/28/19 [History] Albuterol Sulfate [Albuterol Sulfate Hfa] 1 puff IH Q4-6HPRN PRN 08/19/19 [History] Budesonide/Formoterol Fumarate [Symbicort 80-4.5 Mcg Inhaler] 2 puffs IH BID 08/19/19 [History] Insulin Lispro [Humalog Kwikpen U-100] 25 units SQ AC 08/19/19 [History] Amlodipine Besylate [Norvasc] 2.5 mg PO DAILY 11/02/19 [History] Dicyclomine HCl 20 mg [Bentyl 20 mg] 20 mg PO DAILY 11/02/19 [History] Isosorbide Mononitrate [Isosorbide Mononitrate ER] 60 mg PO DAILY 11/02/19 [History] Rosuvastatin Calcium [Crestor] 20 mg PO DAILY 11/02/19 [History] Levocetirizine Dihydrochloride [Xyzal] 10 mg PO HS 01/31/20 [History] Hx Tetanus, Diphtheria Vaccination/Date Given: Yes Hx Influenza Vaccination/Date Given: Yes Hx Pneumococcal Vaccination/Date Given: No Immunizations Up to Date: Yes Travel Risk - International Travel Have you traveled outside of the country in past 3 weeks: No - Coronavirus Screening Are you exhibiting any of the following symptoms?: Yes Symptoms: Cough: New Onset, Shortness of Breath, Vomiting/Diarrhea, Headaches/Body Aches/Fatigue Close contact with a COVID-19 positive Pt in past 14-21 Days: Yes - Review of Systems Constitutional: Fever, Chills, Malaise, Weakness Eyes: No Symptoms Ears, Nose, & Throat: No Symptoms Respiratory: Cough, Dyspnea, Dyspnea on Exertion (LAU), Wheezing Cardiac: Chest Pain, No Edema, No Syncope Abdominal/Gastrointestinal: No Abdominal Pain, No Nausea, No Vomiting, No Diarrhea Genitourinary Symptoms: No Dysuria Musculoskeletal: No Back Pain, No Neck Pain Skin: No Rash Neurological: Headache, No Dizziness, No Focal Weakness, No Sensory Changes Psychological: No Symptoms Endocrine: No Symptoms All Other Systems: Reviewed and Negative - Past Medical History Pertinent Past Medical History: Yes Neurological History: Other ENT History: No Pertinent History Cardiac History: Angina, Coronary Artery Disease, Hypertension, Other Respiratory History: Pneumonia, Sleep Apnea Endocrine Medical History: Diabetes Type II, Other Musculoskeletal History: No Pertinent History GI Medical History: GERD, Gallbladder Disease, Irritable Bowel History: No Pertinent History Psycho-Social History: Anxiety, Other Female Reproductive Disorders: Fibroids Other Medical History: cushings, 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 mass from cushings; inflammed lymph nodes around kidneys;OCD, 3L O2 at hs. - Past Surgical History Past Surgical History: Yes Neuro Surgical History: No Pertinent History Cardiac: Cardiac Catheterization, Other Respiratory: No Pertinent History Gastrointestinal: Cholecystectomy Genitourinary: No Pertinent History Musculoskeletal: Other Female Surgical History: Hysterectomy Other Surgical History: plantar fascitis surgery, rectal fistula repair, umb ilical hernia repair and adhesion removal - Social History Smoking Status: Never smoker Exposure to second hand smoke: No Drug Use: none Patient Lives Alone: No Significant Family History: no pertinent family hx - Female History Hx Now: No - Nursing Vital Signs Nursing Vital Signs: Initial Vital Signs Temperature 99.1 F 02/25/20 14:48 Pulse Rate 100 H 02/25/20 14:48 Respiratory Rate 20 02/25/20 14:48 Blood Pressure 141/86 02/25/20 14:48 O2 Sat by Pulse Oximetry 94 L 02/25/20 14:48 Pain Scale Pain Intensity 6 - Physical Exam General Appearance: moderate distress, alert Eye Exam: PERRL/EOMI, eyes nml inspection Ears, Nose, Throat Exam: normal ENT inspection, TMs normal, pharynx normal, moist mucous membranes Neck Exam: normal inspection, non-tender, supple, full range of motion Respiratory Exam: respiratory distress, diminished breath sounds, accessory muscle use, crackles/rales, rhonchi, wheezing Cardiovascular Exam: regular rate/rhythm, normal heart sounds, normal peripheral pulses Gastrointestinal/Abdomen Exam: soft, normal bowel sounds, No tenderness, No mass Back Exam: normal inspection, normal range of motion, No CVA tenderness, No vertebral tenderness Extremity Exam: normal inspection, normal range of motion, pelvis stable Neurologic Exam: alert, oriented x 3, cooperative, normal mood/affect, nml cerebellar function, nml station & gait, sensation nml, No motor deficits Skin Exam: normal color, warm, dry, No rash Lymphatic Exam: No adenopathy SpO2: 94 - Course Nursing assessment & vital signs reviewed: Yes - Radiology Exams Chest X-ray Interpretation: Reviewed by me, Negative Ordered Tests: Active Orders 24 hr Category Date Time Status EKG-ER Only STAT Care 02/25/20 14:55 Active ISDH COVID Approval STAT Care 02/25/20 14:56 Completed Isolation, Initiate & Maintain STAT Care 02/25/20 14:56 Active Oxygen-ED Only High Flow per RT 50% Care 02/25/20 14:55 Active CHEST 1 VIEW (PORTABLE) Stat Exams 02/25/20 15:03 Taken ARTERIAL BLOOD GASES Stat Lab 02/25/20 14:55 Received CBC Stat Lab 02/25/20 15:04 Completed CMP Stat Lab 02/25/20 15:04 Completed D-DIMER QUANTITATIVE Stat Lab 02/25/20 15:04 Completed LDH-LACTATE DEHYDROGENASE Stat Lab 02/25/20 15:04 Completed TROPONIN Stat Lab 02/25/20 15:04 Completed Respiratory MDI STAT RT 02/25/20 14:57 Active Medication Summary Discontinued Medications Generic Name Dose Route Start Last Admin Trade Name Freq PRN Reason Stop Dose Admin Acetaminophen 1,000 mg 02/25/20 14:55 02/25/20 15:05 Tylenol Extra Strength 500 Mg PO 02/25/20 14:56 Not Given STAT STA Albuterol Sulfate 4 puff 02/25/20 14:55 Ventolin Common Canister IH 02/25/20 14:56 STAT ONE Lab/Rad Data: Laboratory Result Diagrams 02/25/20 15:04 02/25/20 15:04 Laboratory Results 02/25/20 02/25/20 02/25/20 Range/Units 15:04 15:04 15:04 WBC 9.1 (4.0-10.5) K/mm3 RBC 5.57 H (4.1-5.4) M/mm3 Hgb 15.6 (12.0-16.0) gm/dl Hct 46.8 (35-47) % MCV 84.0 (78-100) fl MCH 28.0 (26-32) pg MCHC 33.3 (32-36) g/dl RDW 13.6 (11.5-14.0) % Plt Count 201 (150-450) K/mm3 MPV 9.8 (7.5-11.0) fl D-Dimer < 215 L (215-500) ng/mL Sodium 135 L (137-145) mmol/L Potassium 4.3 (3.5-5.1) mmol/L Chloride 97 L (98-107) mmol/L Carbon Dioxide 28 (22-30) mmol/L Anion Gap 13.5 (5-15) MEQ/L BUN 23 H (7-17) mg/dL Creatinine 1.36 H (0.52-1.04) mg/dL Estimated GFR 45.5 ML/MIN Glucose 363 H (74-106) mg/dL Calcium 9.3 (8.4-10.2) mg/dL Total Bilirubin 0.40 (0.2-1.3) mg/dL AST 25 (14-36) U/L ALT 38 H (0-35) U/L Alkaline Phosphatase 152 H (38-126) U/L Lactate Dehydrogenase 117 L (120-246) U/L Troponin I < 0.012 (0.000-0.034) ng/mL Serum Total Protein 7.5 (6.3-8.2) g/dL Albumin 4.4 (3.5-5.0) g/dL - Progress Progress: improved, pain not gone completely Counseled pt/family regarding: lab results, diagnosis, need for follow-up, rad results - Departure Departure Disposition: Home Clinical Impression: Pulmonary embolism associated with COVID-19, Post-COVID syndrome, Obesity hypoventilation syndrome Diabetes mellitus Qualifiers: Diabetes mellitus type: type 2 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 insulin use: with assisted use Diabetes mellitus complication status: with hyperglycemia Qualified Code(s): E11.65 - Type 2 diabetes mellitus with hyperglycemia; Z79.4 - halfway (current) use of insulin COPD (chronic obstructive pulmonary disease) Qualifiers: COPD type: emphysema Emphysema type: other Qualified Code(s): J43.8 - Other emphysema Condition: Stable Critical Care Time: Yes Critical Care Time(excluding separately billable procedures): Critical 30-74 mins Referrals: UGO NUÑEZ DO [Primary Care Provider] - Instructions: Chronic Obstructive Pulmonary Disease, Coronavirus Disease 2019 (COVID-19) (DC)
[2020-02-25 15:30] LABS: ALBUMIN 4.4 g/dL (3.5-5.0); ALKALINE PHOSPHATASE 152 U/L (38-126); ANION GAP 13.5 MEQ/L (5-15); BLOOD UREA NITROGEN 23 mg/dL (7-17); CHLORIDE 97 mmol/L (98-107); Calcium 9.3 mg/dL (8.4-10.2); Carbon Dioxide 28 mmol/L (22-30); Creatinine 1 1.36 mg/dL (0.52-1.04); EST GLOMERULAR FILTRATION RATE 45.5 ML/MIN; Glucose 363 mg/dL (74-106); LDH-LACTATE DEHYDROGENASE 117 U/L (120-246); Potassium 4.3 mmol/L (3.5-5.1); SGOT/AST 25 U/L (14-36); SGPT/ALT 38 U/L (0-35); SODIUM 135 mmol/L (137-145); TROPONIN < 0.012 ng/mL (0.000-0.034); Total Protein 7.5 g/dL (6.3-8.2)
[2020-02-25 15:37] LABS: A-aADO2 30; ABG HEMOGLOBIN 15.5; ABG POTASSIUM 4.5 (3.5-5.1); ABG SITE RIGHT BRACHIAL; ARTERIAL BLD GAS O2 SATURATION 95.1 % (95-100); ARTERIAL BLOOD GAS BASE EXCESS 4.1 (-2.0-2.0); ARTERIAL BLOOD GAS FIO2 21 %; ARTERIAL BLOOD GAS PCO2 41 mmHg (35-45); ARTERIAL BLOOD GAS PO2 68 mmHg (75-100); ARTERIAL BLOOD GAS pH 7.45 (7.35-7.45); HCO3- 28.5 (22-28); HGB O2 SAT 93.2 g/dF (94-100); Methhemoglobin 0.9 % (1.4-1.5); paO2 pAO1 0.69
[2020-02-25 15:58] VITALS: BP 131/74; PULSE 85; O2SAT 93
--- NOTE | 2020-02-25 17:15 | XRAY ---
Indication: Fever, cough, short of breath. Positive Covid 19. Comparison: February 18, 2020. Portable chest again demonstrates normal heart, lungs, and bony thorax. No new/acute findings.
== END 2020-02-25 16:11 | disposition home or self-care (01) ==
LOC: ED 14:39
DX: I26.99 Other pulmonary embolism without acute cor pulmonale (principal); B94.8 Sequelae of other specified infectious and parasitic diseases; R06.89 Other abnormalities of breathing; E66.9 Obesity, unspecified; E11.65 Type 2 diabetes mellitus with hyperglycemia; Z79.4 Long term (current) use of insulin; J43.8 Other emphysema
CPT/HCPCS: 36000; 36415; 36600; 71045; 80053; 82375; 82803; 83615; 84484; 85027; 85379; 93005; 94640; 99284; 99291

== ENCOUNTER 2020-03-06 20:46 | Emergency (ER) | payer OTHER ==
[2020-03-06] MEDS ORDERED: Sodium Chloride 0.9% 1000 ML 1,000 ML IV STA (21:15)
--- NOTE | 2020-03-06 21:32 | ERPHSYRPT ---
- History of Present Illness Time Seen by Provider: 03/06/20 21:10 Historian: patient Exam Limitations: no limitations Patient Subjective Stated Complaint: Patient states " Around 1230 today the right side of my ABD started hurting and cramping. It goes down into my groin and across my lower ABD and into my right side". Triage Nursing Assessment: . Physician History: Patient is a 39-year-old female presents to our ED with complaints of right lower quadrant pain. Pain started today at approximately 12:30 PM. Pain d escribed as an intermittent cramping pain that tends to radiate across her lower abdomen. Patient currently on antibiotics for a right lower quadrant superficial abscess. Patient was diagnosed with Covid on 17 February. Patient currently on oxygen because of this finding. Patient did develop a blood clot at the time she was diagnosed. Patient currently on blood thinners. No trauma. No fever. No nausea or vomiting. No diarrhea. No rash. Symptoms are mild to moderate in intensity. No specific worsening or improving factors. Patient otherwise healthy. She voices no other complaints at this time. Timing/Duration: today Activities at Onset: none Quality: aching, cramping Abdominal Pain Onset Location: RLQ Pain Radiation: other (Pain radiates across lower abdomen) Severity of Pain-Max: moderate Severity of Pain-Current: mild (Patient declined pain medication at this time.) Modifying Factors: Improves With: nothing Associated Symptoms: No back, No chest pain, No diaphoresis, No diarrhea, No fever/chills, No fatigue, No headache, No heartburn, No loss of appetite, No nausea, No neck pain, No rash, No shortness of breath, No syncope, No vomiting Previous symptoms: no prior history Allergies/Adverse Reactions: metoprolol Allergy (Mild, Verified 03/06/20 21:08) Hives Home Medications: Alprazolam 0.5 mg [xanAX 0.5 MG] 0.5 mg PO BID PRN PRN 09/04/18 [History] Aspirin 81 gm Chew [Baby Aspirin 81 mg Chew] 81 mg PO HS 09/04/18 [History] Nebivolol HCl 5 MG [Bystolic 5 MG] 5 mg PO HS 09/04/18 [History] Nitroglycerin 0.4 mg Tablet [Nitrostat 0.4 MG Tablet] 0.4 mg SL UD PRN 09/04/18 [History] PARoxetine HCL [Paroxetine HCl] 40 mg PO HS 09/04/18 [History] Insulin Glargine,Hum.rec.anlog [Basaglar Kwikpen U-100] 30 unit SQ HS 09/12/18 [History] Omeprazole 40 mg PO HS 11/09/18 [History] Metformin HCl 500 mg [Glucophage 500 MG] 500 mg PO BID 02/28/19 [History] Albuterol Sulfate [Albuterol Sulfate Hfa] 1 puff IH Q4-6HPRN PRN 08/19/19 [Histo ry] Budesonide/Formoterol Fumarate [Symbicort 80-4.5 Mcg Inhaler] 2 puffs IH BID 08/19/19 [History] Insulin Lispro [Humalog Kwikpen U-100] 25 units SQ AC 08/19/19 [History] Amlodipine Besylate [Norvasc] 2.5 mg PO DAILY 11/02/19 [History] Dicyclomine HCl 20 mg [Bentyl 20 mg] 20 mg PO DAILY 11/02/19 [History] Isosorbide Mononitrate [Isosorbide Mononitrate ER] 60 mg PO DAILY 11/02/19 [History] Rosuvastatin Calcium [Crestor] 20 mg PO DAILY 11/02/19 [History] Levocetirizine Dihydrochloride [Xyzal] 10 mg PO HS 01/31/20 [History] Ciprofloxacin [Cipro 500 MG] 500 mg PO BID 03/06/20 [History] Losartan Potassium 25 mg PO DAILY 03/06/20 [History] Rivaroxaban 10 mg Tablet [Xarelto 10 mg Tablet] 15 mg PO BID 03/06/20 [History] Hx Tetanus, Diphtheria Vaccination/Date Given: Yes Hx Influenza Vaccination/Date Given: Yes Hx Pneumococcal Vaccination/Date Given: Yes Immunizations Up to Date: Yes Travel Risk - International Travel Have you traveled outside of the country in past 3 weeks: No - Coronavirus Screening Are you exhibiting any of the following symptoms?: No Close contact with a COVID-19 positive Pt in past 14-21 Days: No - Review of Systems Constitutional: No Symptoms, No Fever, No Chills Eyes: No Symptoms Ears, Nose, & Throat: No Symptoms Respiratory: No Symptoms, No Cough, No Dyspnea Cardiac: No Symptoms, No Chest Pain, No Edema, No Syncope Abdominal/Gastrointestinal: No Symptoms, No Abdominal Pain, No Nausea, No Vomiting, No Diarrhea Genitourinary Symptoms: No Symptoms, No Dysuria Musculoskeletal: No Symptoms, No Back Pain, No Neck Pain Skin: No Symptoms, No Rash Neurological: No Symptoms, No Dizziness, No Focal Weakness, No Sensory Changes Psychological: No Symptoms Endocrine: No Symptoms Hematologic/Lymphatic: No Symptoms Immunological/Allergic: No Symptoms All Other Systems: Reviewed and Negative - Past Medical History Pertinent Past Medical History: Yes Neurological History: Other ENT History: No Pertinent History Cardiac History: Angina, Coronary Artery Disease, Hypertension, Other Respiratory History: Pneumonia, Sleep Apnea Endocrine Medical History: Diabetes Type II, Other Musculoskeletal History: No Pertinent History GI Medical History: GERD, Gallbladder Disease, Irritable Bowel History: No Pertinent History Psycho-Social History: Anxiety, Other Female Reproductive Disorders: Fibroids Other Medical History: cushings, 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 mass from cushings; inflammed lymph nodes around kidneys;OCD, 3L O2 at hs. - Past Surgical History Past Surgical History: Yes Neuro Surgical History: No Pertinent History Cardiac: Cardiac Catheterization, Other Respiratory: No Pertinent History Gastrointestinal: Cholecystectomy Genitourinary: No Pertinent History Musculoskeletal: Other Female Surgical History: Hysterectomy Other Surgical History: plantar fascitis surgery, rectal fistula repair, umbilical hernia repair and adhesion removal - Social History Smoking Status: Never smoker Exposure to second hand smoke: No Drug Use: none Patient Lives Alone: No Significant Family History: no pertinent family hx - Female History Hx Last Menstrual Period: Hysterectomy Hx Now: No - Nursing Vital Signs Nursing Vital Signs: Initial Vital Signs Temperature 98.6 F 03/06/20 21:00 Pulse Rate 109 H 03/06/20 21:00 Respiratory Rate 22 03/06/20 21:00 Blood Pressure 125/87 03/06/20 21:00 O2 Sat by Pulse Oximetry 98 03/06/20 21:00 Pain Scale Pain Intensity 7 - Physical Exam General Appearance: no apparent distress, alert Eye Exam: PERRL/EOMI, eyes nml inspection Ears, Nose, Throat Exam: normal ENT inspection, pharynx normal, moist mucous membranes Neck Exam: normal inspection, non-tender, supple, full range of motion Respiratory Exam: normal breath sounds, lungs clear, No respiratory distress Cardiovascular Exam: regular rate/rhythm, normal heart sounds Gastrointestinal/Abdomen Exam: soft, tenderness, other (Obese abdomen. Tenderness to palpation right lower quadrant. No guarding no rebound. Overlying soft tissue intact.), No mass Back Exam: normal inspection, normal range of motion, No CVA tenderness, No v ertebral tenderness Extremity Exam: normal inspection, normal range of motion, pelvis stable Neurologic Exam: alert, oriented x 3, cooperative, normal mood/affect, nml cerebellar function, sensation nml, No motor deficits Skin Exam: normal color, warm, dry SpO2 Interpretation: normal SpO2: 98 O2 Delivery: Room Air - Course Nursing assessment & vital signs reviewed: Yes - CT Exams Abdomen/Pelvis CT Interpretation: Tele-radiologist Report (Patchy groundglass opacities in the lower lungs hepatic steatosis and possible morphologic changes of cirrhosis, splenomegaly, mild atherosclerotic disease of note patient is Covid positive and currently recovering. No acute abdominal findings observed.) Ordered Tests: Active Orders 24 hr Category Date Time Status IV Insertion STAT Care 03/06/20 21:15 Active ABDOMEN AND PELVIS W CONTRAST [CT] Stat Exams 03/06/20 21:16 Taken CBC W DIFF Stat Lab 03/06/20 21:43 Completed CMP Stat Lab 03/06/20 21:43 Completed HCG,QUALITATIVE URINE Stat Lab 03/06/20 21:23 Completed LIPASE Stat Lab 03/06/20 21:43 Completed POCT GLUCOSE Stat Lab 03/06/20 23:14 Completed TROPONIN Q3H Lab 03/06/20 21:43 Completed TROPONIN Q3H Lab 03/07/20 00:15 Ordered TROPONIN Q3H Lab 03/07/20 03:15 Ordered TROPONIN Q3H Lab 03/07/20 06:15 Ordered TROPONIN Q3H Lab 03/07/20 09:15 Ordered UA W/RFX UR CULTURE Stat Lab 03/06/20 21:23 Completed Medication Summary Discontinued Medications Generic Name Dose Route Start Last Admin Trade Name Freq PRN Reason Stop Dose Admin Sodium Chloride 1,000 mls @ 999 mls/hr 03/06/20 21:15 03/06/20 21:39 Sodium Chloride 0.9% 1000 Ml IV 03/06/20 22:15 999 mls/hr .Q1H1M STA Administration Sodium Chloride Confirm 03/06/20 21:35 Sodium Chloride 0.9% 1000 Ml Administered 03/06/20 21:36 Dose 1,000 mls @ ud .ROUTE .STK-MED ONE Morphine Sulfate 2 mg 03/06/20 22:13 03/06/20 22:33 Morphine Sulfate 2 Mg Inj IV 03/06/20 22:14 2 mg STAT ONE Administration Morphine Sulfate Confirm 03/06/20 22:32 Morphine Sulfate 2 Mg Inj Administered 03/06/20 22:33 Dose 2 mg .ROUTE .STK-MED ONE Lab/Rad Data: Laboratory Result Diagrams 03/06/20 21:43 03/06/20 21:43 Laboratory Results 03/06/20 03/06/20 03/06/20 Range/Units 23:14 21:43 21:43 WBC 6.3 (4.0-10.5) K/mm3 RBC 5.25 (4.1-5.4) M/mm3 Hgb 14.9 (12.0-16.0) gm/dl Hct 43.2 (35-47) % MCV 82.3 (78-100) fl MCH 28.4 (26-32) pg MCHC 34.5 (32-36) g/dl RDW 12.7 (11.5-14.0) % Plt Count 175 (150-450) K/mm3 MPV 9.4 (7.5-11.0) fl Gran % 62.3 (36.0-66.0) % Eos # (Auto) 0.06 (0-0.5) Absolute Lymphs (auto) 1.95 (1.0-4.6) Absolute Monos (auto) 0.36 (0.0-1.3) Lymphocytes % 30.9 (24.0-44.0) % Monocytes % 5.7 (0.0-12.0) % Eosinophils % 0.9 (0.00-5.0) % Basophils % 0.2 (0.0-0.4) % Absolute Granulocytes 3.94 (1.4-6.9) Basophils # 0.01 (0-0.4) Sodium 134 L (137-145) mmol/L Potassium 5.0 (3.5-5.1) mmol/L Chloride 92 L (98-107) mmol/L Carbon Dioxide 32 H (22-30) mmol/L Anion Gap 14.9 (5-15) MEQ/L BUN 14 (7-17) mg/dL Creatinine 0.55 (0.52-1.04) mg/dL Estimated GFR > 60.0 ML/MIN Glucose 504 H* (74-106) mg/dL POC Glucometer 407 H (74 to 106) mg/dL Calcium 9.6 (8.4-10.2) mg/dL Total Bilirubin 0.50 (0.2-1.3) mg/dL AST 20 (14-36) U/L ALT 27 (0-35) U/L Alkaline Phosphatase 172 H (38-126) U/L Troponin I (0.000-0.034) ng/mL Serum Total Protein 7.7 (6.3-8.2) g/dL Albumin 4.4 (3.5-5.0) g/dL Lipase 98 (23-300) U/L Urine Color (YELLOW) Urine Appearance (CLEAR) Urine pH (5-6) Ur Specific [place] (1.005-1.025) Urine Protein (Negative) Urine Ketones (NEGATIVE) Urine Blood (0-5) John/ul Urine Nitrite (NEGATIVE) Urine Bilirubin (NEGATIVE) Urine Urobilinogen (0-1) mg/dL Ur Leukocyte Esterase (NEGATIVE) Urine WBC (Auto) (0-5) /HPF Urine RBC (Auto) (0-2) /HPF U Epithel Cells (Auto) (FEW) /HPF Urine Bacteria (Auto) (NEGATIVE) /HPF Urine Mucus (Auto) (NEGATIVE) /HPF Urine Culture Reflexed (NO) Urine Glucose (NEGATIVE) mg/dL Urine HCG, Qual (Negative) 03/06/20 03/06/20 03/06/20 Range/Units 21:43 21:23 21:23 WBC (4.0-10.5) K/mm3 RBC (4.1-5.4) M/mm3 Hgb (12.0-16.0) gm/dl Hct (35-47) % MCV (78-100) fl MCH (26-32) pg MCHC (32-36) g/dl RDW (11.5-14.0) % Plt Count (150-450) K/mm3 MPV (7.5-11.0) fl Gran % (36.0-66.0) % Eos # (Auto) (0-0.5) Absolute Lymphs (auto) (1.0-4.6) Absolute Monos (auto) (0.0-1.3) Lymphocytes % (24.0-44.0) % Monocytes % (0.0-12.0) % Eosinophils % (0.00-5.0) % Basophils % (0.0-0.4) % Absolute Granulocytes (1.4-6.9) Basophils # (0-0.4) Sodium (137-145) mmol/L Potassium (3.5-5.1) mmol/L Chloride (98-107) mmol/L Carbon Dioxide (22-30) mmol/L Anion Gap (5-15) MEQ/L BUN (7-17) mg/dL Creatinine (0.52-1.04) mg/dL Estimated GFR ML/MIN Glucose (74-106) mg/dL POC Glucometer (74 to 106) mg/dL Calcium (8.4-10.2) mg/dL Total Bilirubin (0.2-1.3) mg/dL AST (14-36) U/L ALT (0-35) U/L Alkaline Phosphatase (38-126) U/L Troponin I < 0.012 (0.000-0.034) ng/mL Serum Total Protein (6.3-8.2) g/dL Albumin (3.5-5.0) g/dL Lipase (23-300) U/L Urine Color STRAW (YELLOW) Urine Appearance CLEAR (CLEAR) Urine pH 6.0 (5-6) Ur Specific [place] 1.032 (1.005-1.025) Urine Protein NEGATIVE (Negative) Urine Ketones TRACE (NEGATIVE) Urine Blood NEGATIVE (0-5) John/ul Urine Nitrite NEGATIVE (NEGATIVE) Urine Bilirubin NEGATIVE (NEGATIVE) Urine Urobilinogen NEGATIVE (0-1) mg/dL Ur Leukocyte Esterase NEGATIVE (NEGATIVE) Urine WBC (Auto) 0-2 (0-5) /HPF Urine RBC (Auto) 0-2 (0-2) /HPF U Epithel Cells (Auto) RARE (FEW) /HPF Urine Bacteria (Auto) NONE (NEGATIVE) /HPF Urine Mucus (Auto) SLIGHT (NEGATIVE) /HPF Urine Culture Reflexed NO (NO) Urine Glucose >=500 (NEGATIVE) mg/dL Urine HCG, Qual NEGATIVE (Negative) - Progress Progress: improved Progress Note: 03/06/20 23:19 Patient reassessed. Pain much improved. Vitals stable. Glucose 405. Patient declined treatment for her glucose at this time. Patient states she will self treat at home with her home medications. Patient requesting discharge. Patient currently on steroids so her sugars have been running slightly higher than normal. Patient agrees to follow-up with her primary care doctor within 48 hours for reevaluation. Patient voices no other complaints or concerns at this time. Will discharge home at this time. Counseled pt/family regarding: lab results, diagnosis, need for follow-up, rad results - Departure Departure Disposition: Home Clinical Impression: Hyperglycemia, Abdominal pain, Ground glass opacity present on imaging of lung, Hepatic steatosis, Splenomegaly, Atherosclerosis Condition: Stable Critical Care Time: No Referrals: UGO NUÑEZ DO [Primary Care Provider] - Additional Instructions: Discharge/Care Plan BRENDA OLSON was seen on 03/06/20 in the Emergency Room. The patient was counseled regarding Diagnosis,Lab results, Imaging studies, need for follow up and when to return to the Emergency Room. Prescriptions given: Discharge Note I have spoken with the patient and/or caregivers. I have explained the patient's condition, diagnosis and treatment plan based on the information available to me at this time. I have answered the patient's and/or caregiver's questions and addressed any concerns. The patient and/or caregivers have as good understanding of the patient's diagnosis, condition and treatment plan as can be expected at this point. The vital signs have been stable. The patient's condition is stable and appropriate for discharge from the emergency department. The patient will pursue further outpatient evaluation with the primary care physician or other designated or consulting physician as outlined in the discharge instructions. The patient and/or caregivers are agreeable to this plan of care and follow-up instructions have been explained in detail. The patient and/or caregivers have received these instruction. The patient/and or caregivers are aware that any significant change in condition or worsening of symptoms should prompt an immediate return to this or the closest emergency department or call 911.
[2020-03-06] MEDS ORDERED: Sodium Chloride 0.9% 1000 ML 1,000 ML ONE (21:35)
[2020-03-06 21:47] LABS: Absolute Neutrophil Ct (ANC) 3.94 (1.4-6.9); BASOPHIL % 0.2 % (0.0-0.4); Basophil (Absolute #) 0.01 (0-0.4); Eosinophil % 0.9 % (0.00-5.0); Eosinophil (Absolute #) 0.06 (0-0.5); Hematocrit 43.2 % (35-47); Hemoglobin 14.9 gm/dl (12.0-16.0); Lymphocyte (Absolute #) 1.95 (1.0-4.6); Lymphocytes % 30.9 % (24.0-44.0); Mean Cell Volume 82.3 fl (78-100); Mean Corpuscular Hemoglobin 28.4 pg (26-32); Mean Corpuscular Hgb Concent. 34.5 g/dl (32-36); Mean Platelet Volume 9.4 fl (7.5-11.0); Monocyte (Absolute #) 0.36 (0.0-1.3); Monocytes % 5.7 % (0.0-12.0); Neutrophil % 62.3 % (36.0-66.0); Platelet Count 175 K/mm3 (150-450); Red Blood Count 5.25 M/mm3 (4.1-5.4); Red Cell Distribution Width 12.7 % (11.5-14.0); White Blood Count 6.3 K/mm3 (4.0-10.5)
[2020-03-06 21:47] LABS: Appearance CLEAR (CLEAR); Bilirubin NEGATIVE (NEGATIVE); Blood NEGATIVE Ery/ul (0-5); Epithelial Cells RARE /HPF (FEW); Glucose >=500 mg/dL (NEGATIVE); Ketones TRACE (NEGATIVE); Leukocyte Esterase NEGATIVE (NEGATIVE); Mucus SLIGHT /HPF (NEGATIVE); Nitrite NEGATIVE (NEGATIVE); Protein,Urine Dip NEGATIVE (Negative); RBC 0-2 /HPF (0-2); Specific Gravity 1.032 (1.005-1.025); Urobilinogen NEGATIVE mg/dL (0-1); WBC 0-2 /HPF (0-5)
[2020-03-06 22:01] LABS: ALBUMIN 4.4 g/dL (3.5-5.0); ALKALINE PHOSPHATASE 172 U/L (38-126); ANION GAP 14.9 MEQ/L (5-15); BLOOD UREA NITROGEN 14 mg/dL (7-17); CHLORIDE 92 mmol/L (98-107); Calcium 9.6 mg/dL (8.4-10.2); Carbon Dioxide 32 mmol/L (22-30); Creatinine 1 0.55 mg/dL (0.52-1.04); EST GLOMERULAR FILTRATION RATE > 60.0 ML/MIN; LIPASE 98 U/L (23-300); SGOT/AST 20 U/L (14-36); SGPT/ALT 27 U/L (0-35); SODIUM 134 mmol/L (137-145); Total Protein 7.7 g/dL (6.3-8.2)
[2020-03-06 22:10] LABS: Glucose 504 mg/dL (74-106)
[2020-03-06] MEDS ORDERED: MORPHINE SULFATE 2 MG INJ IV ONE (22:13)
[2020-03-06] MEDS ORDERED: MORPHINE SULFATE 2 MG INJ ONE (22:32)
[2020-03-06 23:50] VITALS: BP 129/76; PULSE 86; O2SAT 97
--- NOTE | 2020-03-07 08:56 | XRAY ---
Indication: Right lower quadrant pain. Multiple contiguous axial images obtained through the abdomen and pelvis using 80 cc Isovue 370 contrast. Comparison: February 09, 2020. Lung bases demonstrates new mild patchy airspace disease bilaterally without consolidation/effusion. Heart is not enlarged. Stomach is mildly distended with food/fluid. Noncontrasted stomach and bowel loops remain nonobstructed with normal appearing appendix. Stable fatty hepatomegaly, splenomegaly, cholecystectomy, and hysterectomy. No free fluid/air. Remaining liver, pancreas, spleen, adrenal glands, kidneys, ureters, bladder, and aorta are unremarkable. Osseous structures remain intact. No ventral or inguinal hernias. Impression: 1. New bibasilar airspace disease. 2. Stable fatty hepatomegaly and splenomegaly. 3. Remaining CT abdomen/pelvis with contrast exam is negative. Comment: Preliminary interpretation was made by [facility]. No critical discrepancy.
== END 2020-03-06 23:55 | disposition home or self-care (01) ==
LOC: ED 20:46
DX: E11.65 Type 2 diabetes mellitus with hyperglycemia (principal); R10.31 Right lower quadrant pain; Z79.899 Other long term (current) drug therapy; Z79.4 Long term (current) use of insulin; Z79.84 Long term (current) use of oral hypoglycemic drugs; Z79.01 Long term (current) use of anticoagulants; R91.8 Other nonspecific abnormal finding of lung field; K76.0 Fatty (change of) liver, not elsewhere classified; R16.1 Splenomegaly, not elsewhere classified; I70.90 Unspecified atherosclerosis; I10 Essential (primary) hypertension; I25.10 Atherosclerotic heart disease of native coronary artery without angina pectoris
CPT/HCPCS: 36000; 36415; 74177; 80053; 81001; 82947; 83690; 84484; 84703; 85025; 96360; 96374; 99284; J2270

== ENCOUNTER 2020-03-29 10:12 | Observation (INO) | payer OTHER ==
--- NOTE | 2020-03-29 10:47 | ERPHSYRPT ---
- History of Present Illness Time Seen by Provider: 03/29/20 10:30 Source: patient Exam Limitations: no limitations Patient Subjective Stated Complaint: fall Triage Nursing Assessment: pt to ED c/o fall and BOND. denies CP, SOB, dizziness or any other sx prior to fall. pt states she is on blood thinner but no LOC. did hit head on concrete. noted small abrasion and superficial lacerations to R knee and lower leg. pt reports she also had fall in home last night for no obvious reason. rates 1/10 dull pain in head currently. A&Ox4. ambulatory with steady gate with no assist. lungs and heart sounds clear Physician History: Patient is a 39-year-old female with a history of Purdon syndrome, diabetes, coronary artery disease presents to our ED with complaints of 2 episodes of syncope and collapse. Patient had a syncopal episode with a subsequent fall at home. Patient does not recall the details surrounding her syncopal episode. Patient just recalls that she awoke on the floor. Today patient got out of her car and was walking towards her work in the parking lot when she had a second syncope and collapse episode. Patient does not recall the details. The patient has contusion and abrasions to her right knee. Patient did hit her head. She is currently on Xarelto for a PE. Patient states she developed a pulmonary embolism while she had Covid. Patient also states that she has a mild headache. Patient has been having some difficulty with feeling confused and issues with memory. Symptoms are mild to moderate in intensity. No specific worsening or improving factors. Patient voices no other complaints or concerns at this time. Patient denies fever. No neck pain. Cervical spine cleared clinically. No chest pain or shortness of breath. No nausea vomiting or diaphoresis. Timing/Duration: yesterday Severity: moderate Modifying Factors: Improves With: nothing Associated Symptoms: denies symptoms Allergies/Adverse Reactions: metoprolol Allergy (Mild, Verified 03/29/20 10:22) Hives Home Medications: Alprazolam 0.5 mg [xanAX 0.5 MG] 0.5 mg PO BID PRN PRN 09/04/18 [History] Aspirin 81 gm Chew [Baby Aspirin 81 mg Chew] 81 mg PO HS 09/04/18 [History] Nebivolol HCl 5 MG [Bystolic 5 MG] 5 mg PO HS 09/04/18 [History] Nitroglycerin 0.4 mg Tablet [Nitrostat 0.4 MG Tablet] 0.4 mg SL UD PRN 09/04/18 [History] PARoxetine HCL [Paroxetine HCl] 40 mg PO HS 09/04/18 [History] Insulin Glargine,Hum.rec.anlog [Basaglar Kwikpen U-100] 30 unit SQ HS 09/12/18 [History] Omeprazole 40 mg PO HS 11/09/18 [History] Metformin HCl 500 mg [Glucophage 500 MG] 500 mg PO BID 02/28/19 [History] Albuterol Sulfate [Albuterol Sulfate Hfa] 1 puff IH Q4-6HPRN PRN 08/19/19 [History] Budesonide/Formoterol Fumarate [Symbicort 80-4.5 Mcg Inhaler] 2 puffs IH BID 08/19/19 [History] Insulin Lispro [Humalog Kwikpen U-100] 25 units SQ AC 08/19/19 [History] Amlodipine Besylate [Norvasc] 2.5 mg PO DAILY 11/02/19 [History] Dicyclomine HCl 20 mg [Bentyl 20 mg] 20 mg PO DAILY 11/02/19 [History] Isosorbide Mononitrate [Isosorbide Mononitrate ER] 60 mg PO DAILY 11/02/19 [History] Rosuvastatin Calcium [Crestor] 20 mg PO DAILY 11/02/19 [History] Levocetirizine Dihydrochloride [Xyzal] 10 mg PO HS 01/31/20 [History] Losartan Potassium 25 mg PO DAILY 03/06/20 [History] Rivaroxaban 10 mg Tablet [Xarelto 10 mg Tablet] 15 mg PO BID 03/06/20 [History] Hx Tetanus, Diphtheria Vaccination/Date Given: Yes Hx Influenza Vaccination/Date Given: Yes Hx Pneumococcal Vaccination/Date Given: Yes Immunizations Up to Date: Yes Travel Risk - International Travel Have you traveled outside of the country in past 3 weeks: No - Coronavirus Screening Are you exhibiting any of the following symptoms?: No Close contact with a COVID-19 positive Pt in past 14-21 Days: No - Review of Systems Constitutional: No Symptoms, No Fever, No Chills Eyes: No Symptoms Ears, Nose, & Throat: No Symptoms Respiratory: No Symptoms, No Cough, No Dyspnea Cardiac: No Symptoms, No Chest Pain, No Edema, No Syncope Abdominal/Gastrointestinal: No Symptoms, No Abdominal Pain, No Nausea, No Vomiting, No Diarrhea Genitourinary Symptoms: No Symptoms, No Dysuria Musculoskeletal: No Symptoms, No Back Pain, No Neck Pain Skin: No Symptoms, No Rash Neurological: No Symptoms, No Dizziness, No Focal Weakness, No Sensory Changes Psychological: No Symptoms Endocrine: No Symptoms Hematologic/Lymphatic: No Symptoms Immunological/Allergic: No Symptoms All Other Systems: Reviewed and Negative - Past Medical History Pertinent Past Medical History: Yes Neurological History: Other ENT History: No Pertinent History Cardiac History: Angina, Coronary Artery Disease, Hypertension, Other Respiratory History: Pneumonia, Sleep Apnea Endocrine Medical History: Diabetes Type II, Other Musculoskeletal History: No Pertinent History GI Medical History: GERD, Gallbladder Disease, Irritable Bowel History: No Pertinent History Psycho-Social History: Anxiety, Other Female Reproductive Disorders: Fibroids Other Medical History: cushings, 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 mass from cushings; inflammed lymph nodes around kidneys; OCD, 3L O2 at hs. - Past Surgical History Past Surgical History: Yes Neuro Surgical History: No Pertinent History Cardiac: Cardiac Catheterization, Other Respiratory: No Pertinent History Gastrointestinal: Cholecystectomy Genitourinary: No Pertinent History Musculoskeletal: Other Female Surgical History: Hysterectomy Other Surgical History: plantar fascitis surgery, rectal fistula repair, umbilical hernia repair and adhesion removal - Social History Smoking Status: Never smoker Exposure to second hand smoke: No Drug Use: none Patient Lives Alone: No Significant Family History: no pertinent family hx - Female History Hx Now: No (total hysterectomy) - Nursing Vital Signs Nursing Vital Signs: Initial Vital Signs Temperature 98.0 F 03/29/20 10:26 Pulse Rate 99 H 03/29/20 10:26 Respiratory Rate 18 03/29/20 10:26 Blood Pressure 152/88 03/29/20 10:26 O2 Sat by Pulse Oximetry 98 03/29/20 10:26 Pain Scale Pain Intensity 1 - Physical Exam General Appearance: no apparent distress, alert Eye Exam: PERRL/EOMI, eyes nml inspection Ears, Nose, Throat Exam: normal ENT inspection, TMs normal, pharynx normal, moist mucous membranes Neck Exam: normal inspection, non-tender, supple, full range of motion Respiratory Exam: normal breath sounds, lungs clear, No respiratory distress Cardiovascular Exam: regular rate/rhythm, normal heart sounds, normal peripheral pulses Gastrointestinal/Abdomen Exam: soft, normal bowel sounds, No tenderness, No mass Back Exam: normal inspection, normal range of motion, No CVA tenderness, No vertebral tenderness Extremity Exam: normal inspection, normal range of motion, pelvis stable, other (Abrasions and contusions to right knee. Right lower extremity is neurovascular intact distally. Compartments are soft. Cap refill less than 2 seconds.) Neurologic Exam: alert, oriented x 3, cooperative, normal mood/affect, nml cerebellar function, nml station & gait, sensation nml, No motor deficits, No uncooperative, No intoxicated appearance, No depressed mood/affect, No motor weakness, No facial droop, No slurred speech, No aphasia, No dysarthria, No abnormal face burler II-XII, No EOM palsy Skin Exam: normal color, warm, dry, No rash Lymphatic Exam: No adenopathy SpO2 Interpretation: normal SpO2: 98 O2 Delivery: Room Air - Course Nursing assessment & vital signs reviewed: Yes EKG Interpreted by Me: RATE (83), Sinus Rhythm, NORMAL AXIS, NORMAL INTERVALS - Radiology Exams Chest X-ray Interpretation: Teleradiologist Report (Normal chest x-ray.) - CT Exams Head CT Interpretation: Tele-radiologist Report (Normal appearing brain parenchyma ventricles and bony calvarium. Again minimal mucosal thickening left maxillary sinus. Remaining paranasal sinuses and mastoid air cells are clear.) Ordered Tests: Active Orders 24 hr Category Date Time Status Janitor Supervisor STAT Care 03/29/20 10:43 Active EKG-ER Only STAT Care 03/29/20 10:42 Active IV Insertion STAT Care 03/29/20 10:42 Active Pulse Oximetry (ED) STAT Care 03/29/20 10:42 Active CHEST 1 VIEW (PORTABLE) Stat Exams 03/29/20 10:43 Completed HEAD WITHOUT CONTRAST [CT] Stat Exams 03/29/20 12:08 Completed CBC W DIFF Stat Lab 03/29/20 10:55 Completed CMP Stat Lab 03/29/20 10:55 Completed MAGNESIUM Stat Lab 03/29/20 10:55 Completed NT PRO BNP Stat Lab 03/29/20 10:55 Completed TROPONIN Q3H Lab 03/29/20 10:55 Completed TROPONIN Q3H Lab 03/29/20 13:45 Ordered TROPONIN Q3H Lab 03/29/20 16:45 Ordered TROPONIN Q3H Lab 03/29/20 19:45 Ordered TROPONIN Q3H Lab 03/29/20 22:45 Ordered TSH [TSH, 3RD Generation] Stat Lab 03/29/20 10:55 Completed UA W/RFX UR CULTURE Stat Lab 03/29/20 10:55 Completed Urine Triage Profile Stat Lab 03/29/20 10:55 Completed Medication Summary Generic Name Dose Route Start Last Admin Trade Name Freq PRN Reason Stop Dose Admin Magnesium Sulfate/Dextrose 100 mls @ 100 mls/hr 03/29/20 13:00 03/29/20 13:04 Magnesium 1 Gm / 100 Ml D5w IV 03/29/20 14:59 100 mls/hr Q1H JOSE Administration Discontinued Medications Generic Name Dose Route Start Last Admin Trade Name Freq PRN Reason Stop Dose Admin Lidocaine HCl 5 ml 03/29/20 10:56 03/29/20 11:04 Xylocaine 2% Hcl 20 Ml Mdv IJ 03/29/20 10:57 Not Given STAT ONE Lab/Rad Data: Laboratory Result Diagrams 03/29/20 10:55 03/29/20 10:55 Laboratory Results 03/29/20 03/29/20 03/29/20 Range/Units 10:55 10:55 10:55 WBC (4.0-10.5) K/mm3 RBC (4.1-5.4) M/mm3 Hgb (12.0-16.0) gm/dl Hct (35-47) % MCV (78-100) fl MCH (26-32) pg MCHC (32-36) g/dl RDW (11.5-14.0) % Plt Count (150-450) K/mm3 MPV (7.5-11.0) fl Gran % (36.0-66.0) % Eos # (Auto) (0-0.5) Absolute Lymphs (auto) (1.0-4.6) Absolute Monos (auto) (0.0-1.3) Lymphocytes % (24.0-44.0) % Monocytes % (0.0-12.0) % Eosinophils % (0.00-5.0) % Basophils % (0.0-0.4) % Absolute Granulocytes (1.4-6.9) Basophils # (0-0.4) Sodium (137-145) mmol/L Potassium (3.5-5.1) mmol/L Chloride (98-107) mmol/L Carbon Dioxide (22-30) mmol/L Anion Gap (5-15) MEQ/L BUN (7-17) mg/dL Creatinine (0.52-1.04) mg/dL Estimated GFR ML/MIN Glucose (74-106) mg/dL Calcium (8.4-10.2) mg/dL Magnesium (1.6-2.3) mg/dL Total Bilirubin (0.2-1.3) mg/dL AST (14-36) U/L ALT (0-35) U/L Alkaline Phosphatase (38-126) U/L Troponin I < 0.012 (0.000-0.034) ng/mL NT-Pro-B Natriuret Pep (0-450) pg/mL Serum Total Protein (6.3-8.2) g/dL Albumin (3.5-5.0) g/dL TSH 3rd Generation 2.190 (0.47-4.68) mIU/L Urine Color (YELLOW) Urine Appearance (CLEAR) Urine pH (5-6) Ur Specific [place] (1.005-1.025) Urine Protein (Negative) Urine Ketones (NEGATIVE) Urine Blood (0-5) John/ul Urine Nitrite (NEGATIVE) Urine Bilirubin (NEGATIVE) Urine Urobilinogen (0-1) mg/dL Ur Leukocyte Esterase (NEGATIVE) Urine WBC (Auto) (0-5) /HPF Urine RBC (Auto) (0-2) /HPF U Epithel Cells (Auto) (FEW) /HPF Urine Bacteria (Auto) (NEGATIVE) /HPF Urine Mucus (Auto) (NEGATIVE) /HPF Urine Culture Reflexed (NO) Urine Glucose (NEGATIVE) mg/dL Urine Opiates Level NEGATIVE (NEGATIVE) Ur Methadone NEGATIVE (NEGATIVE) Urine Barbiturates NEGATIVE (NEGATIVE) Ur Phencyclidine (PCP) NEGATIVE (NEGATIVE) Urine Amphetamine NEGATIVE (NEGATIVE) U Benzodiazepine Level POSITIVE (NEGATIVE) Urine Cocaine NEGATIVE (NEGATIVE) Urine Marijuana (THC) NEGATIVE (NEGATIVE) 03/29/20 03/29/2003/29/21 Range/Units 10:55 10:55 10:55 WBC 6.7 (4.0-10.5) K/mm3 RBC 4.97 (4.1-5.4) M/mm3 Hgb 13.8 (12.0-16.0) gm/dl Hct 42.5 (35-47) % MCV 85.5 (78-100) fl MCH 27.8 (26-32) pg MCHC 32.5 (32-36) g/dl RDW 13.8 (11.5-14.0) % Plt Count 159 (150-450) K/mm3 MPV 9.6 (7.5-11.0) fl Gran % 61.9 (36.0-66.0) % Eos # (Auto) 0.12 (0-0.5) Absolute Lymphs (auto) 2.04 (1.0-4.6) Absolute Monos (auto) 0.37 (0.0-1.3) Lymphocytes % 30.5 (24.0-44.0) % Monocytes % 5.5 (0.0-12.0) % Eosinophils % 1.8 (0.00-5.0) % Basophils % 0.3 (0.0-0.4) % Absolute Granulocytes 4.13 (1.4-6.9) Basophils # 0.02 (0-0.4) Sodium 134 L (137-145) mmol/L Potassium 4.3 (3.5-5.1) mmol/L Chloride 97 L (98-107) mmol/L Carbon Dioxide 26 (22-30) mmol/L Anion Gap 15.6 H (5-15) MEQ/L BUN 19 H (7-17) mg/dL Creatinine 0.42 L (0.52-1.04) mg/dL Estimated GFR > 60.0 ML/MIN Glucose 332 H (74-106) mg/dL Calcium 10.2 (8.4-10.2) mg/dL Magnesium 1.6 (1.6-2.3) mg/dL Total Bilirubin 0.40 (0.2-1.3) mg/dL AST 21 (14-36) U/L ALT 31 (0-35) U/L Alkaline Phosphatase 112 (38-126) U/L Troponin I (0.000-0.034) ng/mL NT-Pro-B Natriuret Pep 19.4 (0-450) pg/mL Serum Total Protein 7.8 (6.3-8.2) g/dL Albumin 4.7 (3.5-5.0) g/dL TSH 3rd Generation (0.47-4.68) mIU/L Urine Color YELLOW (YELLOW) Urine Appearance CLEAR (CLEAR) Urine pH 5.0 (5-6) Ur Specific [place] 1.037 (1.005-1.025) Urine Protein NEGATIVE (Negative) Urine Ketones NEGATIVE (NEGATIVE) Urine Blood NEGATIVE (0-5) John/ul Urine Nitrite NEGATIVE (NEGATIVE) Urine Bilirubin NEGATIVE (NEGATIVE) Urine Urobilinogen NEGATIVE (0-1) mg/dL Ur Leukocyte Esterase NEGATIVE (NEGATIVE) Urine WBC (Auto) 0-2 (0-5) /HPF Urine RBC (Auto) 0-2 (0-2) /HPF U Epithel Cells (Auto) RARE (FEW) /HPF Urine Bacteria (Auto) RARE (NEGATIVE) /HPF Urine Mucus (Auto) SLIGHT (NEGATIVE) /HPF Urine Culture Reflexed NO (NO) Urine Glucose >=500 (NEGATIVE) mg/dL Urine Opiates Level (NEGATIVE) Ur Methadone (NEGATIVE) Urine Barbiturates (NEGATIVE) Ur Phencyclidine (PCP) (NEGATIVE) Urine Amphetamine (NEGATIVE) U Benzodiazepine Level (NEGATIVE) Urine Cocaine (NEGATIVE) Urine Marijuana (THC) (NEGATIVE) - Progress Progress: improved Progress Note: Patient is a 39-year-old female presents to our ED with 2 episodes of syncope in the last 24 hours. Neurologic exam within normal limits at this time. 03/29/20 13:19 03/29/20 13:21 Sugars were 332. IV fluids infusing. Magnesium 1.6. 2 g magnesium ordered. Initial troponin negative. TSH within normal limits. CT head obtained as patient states she hit her head when she fell. She has a mild headache. Patient currently on Xarelto for a PE that she developed while Covid positive. CT head negative for acute intracranial pathology. Patient is cured of Covid at this time. No indication for admission to Covid unit. Case discussed with Dr. Leon who accepts admission to observation. Per Dr. Leon Holter monitor ordered. Echocardiogram ordered, EEG ordered MRI ordered and neuro consult entered. Plan of care discussed with patient. She agrees to admission at [facility] for further evaluation and treatment. Patient voices no other complaints or concerns at this time. Discussed with .: Sujit Will see patient in: hospital (observation) Counseled pt/family regarding: lab results, diagnosis, rad results - Departure Departure Disposition: Observation Clinical Impression: Syncope and collapse, Hyperglycemia, Hypomagnesemia, Confusion, Glucosuria Condition: Stable Critical Care Time: No Referrals: UGO NUÑEZ DO [Primary Care Provider] -
[2020-03-29 10:53] LABS: Appearance CLEAR (CLEAR); Bilirubin NEGATIVE (NEGATIVE); Blood NEGATIVE Ery/ul (0-5); Epithelial Cells RARE /HPF (FEW); Glucose >=500 mg/dL (NEGATIVE); Ketones NEGATIVE (NEGATIVE); Leukocyte Esterase NEGATIVE (NEGATIVE); Mucus SLIGHT /HPF (NEGATIVE); Nitrite NEGATIVE (NEGATIVE); Protein,Urine Dip NEGATIVE (Negative); Specific Gravity 1.037 (1.005-1.025); Urobilinogen NEGATIVE mg/dL (0-1); WBC 0-2 /HPF (0-5)
[2020-03-29] MEDS ORDERED: XYLOCAINE 2% HCL 20 ML MDV IJ ONE (10:56)
[2020-03-29 10:59] LABS: Absolute Neutrophil Ct (ANC) 4.13 (1.4-6.9); BASOPHIL % 0.3 % (0.0-0.4); Basophil (Absolute #) 0.02 (0-0.4); Eosinophil % 1.8 % (0.00-5.0); Eosinophil (Absolute #) 0.12 (0-0.5); Hematocrit 42.5 % (35-47); Hemoglobin 13.8 gm/dl (12.0-16.0); Lymphocyte (Absolute #) 2.04 (1.0-4.6); Lymphocytes % 30.5 % (24.0-44.0); Mean Cell Volume 85.5 fl (78-100); Mean Corpuscular Hemoglobin 27.8 pg (26-32); Mean Corpuscular Hgb Concent. 32.5 g/dl (32-36); Mean Platelet Volume 9.6 fl (7.5-11.0); Monocyte (Absolute #) 0.37 (0.0-1.3); Monocytes % 5.5 % (0.0-12.0); Neutrophil % 61.9 % (36.0-66.0); Platelet Count 159 K/mm3 (150-450); Red Blood Count 4.97 M/mm3 (4.1-5.4); Red Cell Distribution Width 13.8 % (11.5-14.0); White Blood Count 6.7 K/mm3 (4.0-10.5)
[2020-03-29 11:00] LABS: Bacteria RARE /HPF (NEGATIVE); RBC 0-2 /HPF (0-2)
[2020-03-29 11:13] LABS: Amphetamine,Urine NEGATIVE (NEGATIVE); Barbiturate,Urine NEGATIVE (NEGATIVE); Benzodiazepine,Urine POSITIVE (NEGATIVE); Cocaine,Urine NEGATIVE (NEGATIVE); Methadone,Urine NEGATIVE (NEGATIVE); Opiate,Urine NEGATIVE (NEGATIVE); PCP,Urine NEGATIVE (NEGATIVE); THC,Urine NEGATIVE (NEGATIVE)
--- NOTE | 2020-03-29 11:16 | XRAY ---
Indication: Syncope x 2. Comparison: February 25, 2020. Portable chest continues to demonstrate normal heart, lungs, and bony thorax.
[2020-03-29 11:28] LABS: ALBUMIN 4.7 g/dL (3.5-5.0); ALKALINE PHOSPHATASE 112 U/L (38-126); ANION GAP 15.6 MEQ/L (5-15); BLOOD UREA NITROGEN 19 mg/dL (7-17); CHLORIDE 97 mmol/L (98-107); Calcium 10.2 mg/dL (8.4-10.2); Carbon Dioxide 26 mmol/L (22-30); Creatinine 1 0.42 mg/dL (0.52-1.04); EST GLOMERULAR FILTRATION RATE > 60.0 ML/MIN; Glucose 332 mg/dL (74-106); MAGNESIUM 1.6 mg/dL (1.6-2.3); Potassium 4.3 mmol/L (3.5-5.1); SGOT/AST 21 U/L (14-36); SGPT/ALT 31 U/L (0-35); SODIUM 134 mmol/L (137-145); Total Protein 7.8 g/dL (6.3-8.2)
[2020-03-29 11:53] LABS: NT PRO BNP 19.4 pg/mL (0-450)
--- NOTE | 2020-03-29 12:31 | XRAY ---
Indication: Syncope x 2. Multiple contiguous axial images obtained through the head without contrast. Comparison: August 07, 2019. Normal appearing brain parenchyma, ventricles, and bony calvarium. Again minimal mucosal thickening left maxillary sinus. Remaining paranasal sinuses and mastoid air cells are clear. Impression: Continued normal CT head without contrast exam with incidental minimal left maxillary sinus disease.
[2020-03-29] MEDS: Magnesium 1 Gm / 100 Ml D5W*** 100 ML IV SCH ×2 (13:04→15:16)
[2020-03-29] MEDS ORDERED: Sodium Chloride 0.9% 1000 ML 1,000 ML IV STA (13:18)
[2020-03-29] MEDS ORDERED: PATIENT OWN MEDICATION IH PRN (15:23)
[2020-03-29] MEDS ORDERED: Nitrostat 0.4 MG Tablet SL PRN (17:12)
[2020-03-29] MEDS: Glucophage 500 MG PO SCH (17:39)
[2020-03-29] MEDS: HUMALOG SQ PRN (17:41)
[2020-03-29] MEDS: PATIENT OWN MEDICATION IH SCH (19:39)
[2020-03-29] MEDS ORDERED: XANAX 1 MG PO PRN (19:42)
[2020-03-29] MEDS: XARELTO 10 MG TABLET PO SCH (21:17)
[2020-03-29] MEDS ORDERED: xanAX 0.5 MG PO SCH (22:00)
[2020-03-29] MEDS ORDERED: NON-FORMULARY ITEM (Losartan Potassium [Losartan Potassium] 50 MG) PO SCH (22:00)
[2020-03-29] MEDS ORDERED: Paxil 20 MG PO SCH (22:00)
[2020-03-29] MEDS ORDERED: NON-FORMULARY ITEM (Amlodipine Besylate [Norvasc] 2.5 MG) PO SCH (22:00)
[2020-03-29] MEDS ORDERED: Protonix 40MG Tablet PO SCH (22:00)
[2020-03-29] MEDS ORDERED: Cozaar 50 MG PO SCH (22:00)
[2020-03-29] MEDS ORDERED: NORVASC 5 MG PO SCH (22:00)
[2020-03-29] MEDS ORDERED: NON-FORMULARY ITEM (Omeprazole [Omeprazole] 40 MG) PO SCH (22:00)
[2020-03-29] MEDS ORDERED: NON-FORMULARY ITEM (Rosuvastatin Calcium [Crestor] 20 MG) PO SCH (22:00)
[2020-03-29] MEDS ORDERED: Bystolic 5 MG PO SCH (22:00)
[2020-03-29] MEDS ORDERED: LEVOCETIRIZINE DIHYDROCHLORIDE 10 MG PO SCH (22:00)
[2020-03-29] MEDS ORDERED: NON-FORMULARY ITEM (Paroxetine Hcl [Paroxetine Hcl] 40 MG) PO SCH (22:00)
[2020-03-29] MEDS ORDERED: BENTYL 20 MG PO SCH (22:00)
[2020-03-29] MEDS ORDERED: Lantus Insulin SQ SCH (22:00)
[2020-03-29] MEDS ORDERED: ZOCOR 20MG PO SCH (22:00)
[2020-03-29] MEDS ORDERED: CLARITIN 10 MG PO SCH (22:00)
[2020-03-29] MEDS ORDERED: INSULIN GLARGINE HUM REC ANLOG 32 UNIT SQ SCH (22:00)
[2020-03-30 04:53] LABS: Absolute Neutrophil Ct (ANC) 2.85 (1.4-6.9); BASOPHIL % 0.5 % (0.0-0.4); Basophil (Absolute #) 0.03 (0-0.4); Eosinophil (Absolute #) 0.18 (0-0.5); Hematocrit 41.5 % (35-47); Hemoglobin 13.2 gm/dl (12.0-16.0); Lymphocyte (Absolute #) 2.53 (1.0-4.6); Lymphocytes % 42.8 % (24.0-44.0); Mean Cell Volume 87.2 fl (78-100); Mean Corpuscular Hemoglobin 27.7 pg (26-32); Mean Corpuscular Hgb Concent. 31.8 g/dl (32-36); Mean Platelet Volume 9.7 fl (7.5-11.0); Monocyte (Absolute #) 0.32 (0.0-1.3); Monocytes % 5.4 % (0.0-12.0); Neutrophil % 48.3 % (36.0-66.0); Platelet Count 152 K/mm3 (150-450); Red Blood Count 4.76 M/mm3 (4.1-5.4); Red Cell Distribution Width 13.9 % (11.5-14.0); White Blood Count 5.9 K/mm3 (4.0-10.5)
[2020-03-30 05:11] LABS: ALKALINE PHOSPHATASE 97 U/L (38-126); ANION GAP 11.4 MEQ/L (5-15); BLOOD UREA NITROGEN 14 mg/dL (7-17); CHLORIDE 98 mmol/L (98-107); Calcium 9.3 mg/dL (8.4-10.2); Carbon Dioxide 28 mmol/L (22-30); Creatinine 1 0.42 mg/dL (0.52-1.04); EST GLOMERULAR FILTRATION RATE > 60.0 ML/MIN; Glucose 249 mg/dL (74-106); Potassium 4.4 mmol/L (3.5-5.1); SGOT/AST 22 U/L (14-36); SGPT/ALT 27 U/L (0-35); SODIUM 133 mmol/L (137-145); Total Protein 6.8 g/dL (6.3-8.2)
[2020-03-30] MEDS ORDERED: INSULIN LISPRO 30 UNIT SQ SCH (07:30)
[2020-03-30] MEDS: HUMALOG SQ PRN ×3 (08:22→17:11)
[2020-03-30] MEDS: Glucophage 500 MG PO SCH ×2 (08:22→17:11)
[2020-03-30] MEDS: HUMALOG SQ SCH ×3 (08:22→17:11)
[2020-03-30] MEDS: XARELTO 10 MG TABLET PO SCH (09:57)
[2020-03-30] MEDS ORDERED: Imdur 60MG PO SCH (10:00)
[2020-03-30] MEDS: PATIENT OWN MEDICATION IH SCH (10:05)
--- NOTE | 2020-03-30 12:32 | XRAY ---
Indication: Confusion. Frequent falls. Multi-slab 3-D [id number] MRA [place] performed. Comparison: None Distal internal carotid arteries are bilaterally symmetric without critical stenosis, obstruction, or AV malformation. Normal carotid terminus with branching A1 and M1 segments bilaterally. Incidental origin of the left posterior cerebral artery, normal variant. More distal anterior cerebral, middle cerebral, anterior communicating, and right posterior communicating arteries are normal in MRA appearance. Posterior circulation demonstrate bilaterally symmetric distal vertebral arteries. Basilar artery/tip, right posterior cerebral, both superior cerebellar, and both anterior inferior cerebellar arteries are normal in MRA appearance. Impression: Anatomic variant for origin of the left posterior cerebral artery. Remaining MRA [place] is negative.
--- NOTE | 2020-03-30 12:33 | XRAY ---
Indication: Confusion. Frequent falls. Sagittal, coronal, and axial MRI brain was performed without contrast using T1, T2, FLAIR, diffusion, and ADC sequences. Comparison: Outside MRI from [facility] dated November 05, 2018. Ventriculosulcal pattern appears symmetric. Stable tiny T2 signal intensity adjacent to left frontal horn favoring degenerative micro-ischemia. No acute intracranial hemorrhage, abnormal extra-axial fluid collection, or mass effect. Diffusion images are negative for restricted signal. Fourth ventricle is midline without hydrocephalus. 7/8 cranial nerve complex bilaterally symmetric. Normal flow void signal within the major intracerebral circulation. Normal appearing craniocervical junction and sella turcica. Left maxillary sinus demonstrates minimal mucosal thickening. Impression: 1. Stable minimal degenerative micro-ischemia signal. 2. Incidental minimal left maxillary sinus disease. 3. Remaining MRI brain without contrast exam is negative.
--- NOTE | 2020-03-30 14:23 | PCM.HP ---
History of Present Illness - Chief Complaint Chief Complaint: syncope History of Present Illness: is a 39 year old female. patient was admitted through ER after initial work up for 2 syncopal episodes. Medications & Allergies Home Medications: Home Medication List Alprazolam 0.5 mg [xanAX 0.5 MG] 0.5 mg PO QHS 09/04/18 [History Confirmed 03/29/20] Aspirin 81 gm Chew [Baby Aspirin 81 mg Chew] 81 mg PO HS 09/04/18 [History Confirmed 03/29/20] Nebivolol HCl 5 MG [Bystolic 5 MG] 5 mg PO HS 09/04/18 [History Confirmed 03/29/20] Nitroglycerin 0.4 mg Tablet [Nitrostat 0.4 MG Tablet] 0.4 mg SL UD PRN 09/04/18 [History Confirmed 03/29/20] PARoxetine HCL [Paroxetine HCl] 40 mg PO HS 09/04/18 [History Confirmed 03/29/20] Insulin Glargine,Hum.rec.anlog [Basaglar Kwikpen U-100] 32 unit SQ HS 09/12/18 [History Confirmed 03/29/20] Omeprazole 40 mg PO HS 11/09/18 [History Confirmed 03/29/20] Metformin HCl 500 mg [Glucophage 500 MG] 500 mg PO BID 02/28/19 [History Confirmed 03/29/20] Albuterol Sulfate [Albuterol Sulfate Hfa] 1 puff IH Q4-6HPRN PRN 08/19/19 [History Confirmed 03/29/20] Budesonide/Formoterol Fumarate [Symbicort 80-4.5 Mcg Inhaler] 2 puffs IH BID 08/19/19 [History Confirmed 03/29/20] Insulin Lispro [Humalog Kwikpen U-100] 47 units SQ AC 08/19/19 [History Confirmed 03/29/20] Amlodipine Besylate [Norvasc] 2.5 mg PO QHS 11/02/19 [History Confirmed 03/29/20] Dicyclomine HCl 20 mg [Bentyl 20 mg] 20 mg PO QHS 11/02/19 [History Confirmed 03/29/20] Isosorbide Mononitrate [Isosorbide Mononitrate ER] 60 mg PO QHS 11/02/19 [History Confirmed 03/29/20] Rosuvastatin Calcium [Crestor] 20 mg PO QHS 11/02/19 [History Confirmed 03/29/20] Levocetirizine Dihydrochloride [Xyzal] 10 mg PO HS 01/31/20 [History Confirmed 03/29/20] Losartan Potassium 50 mg PO QHS 03/06/20 [History Confirmed 03/29/20] Rivaroxaban 10 mg Tablet [Xarelto 10 mg Tablet] 15 mg PO BID 03/06/20 [History Confirmed 03/29/20] Allergies/Adverse Reactions: Allergies Allergy/AdvReac Type Severity Reaction Status Date / Time metoprolol Allergy Mild Hives Verified 03/29/20 10:22 - Past Medical History Past Medical History: Yes Neurological History: Other ENT History: No Pertinent History Cardiac History: Angina, Coronary Artery Disease, Hypertension, Other CARDIAC HISTORY: Hypertension Respiratory History: Pneumonia, Sleep Apnea Endocrine Medical History: Diabetes Type II, Other Musculoskelatal History: No Pertinent History GI Medical History: GERD, Gallbladder Disease, Irritable Bowel History: No Pertinent History Pyscho-Social History: Anxiety, Other Reproductive Disorders: Fibroids Comment: cushings, 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 mass from cushings; inflammed lymph nodes around kidneys; OCD. - Female History Are you now?: No (total hysterectomy) - Past Surgical History Past Surgical History: Yes Neuro Surgical History: No Pertinent History Cardiac History: Cardiac Catheterization, Other Respiratory Surgery: No Pertinent History GI Surgical History: Cholecystectomy Genitourinary Surgical Hx: No Pertinent History Musculskeletal Surgical Hx: Other Female Surgical History: Hysterectomy Other Surgical History: plantar fascitis surgery, rectal fistula repair, umbilical hernia repair and adhesion removal - Social History Smoking Status: Never smoker Exposure to second hand smoke: No Alcohol: None Drug Use: none Significant Family History: no pertinent family hx - Physical Exam Vital Signs: Vital Signs - 24 hr Temp Pulse Resp BP Pulse Ox 03/30/20 12:00 97.9 F 90 18 118/62 95 03/30/20 10:05 74 16 96 03/30/20 08:00 97.8 F 77 16 119/56 93 L 03/30/20 04:00 97.9 F 74 18 124/76 98 03/30/20 00:00 20 03/29/20 23:50 97.9 F 85 20 123/74 93 L 03/29/20 20:00 18 03/29/20 19:41 93 H 18 93 L 03/29/20 18:49 98.2 F 87 18 112/71 92 L 03/29/20 15:55 97.2 F 85 16 116/67 93 L 03/29/20 15:50 85 16 95 Oxygen-Last 24 hours Oxygen Flowrate (L/min)-RT 3 Results - Labs Lab/Micro Results: Lab Results-Last 24 Hours 03/29/20 03/29/20 03/29/20 Range/Units 13:48 17:00 17:04 WBC (4.0-10.5) K/mm3 RBC (4.1-5.4) M/mm3 Hgb (12.0-16.0) gm/dl Hct (35-47) % MCV (78-100) fl MCH (26-32) pg MCHC (32-36) g/dl RDW (11.5-14.0) % Plt Count (150-450) K/mm3 MPV (7.5-11.0) fl Gran % (36.0-66.0) % Eos # (Auto) (0-0.5) Absolute Lymphs (auto) (1.0-4.6) Absolute Monos (auto) (0.0-1.3) Lymphocytes % (24.0-44.0) % Monocytes % (0.0-12.0) % Eosinophils % (0.00-5.0) % Basophils % (0.0-0.4) % Absolute Granulocytes (1.4-6.9) Basophils # (0-0.4) Sodium (137-145) mmol/L Potassium (3.5-5.1) mmol/L Chloride (98-107) mmol/L Carbon Dioxide (22-30) mmol/L Anion Gap (5-15) MEQ/L BUN (7-17) mg/dL Creatinine (0.52-1.04) mg/dL Estimated GFR ML/MIN Glucose (74-106) mg/dL POC Glucometer 163 H (74 to 106) mg/dL Calcium (8.4-10.2) mg/dL Total Bilirubin (0.2-1.3) mg/dL AST (14-36) U/L ALT (0-35) U/L Alkaline Phosphatase (38-126) U/L Troponin I < 0.012 < 0.012 (0.000-0.034) ng/mL Serum Total Protein (6.3-8.2) g/dL Albumin (3.5-5.0) g/dL 03/29/20 03/29/20 03/29/20 Range/Units 20:00 21:01 23:10 WBC (4.0-10.5) K/mm3 RBC (4.1-5.4) M/mm3 Hgb (12.0-16.0) gm/dl Hct (35-47) % MCV (78-100) fl MCH (26-32) pg MCHC (32-36) g/dl RDW (11.5-14.0) % Plt Count (150-450) K/mm3 MPV (7.5-11.0) fl Gran % (36.0-66.0) % Eos # (Auto) (0-0.5) Absolute Lymphs (auto) (1.0-4.6) Absolute Monos (auto) (0.0-1.3) Lymphocytes % (24.0-44.0) % Monocytes % (0.0-12.0) % Eosinophils % (0.00-5.0) % Basophils % (0.0-0.4) % Absolute Granulocytes (1.4-6.9) Basophils # (0-0.4) Sodium (137-145) mmol/L Potassium (3.5-5.1) mmol/L Chloride (98-107) mmol/L Carbon Dioxide (22-30) mmol/L Anion Gap (5-15) MEQ/L BUN (7-17) mg/dL Creatinine (0.52-1.04) mg/dL Estimated GFR ML/MIN Glucose (74-106) mg/dL POC Glucometer 256 H (74 to 106) mg/dL Calcium (8.4-10.2) mg/dL Total Bilirubin (0.2-1.3) mg/dL AST (14-36) U/L ALT (0-35) U/L Alkaline Phosphatase (38-126) U/L Troponin I < 0.012 < 0.012 (0.000-0.034) ng/mL Serum Total Protein (6.3-8.2) g/dL Albumin (3.5-5.0) g/dL 03/29/20 03/30/20 03/30/20 Range/Units 23:44 04:20 04:20 WBC 5.9 (4.0-10.5) K/mm3 RBC 4.76 (4.1-5.4) M/mm3 Hgb 13.2 (12.0-16.0) gm/dl Hct 41.5 (35-47) % MCV 87.2 (78-100) fl MCH 27.7 (26-32) pg MCHC 31.8 L (32-36) g/dl RDW 13.9 (11.5-14.0) % Plt Count 152 (150-450) K/mm3 MPV 9.7 (7.5-11.0) fl Gran % 48.3 (36.0-66.0) % Eos # (Auto) 0.18 (0-0.5) Absolute Lymphs (auto) 2.53 (1.0-4.6) Absolute Monos (auto) 0.32 (0.0-1.3) Lymphocytes % 42.8 (24.0-44.0) % Monocytes % 5.4 (0.0-12.0) % Eosinophils % 3.0 (0.00-5.0) % Basophils % 0.5 (0.0-0.4) % Absolute Granulocytes 2.85 (1.4-6.9) Basophils # 0.03 (0-0.4) Sodium 133 L (137-145) mmol/L Potassium 4.4 (3.5-5.1) mmol/L Chloride 98 (98-107) mmol/L Carbon Dioxide 28 (22-30) mmol/L Anion Gap 11.4 (5-15) MEQ/L BUN 14 (7-17) mg/dL Creatinine 0.42 L (0.52-1.04) mg/dL Estimated GFR > 60.0 ML/MIN Glucose 249 H (74-106) mg/dL POC Glucometer 213 H (74 to 106) mg/dL Calcium 9.3 (8.4-10.2) mg/dL Total Bilirubin 0.50 (0.2-1.3) mg/dL AST 22 (14-36) U/L ALT 27 (0-35) U/L Alkaline Phosphatase 97 (38-126) U/L Troponin I (0.000-0.034) ng/mL Serum Total Protein 6.8 (6.3-8.2) g/dL Albumin 4.0 (3.5-5.0) g/dL 03/30/20 03/30/20 Range/Units 07:37 12:14 WBC (4.0-10.5) K/mm3 RBC (4.1-5.4) M/mm3 Hgb (12.0-16.0) gm/dl Hct (35-47) % MCV (78-100) fl MCH (26-32) pg MCHC (32-36) g/dl RDW (11.5-14.0) % Plt Count (150-450) K/mm3 MPV (7.5-11.0) fl Gran % (36.0-66.0) % Eos # (Auto) (0-0.5) Absolute Lymphs (auto) (1.0-4.6) Absolute Monos (auto) (0.0-1.3) Lymphocytes % (24.0-44.0) % Monocytes % (0.0-12.0) % Eosinophils % (0.00-5.0) % Basophils % (0.0-0.4) % Absolute Granulocytes (1.4-6.9) Basophils # (0-0.4) Sodium (137-145) mmol/L Potassium (3.5-5.1) mmol/L Chloride (98-107) mmol/L Carbon Dioxide (22-30) mmol/L Anion Gap (5-15) MEQ/L BUN (7-17) mg/dL Creatinine (0.52-1.04) mg/dL Estimated GFR ML/MIN Glucose (74-106) mg/dL POC Glucometer 239 H 186 H (74 to 106) mg/dL Calcium (8.4-10.2) mg/dL Total Bilirubin (0.2-1.3) mg/dL AST (14-36) U/L ALT (0-35) U/L Alkaline Phosphatase (38-126) U/L Troponin I (0.000-0.034) ng/mL Serum Total Protein (6.3-8.2) g/dL Albumin (3.5-5.0) g/dL - Radiology Impressions Radiology Exams & Impressions: Radiology Procedures Category Date Time Status CHEST 1 VIEW (PORTABLE) Stat Exams 03/29/20 10:43 Completed ECHO W/2D AND DOPPLER [US] Stat Exams 03/30/20 15:06 Taken HEAD WITHOUT CONTRAST [CT] Stat Exams 03/29/20 12:08 Completed MRA BRAIN WITHOUT CONTRAST [MRI] Routine Exams 03/30/20 10:00 Completed MRI BRAIN W/O CONTRAST [MRI] Stat Exams 03/30/20 12:00 Completed - Other Procedures and Tests Respiratory Therapy 03/29/20 15:06 Holter Monitor ONCE 03/29/20 15:29 Respiratory MDI UD 03/29/20 15:30 Oxygen NASAL CANNULA 3 lpm Respiratory Therapy Assessment DAILY 03/29/20 19:00 Respiratory MDI BID 03/29/20 20:00 BiPap/CPAP ROUTINE
--- NOTE | 2020-03-30 16:35 | PCM.DCORD ---
- Discharge Disposition: Home, Self-Care Condition: Stable Prescriptions: Continue PARoxetine HCL [Paroxetine HCl] 40 mg PO HS Nitroglycerin 0.4 mg Tablet [Nitrostat 0.4 MG Tablet] 0.4 mg SL UD PRN PRN Reason: Pain Nebivolol HCl 5 MG [Bystolic 5 MG] 5 mg PO HS Aspirin 81 gm Chew [Baby Aspirin 81 mg Chew] 81 mg PO HS Alprazolam 0.5 mg [xanAX 0.5 MG] 0.5 mg PO QHS Insulin Glargine,Hum.rec.anlog [Basaglar Kwikpen U-100] 32 unit SQ HS Omeprazole 40 mg PO HS Metformin HCl 500 mg [Glucophage 500 MG] 500 mg PO BID Budesonide/Formoterol Fumarate [Symbicort 80-4.5 Mcg Inhaler] 2 puffs IH BID Albuterol Sulfate [Albuterol Sulfate Hfa] 1 puff IH Q4-6HPRN PRN PRN Reason: Shortness Of Breath Dicyclomine HCl 20 mg [Bentyl 20 mg] 20 mg PO QHS Rosuvastatin Calcium [Crestor] 20 mg PO QHS Isosorbide Mononitrate [Isosorbide Mononitrate ER] 60 mg PO QHS Amlodipine Besylate [Norvasc] 2.5 mg PO QHS Levocetirizine Dihydrochloride [Xyzal] 10 mg PO HS Losartan Potassium 50 mg PO QHS Rivaroxaban 10 mg Tablet [Xarelto 10 mg Tablet] 15 mg PO BID Changed Insulin Lispro [Humalog Kwikpen U-100] 30 units SQ AC #0 Follow up with: UGO NUÑEZ DO [Primary Care Provider] -
[2020-03-30 17:17] VITALS: BP 109/62; PULSE 84; O2SAT 96
[2020-03-31] MEDS ORDERED: XARELTO 10 MG TABLET PO SCH (10:00)
--- NOTE | 2020-04-03 13:32 | ECHO ---
Transthoracic echocardiographic examination and color Doppler was done on 03/30/2020. INDICATION: Syncope. IMPRESSION: THE STUDY WAS SOMEWHAT LIMITED BECAUSE OF A LIMITED ACOUSTIC WINDOW. The left ventricle is only partially visualized but this demonstrated adequate contractility. Estimated global left ventricular ejection fraction around 50 to 60%. There is also some evidence of left ventricular hypertrophy. The mitral valve is seen and this opens adequately. No significant mitral regurgitation is seen. The aortic valve was not well visualized. However, there is no significant gradient across the left ventricular outflow tract. The right side chambers were not well visualized. This is a limited study which precludes adequate assessment of intracardiac anatomy and physiology.
== END 2020-03-30 17:43 | disposition home or self-care (01) ==
LOC: ED 10:12 → MED SURG 14:53
PROVIDERS: ADMIT Family Medicine; ATTEND Family Medicine
DX: R55 Syncope and collapse (principal); W19.XXXA Unspecified fall, initial encounter; Y92.009 Unspecified place in unspecified non-institutional (private) residence as the place of occurrence of the external cause; E11.9 Type 2 diabetes mellitus without complications; S80.01XA Contusion of right knee, initial encounter; Z86.711 Personal history of pulmonary embolism; Z79.899 Other long term (current) drug therapy; Z79.01 Long term (current) use of anticoagulants; I10 Essential (primary) hypertension; Z86.16 Personal history of COVID-19; G47.30 Sleep apnea, unspecified; I25.10 Atherosclerotic heart disease of native coronary artery without angina pectoris; R51.9 Headache, unspecified; E24.9 Cushing's syndrome, unspecified
CPT/HCPCS: 36000; 36415; 70450; 70544; 70551; 71045; 80053; 80307; 81001; 82947; 83735; 83880; 84443; 84484; 85025; 93005; 93041; 93225; 93268; 93306; 94640; 94760; 94762; 95812; 96365; 96366; 97161; 99285; G0378; Q3014; J1817; J3475; A9270-GY

== ENCOUNTER 2021-01-24 12:45 | Emergency (ER) | payer OTHER ==
[2021-01-24] MEDS ORDERED: Sodium Chloride 0.9% 1000 ML 1,000 ML IV STA ×2 (13:14→14:35)
--- NOTE | 2021-01-24 13:14 | ERPHSYRPT ---
- History of Present Illness Time Seen by Provider: 01/24/21 13:10 Source: patient Exam Limitations: no limitations Patient Subjective Stated Complaint: Pt states "On thursday I started to have diarrhea, nausea and vomiting. I am still having diarrhea. I do not feel well." Triage Nursing Assessment: Pt presented alert and oriented X 3, skin pwd Pt ambulates with an upright steady gait, able to speak in clear full sentences. pt in no apparent respiratory distress. Pt resting comfortably on the bed. Physician History: Patient is a 40-year-old female presents to our ED for evaluation of feeling unwell. Patient states that she started Trulicity on Thursday. 2 days later she developed diarrhea nausea and vomiting. Symptoms have been ongoing for the past 2 days. Patient states she is continuously having diarrhea. She is also experiencing mild right flank pain. Pain described as an ache that is localized. No radiation. No trauma no fever. Symptoms are mild to moderate in intensity. No specific worsening or improving factors. Patient denies a history of the same. She voices no other complaints concerns at this time. Timing/Duration: day(s) (4 days) Severity: moderate Modifying Factors: Improves With: nothing Associated Symptoms: abdominal pain (Right-sided flank pain.), No shortness of breath, No cough Allergies/Adverse Reactions: metoprolol Allergy (Mild, Verified 03/29/20 10:22) Hives Home Medications: ALPRAZolam 0.5 MG [xanAX 0.5 MG] 0.5 mg PO QHS 09/04/18 [History] Aspirin 81 gm Chew [Baby Aspirin 81 mg Chew] 81 mg PO HS 09/04/18 [History] Nebivolol HCl 5 MG [Bystolic 5 MG] 5 mg PO HS 09/04/18 [History] Nitroglycerin 0.4 mg Tablet [Nitrostat 0.4 MG Tablet] 0.4 mg SL UD PRN 09/04/18 [History] PARoxetine HCL [Paroxetine HCl] 40 mg PO HS 09/04/18 [History] Insulin Glargine,Hum.rec.anlog [Basaglar [place]pen U-100] 32 unit SQ HS 09/12/18 [History] Omeprazole 40 mg PO HS 11/09/18 [History] Amlodipine Besylate [Norvasc] 2.5 mg PO QHS 11/02/19 [History] Dicyclomine HCl 20 mg [Bentyl 20 mg] 20 mg PO QHS 11/02/19 [History] Isosorbide Mononitrate [Isosorbide Mononitrate ER] 60 mg PO QHS 11/02/19 [History] Rosuvastatin Calcium [Crestor] 20 mg PO QHS 11/02/19 [History] Levocetirizine Dihydrochloride [Xyzal] 10 mg PO HS 01/31/20 [History] Losartan Potassium 50 mg PO QHS 03/06/20 [History] Hx Tetanus, Diphtheria Vaccination/Date Given: Yes Hx Influenza Vaccination/Date Given: Yes Hx Pneumococcal Vaccination/Date Given: Yes Immunizations Up to Date: Yes Travel Risk - International Travel Have you traveled outside of the country in past 3 weeks: No - Coronavirus Screening Are you exhibiting any of the following symptoms?: No Close contact with a COVID-19 positive Pt in past 14-21 Days: No - Vaccine Status Have you recieved a Covid-19 vaccination: Yes 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: [employer] - Vaccination Dates Date of 2cond Vaccination (if applicable): 05/2020 Comment: booster as well in november - Review of Systems Constitutional: No Symptoms, No Fever, No Chills Eyes: No Symptoms Ears, Nose, & Throat: No Symptoms Respiratory: No Symptoms, No Cough, No Dyspnea Cardiac: No Symptoms, No Chest Pain, No Edema, No Syncope Abdominal/Gastrointestinal: No Symptoms, No Abdominal Pain, No Nausea, No Vomiting, No Diarrhea Genitourinary Symptoms: No Symptoms, No Dysuria Musculoskeletal: No Symptoms, No Back Pain, No Neck Pain Skin: No Symptoms, No Rash Neurological: No Symptoms, No Dizziness, No Focal Weakness, No Sensory Changes Psychological: No Symptoms Endocrine: No Symptoms Hematologic/Lymphatic: No Symptoms All Other Systems: Reviewed and Negative - Past Medical History Pertinent Past Medical History: Yes Neurological History: Peripheral Neuropathy ENT History: No Pertinent History Cardiac History: Coronary Artery Disease, Other Respiratory History: Sleep Apnea, Other Endocrine Medical History: Diabetes Type II, Liver Disease Musculoskeletal History: Fractures GI Medical History: GERD, Gallbladder Disease, Irritable Bowel History: No Pertinent History Psycho-Social History: Anxiety, Other Female Reproductive Disorders: Fibroids Other Medical History: Pt has hx of desaturation but has not been dx with specific respiratoy illness. Pt is on 3L O2 at night. Athlerosclerosis. L LE fx 2 years ago - Past Surgical History Past Surgical History: Yes Neuro Surgical History: No Pertinent History Cardiac: Cardiac Catheterization, Other Respiratory: No Pertinent History Gastrointestinal: Cholecystectomy Genitourinary: No Pertinent History Musculoskeletal: Other Female Surgical History: Hysterectomy Other Surgical History: plantar fascitis surgery, rectal fistula repair, umbilical hernia repair and adhesion removal - Social History Smoking Status: Never smoker Exposure to second hand smoke: No Drug Use: none Patient Lives Alone: No Significant Family History: no pertinent family hx - Female History Hx Last Menstrual Period: hysterectomy Hx Now: No - Nursing Vital Signs Nursing Vital Signs: Initial Vital Signs Temperature 98.9 F 01/24/21 13:00 Pulse Rate 104 H 01/24/21 13:00 Respiratory Rate 22 01/24/21 13:00 Blood Pressure 156/84 01/24/21 13:00 O2 Sat by Pulse Oximetry 97 01/24/21 13:00 Pain Scale Pain Intensity 4 - Physical Exam General Appearance: no apparent distress, alert Eye Exam: PERRL/EOMI, eyes nml inspection Ears, Nose, Throat Exam: normal ENT inspection, TMs normal, pharynx normal, moist mucous membranes Neck Exam: normal inspection, non-tender, supple, full range of motion Respiratory Exam: normal breath sounds, lungs clear, No respiratory distress Cardiovascular Exam: regular rate/rhythm, normal heart sounds, normal peripheral pulses Gastrointestinal/Abdomen Exam: soft, normal bowel sounds, No tenderness, No mass Back Exam: normal inspection, normal range of motion, No CVA tenderness, No vertebral tenderness Extremity Exam: normal inspection, normal range of motion, pelvis stable, other (No calf tenderness. Negative Homans' sign. No pedal edema), No calf tenderness, No pedal edema, No swelling Neurologic Exam: alert, oriented x 3, cooperative, normal mood/affect, nml cerebellar function, nml station & gait, sensation nml, No motor deficits Skin Exam: normal color, warm, dry, No rash Lymphatic Exam: No adenopathy SpO2 Interpretation: normal SpO2: 97 O2 Delivery: Room Air - Course Nursing assessment & vital signs reviewed: Yes - CT Exams Abdomen/Pelvis CT Interpretation: Tele-radiologist Report (A fatty hepatomegaly and splenomegaly observed. Liver measures 25.4 cm. Spleen measures 14.3 cm. Evidence of cholecystectomy and hysterectomy. No AAA. Liver pancreas adrenal glands kidneys ureters bladder are otherwise unremarkable.) Ordered Tests: Active Orders 24 hr Category Date Time Status Coin Counter And Wrapper STAT Care 01/24/21 13:16 Active IV Insertion STAT Care 01/24/21 13:14 Active Pulse Oximetry (ED) STAT Care 01/24/21 13:14 Active ABDOMEN AND PELVIS W CONTRAST [CT] Stat Exams 01/24/21 14:35 Completed CBC W DIFF Stat Lab 01/24/21 13:46 Completed CMP Stat Lab 01/24/21 13:46 Completed CULTURE,URINE Stat Lab 01/24/21 13:29 Received MAGNESIUM Stat Lab 01/24/21 13:46 Completed TROPONIN Q3H Lab 01/24/21 13:46 Completed TROPONIN Q3H Lab 01/24/21 16:15 Ordered TROPONIN Q3H Lab 01/24/21 19:15 Ordered TROPONIN Q3H Lab 01/24/21 22:15 Ordered TROPONIN Q3H Lab 01/25/21 01:15 Ordered UA W/RFX UR CULTURE Stat Lab 01/24/21 13:29 Completed Medication Summary Generic Name Dose Route Start Last Admin Trade Name Freq PRN Reason Stop Dose Admin Ceftriaxone Sodium/Dextrose 1 g in 50 mls @ 100 mls/hr 01/24/21 15:55 Rocephin 1 Gm-D5w 50 Ml Bag IV 01/24/21 16:24 STAT STA Discontinued Medications Generic Name Dose Route Start Last Admin Trade Name Freq PRN Reason Stop Dose Admin Sodium Chloride 1,000 mls @ 999 mls/hr 01/24/21 13:14 01/24/21 14:36 Sodium Chloride 0.9% 1000 Ml IV 01/24/21 14:14 Infused .Q1H1M STA Infusion Sodium Chloride Confirm 01/24/21 13:31 Sodium Chloride 0.9% 1000 Ml Administered 01/24/21 13:32 Dose 1,000 mls @ ud .ROUTE .STK-MED ONE Sodium Chloride 1,000 mls @ 999 mls/hr 01/24/21 14:35 01/24/21 15:49 Sodium Chloride 0.9% 1000 Ml IV 01/24/21 15:35 Infused .Q1H1M STA Infusion Sodium Chloride Confirm 01/24/21 14:34 Sodium Chloride 0.9% 1000 Ml Administered 01/24/21 14:35 Dose 1,000 mls @ ud .ROUTE .STK-MED ONE Ondansetron HCl 4 mg 01/24/21 13:30 01/24/21 13:35 Ondansetron Hcl 4 Mg/2 Ml Vial IV 01/24/21 13:31 4 mg STAT ONE Administration Ondansetron HCl Confirm 01/24/21 13:31 Ondansetron Hcl 4 Mg/2 Ml Vial Administered 01/24/21 13:32 Dose 4 mg .ROUTE .STK-MED ONE Lab/Rad Data: Laboratory Result Diagrams 01/24/21 13:46 01/24/21 13:46 Laboratory Results 01/24/21 01/24/21 01/24/21 Range/Units 13:46 13:46 13:46 WBC 8.0 (4.0-10.5) K/mm3 RBC 5.01 (4.1-5.4) M/mm3 Hgb 13.6 (12.0-16.0) gm/dl Hct 43.0 (35-47) % MCV 85.8 (78-100) fl MCH 27.1 (26-32) pg MCHC 31.6 L (32-36) g/dl RDW 14.1 H (11.5-14.0) % Plt Count 205 (150-450) K/mm3 MPV 9.2 (7.5-11.0) fl Gran % 70.0 H (36.0-66.0) % Eos # (Auto) 0.20 (0-0.5) Absolute Lymphs (auto) 1.76 (1.0-4.6) Absolute Monos (auto) 0.43 (0.0-1.3) Lymphocytes % 22.1 L (24.0-44.0) % Monocytes % 5.4 (0.0-12.0) % Eosinophils % 2.5 (0.00-5.0) % Basophils % 0.0 (0.0-0.4) % Absolute Granulocytes 5.56 (1.4-6.9) Basophils # 0 (0-0.4) Sodium 140 (137-145) mmol/L Potassium 4.2 (3.5-5.1) mmol/L Chloride 102 (98-107) mmol/L Carbon Dioxide 26 (22-30) mmol/L Anion Gap 17.3 H (5-15) MEQ/L BUN 16 (7-17) mg/dL Creatinine 0.49 L (0.52-1.04) mg/dL Estimated GFR > 60.0 ML/MIN Glucose 111 H (74-106) mg/dL Calcium 9.0 (8.4-10.2) mg/dL Magnesium 1.7 (1.6-2.3) mg/dL Total Bilirubin 0.50 (0.2-1.3) mg/dL AST 26 (14-36) U/L ALT 32 (0-35) U/L Alkaline Phosphatase 63 (38-126) U/L Troponin I < 0.012 (0.000-0.034) ng/mL Serum Total Protein 6.8 (6.3-8.2) g/dL Albumin 4.5 (3.5-5.0) g/dL Urine Color (YELLOW) Urine Appearance (CLEAR) Urine pH (5-6) Ur Specific [place] (1.005-1.025) Urine Protein (Negative) Urine Ketones (NEGATIVE) Urine Blood (0-5) John/ul Urine Nitrite (NEGATIVE) Urine Bilirubin (NEGATIVE) Urine Urobilinogen (0-1) mg/dL Ur Leukocyte Esterase (NEGATIVE) Urine WBC (Auto) (0-5) /HPF Urine RBC (Auto) (0-2) /HPF U Epithel Cells (Auto) (FEW) /HPF Urine Bacteria (Auto) (NEGATIVE) /HPF Urine Mucus (Auto) (NEGATIVE) /HPF Urine Culture Reflexed (NO) Urine Glucose (NEGATIVE) mg/dL 01/24/21 Range/Units 13:29 WBC (4.0-10.5) K/mm3 RBC (4.1-5.4) M/mm3 Hgb (12.0-16.0) gm/dl Hct (35-47) % MCV (78-100) fl MCH (26-32) pg MCHC (32-36) g/dl RDW (11.5-14.0) % Plt Count (150-450) K/mm3 MPV (7.5-11.0) fl Gran % (36.0-66.0) % Eos # (Auto) (0-0.5) Absolute Lymphs (auto) (1.0-4.6) Absolute Monos (auto) (0.0-1.3) Lymphocytes % (24.0-44.0) % Monocytes % (0.0-12.0) % Eosinophils % (0.00-5.0) % Basophils % (0.0-0.4) % Absolute Granulocytes (1.4-6.9) Basophils # (0-0.4) Sodium (137-145) mmol/L Potassium (3.5-5.1) mmol/L Chloride (98-107) mmol/L Carbon Dioxide (22-30) mmol/L Anion Gap (5-15) MEQ/L BUN (7-17) mg/dL Creatinine (0.52-1.04) mg/dL Estimated GFR ML/MIN Glucose (74-106) mg/dL Calcium (8.4-10.2) mg/dL Magnesium (1.6-2.3) mg/dL Total Bilirubin (0.2-1.3) mg/dL AST (14-36) U/L ALT (0-35) U/L Alkaline Phosphatase (38-126) U/L Troponin I (0.000-0.034) ng/mL Serum Total Protein (6.3-8.2) g/dL Albumin (3.5-5.0) g/dL Urine Color YELLOW (YELLOW) Urine Appearance SLIGHTLY CLOUDY (CLEAR) Urine pH 5.0 (5-6) Ur Specific [place] 1.041 (1.005-1.025) Urine Protein NEGATIVE (Negative) Urine Ketones SMALL (NEGATIVE) Urine Blood NEGATIVE (0-5) John/ul Urine Nitrite NEGATIVE (NEGATIVE) Urine Bilirubin NEGATIVE (NEGATIVE) Urine Urobilinogen NEGATIVE (0-1) mg/dL Ur Leukocyte Esterase NEGATIVE (NEGATIVE) Urine WBC (Auto) 6-10 (0-5) /HPF Urine RBC (Auto) 3-5 (0-2) /HPF U Epithel Cells (Auto) RARE (FEW) /HPF Urine Bacteria (Auto) RARE (NEGATIVE) /HPF Urine Mucus (Auto) SLIGHT (NEGATIVE) /HPF Urine Culture Reflexed YES (NO) Urine Glucose >=500 (NEGATIVE) mg/dL - Progress Progress: improved Progress Note: Patient reassessed. She feels well. Patient hydrated. UA reveals urinary tract infection. Patient received a dose of Rocephin in our ED. A prescription for Keflex was forwarded to patient's pharmacy. Patient tolerating p.o. Work- up essentially nonremarkable. CT abdomen pelvis reveals hepatosplenomegaly. Patient states she is aware of her hepatosplenomegaly. No indications for further work-up at this time. Patient received instructions on diet pertaining to diarrhea. Patient agrees to follow-up with her primary care doctor within 48 hours for reevaluation. She will maintain good hydration at home in the meantime and monitor her urine output. Portions of this note were created with voice recognition technology. There may be grammatical, spelling, punctuation or sound alike errors 01/24/21 16:09 Counseled pt/family regarding: lab results, diagnosis, need for follow-up, rad results - Departure Departure Disposition: Home Clinical Impression: UTI (urinary tract infection), Hepatomegaly, Splenomegaly, Diarrhea Condition: Stable Critical Care Time: No Referrals: UGO NUÑEZ DO [Primary Care Provider] - Follow up/PCP as directed Prescriptions: Cephalexin Mh 500 mg [Keflex 500 mg] 500 mg PO QID 5 Days #20 cap
[2021-01-24] MEDS ORDERED: Zofran 4 MG/2 ML VIAL IV ONE (13:30)
[2021-01-24] MEDS ORDERED: Zofran 4 MG/2 ML VIAL ONE (13:31)
[2021-01-24] MEDS ORDERED: Sodium Chloride 0.9% 1000 ML 1,000 ML ONE ×2 (13:31→14:34)
[2021-01-24 13:57] LABS: Absolute Neutrophil Ct (ANC) 5.56 (1.4-6.9); Basophil (Absolute #) 0 (0-0.4); Eosinophil % 2.5 % (0.00-5.0); Hemoglobin 13.6 gm/dl (12.0-16.0); Lymphocyte (Absolute #) 1.76 (1.0-4.6); Lymphocytes % 22.1 % (24.0-44.0); Mean Cell Volume 85.8 fl (78-100); Mean Corpuscular Hemoglobin 27.1 pg (26-32); Mean Corpuscular Hgb Concent. 31.6 g/dl (32-36); Mean Platelet Volume 9.2 fl (7.5-11.0); Monocyte (Absolute #) 0.43 (0.0-1.3); Monocytes % 5.4 % (0.0-12.0); Platelet Count 205 K/mm3 (150-450); Red Blood Count 5.01 M/mm3 (4.1-5.4); Red Cell Distribution Width 14.1 % (11.5-14.0)
[2021-01-24 14:15] LABS: ALBUMIN 4.5 g/dL (3.5-5.0); ALKALINE PHOSPHATASE 63 U/L (38-126); ANION GAP 17.3 MEQ/L (5-15); BLOOD UREA NITROGEN 16 mg/dL (7-17); CHLORIDE 102 mmol/L (98-107); Carbon Dioxide 26 mmol/L (22-30); Creatinine 1 0.49 mg/dL (0.52-1.04); EST GLOMERULAR FILTRATION RATE > 60.0 ML/MIN; Glucose 111 mg/dL (74-106); MAGNESIUM 1.7 mg/dL (1.6-2.3); Potassium 4.2 mmol/L (3.5-5.1); SGOT/AST 26 U/L (14-36); SGPT/ALT 32 U/L (0-35); SODIUM 140 mmol/L (137-145); Total Protein 6.8 g/dL (6.3-8.2)
[2021-01-24 15:08] LABS: Appearance SLIGHTLY CLOUDY (CLEAR); Bacteria RARE /HPF (NEGATIVE); Bilirubin NEGATIVE (NEGATIVE); Blood NEGATIVE Ery/ul (0-5); Epithelial Cells RARE /HPF (FEW); Glucose >=500 mg/dL (NEGATIVE); Ketones SMALL (NEGATIVE); Leukocyte Esterase NEGATIVE (NEGATIVE); Mucus SLIGHT /HPF (NEGATIVE); Nitrite NEGATIVE (NEGATIVE); Protein,Urine Dip NEGATIVE (Negative); Specific Gravity 1.041 (1.005-1.025); Urobilinogen NEGATIVE mg/dL (0-1)
--- NOTE | 2021-01-24 15:32 | XRAY ---
Indication: Right flank pain. Nausea and vomiting. Multiple contiguous axial images obtained through the abdomen and pelvis using 80 cc Isovue 370 contrast. Comparison: March 06, 2020. Lung bases are clear of infiltrate and effusion. Heart not enlarged. Noncontrasted stomach and bowel loops remain nonobstructed. Normal appendix. No free fluid/air. Again 25.4 cm fatty hepatomegaly, 14.3 cm splenomegaly, cholecystectomy, and hysterectomy. Remaining liver, pancreas, spleen, adrenal glands, kidneys, ureters, and bladder are unremarkable. Aorta minimally atherosclerotic. No AAA or pathologic retroperitoneal lymphadenopathy. Osseous structures intact. Impression: 1. Again fatty hepatomegaly and splenomegaly. 2. Remaining CT abdomen/pelvis with contrast exam is negative.
[2021-01-24] MEDS ORDERED: ROCEPHIN 1 Gm-D5w 50 ml Bag** 1 G/50 ML IVPB IV STA (15:55)
[2021-01-24] MEDS ORDERED: ROCEPHIN 1 Gm-D5w 50 ml Bag** 1 G/50 ML IVPB IV ONE (16:00)
[2021-01-24 16:04] VITALS: BP 123/76; PULSE 104
[2021-01-24 16:07] VITALS: O2SAT 97
== END 2021-01-24 16:22 | disposition home or self-care (01) ==
LOC: ED 12:45
DX: N39.0 Urinary tract infection, site not specified (principal); R16.2 Hepatomegaly with splenomegaly, not elsewhere classified; R19.7 Diarrhea, unspecified; R10.84 Generalized abdominal pain; I25.10 Atherosclerotic heart disease of native coronary artery without angina pectoris; E11.8 Type 2 diabetes mellitus with unspecified complications; Z79.4 Long term (current) use of insulin
CPT/HCPCS: 36000; 36415; 74177; 80053; 81001; 83735; 84484; 85025; 87077; 87086; 87186; 93041; 94760; 96360; 96374; 99284; J0696; J2405

== ENCOUNTER 2021-02-25 16:40 | Emergency (ER) | payer OTHER ==
[2021-02-25] MEDS ORDERED: BABY ASPIRIN 81 MG CHEW PO ONE (17:22)
[2021-02-25] MEDS ORDERED: Zofran 4 MG/2 ML VIAL IV ONE (17:22)
[2021-02-25] MEDS ORDERED: MORPHINE SULFATE 4 MG INJ IV ONE (17:22)
[2021-02-25 17:31] LABS: Absolute Neutrophil Ct (ANC) 3.87 (1.4-6.9); Basophil (Absolute #) 0.03 (0-0.4); Eosinophil % 5.3 % (0.00-5.0); Eosinophil (Absolute #) 0.37 (0-0.5); Hemoglobin 13.2 gm/dl (12.0-16.0); Lymphocyte (Absolute #) 2.37 (1.0-4.6); Lymphocytes % 33.8 % (24.0-44.0); Mean Cell Volume 85.4 fl (78-100); Mean Corpuscular Hemoglobin 27.5 pg (26-32); Mean Corpuscular Hgb Concent. 32.2 g/dl (32-36); Mean Platelet Volume 9.4 fl (7.5-11.0); Monocyte (Absolute #) 0.38 (0.0-1.3); Monocytes % 5.4 % (0.0-12.0); Neutrophil % 55.1 % (36.0-66.0); Platelet Count 220 K/mm3 (150-450); Red Cell Distribution Width 14.1 % (11.5-14.0)
[2021-02-25] MEDS ORDERED: MORPHINE SULFATE 4 MG INJ ONE (17:31)
[2021-02-25] MEDS ORDERED: Zofran 4 MG/2 ML VIAL ONE (17:31)
[2021-02-25] MEDS ORDERED: BABY ASPIRIN 81 MG CHEW ONE (17:31)
--- NOTE | 2021-02-25 17:50 | ERPHSYRPT ---
<SHAKIRA FOLEY - Last Filed: 02/25/21 17:47> - History of Present Illness Time Seen by Provider: 02/25/21 17:08 Historian: patient Exam Limitations: no limitations Patient Subjective Stated Complaint: Pt was awaken by chest pain this morning the pain radiated later to the back around 1030 and took a nitro about 1530 with no relief, pt continues to have the chest pain and back when it comes and now has a head ache Triage Nursing Assessment: Pt brought self to the ER, hypertensive, tachycardic, rates pain as 7/10 when the pain comes, took a nitro with no relief, hx of CAD/HTN, pulses normal, pt states that she was having pain off and on in her left arm and shoulder today too Physician History: 40 years old morbidly obese female with history of diabetes mellitus, hypertension presented in the ER with sudden onset substernal chest pain waking her up from sleep around 530 this morning, lasted for few minutes and started to improve. Since then she is having multiple episodes with radiation to the back with associated mild shortness of breath. Denies any significant aggravating or relieving factors. She took 1 nitro with no significant relief at all. Does have minimal nonproductive cough and some body aches. No fever or chills reported. Timing/Duration: today, intermittent, sudden, worse Activities at Onset: rest, sleep Quality: sharpness Location: substernal, back Chest Pain Radiation: back Severity of Pain-Max: moderate Severity of Pain-Current: moderate Modifying Factors: Improves With: nothing Associated Symptoms: shortness of breath Prior Chest Pain/Cardiac Workup: cardiac cath Nitro Today/Relief: 0.4 mg x 1 Aspirin Treatment Today: unknown Allergies/Adverse Reactions: metoprolol Allergy (Mild, Verified 02/25/21 17:17) Hives Home Medications: ALPRAZolam 0.5 MG [xanAX 0.5 MG] 0.5 mg PO QHS 09/04/18 [History] Aspirin 81 gm Chew [Baby Aspirin 81 mg Chew] 81 mg PO HS 09/04/18 [History] Nebivolol HCl 5 MG [Bystolic 5 MG] 5 mg PO HS 09/04/18 [History] Nitroglycerin 0.4 mg Tablet [Nitrostat 0.4 MG Tablet] 0.4 mg SL UD PRN 09/04/18 [History] PARoxetine HCL [Paroxetine HCl] 40 mg PO HS 09/04/18 [History] Insulin Glargine,Hum.rec.anlog [Basaglar Kwikpen U-100] 32 unit SQ HS 09/12/18 [History] Omeprazole 40 mg PO HS 11/09/18 [History] Amlodipine Besylate [Norvasc] 2.5 mg PO QHS 11/02/19 [History] Isosorbide Mononitrate [Isosorbide Mononitrate ER] 60 mg PO QHS 11/02/19 [History] Rosuvastatin Calcium [Crestor] 20 mg PO QHS 11/02/19 [History] Levocetirizine Dihydrochloride [Xyzal] 10 mg PO HS 01/31/20 [History] Losartan Potassium 50 mg PO QHS 03/06/20 [History] Fenofibrate 160 mg PO DAILY 02/25/21 [History] Meloxicam 7.5 mg PO DAILY 02/25/21 [History] Pregabalin [Lyrica 100Mg] 100 mg PO HS 02/25/21 [History] Hx Tetanus, Diphtheria Vaccination/Date Given: Yes Hx Influenza Vaccination/Date Given: Yes Hx Pneumococcal Vaccination/Date Given: Yes Travel Risk - International Travel Have you traveled outside of the country in past 3 weeks: No - Coronavirus Screening Are you exhibiting any of the following symptoms?: No Close contact with a COVID-19 positive Pt in past 14-21 Days: No - Vaccine Status Have you recieved a Covid-19 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: 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[employer] - Vaccination Dates Date of 2cond Vaccination (if applicable): 05/2020 Comment: booster as well in november - Review of Systems Constitutional: No Symptoms Eyes: No Symptoms Ears, Nose, & Throat: No Symptoms Respiratory: Cough Cardiac: Chest Pain, Palpitations Abdominal/Gastrointestinal: No Symptoms Genitourinary Symptoms: No Symptoms Musculoskeletal: Back Pain Skin: No Symptoms Neurological: No Symptoms Psychological: No Symptoms Endocrine: No Symptoms Hematologic/Lymphatic: No Symptoms Immunological/Allergic: No Symptoms - Past Medical History Pertinent Past Medical History: Yes Neurological History: Peripheral Neuropathy ENT History: No Pertinent History Cardiac History: Coronary Artery Disease, Other Respiratory History: Sleep Apnea, Other Endocrine Medical History: Diabetes Type II, Liver Disease Musculoskeletal History: Fractures GI Medical History: GERD, Gallbladder Disease, Irritable Bowel History: No Pertinent History Psycho-Social History: Anxiety, Other Female Reproductive Disorders: Fibroids Other Medical History: Pt has hx of desaturation but has not been dx with [facility] respiratoy illness. Sleep apnea and wears her CPAP. Athlerosclerosis. L LE fx 2 years ago - Past Surgical History Past Surgical History: Yes Neuro Surgical History: No Pertinent History Cardiac: Cardiac Catheterization, Other Respiratory: No Pertinent History Gastrointestinal: Cholecystectomy Genitourinary: No Pertinent History Musculoskeletal: Other Female Surgical History: Hysterectomy Other Surgical History: plantar fascitis surgery, rectal fistula repair, umbilical hernia repair and adhesion removal - Social History Smoking Status: Never smoker Exposure to second hand smoke: No Drug Use: none Patient Lives Alone: No Significant Family History: no pertinent family hx - Female History Hx Now: No (hysterectomy) - Physical Exam General Appearance: no apparent distress, alert Eye Exam: PERRL/EOMI, eyes nml inspection Ears, Nose, Throat Exam: normal ENT inspection, TMs normal, pharynx normal, moist mucous membranes Neck Exam: normal inspection, non-tender, supple, full range of motion Respiratory Exam: normal breath sounds, lungs clear Cardiovascular Exam: regular rate/rhythm, normal heart sounds Gastrointestinal/Abdomen Exam: soft, normal bowel sounds Back Exam: normal inspection, normal range of motion Extremity Exam: normal inspection, normal range of motion Neurologic Exam: alert, oriented x 3, cooperative Skin Exam: normal color SpO2 Interpretation: normal SpO2: 98 O2 Delivery: Room Air - Departure Clinical Impression: Non-cardiac chest pain Condition: Stable Referrals: UGO NUÑEZ DO [Primary Care Provider] - Follow up/PCP as directed Additional Instructions: Drink plenty of fluids. Take your medication as prescribed. Quarantine yourself until the results of your COVID-19 test returned. Follow-up with your primary care physician/provider in 48 hours for the results of this test. 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 Return to the emergency department if symptoms recur. <CHELSEY MENON - Last Filed: 02/25/21 20:29> - Nursing Vital Signs Nursing Vital Signs: Initial Vital Signs Temperature 97.8 F 02/25/21 17:01 Pulse Rate 91 H 02/25/21 17:01 Respiratory Rate 25 H 02/25/21 17:01 Blood Pressure 182/99 02/25/21 17:01 O2 Sat by Pulse Oximetry 98 02/25/21 17:01 Pain Scale Pain Intensity 5 Ordered Tests: Active Orders 24 hr Category Date Time Status [employer] STAT Care 02/25/21 17:23 Active EKG-ER Only STAT Care 02/25/21 17:22 Active IV Insertion STAT Care 02/25/21 17:22 Active Oxygen-ED Only Nasal Cannula 2 lpm Care 02/25/21 17:22 Active CHEST 1 VIEW (PORTABLE) Stat Exams 02/25/21 17:22 Taken CBC W DIFF Stat Lab 02/25/21 17:28 Completed CMP Stat Lab 02/25/21 17:28 Completed D-DIMER QUANTITATIVE Stat Lab 02/25/21 17:28 Completed NT PRO BNP Stat Lab 02/25/21 17:28 Completed POCT GLUCOSE Stat Lab 02/25/21 17:23 Completed TROPONIN Q3H Lab 02/25/21 17:28 Completed TROPONIN Q3H Lab 02/25/21 19:49 Completed TROPONIN Q3H Lab 02/25/21 23:30 Ordered TROPONIN Q3H Lab 02/26/21 02:30 Ordered TROPONIN Q3H Lab 02/26/21 05:30 Ordered Medication Summary Discontinued Medications Generic Name Dose Route Start Last Admin Trade Name Casimiroq PRN Reason Stop Dose Admin Aspirin 324 mg 02/25/21 17:22 02/25/21 17:34 Aspirin 81 Mg Tab.Chew PO 02/25/21 17:23 324 mg STAT ONE Administration Aspirin Confirm 02/25/21 17:31 Aspirin 81 Mg Tab.Chew Administered 02/25/21 17:32 Dose 324 mg .ROUTE .STK-MED ONE Morphine Sulfate 4 mg 02/25/21 17:22 02/25/21 17:32 Morphine Sulfate 4 Mg/Ml Injection IV 02/25/21 17:23 4 mg STAT ONE Administration Morphine Sulfate Confirm 02/25/21 17:31 Morphine Sulfate 4 Mg/Ml Injection Administered 02/25/21 17:32 Dose 4 mg .ROUTE .STK-MED ONE Ondansetron HCl 4 mg 02/25/21 17:22 02/25/21 17:33 Ondansetron Hcl 4 Mg/2 Ml Vial IV 02/25/21 17:23 4 mg STAT ONE Administration Ondansetron HCl Confirm 02/25/21 17:31 Ondansetron Hcl 4 Mg/2 Ml Vial Administered 02/25/21 17:32 Dose 4 mg .ROUTE .STK-MED ONE Lab/Rad Data: Laboratory Result Diagrams 02/25/21 17:28 02/25/21 17:28 Laboratory Results 02/25/21 02/25/21 02/25/21 Range/Units 19:49 17:28 17:28 WBC (4.0-10.5) K/mm3 RBC (4.1-5.4) M/mm3 Hgb (12.0-16.0) gm/dl Hct (35-47) % MCV (78-100) fl MCH (26-32) pg MCHC (32-36) g/dl RDW (11.5-14.0) % Plt Count (150-450) K/mm3 MPV (7.5-11.0) fl Gran % (36.0-66.0) % Eos # (Auto) (0-0.5) Absolute Lymphs (auto) (1.0-4.6) Absolute Monos (auto) (0.0-1.3) Lymphocytes % (24.0-44.0) % Monocytes % (0.0-12.0) % Eosinophils % (0.00-5.0) % Basophils % (0.0-0.4) % Absolute Granulocytes (1.4-6.9) Basophils # (0-0.4) D-Dimer < 215 L (215-500) ng/mL Sodium (137-145) mmol/L Potassium (3.5-5.1) mmol/L Chloride (98-107) mmol/L Carbon Dioxide (22-30) mmol/L Anion Gap (5-15) MEQ/L BUN (7-17) mg/dL Creatinine (0.52-1.04) mg/dL Estimated GFR ML/MIN Glucose (74-106) mg/dL POC Glucometer (74 to 106) mg/dL Calcium (8.4-10.2) mg/dL Total Bilirubin (0.2-1.3) mg/dL AST (14-36) U/L ALT (0-35) U/L Alkaline Phosphatase (38-126) U/L Troponin I < 0.012 < 0.012 (0.000-0.034) ng/mL NT-Pro-B Natriuret Pep (0-450) pg/mL Serum Total Protein (6.3-8.2) g/dL Albumin (3.5-5.0) g/dL 02/25/21 02/25/21 02/25/21 Range/Units 17:28 17:28 17:23 WBC 7.0 (4.0-10.5) K/mm3 RBC 4.80 (4.1-5.4) M/mm3 Hgb 13.2 (12.0-16.0) gm/dl Hct 41.0 (35-47) % MCV 85.4 (78-100) fl MCH 27.5 (26-32) pg MCHC 32.2 (32-36) g/dl RDW 14.1 H (11.5-14.0) % Plt Count 220 (150-450) K/mm3 MPV 9.4 (7.5-11.0) fl Gran % 55.1 (36.0-66.0) % Eos # (Auto) 0.37 (0-0.5) Absolute Lymphs (auto) 2.37 (1.0-4.6) Absolute Monos (auto) 0.38 (0.0-1.3) Lymphocytes % 33.8 (24.0-44.0) % Monocytes % 5.4 (0.0-12.0) % Eosinophils % 5.3 H (0.00-5.0) % Basophils % 0.4 (0.0-0.4) % Absolute Granulocytes 3.87 (1.4-6.9) Basophils # 0.03 (0-0.4) D-Dimer (215-500) ng/mL Sodium 137 (137-145) mmol/L Potassium 4.3 (3.5-5.1) mmol/L Chloride 101 (98-107) mmol/L Carbon Dioxide 24 (22-30) mmol/L Anion Gap 16.0 H (5-15) MEQ/L BUN 18 H (7-17) mg/dL Creatinine 0.56 (0.52-1.04) mg/dL Estimated GFR > 60.0 ML/MIN Glucose 272 H (74-106) mg/dL POC Glucometer 273 H (74 to 106) mg/dL Calcium 9.3 (8.4-10.2) mg/dL Total Bilirubin 0.40 (0.2-1.3) mg/dL AST 24 (14-36) U/L ALT 28 (0-35) U/L Alkaline Phosphatase 110 (38-126) U/L Troponin I (0.000-0.034) ng/mL NT-Pro-B Natriuret Pep 45.5 (0-450) pg/mL Serum Total Protein 7.1 (6.3-8.2) g/dL Albumin 4.6 (3.5-5.0) g/dL - Progress Progress: improved, re-examined Air Movement: good Progress Note: 02/25/21 20:26 Chest x-ray shows no acute cardiopulmonary process. Medical decision making: This patient felt a little faint and mildly diaphoretic just at the time of discharge. Her vital signs are stable. She had mild chest pain that was different than when she came in. This resolved completely. She has had 2 normal troponin levels. Her D-dimer is normal. Patient may have a viral syndrome. We will order an outpatient Covid 19 test. She does have some other aches and pains and I will give her another 2 mg of intravenous morphine. 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 Blood Culture(s) Obtained: No Antibiotics given: No Counseled pt/family regarding: lab results, diagnosis, need for follow-up, rad results - Departure Departure Disposition: Home Critical Care Time: No
[2021-02-25 17:51] LABS: ALBUMIN 4.6 g/dL (3.5-5.0); ALKALINE PHOSPHATASE 110 U/L (38-126); BLOOD UREA NITROGEN 18 mg/dL (7-17); CHLORIDE 101 mmol/L (98-107); Calcium 9.3 mg/dL (8.4-10.2); Carbon Dioxide 24 mmol/L (22-30); Creatinine 1 0.56 mg/dL (0.52-1.04); EST GLOMERULAR FILTRATION RATE > 60.0 ML/MIN; Glucose 272 mg/dL (74-106); NT PRO BNP 45.5 pg/mL (0-450); Potassium 4.3 mmol/L (3.5-5.1); SGOT/AST 24 U/L (14-36); SGPT/ALT 28 U/L (0-35); SODIUM 137 mmol/L (137-145); Total Protein 7.1 g/dL (6.3-8.2)
[2021-02-25] MEDS ORDERED: MORPHINE SULFATE 2 MG INJ IV ONE (20:24)
[2021-02-25] MEDS ORDERED: MORPHINE SULFATE 2 MG INJ ONE (20:31)
[2021-02-25 20:46] VITALS: BP 133/74; PULSE 92; O2SAT 96
--- NOTE | 2021-02-26 08:38 | XRAY ---
Indication: Chest pain. Comparison: March 29, 2020. Portable chest remains clear. Heart not enlarged for AP portable technique. Bony thorax intact. No new/acute findings.
== END 2021-02-25 20:55 | disposition home or self-care (01) ==
LOC: ED 16:40
DX: R07.9 Chest pain, unspecified (principal); E11.42 Type 2 diabetes mellitus with diabetic polyneuropathy; Z79.4 Long term (current) use of insulin; I25.10 Atherosclerotic heart disease of native coronary artery without angina pectoris; G47.30 Sleep apnea, unspecified
CPT/HCPCS: 36000; 36415; 71045; 80053; 82947; 83880; 84484; 85025; 85379; 93005; 93041; 96374; 96375; 96376; 99284; U0003; J2270; J2405; A9270-GY

== ENCOUNTER 2021-04-11 12:24 | Emergency (ER) | payer OTHER ==
[2021-04-11] MEDS ORDERED: Zofran 4 MG/2 ML VIAL IV ONE (13:55)
[2021-04-11] MEDS ORDERED: MORPHINE SULFATE 4 MG INJ IV ONE (13:55)
--- NOTE | 2021-04-11 13:59 | ERPHSYRPT ---
- History of Present Illness Time Seen by Provider: 04/11/21 12:26 Historian: patient Exam Limitations: no limitations Patient Subjective Stated Complaint: c/o abdominal pain for past 3 days. Triage Nursing Assessment: C/o right side abd pain for past 3 days, c/o pain in right flank area that radiates to back and states was burning sensation in a nterior lower abd when pain started. Has had fever off and on past couple days. Covid tested yesterday and was negative. Denies problems with urination. Seen Dr Randall this past thursday, UA done and was negative. some nausea. Walked in. Physician History: 40-year-old morbidly obese female presented in the ER with chief complaint of right flank pain for the last 3 days, moderate to severe intensity, sharp burning which initially started in the suprapubic area and gradually more in the right flank with some radiation to the back with associated nausea but no vom iting. Subjective feeling of fever and chills. Denies any urinary complaints other than suprapubic discomfort. Timing/Duration: day(s) (3), gradual onset, worse Activities at Onset: activity, rest Quality: burning, sharpness Abdominal Pain Onset Location: suprapubic, flank Pain Radiation: back Severity of Pain-Max: moderate Severity of Pain-Current: moderate Modifying Factors: Improves With: nothing Associated Symptoms: nausea Previous symptoms: no prior history Allergies/Adverse Reactions: metoprolol Allergy (Mild, Verified 02/25/21 17:17) Hives Home Medications: ALPRAZolam 0.5 MG [xanAX 0.5 MG] 0.5 mg PO QHS 09/04/18 [History] Aspirin 81 gm Chew [Baby Aspirin 81 mg Chew] 81 mg PO HS 09/04/18 [History] Nebivolol HCl 5 MG [Bystolic 5 MG] 5 mg PO HS 09/04/18 [History] Nitroglycerin 0.4 mg Tablet [Nitrostat 0.4 MG Tablet] 0.4 mg SL UD PRN 09/04/18 [History] PARoxetine HCL [Paroxetine HCl] 40 mg PO HS 09/04/18 [History] Insulin Glargine,Hum.rec.anlog [Barbara Shepard U-100] 32 unit SQ HS 09/12/18 [History] Omeprazole 40 mg PO HS 11/09/18 [History] Amlodipine Besylate [Norvasc] 2.5 mg PO QHS 11/02/19 [History] Isosorbide Mononitrate [Isosorbide Mononitrate ER] 60 mg PO QHS 11/02/19 [History] Rosuvastatin Calcium [Crestor] 20 mg PO QHS 11/02/19 [History] Levocetirizine Dihydrochloride [Xyzal] 10 mg PO HS 01/31/20 [History] Losartan Potassium 50 mg PO QHS 03/06/20 [History] Fenofibrate 160 mg PO DAILY 02/25/21 [History] Meloxicam 7.5 mg PO DAILY 02/25/21 [History] Pregabalin [Lyrica 100Mg] 100 mg PO HS 02/25/21 [History] Hx Tetanus, Diphtheria Vaccination/Date Given: Yes Hx Influenza Vaccination/Date Given: Yes Hx Pneumococcal Vaccination/Date Given: Yes Immunizations Up to Date: Yes Travel Risk - International Travel Have you traveled outside of the country in past 3 weeks: No - Coronavirus Screening Symptoms: Vomiting/Diarrhea Close contact with a COVID-19 positive Pt in past 14-21 Days: No - Vaccine Status Have you recieved a Covid-19 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: 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[employer] - Vaccination Dates Date of 2cond Vaccination (if applicable): May 2020 - Review of Systems Constitutional: No Symptoms Eyes: No Symptoms Ears, Nose, & Throat: No Symptoms Respiratory: No Symptoms Cardiac: No Symptoms Abdominal/Gastrointestinal: Abdominal Pain, Nausea Genitourinary Symptoms: No Symptoms Musculoskeletal: No Symptoms Skin: No Symptoms Neurological: No Symptoms Psychological: No Symptoms Endocrine: No Symptoms Hematologic/Lymphatic: No Symptoms Immunological/Allergic: No Symptoms - Past Medical History Pertinent Past Medical History: Yes Neurological History: Peripheral Neuropathy ENT History: No Pertinent History Cardiac History: Coronary Artery Disease, Other Respiratory History: Sleep Apnea, Other Endocrine Medical History: Diabetes Type II, Liver Disease Musculoskeletal History: Fractures GI Medical History: GERD, Gallbladder Disease, Irritable Bowel History: No Pertinent History Psycho-Social History: Anxiety, Other Female Reproductive Disorders: Fibroids Other Medical History: Pt has hx of desaturation but has not been dx with specific respiratoy illness. Sleep apnea and wears her CPAP. Athlerosclerosis. L LE fx 2 years ago - Past Surgical History Past Surgical History: Yes Neuro Surgical History: No Pertinent History Cardiac: Cardiac Catheterization, Other Respiratory: No Pertinent History Gastrointestinal: Cholecystectomy Genitourinary: No Pertinent History Musculoskeletal: Other Female Surgical History: Hysterectomy Other Surgical History: plantar fascitis surgery, rectal fistula repair, umbilical hernia repair and adhesion removal - Social History Smoking Status: Never smoker Exposure to second hand smoke: No Drug Use: none Patient Lives Alone: No Significant Family History: no pertinent family hx - Female History Hx Last Menstrual Period: complete hysterectomy Hx Now: No - Nursing Vital Signs Nursing Vital Signs: Initial Vital Signs Temperature 98.6 F 04/11/21 12:52 Pulse Rate 78 04/11/21 12:52 Respiratory Rate 18 04/11/21 12:52 Blood Pressure 131/77 04/11/21 12:52 O2 Sat by Pulse Oximetry 99 04/11/21 12:52 Pain Scale Pain Intensity 3 - Physical Exam General Appearance: no apparent distress, alert Eye Exam: PERRL/EOMI Ears, Nose, Throat Exam: normal ENT inspection Neck Exam: normal inspection, full range of motion Respiratory Exam: normal breath sounds, lungs clear Cardiovascular Exam: regular rate/rhythm, normal heart sounds Gastrointestinal/Abdomen Exam: soft, normal bowel sounds, tenderness (Right flank), No guarding Back Exam: normal inspection, normal range of motion, CVA tenderness (Right) Extremity Exam: normal inspection, normal range of motion Neurologic Exam: alert, oriented x 3, cooperative Skin Exam: normal color SpO2 Interpretation: normal SpO2: 99 O2 Delivery: Room Air Ordered Tests: Active Orders 24 hr Category Date Time Status IV Insertion STAT Care 04/11/21 13:55 Active NPO (ED) STAT Care 04/11/21 13:55 Active ABDOMEN AND PELVIS W/0 CONTRAS [CT] Stat Exams 04/11/21 14:59 Completed CBC W DIFF Stat Lab 04/11/21 14:00 Completed CMP Stat Lab 04/11/21 14:00 Completed HCG,QUALITATIVE URINE Stat Lab 04/11/21 13:55 Completed LIPASE Stat Lab 04/11/21 14:00 Completed UA W/RFX UR CULTURE Stat Lab 04/11/21 13:55 Completed Medication Summary Discontinued Medications Generic Name Dose Route Start Last Admin Trade Name Freq PRN Reason Stop Dose Admin Morphine Sulfate 4 mg 04/11/21 13:55 04/11/21 14:43 Morphine Sulfate 4 Mg/Ml Injection IV 04/11/21 13:56 4 mg STAT ONE Administration Morphine Sulfate Confirm 04/11/21 14:41 Morphine Sulfate 4 Mg/Ml Injection Administered 04/11/21 14:42 Dose 4 mg .ROUTE .STK-MED ONE Ondansetron HCl 4 mg 04/11/21 13:55 04/11/21 14:42 Ondansetron Hcl 4 Mg/2 Ml Vial IV 04/11/21 13:56 4 mg STAT ONE Administration Ondansetron HCl Confirm 04/11/21 14:40 Ondansetron Hcl 4 Mg/2 Ml Vial Administered 04/11/21 14:41 Dose 4 mg .ROUTE .STK-MED ONE Lab/Rad Data: Laboratory Result Diagrams 04/11/21 14:00 04/11/21 14:00 Laboratory Results 04/11/21 04/11/21 04/11/21 Range/Units 14:00 14:00 13:55 WBC 5.7 (4.0-10.5) K/mm3 RBC 4.65 (4.1-5.4) M/mm3 Hgb 13.0 (12.0-16.0) gm/dl Hct 40.4 (35-47) % MCV 86.9 (78-100) fl MCH 28.0 (26-32) pg MCHC 32.2 (32-36) g/dl RDW 13.9 (11.5-14.0) % Plt Count 203 (150-450) K/mm3 MPV 9.6 (7.5-11.0) fl Gran % 60.8 (36.0-66.0) % Eos # (Auto) 0.14 (0-0.5) Absolute Lymphs (auto) 1.69 (1.0-4.6) Absolute Monos (auto) 0.36 (0.0-1.3) Lymphocytes % 29.9 (24.0-44.0) % Monocytes % 6.4 (0.0-12.0) % Eosinophils % 2.5 (0.00-5.0) % Basophils % 0.4 (0.0-0.4) % Absolute Granulocytes 3.44 (1.4-6.9) Basophils # 0.02 (0-0.4) Sodium 138 (137-145) mmol/L Potassium 3.9 (3.5-5.1) mmol/L Chloride 101 (98-107) mmol/L Carbon Dioxide 26 (22-30) mmol/L Anion Gap 15.0 (5-15) MEQ/L BUN 14 (7-17) mg/dL Creatinine 0.53 (0.52-1.04) mg/dL Estimated GFR > 60.0 ML/MIN Glucose 134 H (74-106) mg/dL Calcium 9.1 (8.4-10.2) mg/dL Total Bilirubin 0.40 (0.2-1.3) mg/dL AST 36 (14-36) U/L ALT 39 H (0-35) U/L Alkaline Phosphatase 67 (38-126) U/L Serum Total Protein 6.8 (6.3-8.2) g/dL Albumin 4.3 (3.5-5.0) g/dL Lipase 59 (23-300) U/L Urine Color (YELLOW) Urine Appearance (CLEAR) Urine pH (5-6) Ur Specific [place] (1.005-1.025) Urine Protein (Negative) Urine Ketones (NEGATIVE) Urine Blood (0-5) John/ul Urine Nitrite (NEGATIVE) Urine Bilirubin (NEGATIVE) Urine Urobilinogen (0-1) mg/dL Ur Leukocyte Esterase (NEGATIVE) Urine WBC (Auto) (0-5) /HPF Urine RBC (Auto) (0-2) /HPF U Epithel Cells (Auto) (FEW) /HPF Urine Mucus (Auto) (NEGATIVE) /HPF Urine Culture Reflexed (NO) Urine Glucose (NEGATIVE) mg/dL Urine HCG, Qual NEGATIVE (Negative) 04/11/21 Range/Units 13:55 WBC (4.0-10.5) K/mm3 RBC (4.1-5.4) M/mm3 Hgb (12.0-16.0) gm/dl Hct (35-47) % MCV (78-100) fl MCH (26-32) pg MCHC (32-36) g/dl RDW (11.5-14.0) % Plt Count (150-450) K/mm3 MPV (7.5-11.0) fl Gran % (36.0-66.0) % Eos # (Auto) (0-0.5) Absolute Lymphs (auto) (1.0-4.6) Absolute Monos (auto) (0.0-1.3) Lymphocytes % (24.0-44.0) % Monocytes % (0.0-12.0) % Eosinophils % (0.00-5.0) % Basophils % (0.0-0.4) % Absolute Granulocytes (1.4-6.9) Basophils # (0-0.4) Sodium (137-145) mmol/L Potassium (3.5-5.1) mmol/L Chloride (98-107) mmol/L Carbon Dioxide (22-30) mmol/L Anion Gap (5-15) MEQ/L BUN (7-17) mg/dL Creatinine (0.52-1.04) mg/dL Estimated GFR ML/MIN Glucose (74-106) mg/dL Calcium (8.4-10.2) mg/dL Total Bilirubin (0.2-1.3) mg/dL AST (14-36) U/L ALT (0-35) U/L Alkaline Phosphatase (38-126) U/L Serum Total Protein (6.3-8.2) g/dL Albumin (3.5-5.0) g/dL Lipase (23-300) U/L Urine Color YELLOW (YELLOW) Urine Appearance CLEAR (CLEAR) Urine pH 5.0 (5-6) Ur Specific [place] 1.013 (1.005-1.025) Urine Protein NEGATIVE (Negative) Urine Ketones NEGATIVE (NEGATIVE) Urine Blood NEGATIVE (0-5) John/ul Urine Nitrite NEGATIVE (NEGATIVE) Urine Bilirubin NEGATIVE (NEGATIVE) Urine Urobilinogen NEGATIVE (0-1) mg/dL Ur Leukocyte Esterase NEGATIVE (NEGATIVE) Urine WBC (Auto) 0-2 (0-5) /HPF Urine RBC (Auto) NONE (0-2) /HPF U Epithel Cells (Auto) RARE (FEW) /HPF Urine Mucus (Auto) SLIGHT (NEGATIVE) /HPF Urine Culture Reflexed NO (NO) Urine Glucose >=500 (NEGATIVE) mg/dL Urine HCG, Qual (Negative) - Progress Progress: improved Progress Note: 04/11/21 15:41 She received symptomatic treatment for pain, on reevaluation pain is improved. Acute abdomen work-up is negative including CT abdomen pelvis without contrast. Recommended Tylenol/ibuprofen and will give Zofran to take as needed. Outpatient follow-up recommended. Discussed signs symptoms of worsening needing return to ER which she seems understanding. Counseled pt/family regarding: lab results, diagnosis, need for follow-up, rad results - Departure Departure Disposition: Home Clinical Impression: Right flank pain Condition: Stable Critical Care Time: No Referrals: UGO NUÑEZ, [Primary Care Provider] - Follow up/PCP as directed (1-2 days for reevaluation) Instructions: Acute Abdomen (Belly Pain), Adult (DC) Additional Instructions: Take Tylenol/ibuprofen as needed for pain. Take Zofran as needed for nausea and vomiting. Drink plenty of fluids. Follow-up with primary care for reevaluation. Return to ER for intractable pain/vomiting/fever chills etc. Prescriptions: Ondansetron ODT 4 MG [Zofran Odt 4 mg] 1 ea PO QIDPRN PRN #7 tablet PRN Reason: n/v
[2021-04-11 14:04] LABS: Appearance CLEAR (CLEAR); Bilirubin NEGATIVE (NEGATIVE); Blood NEGATIVE Ery/ul (0-5); Epithelial Cells RARE /HPF (FEW); Glucose >=500 mg/dL (NEGATIVE); Ketones NEGATIVE (NEGATIVE); Leukocyte Esterase NEGATIVE (NEGATIVE); Mucus SLIGHT /HPF (NEGATIVE); Nitrite NEGATIVE (NEGATIVE); Protein,Urine Dip NEGATIVE (Negative); Specific Gravity 1.013 (1.005-1.025); Urobilinogen NEGATIVE mg/dL (0-1); WBC 0-2 /HPF (0-5)
[2021-04-11 14:21] LABS: Absolute Neutrophil Ct (ANC) 3.44 (1.4-6.9); Basophil (Absolute #) 0.02 (0-0.4); Eosinophil % 2.5 % (0.00-5.0); Eosinophil (Absolute #) 0.14 (0-0.5); Hematocrit 40.4 % (35-47); Lymphocyte (Absolute #) 1.69 (1.0-4.6); Lymphocytes % 29.9 % (24.0-44.0); Mean Cell Volume 86.9 fl (78-100); Mean Corpuscular Hgb Concent. 32.2 g/dl (32-36); Mean Platelet Volume 9.6 fl (7.5-11.0); Monocyte (Absolute #) 0.36 (0.0-1.3); Monocytes % 6.4 % (0.0-12.0); Neutrophil % 60.8 % (36.0-66.0); Platelet Count 203 K/mm3 (150-450); Red Blood Count 4.65 M/mm3 (4.1-5.4); Red Cell Distribution Width 13.9 % (11.5-14.0); White Blood Count 5.7 K/mm3 (4.0-10.5)
[2021-04-11 14:30] LABS: ALBUMIN 4.3 g/dL (3.5-5.0); ALKALINE PHOSPHATASE 67 U/L (38-126); BLOOD UREA NITROGEN 14 mg/dL (7-17); CHLORIDE 101 mmol/L (98-107); Calcium 9.1 mg/dL (8.4-10.2); Carbon Dioxide 26 mmol/L (22-30); Creatinine 1 0.53 mg/dL (0.52-1.04); EST GLOMERULAR FILTRATION RATE > 60.0 ML/MIN; Glucose 134 mg/dL (74-106); LIPASE 59 U/L (23-300); Potassium 3.9 mmol/L (3.5-5.1); SGOT/AST 36 U/L (14-36); SGPT/ALT 39 U/L (0-35); SODIUM 138 mmol/L (137-145); Total Protein 6.8 g/dL (6.3-8.2)
[2021-04-11] MEDS ORDERED: Zofran 4 MG/2 ML VIAL ONE (14:40)
[2021-04-11] MEDS ORDERED: MORPHINE SULFATE 4 MG INJ ONE (14:41)
[2021-04-11 15:05] VITALS: BP 117/67; PULSE 75
--- NOTE | 2021-04-11 15:18 | XRAY ---
Indication: Right flank pain. Multiple contiguous axial images obtained through the abdomen and pelvis without contrast using renal stone protocol. Prograf comparison: January 24, 2021. Lung bases remain clear. Heart not enlarged. No renal calculus or evidence for obstructive uropathy in either system. Noncontrasted stomach and bowel loops remain nonobstructed with normal appendix. Again 24 cm fatty of cardiomegaly, 13.5 cm splenomegaly, cholecystectomy, and hysterectomy. No free fluid/air. Remaining liver, pancreas, spleen, adrenal glands, kidneys, ureters, and bladder are unremarkable for noncontrast exam. Again minimal aortic calcifications without AAA. Osseous structures intact. Impression: 1. Continued negative renal calculus or evidence for obstructive uropathy. 2. Again fatty hepatomegaly and splenomegaly. 3. Remaining CT abdomen/pelvis without contrast exam is again negative.
[2021-04-11 15:42] VITALS: O2SAT 99
== END 2021-04-11 16:08 | disposition home or self-care (01) ==
LOC: ED 12:24
DX: R10.9 Unspecified abdominal pain (principal); R11.0 Nausea; E11.40 Type 2 diabetes mellitus with diabetic neuropathy, unspecified; Z79.4 Long term (current) use of insulin; I25.10 Atherosclerotic heart disease of native coronary artery without angina pectoris; K21.9 Gastro-esophageal reflux disease without esophagitis
CPT/HCPCS: 36000; 36415; 74176; 80053; 81001; 83690; 84703; 85025; 96374; 96375; 99284; J2270; J2405

== ENCOUNTER 2021-08-19 18:25 | Observation (INO) | payer OTHER ==
[2021-08-19] MEDS ORDERED: Sodium Chloride 0.9% 1000 ML 1,000 ML IV STA ×3 (18:34→21:55)
--- NOTE | 2021-08-19 18:34 | ERPHSYRPT ---
- History of Present Illness Time Seen by Provider: 08/19/21 18:34 Source: patient Exam Limitations: no limitations Physician History: This is a morbidly obese 41-year-old diabetic white female patient of Dr. Dillard who has multiple medical issues including coronary artery disease, hypertension, gastroesophageal reflux disease disease, and sleep apnea. Patient is seeing Dr. Flynn (podiatry) for right foot tendon issue which she has been taking prednisone 40 mg a day. Last week, Thursday through , the patient noticed nausea vomiting and diarrhea. That seemed to improve but then on the Thursday prior to this evaluation patient noticed that she was having fever, cough, shortness of breath, headache and body aches. On 08/18/2021, patient took a home COVID test which was positive. Patient's COVID-19 vaccination status is up-to-date with [facility] [employer] vaccination. Timing/Duration: week(s) (1) Cough Quality/Degree: mild, dry cough Possible Cause: occasional episodes Modifying Factors: Improves With: coughing Associated Symptoms: fever, cough, headache, muscle aches, sore throat Allergies/Adverse Reactions: metoprolol Allergy (Mild, Verified 02/25/21 17:17) Hives Home Medications: ALPRAZolam 0.5 MG [xanAX 0.5 MG] 0.5 mg PO QHS 09/04/18 [History] Aspirin 81 gm Chew [Baby Aspirin 81 mg Chew] 81 mg PO HS 09/04/18 [History] Nebivolol HCl 5 MG [Bystolic 5 MG] 5 mg PO HS 09/04/18 [History] Nitroglycerin 0.4 mg Tablet [Nitrostat 0.4 MG Tablet] 0.4 mg SL UD PRN 09/04/18 [History] PARoxetine HCL [Paroxetine HCl] 40 mg PO HS 09/04/18 [History] Insulin Glargine,Hum.rec.anlog [Basaglar [place]pen U-100] 32 unit SQ HS 09/12/18 [History] Omeprazole 40 mg PO HS 11/09/18 [History] Rosuvastatin Calcium [Crestor] 20 mg PO QHS 11/02/19 [History] Levocetirizine Dihydrochloride [Xyzal] 10 mg PO HS 01/31/20 [History] Losartan Potassium 50 mg PO QHS 03/06/20 [History] Fenofibrate 160 mg PO DAILY 02/25/21 [History] Pregabalin [Lyrica 100Mg] 100 mg PO HS 02/25/21 [History] Prednisone 20 mg [Deltasone 20 mg] 40 mg PO DAILY 08/19/21 [History] Ropinirole HCl 0.5 mg [Requip 0.5 MG] 0.5 mg PO DAILY 08/19/21 [History] Hx Tetanus, Diphtheria Vaccination/Date Given: Yes Hx Influenza Vaccination/Date Given: Yes Hx Pneumococcal Vaccination/Date Given: Yes Travel Risk - International Travel Have you traveled outside of the country in past 3 weeks: No - Coronavirus Screening Are you exhibiting any of the following symptoms?: Yes Symptoms: Fever, Cough: New Onset, Shortness of Breath, Vomiting/Diarrhea, Headaches/Body Aches/Fatigue Close contact with a COVID-19 positive Pt in past 14-21 Days: No - Vaccine Status Have you recieved a Covid-19 vaccination: 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[facility] [employer] - Vaccination Dates Date of 2cond Vaccination (if applicable): May 2020 - Review of Systems Constitutional: Fever, Weakness Eyes: No Symptoms Ears, Nose, & Throat: Throat Pain Respiratory: Cough, Dyspnea Cardiac: No Symptoms Abdominal/Gastrointestinal: Nausea, Vomiting, Diarrhea, No Abdominal Pain, No Constipation Genitourinary Symptoms: No Symptoms Musculoskeletal: Arthralgias, Myalgias Skin: No Symptoms Neurological: Headache Psychological: No Symptoms Endocrine: No Symptoms Hematologic/Lymphatic: No Symptoms Immunological/Allergic: No Symptoms All Other Systems: Reviewed and Negative - Past Medical History Pertinent Past Medical History: Yes Neurological History: Peripheral Neuropathy ENT History: No Pertinent History Cardiac History: Coronary Artery Disease, Other Respiratory History: Sleep Apnea, Other Endocrine Medical History: Diabetes Type II, Liver Disease Musculoskeletal History: Fractures GI Medical History: GERD, Gallbladder Disease, Irritable Bowel History: No Pertinent History Psycho-Social History: Anxiety, Other Female Reproductive Disorders: Fibroids Other Medical History: Pt has hx of desaturation but has not been dx with specific respiratoy illness. Sleep apnea and wears her CPAP. Athlerosclerosis. L LE fx 2 years ago - Past Surgical History Past Surgical History: Yes Neuro Surgical History: No Pertinent History Cardiac: Cardiac Catheterization, Other Respiratory: No Pertinent History Gastrointestinal: Cholecystectomy Genitourinary: No Pertinent History Musculoskeletal: Other Female Surgical History: Hysterectomy Other Surgical History: plantar fascitis surgery, rectal fistula repair, umbilical hernia repair and adhesion removal - Social History Smoking Status: Never smoker Exposure to second hand smoke: No Drug Use: none Patient Lives Alone: No Significant Family History: no pertinent family hx - Nursing Vital Signs Nursing Vital Signs: Initial Vital Signs Temperature 97.2 F 08/19/21 18:32 Pulse Rate 94 H 08/19/21 18:32 Respiratory Rate 24 08/19/21 18:32 Blood Pressure 179/91 08/19/21 18:32 O2 Sat by Pulse Oximetry 97 08/19/21 18:32 Pain Scale Pain Intensity 5 - Physical Exam General Appearance: no apparent distress, alert, anxiety, obese Eye Exam: PERRL/EOMI, eyes nml inspection Ears, Nose, Throat Exam: normal ENT inspection, moist mucous membranes Neck Exam: normal inspection, non-tender, supple, full range of motion Respiratory Exam: normal breath sounds, lungs clear, airway intact, No chest tenderness, No respiratory distress Cardiovascular Exam: regular rate/rhythm, normal heart sounds, normal peripheral pulses Gastrointestinal/Abdomen Exam: soft, normal bowel sounds, No tenderness Pelvic Exam: not done Rectal Exam: not done Back Exam: normal inspection, normal range of motion, No CVA tenderness, No vertebral tenderness Extremity Exam: normal range of motion, pelvis stable, other (Right walking boot in place) Neurologic Exam: alert, oriented x 3, cooperative, stencil maker II-XII nml as tested, normal mood/affect, nml cerebellar function Skin Exam: normal color, warm, dry Lymphatic Exam: No adenopathy SpO2 Interpretation: normal O2 Delivery: Room Air - Course Nursing assessment & vital signs reviewed: Yes Ordered Tests: Active Orders 24 hr Category Date Time Status EKG-ER Only STAT Care 08/19/21 18:34 Active IV Insertion STAT Care 08/19/21 18:34 Active Isolation, Initiate & Maintain STAT Care 08/19/21 18:34 Active Pulse Oximetry (ED) STAT Care 08/19/21 18:34 Active CHEST 1 VIEW (PORTABLE) Stat Exams 08/19/21 18:35 Taken BLOOD CULTURE Stat Lab 08/19/21 18:55 Received CBC W DIFF Stat Lab 08/19/21 18:50 Completed CMP Stat Lab 08/19/21 18:50 Completed D-DIMER QUANTITATIVE Stat Lab 08/19/21 21:06 Ordered Lactic Acid Stat Lab 08/19/21 19:00 Completed [place] Screen Stat Lab 08/19/21 18:50 Completed NT PRO BNP Stat Lab 08/19/21 21:06 Ordered POCT GLUCOSE Stat Lab 08/19/21 18:35 Completed POCT GLUCOSE Stat Lab 08/19/21 20:41 Completed UA W/RFX CULTURE Stat Lab 08/19/21 19:01 Completed Medication Summary Generic Name Dose Route Start Last Admin Trade Name Freq PRN Reason Stop Dose Admin Sodium Chloride 1,000 mls @ 999 mls/hr 08/19/21 20:14 08/19/21 20:38 Sodium Chloride 0.9% 1000 Ml IV 08/19/21 21:14 999 mls/hr .Q1H1M STA Administration Discontinued Medications Generic Name Dose Route Start Last Admin Trade Name Freq PRN Reason Stop Dose Admin Hydrocodone Bitart/Acetaminophen 10 ml 08/19/21 20:23 08/19/21 20:59 Hydrocodone/Acetaminophen 5 Ml Udcup PO 08/19/21 20:24 10 ml STAT STA Administration Enoxaparin Sodium 120 mg 08/19/21 21:06 Enoxaparin Sodium 120 Mg/0.8 Ml Syringe SQ 08/19/21 21:07 STAT STA Sodium Chloride 1,000 mls @ 999 mls/hr 08/19/21 18:34 08/19/21 19:15 Sodium Chloride 0.9% 1000 Ml IV 08/19/21 19:34 999 mls/hr .Q1H1M STA Administration Sodium Chloride Confirm 08/19/21 19:12 Sodium Chloride 0.9% 1000 Ml Administered 08/19/21 19:13 Dose 1,000 mls @ ud .ROUTE .STK-MED ONE Sodium Chloride Confirm 08/19/21 20:37 Sodium Chloride 0.9% 1000 Ml Administered 08/19/21 20:38 Dose 1,000 mls @ ud .ROUTE .STK-MED ONE Insulin Human Regular 15 unit 08/19/21 19:36 08/19/21 19:52 Insulin Regular, Human 1 Unit IV 08/19/21 19:37 15 unit STAT ONE Administration Insulin Human Regular Confirm 08/19/21 19:52 Insulin Regular, Human 1 Unit Administered 08/19/21 19:53 Dose 15 unit .ROUTE .[facility]-MED ONE Lab/Rad Data: Laboratory Result Diagrams 08/19/21 18:50 08/19/21 18:50 Laboratory Results 08/19/21 08/19/21 08/19/21 Range/Units 20:41 19:01 19:00 WBC (4.0-10.5) x10^3/uL RBC (4.1-5.4) x10^6/uL Hgb (12.0-16.0) g/dL Hct (35-47) % MCV (78-100) fL MCH (26-32) pg MCHC (32-36) g/dL RDW (11.5-14.0) % Plt Count (150-450) x10^3/uL MPV (7.5-11.0) fL Gran % (36.0-66.0) % Immature Gran % (Auto) (0.00-0.4) % Nucleat RBC Rel Count (0.00-0.1) % Eos # (Auto) (0-0.5) x10^3/uL Immature Gran # (Auto) (0.00-0.03) x10^3u/L Absolute Lymphs (auto) (1.0-4.6) x10^3/uL Absolute Monos (auto) (0.0-1.3) x10^3/uL Absolute Nucleated RBC (0.00-0.01) x10^3u/L Lymphocytes % (24.0-44.0) % Monocytes % (0.0-12.0) % Eosinophils % (0.00-5.0) % Basophils % (0.0-0.4) % Absolute Granulocytes (1.4-6.9) x10^3/uL Basophils # (0-0.4) x10^3/uL Sodium (137-145) mmol/L Potassium (3.5-5.1) mmol/L Chloride (98-107) mmol/L Carbon Dioxide (22-30) mmol/L Anion Gap (5-15) MEQ/L BUN (7-17) mg/dL Creatinine (0.52-1.04) mg/dL Estimated GFR ML/MIN Glucose (74-106) mg/dL POC Glucometer 367 H (50 to 500) mg/dL Lactic Acid 1.8 (0.4-2.0) Calcium (8.4-10.2) mg/dL Total Bilirubin (0.2-1.3) mg/dL AST (14-36) U/L ALT (0-35) U/L Alkaline Phosphatase (38-126) U/L Serum Total Protein (6.3-8.2) g/dL Albumin (3.5-5.0) g/dL Urinalys Dipstick Clnc MAIN LAB Urine Color YELLOW (YELLOW) Urine Appearance CLEAR (CLEAR) Urine pH 5.5 (5-6) Ur Specific [place] 1.015 (1.005-1.025) POC Urine Protein Conf NEGATIVE (Negative) Urine Ketones MODERATE-40 (NEGATIVE) Urine Nitrite NEGATIVE (NEGATIVE) Urine Bilirubin NEGATIVE (NEGATIVE) Urine Urobilinogen 0.2 (0-1) mg/dL Urine Leukocytes NEGATIVE (NEGATIVE) Urine WBC (Auto) NONE (0-5) /HPF Urine RBC (Auto) NONE (0-2) /HPF U Epithel Cells (Auto) NONE (FEW) /HPF Urine Bacteria (Auto) NONE (NEGATIVE) /HPF Urine RBC NEGATIVE (0-5) John/ul Ur Culture Indicated? NO Urine Glucose 500 (NEGATIVE) mg/dL Monoscreen (Negative) Influenza Type A Ag (NEGATIVE) Influenza Type B Ag (NEGATIVE) RSV (PCR) (Negative) SARS-CoV-2 (PCR) (NEGATIVE) Group A Strep Antibody (NEGATIVE) 08/19/21 08/19/21 08/19/21 Range/Units 18:55 18:55 18:50 WBC (4.0-10.5) x10^3/uL RBC (4.1-5.4) x10^6/uL Hgb (12.0-16.0) g/dL Hct (35-47) % MCV (78-100) fL MCH (26-32) pg MCHC (32-36) g/dL RDW (11.5-14.0) % Plt Count (150-450) x10^3/uL MPV (7.5-11.0) fL Gran % (36.0-66.0) % Immature Gran % (Auto) (0.00-0.4) % Nucleat RBC Rel Count (0.00-0.1) % Eos # (Auto) (0-0.5) x10^3/uL Immature Gran # (Auto) (0.00-0.03) x10^3u/L Absolute Lymphs (auto) (1.0-4.6) x10^3/uL Absolute Monos (auto) (0.0-1.3) x10^3/uL Absolute Nucleated RBC (0.00-0.01) x10^3u/L Lymphocytes % (24.0-44.0) % Monocytes % (0.0-12.0) % Eosinophils % (0.00-5.0) % Basophils % (0.0-0.4) % Absolute Granulocytes (1.4-6.9) x10^3/uL Basophils # (0-0.4) x10^3/uL Sodium (137-145) mmol/L Potassium (3.5-5.1) mmol/L Chloride (98-107) mmol/L Carbon Dioxide (22-30) mmol/L Anion Gap (5-15) MEQ/L BUN (7-17) mg/dL Creatinine (0.52-1.04) mg/dL Estimated GFR ML/MIN Glucose (74-106) mg/dL POC Glucometer (50 to 500) mg/dL Lactic Acid (0.4-2.0) Calcium (8.4-10.2) mg/dL Total Bilirubin (0.2-1.3) mg/dL AST (14-36) U/L ALT (0-35) U/L Alkaline Phosphatase (38-126) U/L Serum Total Protein (6.3-8.2) g/dL Albumin (3.5-5.0) g/dL Urinalys Dipstick Clnc Urine Color (YELLOW) Urine Appearance (CLEAR) Urine pH (5-6) Ur Specific [place] (1.005-1.025) POC Urine Protein Conf (Negative) Urine Ketones (NEGATIVE) Urine Nitrite (NEGATIVE) Urine Bilirubin (NEGATIVE) Urine Urobilinogen (0-1) mg/dL Urine Leukocytes (NEGATIVE) Urine WBC (Auto) (0-5) /HPF Urine RBC (Auto) (0-2) /HPF U Epithel Cells (Auto) (FEW) /HPF Urine Bacteria (Auto) (NEGATIVE) /HPF Urine RBC (0-5) John/ul Ur Culture Indicated? Urine Glucose (NEGATIVE) mg/dL Monoscreen NEGATIVE (Negative) Influenza Type A Ag NEGATIVE (NEGATIVE) Influenza Type B Ag NEGATIVE (NEGATIVE) RSV (PCR) NEGATIVE (Negative) SARS-CoV-2 (PCR) POSITIVE A (NEGATIVE) Group A Strep Antibody NOT DETECTED (NEGATIVE) 08/19/21 08/19/21 08/19/21 Range/Units 18:50 18:50 18:35 WBC 7.5 (4.0-10.5) x10^3/uL RBC 5.12 (4.1-5.4) x10^6/uL Hgb 14.1 (12.0-16.0) g/dL Hct 43.0 (35-47) % MCV 84.0 (78-100) fL MCH 27.5 (26-32) pg MCHC 32.8 (32-36) g/dL RDW 13.0 (11.5-14.0) % Plt Count 184 (150-450) x10^3/uL MPV 10.1 (7.5-11.0) fL Gran % 81.9 H (36.0-66.0) % Immature Gran % (Auto) 1.1 H (0.00-0.4) % Nucleat RBC Rel Count 0.0 (0.00-0.1) % Eos # (Auto) 0.01 (0-0.5) x10^3/uL Immature Gran # (Auto) 0.08 H (0.00-0.03) x10^3u/L Absolute Lymphs (auto) 0.97 L (1.0-4.6) x10^3/uL Absolute Monos (auto) 0.26 (0.0-1.3) x10^3/uL Absolute Nucleated RBC 0.00 (0.00-0.01) x10^3u/L Lymphocytes % 13.0 L (24.0-44.0) % Monocytes % 3.5 (0.0-12.0) % Eosinophils % 0.1 (0.00-5.0) % Basophils % 0.4 (0.0-0.4) % Absolute Granulocytes 6.14 (1.4-6.9) x10^3/uL Basophils # 0.03 (0-0.4) x10^3/uL Sodium 132 L (137-145) mmol/L Potassium 4.8 (3.5-5.1) mmol/L Chloride 93 L (98-107) mmol/L Carbon Dioxide 21 L (22-30) mmol/L Anion Gap 22.7 H (5-15) MEQ/L BUN 23 H (7-17) mg/dL Creatinine 1.10 H (0.52-1.04) mg/dL Estimated GFR 57.6 ML/MIN Glucose 560 H* (74-106) mg/dL POC Glucometer 566 H* (50 to 500) mg/dL Lactic Acid (0.4-2.0) Calcium 9.4 (8.4-10.2) mg/dL Total Bilirubin 0.60 (0.2-1.3) mg/dL AST 23 (14-36) U/L ALT 31 (0-35) U/L Alkaline Phosphatase 147 H (38-126) U/L Serum Total Protein 7.5 (6.3-8.2) g/dL Albumin 4.6 (3.5-5.0) g/dL Urinalys Dipstick Clnc Urine Color (YELLOW) Urine Appearance (CLEAR) Urine pH (5-6) Ur Specific [place] (1.005-1.025) POC Urine Protein Conf (Negative) Urine Ketones (NEGATIVE) Urine Nitrite (NEGATIVE) Urine Bilirubin (NEGATIVE) Urine Urobilinogen (0-1) mg/dL Urine Leukocytes (NEGATIVE) Urine WBC (Auto) (0-5) /HPF Urine RBC (Auto) (0-2) /HPF U Epithel Cells (Auto) (FEW) /HPF Urine Bacteria (Auto) (NEGATIVE) /HPF Urine RBC (0-5) John/ul Ur Culture Indicated? Urine Glucose (NEGATIVE) mg/dL Monoscreen (Negative) Influenza Type A Ag (NEGATIVE) Influenza Type B Ag (NEGATIVE) RSV (PCR) (Negative) SARS-CoV-2 (PCR) (NEGATIVE) Group A Strep Antibody (NEGATIVE) - Progress Progress: improved, re-examined Air Movement: good Progress Note: 08/19/21 21:02 Medical decision making: This patient has DKA and is positive COVID-19 infection. I spoke with Dr. Leon, the patient's primary care provider. We will provide the patient with the DKA protocol and includes IV hydration. We will also provide the patient with anticoagulation therapy treatment, remdesivir and repeat labs in the morning. Dr. Leon wants to have a D-dimer tonight and repeat in the morning as well as a basic natruretic peptide level drawn tonight and repeat in the morning. Blood Culture(s) Obtained: Yes Discussed with : Sujit Counseled pt/family regarding: lab results, diagnosis - Departure Departure Disposition: In-patient Admission Clinical Impression: DKA (diabetic ketoacidosis), COVID-19 virus infection Condition: Stable Critical Care Time: Yes Critical Care Time(excluding separately billable procedures): Critical 30-74 mins (40 minutes) Referrals: UGO DILLARD DO [Primary Care Provider] - Follow up/PCP as directed
[2021-08-19 19:02] LABS: Absolute Neutrophil Ct (ANC) 6.14 x10^3/uL (1.4-6.9); Basophil (Absolute #) 0.03 x10^3/uL (0-0.4); Eosinophil % 0.1 % (0.00-5.0); Eosinophil (Absolute #) 0.01 x10^3/uL (0-0.5); Hemoglobin 14.1 g/dL (12.0-16.0); Lymphocyte (Absolute #) 0.97 x10^3/uL (1.0-4.6); Mean Corpuscular Hemoglobin 27.5 pg (26-32); Mean Corpuscular Hgb Concent. 32.8 g/dL (32-36); Mean Platelet Volume 10.1 fL (7.5-11.0); Monocyte (Absolute #) 0.26 x10^3/uL (0.0-1.3); Monocytes % 3.5 % (0.0-12.0); Neutrophil % 81.9 % (36.0-66.0); Platelet Count 184 x10^3/uL (150-450); Red Blood Count 5.12 x10^6/uL (4.1-5.4); White Blood Count 7.5 x10^3/uL (4.0-10.5)
[2021-08-19] MEDS ORDERED: Sodium Chloride 0.9% 1000 ML 1,000 ML ONE ×2 (19:12→20:37)
[2021-08-19 19:16] LABS: ALBUMIN 4.6 g/dL (3.5-5.0); ANION GAP 22.7 MEQ/L (5-15); BILIRUBIN,TOTAL 0.6 mg/dL (0.2-1.3); Calcium 9.4 mg/dL (8.4-10.2); Creatinine 1 1.1 mg/dL (0.52-1.04); EST GLOMERULAR FILTRATION RATE 57.6 ML/MIN; Potassium 4.8 mmol/L (3.5-5.1); Total Protein 7.5 g/dL (6.3-8.2)
[2021-08-19 19:36] LABS: Appearance CLEAR (CLEAR); Bilirubin NEGATIVE (NEGATIVE); Dipstick done @ ? MAIN LAB; Glucose 500 mg/dL (NEGATIVE); Ketones MODERATE-40 (NEGATIVE); Nitrite NEGATIVE (NEGATIVE); Ph 5.5 (5-6); Protein,Urine Dip NEGATIVE (Negative); RBC NEGATIVE Ery/ul (0-5); Specific Gravity 1.015 (1.005-1.025); Urobilinogen 0.2 mg/dL (0-1)
[2021-08-19] MEDS ORDERED: HUMULIN R IV ONE (19:36)
[2021-08-19 19:39] LABS: INFLUENZA A NEGATIVE (NEGATIVE); INFLUENZA B NEGATIVE (NEGATIVE); RESPIRATORY SYNCTIAL VIRUS NEGATIVE (Negative)
[2021-08-19 19:41] LABS: Urine Cultured Indicated? NO
[2021-08-19] MEDS ORDERED: HUMULIN R ONE (19:52)
[2021-08-19 20:02] LABS: SARS-CoV-2 Xpert Express POSITIVE (NEGATIVE)
[2021-08-19] MEDS ORDERED: HYDROCODONE-ACETAMIN 2.5-108/5 ML SOLUTION PO STA (20:23)
[2021-08-19] MEDS ORDERED: ENOXAPARIN SODIUM SQ STA (21:06)
[2021-08-19] MEDS ORDERED: ENOXAPARIN SODIUM SQ ONE (21:09)
[2021-08-19] MEDS ORDERED: HYDROCODONE-CHLORPHEN ER SUSP PO PRN (21:34)
[2021-08-19] MEDS ORDERED: REMDESIVIR 200 MG in Sodium Chloride 0.9% 250 ML 250 ML IV ONE (21:34)
[2021-08-19] MEDS ORDERED: Zofran 4 MG/2 ML VIAL IV PRN (21:34)
[2021-08-19] MEDS ORDERED: Sodium Chloride 0.9% 250 ML 250 ML IV ONE (21:56)
[2021-08-19] MEDS ORDERED: REMDESIVIR IV ONE (21:56)
[2021-08-19] MEDS ORDERED: HUMULIN R SQ PRN (21:57)
[2021-08-19] MEDS: Sodium Chloride 0.9% 1000 ML 1,000 ML IV SCH (23:38)
[2021-08-19] MEDS: HUMALOG SQ PRN (23:45)
[2021-08-20] MEDS: NORCO 5/325 MG PO PRN ×2 (00:01→05:26)
[2021-08-20 01:16] LABS: ALBUMIN 3.7 g/dL (3.5-5.0); ALKALINE PHOSPHATASE 113 U/L (38-126); ANION GAP 17.3 MEQ/L (5-15); BLOOD UREA NITROGEN 18 mg/dL (7-17); CHLORIDE 101 mmol/L (98-107); Calcium 8.3 mg/dL (8.4-10.2); Carbon Dioxide 22 mmol/L (22-30); Creatinine 1 0.58 mg/dL (0.52-1.04); EST GLOMERULAR FILTRATION RATE > 60.0 ML/MIN; Glucose 328 mg/dL (74-106); MAGNESIUM 1.6 mg/dL (1.6-2.3); Potassium 4.2 mmol/L (3.5-5.1); SGOT/AST 18 U/L (14-36); SGPT/ALT 25 U/L (0-35); SODIUM 136 mmol/L (137-145); Total Protein 6.4 g/dL (6.3-8.2)
[2021-08-20] MEDS: HUMALOG SQ PRN ×5 (03:40→22:05)
[2021-08-20] MEDS ORDERED: Magnesium Sulfate 1 GM/2 ML VIAL IV ONE (04:00)
[2021-08-20] MEDS ORDERED: Magnesium 1 Gm / 100 Ml D5W*** 200 ML IV ONE (04:02)
[2021-08-20] MEDS: Magnesium 1 Gm / 100 Ml D5W*** 100 ML IV SCH ×2 (04:18→05:26)
[2021-08-20 05:15] LABS: Hematocrit 38.4 % (35-47); Hemoglobin 12.5 g/dL (12.0-16.0); Mean Corpuscular Hemoglobin 27.4 pg (26-32); Mean Corpuscular Hgb Concent. 32.6 g/dL (32-36); Mean Platelet Volume 9.9 fL (7.5-11.0); Platelet Count 175 x10^3/uL (150-450); Red Blood Count 4.57 x10^6/uL (4.1-5.4); Red Cell Distribution Width 13.2 % (11.5-14.0); White Blood Count 5.5 x10^3/uL (4.0-10.5)
[2021-08-20 05:55] LABS: ALBUMIN 3.7 g/dL (3.5-5.0); ALKALINE PHOSPHATASE 109 U/L (38-126); BLOOD UREA NITROGEN 17 mg/dL (7-17); CHLORIDE 102 mmol/L (98-107); Calcium 8.2 mg/dL (8.4-10.2); Carbon Dioxide 23 mmol/L (22-30); Creatinine 1 0.47 mg/dL (0.52-1.04); EST GLOMERULAR FILTRATION RATE > 60.0 ML/MIN; Glucose 296 mg/dL (74-106); MAGNESIUM 1.9 mg/dL (1.6-2.3); Potassium 4.1 mmol/L (3.5-5.1); SGOT/AST 17 U/L (14-36); SGPT/ALT 24 U/L (0-35); SODIUM 135 mmol/L (137-145); Total Protein 6.4 g/dL (6.3-8.2)
[2021-08-20] MEDS: ENOXAPARIN SODIUM SQ SCH ×3 (07:51→22:04)
[2021-08-20] MEDS: VENTOLIN COMMON CANISTER IH PRN ×2 (08:00→19:10)
--- NOTE | 2021-08-20 08:41 | XRAY ---
Indication: Fever and cough. Suspect Covid 19. Comparison: February 25, 2021. Portable chest remains clear. Heart and mediastinal structures within normal limits. Bony thorax intact. No new/acute findings.
[2021-08-20 08:53] LABS: ANION GAP 10.9 MEQ/L (5-15); BLOOD UREA NITROGEN 16 mg/dL (7-17); CHLORIDE 101 mmol/L (98-107); Calcium 8.6 mg/dL (8.4-10.2); Carbon Dioxide 30 mmol/L (22-30); Creatinine 1 0.49 mg/dL (0.52-1.04); EST GLOMERULAR FILTRATION RATE > 60.0 ML/MIN; Glucose 259 mg/dL (74-106); MAGNESIUM 1.9 mg/dL (1.6-2.3); Potassium 4.6 mmol/L (3.5-5.1); SODIUM 138 mmol/L (137-145)
[2021-08-20] MEDS ORDERED: NON-FORMULARY ITEM (Omeprazole [Omeprazole] 40 MG Capsule.Dr) PO SCH (10:00)
[2021-08-20] MEDS ORDERED: NON-FORMULARY ITEM (Fenofibrate [Fenofibrate] 160 MG Tablet) PO SCH (10:00)
[2021-08-20] MEDS ORDERED: NON-FORMULARY ITEM (Levocetirizine Dihydrochloride [Xyzal] 5 MG Tablet) PO SCH (10:00)
[2021-08-20] MEDS: DELTASONE 20 MG PO SCH (10:30)
[2021-08-20] MEDS: Protonix 40MG Tablet PO SCH (10:31)
[2021-08-20] MEDS: Requip 0.5 MG PO SCH (10:31)
[2021-08-20] MEDS: CLARITIN 10 MG PO SCH (10:32)
[2021-08-20] MEDS: Tricor 145 MG PO SCH (10:32)
[2021-08-20] MEDS: Robitussin 100 MG/5 ML PO SCH ×4 (10:35→22:04)
[2021-08-20] MEDS: TYLENOL EXTRA STRENGTH 500 MG PO PRN ×2 (10:40→22:28)
[2021-08-20] MEDS: Sodium Chloride 0.9% 1000 ML 1,000 ML IV SCH ×2 (12:18→23:45)
[2021-08-20 12:32] LABS: ANION GAP 15.8 MEQ/L (5-15); BLOOD UREA NITROGEN 16 mg/dL (7-17); CHLORIDE 101 mmol/L (98-107); Calcium 8.5 mg/dL (8.4-10.2); Carbon Dioxide 26 mmol/L (22-30); Creatinine 1 0.49 mg/dL (0.52-1.04); EST GLOMERULAR FILTRATION RATE > 60.0 ML/MIN; Glucose 358 mg/dL (74-106); MAGNESIUM 1.8 mg/dL (1.6-2.3); Potassium 4.6 mmol/L (3.5-5.1); SODIUM 138 mmol/L (137-145)
[2021-08-20 16:07] LABS: ANION GAP 18.5 MEQ/L (5-15); BLOOD UREA NITROGEN 16 mg/dL (7-17); CHLORIDE 98 mmol/L (98-107); Calcium 8.7 mg/dL (8.4-10.2); Carbon Dioxide 24 mmol/L (22-30); Creatinine 1 0.49 mg/dL (0.52-1.04); EST GLOMERULAR FILTRATION RATE > 60.0 ML/MIN; Glucose 391 mg/dL (74-106); MAGNESIUM 1.8 mg/dL (1.6-2.3); Potassium 4.5 mmol/L (3.5-5.1); SODIUM 136 mmol/L (137-145)
[2021-08-20 20:30] LABS: ANION GAP 20.2 MEQ/L (5-15); BLOOD UREA NITROGEN 16 mg/dL (7-17); CHLORIDE 99 mmol/L (98-107); Calcium 8.9 mg/dL (8.4-10.2); Carbon Dioxide 20 mmol/L (22-30); Creatinine 1 0.62 mg/dL (0.52-1.04); EST GLOMERULAR FILTRATION RATE > 60.0 ML/MIN; Glucose 337 mg/dL (74-106); MAGNESIUM 1.6 mg/dL (1.6-2.3); Potassium 4.6 mmol/L (3.5-5.1); SODIUM 134 mmol/L (137-145)
[2021-08-20] MEDS ORDERED: NON-FORMULARY ITEM (Insulin Glargine,Hum.Rec.Anlog [Basaglar Kwikpen U-100] 100 UNIT/ML In SQ SCH (22:00)
[2021-08-20] MEDS ORDERED: NON-FORMULARY ITEM (Losartan Potassium [Losartan Potassium] 25 MG Tablet) PO SCH (22:00)
[2021-08-20] MEDS ORDERED: NON-FORMULARY ITEM (Rosuvastatin Calcium [Crestor] 20 MG Tablet) PO SCH (22:00)
[2021-08-20] MEDS: Bystolic 5 MG PO SCH (22:04)
[2021-08-20] MEDS: ZOCOR 20MG PO SCH (22:04)
[2021-08-20] MEDS: LYRICA 100MG PO SCH (22:04)
[2021-08-20] MEDS: Lantus Insulin SQ SCH (22:05)
[2021-08-20] MEDS: Cozaar 50 MG PO SCH (22:05)
[2021-08-20] MEDS: xanAX 0.5 MG PO SCH (22:05)
[2021-08-20] MEDS: Paxil 20 MG PO SCH (22:05)
[2021-08-20] MEDS: REMDESIVIR 100 MG in Sodium Chloride 0.9% 100 ML IV SCH (22:09)
[2021-08-21 01:41] LABS: ANION GAP 18.1 MEQ/L (5-15); BLOOD UREA NITROGEN 15 mg/dL (7-17); CHLORIDE 100 mmol/L (98-107); Calcium 8.6 mg/dL (8.4-10.2); Carbon Dioxide 20 mmol/L (22-30); Creatinine 1 0.55 mg/dL (0.52-1.04); EST GLOMERULAR FILTRATION RATE > 60.0 ML/MIN; Glucose 286 mg/dL (74-106); Potassium 4.1 mmol/L (3.5-5.1); SODIUM 134 mmol/L (137-145)
[2021-08-21 05:16] LABS: Hematocrit 40.9 % (35-47); Hemoglobin 13.5 g/dL (12.0-16.0); Mean Cell Volume 83.8 fL (78-100); Mean Corpuscular Hemoglobin 27.7 pg (26-32); Mean Platelet Volume 10.1 fL (7.5-11.0); Platelet Count 184 x10^3/uL (150-450); Red Blood Count 4.88 x10^6/uL (4.1-5.4); Red Cell Distribution Width 13.2 % (11.5-14.0); White Blood Count 6.6 x10^3/uL (4.0-10.5)
[2021-08-21 05:34] LABS: ALBUMIN 3.7 g/dL (3.5-5.0); ALKALINE PHOSPHATASE 107 U/L (38-126); ANION GAP 15.9 MEQ/L (5-15); BLOOD UREA NITROGEN 14 mg/dL (7-17); CHLORIDE 99 mmol/L (98-107); Calcium 8.8 mg/dL (8.4-10.2); Carbon Dioxide 24 mmol/L (22-30); Creatinine 1 0.53 mg/dL (0.52-1.04); EST GLOMERULAR FILTRATION RATE > 60.0 ML/MIN; Glucose 292 mg/dL (74-106); Potassium 4.1 mmol/L (3.5-5.1); SGOT/AST 18 U/L (14-36); SGPT/ALT 25 U/L (0-35); SODIUM 134 mmol/L (137-145); Total Protein 6.3 g/dL (6.3-8.2)
[2021-08-21] MEDS: ENOXAPARIN SODIUM SQ SCH ×2 (08:07→21:52)
[2021-08-21] MEDS: Requip 0.5 MG PO SCH (08:08)
[2021-08-21] MEDS: DELTASONE 20 MG PO SCH (08:08)
[2021-08-21] MEDS: CLARITIN 10 MG PO SCH (08:08)
[2021-08-21] MEDS: HUMALOG SQ PRN ×4 (08:08→21:52)
[2021-08-21] MEDS: Protonix 40MG Tablet PO SCH (08:08)
[2021-08-21] MEDS: Tricor 145 MG PO SCH (08:08)
[2021-08-21] MEDS: Robitussin 100 MG/5 ML PO SCH ×4 (08:09→21:53)
[2021-08-21 08:55] LABS: ANION GAP 17.5 MEQ/L (5-15); BLOOD UREA NITROGEN 15 mg/dL (7-17); CHLORIDE 100 mmol/L (98-107); Calcium 8.6 mg/dL (8.4-10.2); Carbon Dioxide 24 mmol/L (22-30); Creatinine 1 0.43 mg/dL (0.52-1.04); EST GLOMERULAR FILTRATION RATE > 60.0 ML/MIN; Glucose 345 mg/dL (74-106); Potassium 4.3 mmol/L (3.5-5.1); SODIUM 137 mmol/L (137-145)
--- NOTE | 2021-08-21 09:26 | XRAY ---
Exam: AP upright portable chest film from 08/21/2021. Comparison: AP upright portable chest film from 08/19/2021. Indication: Covid-19 positive. Findings: The patient is mildly rotated toward the right. EKG leads are seen in place. The heart size is slightly prominent, but this is likely due to inherent magnification on this AP portable technique. The jonah and mediastinal structures appear unremarkable. There is a tiny nodular density at the left lung base which could possibly represent a tiny noncalcified nodule seen on image #[address] study of the chest dated 07/09/2021. No calcified granuloma is seen in this projection on the recent CT study. There are no infiltrates, pulmonary vascular congestion, pneumothorax, or pleural fluid. No acute osseous process is seen. Impression: 1. No acute cardiopulmonary disease is seen. Specifically, I see no air space infiltrates or definite interstitial inflammatory changes. See above.
[2021-08-21] MEDS ORDERED: Nitrostat 0.4 MG Tablet SL PRN (12:43)
[2021-08-21] MEDS: Sodium Chloride 0.9% 1000 ML 1,000 ML IV SCH (14:43)
[2021-08-21] MEDS: Ativan 1 MG PO PRN (14:43)
--- NOTE | 2021-08-21 15:48 | XRAY ---
Exam: Two-view right knee series from 08/21/2021. Comparison: 3 view right knee series from 02/19/2021. Indication: 41-year-old female with fall onto left knee; however, complains of pain within right knee and right foot. Findings: AP and lateral radiographs of the right knee were obtained. No acute fracture or dislocation is seen. No definite suprapatellar effusion is noted. Both the femoral tibial joint and patellofemoral joint appear fairly well-preserved. There is some minimal osteophyte formation at the medial margin of the distal right femur. Impression: 1. No acute fracture, dislocation, or joint effusion of the right knee is seen.
--- NOTE | 2021-08-21 16:46 | XRAY ---
Exam: Two-view right foot series. Comparison: 3 view right foot series from 04/16/2020. Indication: Right foot pain. Findings: AP and lateral radiographs of the right foot were obtained. No acute fracture or dislocation is seen. I again see a small ossification adjacent to the distal tip of the medial malleolus which probably represents either a remote avulsion fracture injury or developmental ossification(s). Again, no change is seen. A moderate-sized plantar right calcaneal spur is again seen. There is some minimal posterior calcaneal spurring representing no change. The remainder of the joint spaces appears unremarkable. Impression: 1. No acute right foot fracture or dislocation. 2. Incidental findings, as discussed above.
--- NOTE | 2021-08-21 16:50 | XRAY ---
Exam: Two-view left knee series from 08/21/2021. Comparison: None of the left knee. Indication: 41-year-old female fell and bumped left knee; erythema. Findings: AP and 2 lateral films of the left knee were obtained. I see no acute fracture or dislocation. No suprapatellar joint effusion is seen. Minimal spurring is seen at the superior anterior surface of the left patella. The patellofemoral joint space appears unremarkable. The femoral tibial joint appears essentially unremarkable. No abnormal periarticular soft tissue calcifications are seen. Impression: 1. No acute left knee fracture, dislocation, or suprapatellar joint effusion is seen.
[2021-08-21] MEDS: REMDESIVIR 100 MG in Sodium Chloride 0.9% 100 ML IV SCH (21:52)
[2021-08-21] MEDS: Lantus Insulin SQ SCH (21:52)
[2021-08-21] MEDS: Bystolic 5 MG PO SCH (21:53)
[2021-08-21] MEDS: xanAX 0.5 MG PO SCH (21:53)
[2021-08-21] MEDS: LYRICA 100MG PO SCH (21:53)
[2021-08-21] MEDS: Paxil 20 MG PO SCH (21:53)
[2021-08-21] MEDS: ZOCOR 20MG PO SCH (21:53)
[2021-08-21] MEDS: Cozaar 50 MG PO SCH (21:53)
[2021-08-22 05:19] LABS: Hematocrit 39.4 % (35-47); Mean Cell Volume 82.9 fL (78-100); Mean Corpuscular Hemoglobin 27.4 pg (26-32); Platelet Count 181 x10^3/uL (150-450); Red Blood Count 4.75 x10^6/uL (4.1-5.4); Red Cell Distribution Width 13.2 % (11.5-14.0); White Blood Count 6.4 x10^3/uL (4.0-10.5)
[2021-08-22 05:35] LABS: ALBUMIN 3.7 g/dL (3.5-5.0); ALKALINE PHOSPHATASE 90 U/L (38-126); ANION GAP 14.2 MEQ/L (5-15); BLOOD UREA NITROGEN 15 mg/dL (7-17); CHLORIDE 97 mmol/L (98-107); Calcium 8.5 mg/dL (8.4-10.2); Carbon Dioxide 29 mmol/L (22-30); Creatinine 1 0.49 mg/dL (0.52-1.04); EST GLOMERULAR FILTRATION RATE > 60.0 ML/MIN; Glucose 271 mg/dL (74-106); Potassium 3.6 mmol/L (3.5-5.1); SGOT/AST 16 U/L (14-36); SGPT/ALT 22 U/L (0-35); SODIUM 137 mmol/L (137-145); Total Protein 6.2 g/dL (6.3-8.2)
[2021-08-22] MEDS: Sodium Chloride 0.9% 1000 ML 1,000 ML IV SCH (06:10)
[2021-08-22] MEDS: HUMALOG SQ PRN ×2 (08:09→12:03)
[2021-08-22] MEDS ORDERED: DELTASONE 10 MG PO SCH (10:00)
[2021-08-22] MEDS: ENOXAPARIN SODIUM SQ SCH (10:11)
[2021-08-22] MEDS: Requip 0.5 MG PO SCH (10:11)
[2021-08-22] MEDS: DELTASONE 20 MG PO SCH (10:11)
[2021-08-22] MEDS: CLARITIN 10 MG PO SCH (10:11)
[2021-08-22] MEDS: Tricor 145 MG PO SCH (10:11)
[2021-08-22] MEDS: Protonix 40MG Tablet PO SCH (10:12)
[2021-08-22] MEDS: Robitussin 100 MG/5 ML PO SCH ×2 (10:12→13:24)
[2021-08-22] MEDS: Ativan 1 MG PO PRN (11:19)
[2021-08-22] MEDS ORDERED: GI COCKTAIL 45 ML (Maalox/Lidocaine) PO ONE (11:23)
[2021-08-22 11:26] VITALS: BP 110/53; PULSE 81; O2SAT 100
--- NOTE | 2021-08-22 12:33 | PCM.DCORD ---
- Discharge Disposition: Home, Self-Care Condition: Stable Prescriptions: New Sucralfate 1 gm [Carafate 1 GM] 1 g PO ACHS 10 Days #40 tablet Fluconazole [Diflucan ] 150 mg PO DAILY #3 tablet Continue PARoxetine HCL [Paroxetine HCl] 40 mg PO HS Nitroglycerin 0.4 mg Tablet [Nitrostat 0.4 MG Tablet] 0.4 mg SL UD PRN PRN Reason: Pain Nebivolol HCl 5 MG [Bystolic 5 MG] 5 mg PO HS ALPRAZolam 0.5 MG [xanAX 0.5 MG] 0.5 mg PO QHS Insulin Glargine,Hum.rec.anlog [Basaglar Kwikpen U-100] 32 unit SQ HS Omeprazole 40 mg PO DAILY Rosuvastatin Calcium [Crestor] 20 mg PO QHS Levocetirizine Dihydrochloride [Xyzal] 10 mg PO DAILY Losartan Potassium 50 mg PO QHS Insulin Lispro [Humalog Kwikpen U-100] 30 units SQ AC #0 Fenofibrate 160 mg PO DAILY Pregabalin [Lyrica 100Mg] 100 mg PO HS Ondansetron ODT 4 MG [Zofran Odt 4 mg] 1 ea PO QIDPRN PRN #7 tablet PRN Reason: n/v Ropinirole HCl 0.5 mg [Requip 0.5 MG] 0.5 mg PO DAILY Changed Prednisone 20 mg [Deltasone 20 mg] 10 mg PO DAILY #30 Additional Instructions: schedule an outpatient lexiscan with [facility] upon discharge with respiratory dept. Follow up with: UGO NUÑEZ DO [Primary Care Provider] -
--- NOTE | 2021-08-22 12:52 | PCM.DS ---
Discharge Summary Date of Admission: 08/19/21 21:33 Date of Discharge: 08/22/2021 Admitting Physician: UGO NUÑEZ DO Primary Care Provider: UGO NUÑEZ DO Allergies Allergies metoprolol Allergy (Mild, Verified 02/25/21 17:17) [facility] Summary - Hospital Course Hospital Course: Patient tested positive for Covid at home and sugars > 500,very weak . ER verified Covid and DKA. Patient was admitted to [facility] for tx DKA protocol and IV Remdisivir and hydration. Patient did not have respiratory symptoms but body aches and chilling. D-dimer was not elevated. Patient gradually improved enough to be discharged but sugars still in the 200s . Will follow with her [employer],is on a sliding scale. Prednisone will be tappered to 10mg then 5mg. Patient fell yesterday while showering without head trauma but c/o left knee pain and right foot bruise . Xray left knee without acute findings.Right foot has previous injury and ptn will see Ortho but continue in her boot. She will RTW Thursday if no set backs. - Vitals & Intake/Output Vital Signs: Vital Signs Temperature 96.7 F 08/22/21 11:25 Pulse Rate 81 08/22/21 11:25 Respiratory Rate 20 08/22/21 11:29 Blood Pressure 110/53 08/22/21 11:25 O2 Sat by Pulse Oximetry 100 08/22/21 11:25 Intake & Output: Intake & Output 08/20/21 08/21/21 08/22/21 08/23/21 11:59 11:59 11:59 11:59 Intake Total 2568 4229 3913 Output Total 1700 1700 Balance 868 2529 3913 Weight 153.1 kg 151.5 kg - Lab Result Diagrams: 08/22/21 04:50 08/22/21 04:50 Lab Results-Last 24 Hrs: Lab Results-Last 24 Hours 08/21/21 08/21/21 08/21/21 Range/Units 13:00 16:33 16:45 WBC (4.0-10.5) x10^3/uL RBC (4.1-5.4) x10^6/uL Hgb (12.0-16.0) g/dL Hct (35-47) % MCV (78-100) fL MCH (26-32) pg MCHC (32-36) g/dL RDW (11.5-14.0) % Plt Count (150-450) x10^3/uL MPV (7.5-11.0) fL D-Dimer (0.0-0.50) mg/L Sodium (137-145) mmol/L Potassium (3.5-5.1) mmol/L Chloride (98-107) mmol/L Carbon Dioxide (22-30) mmol/L Anion Gap (5-15) MEQ/L BUN (7-17) mg/dL Creatinine (0.52-1.04) mg/dL Estimated GFR ML/MIN Glucose (74-106) mg/dL POC Glucometer 350 H (74 to 106) mg/dL Calcium (8.4-10.2) mg/dL Total Bilirubin (0.2-1.3) mg/dL AST (14-36) U/L ALT (0-35) U/L Alkaline Phosphatase (38-126) U/L Troponin I < 0.012 < 0.012 (0.000-0.034) ng/mL Serum Total Protein (6.3-8.2) g/dL Albumin (3.5-5.0) g/dL 08/21/21 08/21/21 08/22/21 Range/Units 19:45 20:50 04:50 WBC 6.4 (4.0-10.5) x10^3/uL RBC 4.75 (4.1-5.4) x10^6/uL Hgb 13.0 (12.0-16.0) g/dL Hct 39.4 (35-47) % MCV 82.9 (78-100) fL MCH 27.4 (26-32) pg MCHC 33.0 (32-36) g/dL RDW 13.2 (11.5-14.0) % Plt Count 181 (150-450) x10^3/uL MPV 10.0 (7.5-11.0) fL D-Dimer (0.0-0.50) mg/L Sodium (137-145) mmol/L Potassium (3.5-5.1) mmol/L Chloride (98-107) mmol/L Carbon Dioxide (22-30) mmol/L Anion Gap (5-15) MEQ/L BUN (7-17) mg/dL Creatinine (0.52-1.04) mg/dL Estimated GFR ML/MIN Glucose (74-106) mg/dL POC Glucometer 397 H (74 to 106) mg/dL Calcium (8.4-10.2) mg/dL Total Bilirubin (0.2-1.3) mg/dL AST (14-36) U/L ALT (0-35) U/L Alkaline Phosphatase (38-126) U/L Troponin I < 0.012 (0.000-0.034) ng/mL Serum Total Protein (6.3-8.2) g/dL Albumin (3.5-5.0) g/dL 08/22/21 08/22/21 08/22/21 Range/Units 04:50 04:50 07:15 WBC (4.0-10.5) x10^3/uL RBC (4.1-5.4) x10^6/uL Hgb (12.0-16.0) g/dL Hct (35-47) % MCV (78-100) fL MCH (26-32) pg MCHC (32-36) g/dL RDW (11.5-14.0) % Plt Count (150-450) x10^3/uL MPV (7.5-11.0) fL D-Dimer < 0.19 (0.0-0.50) mg/L Sodium 137 (137-145) mmol/L Potassium 3.6 (3.5-5.1) mmol/L Chloride 97 L (98-107) mmol/L Carbon Dioxide 29 (22-30) mmol/L Anion Gap 14.2 (5-15) MEQ/L BUN 15 (7-17) mg/dL Creatinine 0.49 L (0.52-1.04) mg/dL Estimated GFR > 60.0 ML/MIN Glucose 271 H (74-106) mg/dL POC Glucometer 253 H (74 to 106) mg/dL Calcium 8.5 (8.4-10.2) mg/dL Total Bilirubin 0.50 (0.2-1.3) mg/dL AST 16 (14-36) U/L ALT 22 (0-35) U/L Alkaline Phosphatase 90 (38-126) U/L Troponin I (0.000-0.034) ng/mL Serum Total Protein 6.2 L (6.3-8.2) g/dL Albumin 3.7 (3.5-5.0) g/dL 08/22/21 Range/Units 11:15 WBC (4.0-10.5) x10^3/uL RBC (4.1-5.4) x10^6/uL Hgb (12.0-16.0) g/dL Hct (35-47) % MCV (78-100) fL MCH (26-32) pg MCHC (32-36) g/dL RDW (11.5-14.0) % Plt Count (150-450) x10^3/uL MPV (7.5-11.0) fL D-Dimer (0.0-0.50) mg/L Sodium (137-145) mmol/L Potassium (3.5-5.1) mmol/L Chloride (98-107) mmol/L Carbon Dioxide (22-30) mmol/L Anion Gap (5-15) MEQ/L BUN (7-17) mg/dL Creatinine (0.52-1.04) mg/dL Estimated GFR ML/MIN Glucose (74-106) mg/dL POC Glucometer 302 H (74 to 106) mg/dL Calcium (8.4-10.2) mg/dL Total Bilirubin (0.2-1.3) mg/dL AST (14-36) U/L ALT (0-35) U/L Alkaline Phosphatase (38-126) U/L Troponin I (0.000-0.034) ng/mL Serum Total Protein (6.3-8.2) g/dL Albumin (3.5-5.0) g/dL Micro Results-Entire Visit: Microbiology 08/19/21 18:55 Blood Culture - Preliminary Blood NO GROWTH TO DATE 08/19/21 18:50 Blood Culture - Preliminary Blood NO GROWTH TO DATE Accuchecks Date 08/22/21 Date 08/22/21 Date 08/21/21 Date 08/21/21 Date 08/21/21 Time 11:23 Time 07:30 Time 21:03 - Radiology Exams Ordered Rad Exams-Entire Visit: Radiology Procedures Category Date Time Status CHEST 1 VIEW (PORTABLE) Routine Exams 08/21/21 08:00 Completed FOOT (2 VIEWS) Routine Exams 08/21/21 15:08 Completed KNEE (1 OR 2 VIEW) Routine Exams 08/21/21 15:49 Completed KNEE (1 OR 2 VIEW) Urgent Exams 08/21/21 16:01 Completed - Procedures and Test Procedures and Tests throughout Hospitalization: Therapy Orders & Screens 08/20/21 00:54 BiPap/CPAP ROUTINE Comment: per home use Diagnosis: DKA 08/20/21 08:02 Respiratory Therapy Assessment DAILY Comment: Diagnosis: DKA Discharge Exam General Appearance: no apparent distress Neurologic Exam: alert, oriented x 3, cooperative, normal mood/affect Eye Exam: eyes nml inspection Ears, Nose, Throat Exam: normal ENT inspection Neck Exam: normal inspection Respiratory Exam: normal breath sounds Cardiovascular Exam: regular rate/rhythm Gastrointestinal/Abdomen Exam: soft (nontender) Extremity Exam: other (left knee -skin intact ,stable not red or hot right foot- skin intact, quarter sized contusion dorsolaterally minimal soft tissue swelling,FROM) Skin Exam: jaundice Final Diagnosis/Problem List - Final Discharge Diagnosis/Problem (1) COVID-19 virus infection Current Visit: Yes Status: Acute Assessment & Plan: improved ,stable respiratory status Code(s): U07.1 - COVID-19 (2) DKA (diabetic ketoacidosis) Current Visit: Yes Status: Resolved Assessment & Plan: hyperglycemia to follow with [employer] and continue home insulin with sliding scale Code(s): E11.10 - TYPE 2 DIABETES MELLITUS WITH KETOACIDOSIS WITHOUT COMA (3) Atypical chest pain Current Visit: Yes Status: Resolved Assessment & Plan: suspect esophagitis possible tatiana esophagitis ,has been on steroids for tendonitis right foot and Covid.Started Carafate and Diflucan Code(s): R07.89 - OTHER CHEST PAIN (4) CAD (coronary artery disease) Current Visit: No Status: Chronic Assessment & Plan: Troponins and EKGs normal ,repeats during chest pain also normal Code(s): I25.10 - ATHSCL HEART DISEASE OF [place] CORONARY ARTERY W/O ANG PCTRS - Discharge Disposition: Home, Self-Care Condition: Stable Prescriptions: New Sucralfate 1 gm [Carafate 1 GM] 1 g PO ACHS 10 Days #40 tablet Fluconazole [Diflucan ] 150 mg PO DAILY #3 tablet Continue PARoxetine HCL [Paroxetine HCl] 40 mg PO HS Nitroglycerin 0.4 mg Tablet [Nitrostat 0.4 MG Tablet] 0.4 mg SL UD PRN PRN Reason: Pain Nebivolol HCl 5 MG [Bystolic 5 MG] 5 mg PO HS ALPRAZolam 0.5 MG [xanAX 0.5 MG] 0.5 mg PO QHS Insulin Glargine,Hum.rec.anlog [Basaglar Kwikpen U-100] 32 unit SQ HS Omeprazole 40 mg PO DAILY Rosuvastatin Calcium [Crestor] 20 mg PO QHS Levocetirizine Dihydrochloride [Xyzal] 10 mg PO DAILY Losartan Potassium 50 mg PO QHS Insulin Lispro [Humalog Kwikpen U-100] 30 units SQ AC #0 Fenofibrate 160 mg PO DAILY Pregabalin [Lyrica 100Mg] 100 mg PO HS Ondansetron ODT 4 MG [Zofran Odt 4 mg] 1 ea PO QIDPRN PRN #7 tablet PRN Reason: n/v Ropinirole HCl 0.5 mg [Requip 0.5 MG] 0.5 mg PO DAILY Changed Prednisone 20 mg [Deltasone 20 mg] 10 mg PO DAILY #30 Additional Instructions: [facility] upon discharge with respiratory dept. Follow up with: UGO NUÑEZ DO [Primary Care Provider] -
[2021-08-24] MEDS ORDERED: DELTASONE 5 MG PO SCH (10:00)
== END 2021-08-22 14:00 | disposition home or self-care (01) ==
LOC: ED 18:25 → MED SURG 21:33
PROVIDERS: ADMIT Family Medicine; ATTEND Family Medicine
DX: U07.1 COVID-19 (principal); E11.10 Type 2 diabetes mellitus with ketoacidosis without coma; R07.89 Other chest pain; I25.10 Atherosclerotic heart disease of native coronary artery without angina pectoris; M25.562 Pain in left knee; M79.671 Pain in right foot; W18.30XA Fall on same level, unspecified, initial encounter; Z79.899 Other long term (current) drug therapy; Z20.828 Contact with and (suspected) exposure to other viral communicable diseases; Z79.01 Long term (current) use of anticoagulants
CPT/HCPCS: 0241U; 36000; 36415; 71045; 73560; 73620; 80048; 80053; 81015; 82947; 83036; 83605; 83735; 83880; 84484; 85025; 85027; 85379; 86308; 87040; 87651; 93005; 93268; 94640; 94660; 94760; 94762; 96360; 96361; 96372; 96374; 96376; 99284; 99291; G0378; J0248; J1650; J1815; J1817; J3475; A9270-GY

== ENCOUNTER 2022-06-17 20:59 | Emergency (ER) | payer BC ==
[2022-06-17] MEDS ORDERED: Sodium Chloride 0.9% 1000 ML 1,000 ML IV STA ×2 (21:27→22:45)
[2022-06-17] MEDS ORDERED: HUMULIN R IV ONE (21:28)
[2022-06-17] MEDS ORDERED: HUMULIN R SQ ONE (21:28)
[2022-06-17] MEDS ORDERED: HUMULIN R ONE (21:41)
[2022-06-17] MEDS ORDERED: Sodium Chloride 0.9% 1000 ML 1,000 ML ONE ×2 (21:41→22:52)
[2022-06-17 21:49] LABS: Absolute Neutrophil Ct (ANC) 2.97 x10^3/uL (1.4-6.9); BASOPHIL % 0.7 % (0.0-0.4); Basophil (Absolute #) 0.04 x10^3/uL (0-0.4); Eosinophil % 4.7 % (0.00-5.0); Eosinophil (Absolute #) 0.27 x10^3/uL (0-0.5); Hematocrit 39.3 % (35-47); Hemoglobin 13.4 g/dL (12.0-16.0); IMMATURE GRAN # 0.04 x10^3u/L (0.00-0.03); IMMATURE GRAN % 0.7 % (0.00-0.4); Lymphocyte (Absolute #) 2.14 x10^3/uL (1.0-4.6); Lymphocytes % 37.1 % (24.0-44.0); Mean Corpuscular Hemoglobin 28.6 pg (26-32); Mean Corpuscular Hgb Concent. 34.1 g/dL (32-36); Monocyte (Absolute #) 0.31 x10^3/uL (0.0-1.3); Monocytes % 5.4 % (0.0-12.0); Neutrophil % 51.4 % (36.0-66.0); Platelet Count 188 x10^3/uL (150-450); Red Blood Count 4.68 x10^6/uL (4.1-5.4); Red Cell Distribution Width 12.5 % (11.5-14.0); White Blood Count 5.8 x10^3/uL (4.0-10.5)
[2022-06-17 21:56] LABS: ADD URINE CULTURE? NO (NO); Appearance Clear (Clear); Bacteria None Seen /HPF (None Seen); Bilirubin Negative (Negative); Blood Negative (Negative); Epithelial Cells None Seen /HPF (None Seen); Glucose, Urine >=1000 mg/dL (Negative); Hyaline Casts NONE SEEN /LPF (0-2); Ketones 15 (Negative); Leukocyte Esterase Negative (Negative); Nitrite Negative (Negative); Ph 6.5 (4.6-8.0); Protein,Urine Dip Negative (Negative); RBC 0-2 /HPF (0-5); Specific Gravity >=1.030 (1.005-1.030); Urobilinogen 0.2 mg/dL (0.2)
[2022-06-17 22:01] LABS: ALBUMIN 4.4 g/dL (3.5-5.0); ALKALINE PHOSPHATASE 180 U/L (38-126); ANION GAP 20.4 MEQ/L (5-15); BLOOD UREA NITROGEN 15 mg/dL (7-17); CHLORIDE 93 mmol/L (98-107); Calcium 8.9 mg/dL (8.4-10.2); Carbon Dioxide 25 mmol/L (22-30); Creatinine 1 0.45 mg/dL (0.52-1.04); EST GLOMERULAR FILTRATION RATE > 60.0 ML/MIN; Potassium 4.1 mmol/L (3.5-5.1); SGOT/AST 23 U/L (14-36); SGPT/ALT 28 U/L (0-35); SODIUM 134 mmol/L (137-145); Total Protein 7.3 g/dL (6.3-8.2)
[2022-06-17 22:08] LABS: Glucose 583 mg/dL (74-106)
--- NOTE | 2022-06-17 22:41 | ERPHSYRPT ---
- History of Present Illness Source: patient Exam Limitations: no limitations Patient Subjective Stated Complaint: high blood sugar, chest discomfort/palpitations Triage Nursing Assessment: pt ambulated into ER without diff. Pt alert and oriented x4, pleasant and cooperative. Pt c/o hyperglycemia, been in the 500's most of the day even after taking her insulin. BS here was 595. Pt c/o "my heart rate being fast and I can feel it in my mouth/palpitations". Pt c/o mi dsternal aching that radiates to her shoulder blades that is intermittent since yesterday. Lungs clear, heart tones reg, abd obese with active bs x4 quad, nontender on palpation. Physician History: 41 yo WF w h/o DM/HTN/Hyperlipidemia/PE/CAD presents w hyperglycemia x 2 days. Pt also has mid-sternal chest tightness and palpitations. She denies dyspnea/N/V/D/cough/coryza/melena/hematochezia/fever. Pt saw Dr. Dillard today for a breast mass. Timing/Duration: day(s) (2 days) Severity: moderate Modifying Factors: Improves With: nothing Associated Symptoms: chest pain Allergies/Adverse Reactions: metoprolol Allergy (Mild, Verified 06/17/22 21:37) Hives Home Medications: ALPRAZolam 0.5 MG [xanAX 0.5 MG] 1 mg PO QHS 09/04/18 [History] Nebivolol HCl 5 MG [Bystolic 5 MG] 5 mg PO HS 09/04/18 [History] Nitroglycerin 0.4 mg Tablet [Nitrostat 0.4 MG Tablet] 0.4 mg SL UD PRN 09/04/18 [History] PARoxetine HCL [Paroxetine HCl] 40 mg PO HS 09/04/18 [History] Insulin Glargine,Hum.rec.anlog [Basaglar [place] U-100] 32 unit SQ DAILY 09/12/18 [History] Omeprazole 40 mg PO HS 11/09/18 [History] Rosuvastatin Calcium [Crestor] 20 mg PO QHS 11/02/19 [History] Levocetirizine Dihydrochloride [Xyzal] 10 mg PO HS 01/31/20 [History] Losartan Potassium 50 mg PO QHS 03/06/20 [History] Fenofibrate 160 mg PO HS 02/25/21 [History] Pregabalin [Lyrica 100Mg] 100 mg PO HS 02/25/21 [History] Dulaglutide [Trulicity] 0.75 mg SQ WEEKLY 06/17/22 [History] Insulin Lispro [Humalog Kwikpen U-200] 25 units SQ TID 06/17/22 [History] Hx Tetanus, Diphtheria Vaccination/Date Given: Yes Hx Influenza Vaccination/Date Given: Yes Hx Pneumococcal Vaccination/Date Given: Yes Immunizations Up to Date: Yes Travel Risk - International Travel Have you traveled outside of the country in past 3 weeks: No - Coronavirus Screening Are you exhibiting any of the following symptoms?: No Close contact with a COVID-19 positive Pt in past 14-21 Days: No - Vaccine Status Have you recieved a Covid-19 vaccination: Yes Fact Checker: [id number] - Vaccination Dates Date of 2cond Vaccination (if applicable): . - Review of Systems Constitutional: No Symptoms Eyes: No Symptoms Ears, Nose, & Throat: No Symptoms Respiratory: No Symptoms Cardiac: No Symptoms, Chest Pain Abdominal/Gastrointestinal: No Symptoms Genitourinary Symptoms: No Symptoms Musculoskeletal: No Symptoms Skin: No Symptoms Neurological: No Symptoms Psychological: No Symptoms Endocrine: No Symptoms Hematologic/Lymphatic: No Symptoms Immunological/Allergic: No Symptoms - Past Medical History Pertinent Past Medical History: Yes Neurological History: Peripheral Neuropathy ENT History: No Pertinent History Cardiac History: Coronary Artery Disease, High Cholesterol, Hypertension, Other Respiratory History: Pulmonary Embolism, Sleep Apnea, Other Endocrine Medical History: Diabetes Type II, Liver Disease Musculoskeletal History: Fractures GI Medical History: GERD, Gallbladder Disease, Irritable Bowel History: No Pertinent History Psycho-Social History: Anxiety, Other Female Reproductive Disorders: Fibroids Other Medical History: Sleep apnea and wears her CPAP. Covid. Athlerosclerosis. L LE fx - Past Surgical History Past Surgical History: Yes Neuro Surgical History: No Pertinent History Cardiac: Cardiac Catheterization, Other Respiratory: No Pertinent History Gastrointestinal: Cholecystectomy, Hernia Repair Genitourinary: No Pertinent History Musculoskeletal: Other Female Surgical History: Hysterectomy Other Surgical History: plantar fascitis surgery, rectal fistula repair, umbilical hernia repair and adhesion removal - Social History Smoking Status: Never smoker Exposure to second hand smoke: No Drug Use: none Patient Lives Alone: No Significant Family History: no pertinent family hx - Female History Hx Now: No - Nursing Vital Signs Nursing Vital Signs: Initial Vital Signs Temperature 97.3 F 06/17/22 21:21 Pulse Rate 122 H 06/17/22 21:21 Respiratory Rate 22 06/17/22 21:21 Blood Pressure 140/83 06/17/22 21:21 O2 Sat by Pulse Oximetry 95 06/17/22 21:21 Pain Scale Pain Intensity 0 - Physical Exam General Appearance: no apparent distress, anxiety Eye Exam: PERRL/EOMI, eyes nml inspection Ears, Nose, Throat Exam: normal ENT inspection, TMs normal, pharynx normal, moist mucous membranes Neck Exam: normal inspection, non-tender, supple, full range of motion, No meningismus, No mass, No Brudzinski, No Kernig's Respiratory Exam: normal breath sounds, lungs clear, airway intact, No respiratory distress Cardiovascular Exam: normal peripheral pulses, tachycardia, capillary refill <2 sec, No murmur Gastrointestinal/Abdomen Exam: soft, normal bowel sounds, No tenderness Back Exam: normal inspection, normal range of motion, No CVA tenderness Extremity Exam: normal inspection, normal range of motion Neurologic Exam: alert, oriented x 3, cooperative, 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 nml as tested, normal mood/affect, nml cerebellar function, nml station & gait, sensation nml Skin Exam: normal color, warm, dry Lymphatic Exam: No adenopathy SpO2 Interpretation: normal SpO2: 99 O2 Delivery: Room Air - Course Nursing assessment & vital signs reviewed: Yes EKG Interpreted by Me: RATE (Sinus tach/Rate 112/Prolonged QTc/Low voltage/No acute ST segment changes) - Radiology Exams Chest X-ray Interpretation: Interpreted by me (CXR NAD) Ordered Tests: Active Orders 24 hr Category Date Time Status EKG-ER Only STAT Care 06/17/22 21:27 Active CHEST 1 VIEW (PORTABLE) Stat Exams 06/17/22 23:36 Taken BMP Stat Lab 06/17/22 23:40 Completed CBC W DIFF Stat Lab 06/17/22 21:35 Completed CMP Stat Lab 06/17/22 21:35 Completed D-DIMER QUANTITATIVE Stat Lab 06/17/22 21:00 Completed POCT GLUCOSE Stat Lab 06/17/22 21:11 Completed POCT GLUCOSE Stat Lab 06/17/22 21:11 Completed POCT GLUCOSE Stat Lab 06/17/22 23:02 Completed POCT GLUCOSE Stat Lab 06/18/22 01:00 Completed TROPONIN Q4H Lab 06/17/22 21:35 Completed TROPONIN Q4H Lab 06/18/22 01:30 Ordered TROPONIN Q4H Lab 06/18/22 05:30 Ordered UA W/RFX UR CULTURE Stat Lab 06/17/22 21:35 Completed Medication Summary Discontinued Medications Generic Name Dose Route Start Last Admin Trade Name Juan José PRN Reason Stop Dose Admin Sodium Chloride 1,000 mls @ 999 mls/hr 06/17/22 21:27 06/17/22 21:42 Sodium Chloride 0.9% 1000 Ml IV 06/17/22 22:27 999 mls/hr .Q1H1M STA Administration Sodium Chloride Confirm 06/17/22 21:41 Sodium Chloride 0.9% 1000 Ml Administered 06/17/22 21:42 Dose 1,000 mls @ ud .ROUTE .STK-MED ONE Sodium Chloride 1,000 mls @ 999 mls/hr 06/17/22 22:45 06/17/22 22:53 Sodium Chloride 0.9% 1000 Ml IV 06/17/22 23:45 999 mls/hr .Q1H1M STA Administration Sodium Chloride Confirm 06/17/22 22:52 Sodium Chloride 0.9% 1000 Ml Administered 06/17/22 22:53 Dose 1,000 mls @ ud .ROUTE .STK-MED ONE Sodium Chloride 1,000 mls @ 999 mls/hr 06/18/22 00:03 06/18/22 00:09 Sodium Chloride 0.9% 1000 Ml IV 06/18/22 01:03 999 mls/hr .Q1H1M STA Administration Sodium Chloride Confirm 06/18/22 00:07 Sodium Chloride 0.9% 1000 Ml Administered 06/18/22 00:08 Dose 1,000 mls @ ud .ROUTE .STK-MED ONE Insulin Human Regular 10 unit 06/17/22 21:28 06/17/22 21:42 Insulin Regular, Human 1 Unit IV 06/17/22 21:29 10 unit STAT ONE Administration Insulin Human Regular 10 unit 06/17/22 21:28 06/17/22 21:42 Insulin Regular, Human 1 Unit SQ 06/17/22 21:29 10 unit STAT ONE Administration Insulin Human Regular Confirm 06/17/22 21:41 Insulin Regular, Human 1 Unit Administered 06/17/22 21:42 Dose 20 unit .ROUTE .STK-MED ONE Insulin Human Regular 5 unit 06/18/22 00:03 06/18/22 00:09 Insulin Regular, Human 1 Unit IV 06/18/22 00:04 5 unit STAT ONE Administration Insulin Human Regular 5 unit 06/18/22 00:04 06/18/22 00:10 Insulin Regular, Human 1 Unit SQ 06/18/22 00:05 5 unit STAT ONE Administration Insulin Human Regular Confirm 06/18/22 00:07 Insulin Regular, Human 1 Unit Administered 06/18/22 00:08 Dose 10 unit .ROUTE .[employer]-MED ONE Lab/Rad Data: Laboratory Result Diagrams 06/17/22 21:35 06/17/22 23:40 Laboratory Results 06/18/22 06/17/22 06/17/22 Range/Units 01:00 23:40 23:02 WBC (4.0-10.5) x10^3/uL RBC (4.1-5.4) x10^6/uL Hgb (12.0-16.0) g/dL Hct (35-47) % MCV (78-100) fL MCH (26-32) pg MCHC (32-36) g/dL RDW (11.5-14.0) % Plt Count (150-450) x10^3/uL MPV (7.5-11.0) fL Gran % (36.0-66.0) % Immature Gran % (Auto) (0.00-0.4) % Nucleat RBC Rel Count (0.00-0.1) % Eos # (Auto) (0-0.5) x10^3/uL Immature Gran # (Auto) (0.00-0.03) x10^3u/L Absolute Lymphs (auto) (1.0-4.6) x10^3/uL Absolute Monos (auto) (0.0-1.3) x10^3/uL Absolute Nucleated RBC (0.00-0.01) x10^3u/L Lymphocytes % (24.0-44.0) % Monocytes % (0.0-12.0) % Eosinophils % (0.00-5.0) % Basophils % (0.0-0.4) % Absolute Granulocytes (1.4-6.9) x10^3/uL Basophils # (0-0.4) x10^3/uL D-Dimer (0.0-0.50) mg/L Sodium 136 L (137-145) mmol/L Potassium 4.0 (3.5-5.1) mmol/L Chloride 98 (98-107) mmol/L Carbon Dioxide 28 (22-30) mmol/L Anion Gap 13.6 (5-15) MEQ/L BUN 15 (7-17) mg/dL Creatinine 0.49 L (0.52-1.04) mg/dL Estimated GFR > 60.0 ML/MIN Glucose 423 H (74-106) mg/dL POC Glucometer 350 H 453 H (50 to 500) mg/dL Calcium 8.1 L (8.4-10.2) mg/dL Total Bilirubin (0.2-1.3) mg/dL AST (14-36) U/L ALT (0-35) U/L Alkaline Phosphatase (38-126) U/L Troponin I (0.000-0.034) ng/mL Serum Total Protein (6.3-8.2) g/dL Albumin (3.5-5.0) g/dL Urine Color (Yellow) Urine Appearance (Clear) Urine pH (4.6-8.0) Ur Specific [place] (1.005-1.030) Urine Protein (Negative) Urine Glucose (UA) (Negative) mg/dL Urine Ketones (Negative) Urine Blood (Negative) Urine Nitrite (Negative) Urine Bilirubin (Negative) Urine Urobilinogen (0.2) mg/dL Ur Leukocyte Esterase (Negative) U Hyaline Cast (Auto) (0-2) /LPF Urine Microscopic RBC (0-5) /HPF Urine Microscopic WBC (0-5) /HPF Ur Epithelial Cells (None Seen) /HPF Urine Bacteria (None Seen) /HPF Urine Culture Reflexed (NO) 06/17/22 06/17/22 06/17/22 Range/Units 21:35 21:35 21:35 WBC 5.8 (4.0-10.5) x10^3/uL RBC 4.68 (4.1-5.4) x10^6/uL Hgb 13.4 (12.0-16.0) g/dL Hct 39.3 (35-47) % MCV 84.0 (78-100) fL MCH 28.6 (26-32) pg MCHC 34.1 (32-36) g/dL RDW 12.5 (11.5-14.0) % Plt Count 188 (150-450) x10^3/uL MPV 10.0 (7.5-11.0) fL Gran % 51.4 (36.0-66.0) % Immature Gran % (Auto) 0.7 H (0.00-0.4) % Nucleat RBC Rel Count 0.0 (0.00-0.1) % Eos # (Auto) 0.27 (0-0.5) x10^3/uL Immature Gran # (Auto) 0.04 H (0.00-0.03) x10^3u/L Absolute Lymphs (auto) 2.14 (1.0-4.6) x10^3/uL Absolute Monos (auto) 0.31 (0.0-1.3) x10^3/uL Absolute Nucleated RBC 0.00 (0.00-0.01) x10^3u/L Lymphocytes % 37.1 (24.0-44.0) % Monocytes % 5.4 (0.0-12.0) % Eosinophils % 4.7 (0.00-5.0) % Basophils % 0.7 (0.0-0.4) % Absolute Granulocytes 2.97 (1.4-6.9) x10^3/uL Basophils # 0.04 (0-0.4) x10^3/uL D-Dimer (0.0-0.50) mg/L Sodium 134 L (137-145) mmol/L Potassium 4.1 (3.5-5.1) mmol/L Chloride 93 L (98-107) mmol/L Carbon Dioxide 25 (22-30) mmol/L Anion Gap 20.4 H (5-15) MEQ/L BUN 15 (7-17) mg/dL Creatinine 0.45 L (0.52-1.04) mg/dL Estimated GFR > 60.0 ML/MIN Glucose 583 H* (74-106) mg/dL POC Glucometer (50 to 500) mg/dL Calcium 8.9 (8.4-10.2) mg/dL Total Bilirubin 0.50 (0.2-1.3) mg/dL AST 23 (14-36) U/L ALT 28 (0-35) U/L Alkaline Phosphatase 180 H (38-126) U/L Troponin I < 0.012 (0.000-0.034) ng/mL Serum Total Protein 7.3 (6.3-8.2) g/dL Albumin 4.4 (3.5-5.0) g/dL Urine Color (Yellow) Urine Appearance (Clear) Urine pH (4.6-8.0) Ur Specific [place] (1.005-1.030) Urine Protein (Negative) Urine Glucose (UA) (Negative) mg/dL Urine Ketones (Negative) Urine Blood (Negative) Urine Nitrite (Negative) Urine Bilirubin (Negative) Urine Urobilinogen (0.2) mg/dL Ur Leukocyte Esterase (Negative) U Hyaline Cast (Auto) (0-2) /LPF Urine Microscopic RBC (0-5) /HPF Urine Microscopic WBC (0-5) /HPF Ur Epithelial Cells (None Seen) /HPF Urine Bacteria (None Seen) /HPF Urine Culture Reflexed (NO) 06/17/22 06/17/22 06/17/22 Range/Units 21:35 21:11 21:11 WBC (4.0-10.5) x10^3/uL RBC (4.1-5.4) x10^6/uL Hgb (12.0-16.0) g/dL Hct (35-47) % MCV (78-100) fL MCH (26-32) pg MCHC (32-36) g/dL RDW (11.5-14.0) % Plt Count (150-450) x10^3/uL MPV (7.5-11.0) fL Gran % (36.0-66.0) % Immature Gran % (Auto) (0.00-0.4) % Nucleat RBC Rel Count (0.00-0.1) % Eos # (Auto) (0-0.5) x10^3/uL Immature Gran # (Auto) (0.00-0.03) x10^3u/L Absolute Lymphs (auto) (1.0-4.6) x10^3/uL Absolute Monos (auto) (0.0-1.3) x10^3/uL Absolute Nucleated RBC (0.00-0.01) x10^3u/L Lymphocytes % (24.0-44.0) % Monocytes % (0.0-12.0) % Eosinophils % (0.00-5.0) % Basophils % (0.0-0.4) % Absolute Granulocytes (1.4-6.9) x10^3/uL Basophils # (0-0.4) x10^3/uL D-Dimer (0.0-0.50) mg/L Sodium (137-145) mmol/L Potassium (3.5-5.1) mmol/L Chloride (98-107) mmol/L Carbon Dioxide (22-30) mmol/L Anion Gap (5-15) MEQ/L BUN (7-17) mg/dL Creatinine (0.52-1.04) mg/dL Estimated GFR ML/MIN Glucose (74-106) mg/dL POC Glucometer 595 H* 595 H* (50 to 500) mg/dL Calcium (8.4-10.2) mg/dL Total Bilirubin (0.2-1.3) mg/dL AST (14-36) U/L ALT (0-35) U/L Alkaline Phosphatase (38-126) U/L Troponin I (0.000-0.034) ng/mL Serum Total Protein (6.3-8.2) g/dL Albumin (3.5-5.0) g/dL Urine Color Yellow (Yellow) Urine Appearance Clear (Clear) Urine pH 6.5 (4.6-8.0) Ur Specific [place] >=1.030 A (1.005-1.030) Urine Protein Negative (Negative) Urine Glucose (UA) >=1000 A (Negative) mg/dL Urine Ketones 15 A (Negative) Urine Blood Negative (Negative) Urine Nitrite Negative (Negative) Urine Bilirubin Negative (Negative) Urine Urobilinogen 0.2 (0.2) mg/dL Ur Leukocyte Esterase Negative (Negative) U Hyaline Cast (Auto) NONE SEEN (0-2) /LPF Urine Microscopic RBC 0-2 (0-5) /HPF Urine Microscopic WBC 3-5 (0-5) /HPF Ur Epithelial Cells None Seen (None Seen) /HPF Urine Bacteria None Seen (None Seen) /HPF Urine Culture Reflexed NO (NO) 06/17/22 Range/Units 21:00 WBC (4.0-10.5) x10^3/uL RBC (4.1-5.4) x10^6/uL Hgb (12.0-16.0) g/dL Hct (35-47) % MCV (78-100) fL MCH (26-32) pg MCHC (32-36) g/dL RDW (11.5-14.0) % Plt Count (150-450) x10^3/uL MPV (7.5-11.0) fL Gran % (36.0-66.0) % Immature Gran % (Auto) (0.00-0.4) % Nucleat RBC Rel Count (0.00-0.1) % Eos # (Auto) (0-0.5) x10^3/uL Immature Gran # (Auto) (0.00-0.03) x10^3u/L Absolute Lymphs (auto) (1.0-4.6) x10^3/uL Absolute Monos (auto) (0.0-1.3) x10^3/uL Absolute Nucleated RBC (0.00-0.01) x10^3u/L Lymphocytes % (24.0-44.0) % Monocytes % (0.0-12.0) % Eosinophils % (0.00-5.0) % Basophils % (0.0-0.4) % Absolute Granulocytes (1.4-6.9) x10^3/uL Basophils # (0-0.4) x10^3/uL D-Dimer 0.21 (0.0-0.50) mg/L Sodium (137-145) mmol/L Potassium (3.5-5.1) mmol/L Chloride (98-107) mmol/L Carbon Dioxide (22-30) mmol/L Anion Gap (5-15) MEQ/L BUN (7-17) mg/dL Creatinine (0.52-1.04) mg/dL Estimated GFR ML/MIN Glucose (74-106) mg/dL POC Glucometer (50 to 500) mg/dL Calcium (8.4-10.2) mg/dL Total Bilirubin (0.2-1.3) mg/dL AST (14-36) U/L ALT (0-35) U/L Alkaline Phosphatase (38-126) U/L Troponin I (0.000-0.034) ng/mL Serum Total Protein (6.3-8.2) g/dL Albumin (3.5-5.0) g/dL Urine Color (Yellow) Urine Appearance (Clear) Urine pH (4.6-8.0) Ur Specific [place] (1.005-1.030) Urine Protein (Negative) Urine Glucose (UA) (Negative) mg/dL Urine Ketones (Negative) Urine Blood (Negative) Urine Nitrite (Negative) Urine Bilirubin (Negative) Urine Urobilinogen (0.2) mg/dL Ur Leukocyte Esterase (Negative) U Hyaline Cast (Auto) (0-2) /LPF Urine Microscopic RBC (0-5) /HPF Urine Microscopic WBC (0-5) /HPF Ur Epithelial Cells (None Seen) /HPF Urine Bacteria (None Seen) /HPF Urine Culture Reflexed (NO) - Progress Progress: improved Progress Note: 06/18/22 01:01 Nursing note and vital signs reviewed No food or housing insecurities noted 1L NS bolus x2/10units sq HumulinR+10units IV HumulinR 1L NS Bolus/5units sq HumulinR+5untis IV HumulinR Anion gap closed and Glucose in lower 300's before discharge Counseled pt/family regarding: lab results, diagnosis, need for follow-up, rad results Medical Desision Making - Diagnostic Testing Diagnostic test were ordered, analyzed, and reviewed by me: Yes Radiological Interpretation: Interpreted by me - Risk of complications The pt has a mod risk of morbidity or mortality based on: Need for prescription drug management - Departure Departure Disposition: Home Clinical Impression: DKA, type 2 Condition: Stable Critical Care Time: Yes Critical Care Time(excluding separately billable procedures): Critical 30-74 mins Referrals: UGO DILLARD DO [Primary Care Provider] - Follow up/PCP as directed Instructions: High Blood Sugar, Adult (DC) Additional Instructions: Follow up with your family MD in 1-2 days Watch Glucose closely Continue current insulin therapy Return to ER as needed
[2022-06-17 23:57] LABS: ANION GAP 13.6 MEQ/L (5-15); BLOOD UREA NITROGEN 15 mg/dL (7-17); CHLORIDE 98 mmol/L (98-107); Calcium 8.1 mg/dL (8.4-10.2); Carbon Dioxide 28 mmol/L (22-30); Creatinine 1 0.49 mg/dL (0.52-1.04); EST GLOMERULAR FILTRATION RATE > 60.0 ML/MIN; Glucose 423 mg/dL (74-106); SODIUM 136 mmol/L (137-145)
[2022-06-18] MEDS ORDERED: HUMULIN R IV ONE (00:03)
[2022-06-18] MEDS ORDERED: Sodium Chloride 0.9% 1000 ML 1,000 ML IV STA (00:03)
[2022-06-18] MEDS ORDERED: HUMULIN R SQ ONE (00:04)
[2022-06-18] MEDS ORDERED: Sodium Chloride 0.9% 1000 ML 1,000 ML ONE (00:07)
[2022-06-18] MEDS ORDERED: HUMULIN R ONE (00:07)
[2022-06-18 01:03] VITALS: PULSE 98
[2022-06-18 01:06] VITALS: BP 134/74; O2SAT 99
--- NOTE | 2022-06-18 08:51 | XRAY ---
Indication: Chest pain. Comparison: August 21, 2021 Portable chest again demonstrates normal heart and lungs. Bony thorax intact again with old right clavicle fracture. No new/acute findings.
== END 2022-06-18 01:12 | disposition home or self-care (01) ==
LOC: ED 20:59
DX: E11.10 Type 2 diabetes mellitus with ketoacidosis without coma (principal); R07.9 Chest pain, unspecified; R00.2 Palpitations; I10 Essential (primary) hypertension; E78.5 Hyperlipidemia, unspecified; E11.42 Type 2 diabetes mellitus with diabetic polyneuropathy; Z79.4 Long term (current) use of insulin; Z79.85 Long-term (current) use of injectable non-insulin antidiabetic drugs; Z79.899 Other long term (current) drug therapy; Z86.16 Personal history of COVID-19
CPT/HCPCS: 36000; 36415; 71045; 80048; 80053; 81001; 82947; 84484; 85025; 85379; 93005; 96372; 96374; 96376; 99284; 99291; J1815

== ENCOUNTER 2022-10-14 15:40 | Observation (INO) | payer BC ==
[2022-10-14] MEDS ORDERED: Sodium Chloride 0.9% 1000 ML 1,000 ML IV STA (16:03)
[2022-10-14] MEDS: Sodium Chloride 0.9% 1000 ML 1,000 ML IV SCH (16:42)
[2022-10-14] MEDS: HUMALOG SQ PRN ×4 (16:42→21:30)
[2022-10-14 16:49] LABS: Hematocrit 40.3 % (35-47); Hemoglobin 13.7 g/dL (12.0-16.0); Mean Cell Volume 83.8 fL (78-100); Mean Corpuscular Hemoglobin 28.5 pg (26-32); Platelet Count 168 x10^3/uL (150-450); Red Blood Count 4.81 x10^6/uL (4.1-5.4); Red Cell Distribution Width 11.6 % (11.5-14.0); White Blood Count 4.8 x10^3/uL (4.0-10.5)
[2022-10-14 17:16] LABS: ADD URINE CULTURE? NO (NO); Appearance Clear (Clear); Bacteria None Seen /HPF (None Seen); Bilirubin Negative (Negative); Blood Negative (Negative); Epithelial Cells None Seen /HPF (None Seen); Glucose, Urine >=1000 mg/dL (Negative); Hyaline Casts NONE SEEN /LPF (0-2); Ketones Trace (Negative); Leukocyte Esterase Negative (Negative); Nitrite Negative (Negative); Ph 6.5 (4.6-8.0); Protein,Urine Dip Negative (Negative); RBC 0-2 /HPF (0-5); Specific Gravity >=1.030 (1.005-1.030)
[2022-10-14] MEDS: TYLENOL 325 MG PO PRN (17:18)
--- NOTE | 2022-10-14 17:26 | PCM.HP ---
History of Present Illness - Chief Complaint Chief Complaint: Hyperglycemia Date: 10/14/22 History of Present Illness: is a 42 year old female with a pmhx of DM2, cushings disease, CAD, and IBS direct admission from [facility], being admitted for hyperglycemia. Patient states she was in her usual state of health until this week she noticed her blood glucose levels were consistently in the 200's and today over 500. She reports that she checks her blood sugars in the morning and evening time. During this past week she has noticed an increase in mood swings, bladder spasms, fatigue, and today nausea/vomiting, and an episode of diarrhea. Home insulin is 25 units of lispro TID, glargine 32 units daily and trulicity 0.75mg sq weekly. PCP: [facility] Code status: Full code - Review of Systems Constitutional: Fatigue Eyes: No Symptoms Ears, Nose, & Throat: No Symptoms Respiratory: No Symptoms Cardiac: No Symptoms Abdominal/Gastrointestinal: Nausea, Vomiting, Diarrhea Genitourinary Symptoms: Other (bladder spasms) Musculoskeletal: No Symptoms Skin: No Symptoms Neurological: No Symptoms Medications & Allergies Home Medications: Home Medication List RX: ALPRAZolam 0.5 MG [xanAX 0.5 MG] 1 mg PO QHS 09/04/18 [History Confirmed 06/17/22] RX: Nebivolol HCl 5 MG [Bystolic 5 MG] 5 mg PO HS 09/04/18 [History Confirmed 06/17/22] RX: Nitroglycerin 0.4 mg Tablet [Nitrostat 0.4 MG Tablet] 0.4 mg SL UD PRN 09/04/18 [History Confirmed 06/17/22] RX: PARoxetine HCL [Paroxetine HCl] 40 mg PO HS 09/04/18 [History Confirmed 06/17/22] RX: Insulin Glargine,Hum.rec.anlog [Basaglar Kwikpen U-100] 32 unit SQ DAILY 09/12/18 [History Confirmed 06/17/22] RX: Omeprazole 40 mg PO HS 11/09/18 [History Confirmed 06/17/22] RX: Rosuvastatin Calcium [Crestor] 20 mg PO QHS 11/02/19 [History Confirmed 06/17/22] RX: Levocetirizine Dihydrochloride [Xyzal] 10 mg PO HS 01/31/20 [History Confirmed 06/17/22] RX: Losartan Potassium 50 mg PO QHS 03/06/20 [History Confirmed 06/17/22] RX: Fenofibrate 160 mg PO HS 02/25/21 [History Confirmed 06/17/22] RX: Pregabalin [Lyrica 100Mg] 100 mg PO HS 02/25/21 [History Confirmed 06/17/22] Dulaglutide [Trulicity] 0.75 mg SQ WEEKLY 06/17/22 [History Confirmed 06/17/22] Insulin Lispro [Humalog Kwikpen U-200] 25 units SQ TID 06/17/22 [History Confirmed 06/17/22] Allergies/Adverse Reactions: Allergies Allergy/AdvReac Type Severity Reaction Status Date / Time metoprolol Allergy Mild Hives Verified 06/17/22 21:37 - Past Medical History Past Medical History: Yes Neurological History: No Pertinent History ENT History: No Pertinent History Cardiac History: Angina, Coronary Artery Disease, High Cholesterol, Hypertension Respiratory History: Sleep Apnea Endocrine Medical History: Diabetes Type II, Liver Disease Musculoskelatal History: Fractures GI Medical History: GERD, Irritable Bowel, Polyps History: No Pertinent History Pyscho-Social History: Anxiety Reproductive Disorders: Fibroids Comment: Cushions disease - Female History Are you now?: No (unknown) - Past Surgical History Past Surgical History: Yes Neuro Surgical History: No Pertinent History Cardiac History: Cardiac Catheterization Respiratory Surgery: No Pertinent History GI Surgical History: Cholecystectomy, Hernia Repair Genitourinary Surgical Hx: No Pertinent History Musculskeletal Surgical Hx: Other Female Surgical History: Hysterectomy Other Surgical History: plantar fi - Social History Smoking Status: Never smoker Exposure to second hand smoke: No Alcohol: None Drug Use: none Significant Family History: no pertinent family hx - Physical Exam Vital Signs: Vital Signs - 24 hr Temp Pulse Resp BP Pulse Ox 10/14/22 16:03 97.5 F 83 16 133/74 95 General Appearance: no apparent distress Neurologic Exam: alert, oriented x 3, cooperative Eye Exam: PERRL/EOMI Neck Exam: normal inspection Respiratory Exam: normal breath sounds Cardiovascular Exam: regular rate/rhythm, normal heart sounds Gastrointestinal/Abdomen Exam: soft, normal bowel sounds Pelvic Exam: not done Rectal Exam: not done Skin Exam: normal color Results - Labs Lab/Micro Results: Lab Results-Last 24 Hours 10/14/22 10/14/22 10/14/22 Range/Units 16:30 16:31 17:07 WBC 4.8 (4.0-10.5) x10^3/uL RBC 4.81 (4.1-5.4) x10^6/uL Hgb 13.7 (12.0-16.0) g/dL Hct 40.3 (35-47) % MCV 83.8 (78-100) fL MCH 28.5 (26-32) pg MCHC 34.0 (32-36) g/dL RDW 11.6 (11.5-14.0) % Plt Count 168 (150-450) x10^3/uL MPV 10.0 (7.5-11.0) fL POC Glucometer 445 H (74 to 106) mg/dL Urine Color Yellow (Yellow) Urine Appearance Clear (Clear) Urine pH 6.5 (4.6-8.0) Ur Specific [place] >=1.030 A (1.005-1.030) Urine Protein Negative (Negative) Urine Glucose (UA) >=1000 A (Negative) mg/dL Urine Ketones Trace A (Negative) Urine Blood Negative (Negative) Urine Nitrite Negative (Negative) Urine Bilirubin Negative (Negative) Urine Urobilinogen 1.0 A (0.2) mg/dL Ur Leukocyte Esterase Negative (Negative) U Hyaline Cast (Auto) NONE SEEN (0-2) /LPF Urine Microscopic RBC 0-2 (0-5) /HPF Urine Microscopic WBC 6-10 A (0-5) /HPF Ur Epithelial Cells None Seen (None Seen) /HPF Urine Bacteria None Seen (None Seen) /HPF Urine Culture Reflexed NO (NO) - Radiology Impressions Radiology Exams & Impressions: Radiology Procedures Category Date Time Status CHEST 2 VIEWS (PA AND LAT) Stat Exams 10/14/22 16:03 Ordered Assessment/Plan (1) Hyperglycemia due to diabetes mellitus Current Visit: No Status: Acute Assessment & Plan: -Cmp pending, glucometer reading 445 -SSI high dose -Aggressive hydration -Consider insulin drip if pt lab reflect DKA -r/o underlying cause, urinalysis essentially negative for infection, CXR pending, WBC WNL Code(s): E11.65 - TYPE 2 DIABETES MELLITUS WITH HYPERGLYCEMIA (2) Nausea & vomiting Current Visit: No Status: Acute Assessment & Plan: -Most likely secondary to hyperglycemia -Sarina PRN Code(s): R11.2 - NAUSEA WITH VOMITING, UNSPECIFIED (3) Adrenal Chelsea's syndrome Current Visit: No Status: Acute Assessment & Plan: -noted, adds complexity, continue home meds Code(s): E24.9 - CHELSEA'S SYNDROME, UNSPECIFIED (4) Diabetes mellitus Current Visit: No Status: Chronic Qualifiers: Diabetes mellitus type: type 2 Diabetes mellitus care home insulin use: with care home use Diabetes mellitus complication status: with hyperglycemia Qualified Code(s): E11.65 - Type 2 diabetes mellitus with hyperglycemia; Z79.4 - retirement (current) use of insulin Assessment & Plan: -see above Code(s): E11.9 - TYPE 2 DIABETES MELLITUS WITHOUT COMPLICATIONS
[2022-10-14] MEDS ORDERED: Zofran 4 MG/2 ML VIAL IV PRN (17:29)
[2022-10-14] MEDS: Tricor 145 MG PO SCH (21:31)
[2022-10-14] MEDS: ZOCOR 20MG PO SCH (21:31)
[2022-10-14] MEDS: XANAX 1 MG PO SCH (21:31)
[2022-10-14] MEDS: CLARITIN 10 MG PO SCH (21:31)
[2022-10-14] MEDS: Cozaar 50 MG PO SCH (21:31)
[2022-10-14] MEDS: Paxil 20 MG PO SCH (21:31)
[2022-10-14] MEDS: LYRICA 100MG PO SCH (21:31)
[2022-10-14] MEDS: Protonix 40MG Tablet PO SCH (21:31)
[2022-10-14] MEDS: Bystolic 5 MG PO SCH (21:31)
[2022-10-14] MEDS: Cyclobenzaprine 10 MG PO SCH (21:58)
[2022-10-14] MEDS ORDERED: NON-FORMULARY ITEM (Fexofenadine Hcl [Allegra Allergy] 60 MG Tablet) PO SCH (22:00)
[2022-10-15] MEDS: HUMALOG SQ PRN ×6 (00:12→21:52)
[2022-10-15] MEDS: Sodium Chloride 0.9% 1000 ML 1,000 ML IV SCH (02:37)
[2022-10-15] MEDS: TYLENOL 325 MG PO PRN (03:46)
[2022-10-15 04:04] LABS: ALKALINE PHOSPHATASE 82 U/L (38-126); ANION GAP 15.5 MEQ/L (5-15); BLOOD UREA NITROGEN 14 mg/dL (7-17); CHLORIDE 103 mmol/L (98-107); Calcium 8.5 mg/dL (8.4-10.2); Carbon Dioxide 27 mmol/L (22-30); Creatinine 1 0.52 mg/dL (0.52-1.04); EST GLOMERULAR FILTRATION RATE > 60.0 ML/MIN; Glucose 239 mg/dL (74-106); SGOT/AST 26 U/L (14-36); SGPT/ALT 34 U/L (0-35); SODIUM 141 mmol/L (137-145); Total Protein 6.3 g/dL (6.3-8.2)
[2022-10-15 04:17] LABS: Hematocrit 41.1 % (35-47); Hemoglobin 13.7 g/dL (12.0-16.0); Mean Cell Volume 85.3 fL (78-100); Mean Corpuscular Hemoglobin 28.4 pg (26-32); Mean Corpuscular Hgb Concent. 33.3 g/dL (32-36); Platelet Count 179 x10^3/uL (150-450); Red Blood Count 4.82 x10^6/uL (4.1-5.4); Red Cell Distribution Width 11.8 % (11.5-14.0); White Blood Count 4.6 x10^3/uL (4.0-10.5)
--- NOTE | 2022-10-15 08:38 | XRAY ---
Indication: Short of breath. Comparison: June 17, 2022 PA/lateral chest again demonstrates normal heart and lungs. Bony thorax intact. No new/acute findings.
[2022-10-15] MEDS ORDERED: Lantus Insulin SQ SCH ×2 (10:00→13:50)
[2022-10-15] MEDS ORDERED: ROCEPHIN 1 Gm-D5w 50 ml Bag** 1 G/50 ML IVPB IV SCH (10:00)
[2022-10-15] MEDS ORDERED: NON-FORMULARY ITEM (Insulin Glargine,Hum.Rec.Anlog [Basaglar Kwikpen U-100] 100 UNIT/ML In SQ SCH (10:00)
[2022-10-15] MEDS: Acidophilus TABLET PO SCH (10:06)
[2022-10-15] MEDS ORDERED: Lantus Insulin SQ ONE ×2 (13:50→17:00)
--- NOTE | 2022-10-15 14:07 | PCM.NOTE ---
Date and Time: 10/15/22 1401 Subjective Assessment: is a 42 year old female with a pmhx of DM2, cushings disease, CAD, and IBS direct admission 10/14/22 from [facility], being admitted for hyperglycemia. Patient states she was in her usual state of health until this week she noticed her blood glucose levels were consistently in the 200's and tod ay over 500. She reports that she checks her blood sugars in the morning and evening time. During this past week she has noticed an increase in mood swings, bladder spasms, fatigue, and today nausea/vomiting, and an episode of diarrhea. Home insulin is 25 units of lispro TID, glargine 32 units daily and trulicity 0.75mg sq weekly. Overnight blood glucose levels continue to stabilize now in the 200's but most recent blood glucose at 293. Adjustments made to insulin including premeal insulin at 15U, increased glargine to 64 units, and continue SSI moderate dosing. Will continue to monitor her overnight,consider discharge if stable. Patient with complaints of right ear pain. Upon exam no infection noted. - Review of Systems Constitutional: No Symptoms Eyes: No Symptoms Ears, Nose, & Throat: Ear Pain Objective Exam General Appearance: obese Neurologic Exam: alert, oriented x 3, cooperative Skin Exam: normal color Eye Exam: PERRL Ears, Nose, Throat Exam: normal ENT inspection, TMs normal Neck Exam: normal inspection Respiratory Exam: normal breath sounds, lungs clear Cardiovascular Exam: regular rate/rhythm, normal heart sounds Gastrointestinal/Abdomen Exam: soft, normal bowel sounds Extremity Exam: normal inspection OBJECTIVE DATA Vital Signs: Vital Signs - 24 hr Temp Pulse Resp BP Pulse Ox 10/15/22 12:00 16 10/15/22 11:41 97.4 F 67 16 134/69 97 10/15/22 08:00 16 10/15/22 07:33 97.6 F 70 16 128/75 96 10/15/22 04:00 98.2 F 67 18 124/67 93 L 10/15/22 00:00 77 18 10/14/22 20:00 96.3 F 78 18 129/66 92 L 10/14/22 16:03 97.5 F 83 16 133/74 95 Pain Assessment - Last Documented Pain Intensity 2 Pain Scale Used 0-10 Pain Scale Intake and Output: Intake & Output 10/13/22 10/14/22 10/15/22 10/16/22 11:59 11:59 11:59 11:59 Intake Total 2464 240 Output Total 2100 Balance 364 240 Weight 127.5 kg Lab Results: Lab Results-Last 24 Hours 10/14/22 10/14/22 10/14/22 Range/Units 16:30 16:31 17:07 WBC 4.8 (4.0-10.5) x10^3/uL RBC 4.81 (4.1-5.4) x10^6/uL Hgb 13.7 (12.0-16.0) g/dL Hct 40.3 (35-47) % MCV 83.8 (78-100) fL MCH 28.5 (26-32) pg MCHC 34.0 (32-36) g/dL RDW 11.6 (11.5-14.0) % Plt Count 168 (150-450) x10^3/uL MPV 10.0 (7.5-11.0) fL Sodium (137-145) mmol/L Potassium (3.5-5.1) mmol/L Chloride (98-107) mmol/L Carbon Dioxide (22-30) mmol/L Anion Gap (5-15) MEQ/L BUN (7-17) mg/dL Creatinine (0.52-1.04) mg/dL Estimated GFR ML/MIN Glucose (74-106) mg/dL POC Glucometer 445 H (74 to 106) mg/dL Calcium (8.4-10.2) mg/dL Total Bilirubin (0.2-1.3) mg/dL AST (14-36) U/L ALT (0-35) U/L Alkaline Phosphatase (38-126) U/L Troponin I (0.000-0.034) ng/mL Serum Total Protein (6.3-8.2) g/dL Albumin (3.5-5.0) g/dL Urine Color Yellow (Yellow) Urine Appearance Clear (Clear) Urine pH 6.5 (4.6-8.0) Ur Specific [place] >=1.030 A (1.005-1.030) Urine Protein Negative (Negative) Urine Glucose (UA) >=1000 A (Negative) mg/dL Urine Ketones Trace A (Negative) Urine Blood Negative (Negative) Urine Nitrite Negative (Negative) Urine Bilirubin Negative (Negative) Urine Urobilinogen 1.0 A (0.2) mg/dL Ur Leukocyte Esterase Negative (Negative) U Hyaline Cast (Auto) NONE SEEN (0-2) /LPF Urine Microscopic RBC 0-2 (0-5) /HPF Urine Microscopic WBC 6-10 A (0-5) /HPF Ur Epithelial Cells None Seen (None Seen) /HPF Urine Bacteria None Seen (None Seen) /HPF Urine Culture Reflexed NO (NO) 10/14/22 10/14/22 10/14/22 Range/Units 17:29 18:42 19:51 WBC (4.0-10.5) x10^3/uL RBC (4.1-5.4) x10^6/uL Hgb (12.0-16.0) g/dL Hct (35-47) % MCV (78-100) fL MCH (26-32) pg MCHC (32-36) g/dL RDW (11.5-14.0) % Plt Count (150-450) x10^3/uL MPV (7.5-11.0) fL Sodium (137-145) mmol/L Potassium (3.5-5.1) mmol/L Chloride (98-107) mmol/L Carbon Dioxide (22-30) mmol/L Anion Gap (5-15) MEQ/L BUN (7-17) mg/dL Creatinine (0.52-1.04) mg/dL Estimated GFR ML/MIN Glucose (74-106) mg/dL POC Glucometer 400 H 332 H 309 H (74 to 106) mg/dL Calcium (8.4-10.2) mg/dL Total Bilirubin (0.2-1.3) mg/dL AST (14-36) U/L ALT (0-35) U/L Alkaline Phosphatase (38-126) U/L Troponin I (0.000-0.034) ng/mL Serum Total Protein (6.3-8.2) g/dL Albumin (3.5-5.0) g/dL Urine Color (Yellow) Urine Appearance (Clear) Urine pH (4.6-8.0) Ur Specific [place] (1.005-1.030) Urine Protein (Negative) Urine Glucose (UA) (Negative) mg/dL Urine Ketones (Negative) Urine Blood (Negative) Urine Nitrite (Negative) Urine Bilirubin (Negative) Urine Urobilinogen (0.2) mg/dL Ur Leukocyte Esterase (Negative) U Hyaline Cast (Auto) (0-2) /LPF Urine Microscopic RBC (0-5) /HPF Urine Microscopic WBC (0-5) /HPF Ur Epithelial Cells (None Seen) /HPF Urine Bacteria (None Seen) /HPF Urine Culture Reflexed (NO) 10/14/22 10/14/22 10/15/22 Range/Units 20:42 21:50 00:06 WBC (4.0-10.5) x10^3/uL RBC (4.1-5.4) x10^6/uL Hgb (12.0-16.0) g/dL Hct (35-47) % MCV (78-100) fL MCH (26-32) pg MCHC (32-36) g/dL RDW (11.5-14.0) % Plt Count (150-450) x10^3/uL MPV (7.5-11.0) fL Sodium (137-145) mmol/L Potassium (3.5-5.1) mmol/L Chloride (98-107) mmol/L Carbon Dioxide (22-30) mmol/L Anion Gap (5-15) MEQ/L BUN (7-17) mg/dL Creatinine (0.52-1.04) mg/dL Estimated GFR ML/MIN Glucose (74-106) mg/dL POC Glucometer 265 H 239 H 166 H (74 to 106) mg/dL Calcium (8.4-10.2) mg/dL Total Bilirubin (0.2-1.3) mg/dL AST (14-36) U/L ALT (0-35) U/L Alkaline Phosphatase (38-126) U/L Troponin I (0.000-0.034) ng/mL Serum Total Protein (6.3-8.2) g/dL Albumin (3.5-5.0) g/dL Urine Color (Yellow) Urine Appearance (Clear) Urine pH (4.6-8.0) Ur Specific [place] (1.005-1.030) Urine Protein (Negative) Urine Glucose (UA) (Negative) mg/dL Urine Ketones (Negative) Urine Blood (Negative) Urine Nitrite (Negative) Urine Bilirubin (Negative) Urine Urobilinogen (0.2) mg/dL Ur Leukocyte Esterase (Negative) U Hyaline Cast (Auto) (0-2) /LPF Urine Microscopic RBC (0-5) /HPF Urine Microscopic WBC (0-5) /HPF Ur Epithelial Cells (None Seen) /HPF Urine Bacteria (None Seen) /HPF Urine Culture Reflexed (NO) 10/15/22 10/15/22 10/15/22 Range/Units 03:28 03:40 03:40 WBC 4.6 (4.0-10.5) x10^3/uL RBC 4.82 (4.1-5.4) x10^6/uL Hgb 13.7 (12.0-16.0) g/dL Hct 41.1 (35-47) % MCV 85.3 (78-100) fL MCH 28.4 (26-32) pg MCHC 33.3 (32-36) g/dL RDW 11.8 (11.5-14.0) % Plt Count 179 (150-450) x10^3/uL MPV 10.0 (7.5-11.0) fL Sodium 141 D (137-145) mmol/L Potassium 4.0 (3.5-5.1) mmol/L Chloride 103 (98-107) mmol/L Carbon Dioxide 27 (22-30) mmol/L Anion Gap 15.5 H (5-15) MEQ/L BUN 14 (7-17) mg/dL Creatinine 0.52 (0.52-1.04) mg/dL Estimated GFR > 60.0 ML/MIN Glucose 239 H (74-106) mg/dL POC Glucometer 246 H (74 to 106) mg/dL Calcium 8.5 (8.4-10.2) mg/dL Total Bilirubin 0.40 (0.2-1.3) mg/dL AST 26 (14-36) U/L ALT 34 (0-35) U/L Alkaline Phosphatase 82 (38-126) U/L Troponin I (0.000-0.034) ng/mL Serum Total Protein 6.3 (6.3-8.2) g/dL Albumin 4.0 (3.5-5.0) g/dL Urine Color (Yellow) Urine Appearance (Clear) Urine pH (4.6-8.0) Ur Specific [place] (1.005-1.030) Urine Protein (Negative) Urine Glucose (UA) (Negative) mg/dL Urine Ketones (Negative) Urine Blood (Negative) Urine Nitrite (Negative) Urine Bilirubin (Negative) Urine Urobilinogen (0.2) mg/dL Ur Leukocyte Esterase (Negative) U Hyaline Cast (Auto) (0-2) /LPF Urine Microscopic RBC (0-5) /HPF Urine Microscopic WBC (0-5) /HPF Ur Epithelial Cells (None Seen) /HPF Urine Bacteria (None Seen) /HPF Urine Culture Reflexed (NO) 10/15/22 10/15/22 10/15/22 Range/Units 03:40 07:16 11:30 WBC (4.0-10.5) x10^3/uL RBC (4.1-5.4) x10^6/uL Hgb (12.0-16.0) g/dL Hct (35-47) % MCV (78-100) fL MCH (26-32) pg MCHC (32-36) g/dL RDW (11.5-14.0) % Plt Count (150-450) x10^3/uL MPV (7.5-11.0) fL Sodium (137-145) mmol/L Potassium (3.5-5.1) mmol/L Chloride (98-107) mmol/L Carbon Dioxide (22-30) mmol/L Anion Gap (5-15) MEQ/L BUN (7-17) mg/dL Creatinine (0.52-1.04) mg/dL Estimated GFR ML/MIN Glucose (74-106) mg/dL POC Glucometer 255 H 293 H (74 to 106) mg/dL Calcium (8.4-10.2) mg/dL Total Bilirubin (0.2-1.3) mg/dL AST (14-36) U/L ALT (0-35) U/L Alkaline Phosphatase (38-126) U/L Troponin I < 0.012 (0.000-0.034) ng/mL Serum Total Protein (6.3-8.2) g/dL Albumin (3.5-5.0) g/dL Urine Color (Yellow) Urine Appearance (Clear) Urine pH (4.6-8.0) Ur Specific [place] (1.005-1.030) Urine Protein (Negative) Urine Glucose (UA) (Negative) mg/dL Urine Ketones (Negative) Urine Blood (Negative) Urine Nitrite (Negative) Urine Bilirubin (Negative) Urine Urobilinogen (0.2) mg/dL Ur Leukocyte Esterase (Negative) U Hyaline Cast (Auto) (0-2) /LPF Urine Microscopic RBC (0-5) /HPF Urine Microscopic WBC (0-5) /HPF Ur Epithelial Cells (None Seen) /HPF Urine Bacteria (None Seen) /HPF Urine Culture Reflexed (NO) Radiology Exams: Radiology Procedures Category Date Time Status CHEST 2 VIEWS (PA AND LAT) Stat Exams 10/14/22 16:03 Completed Assessment/Plan (1) Hyperglycemia due to diabetes mellitus Current Visit: No Status: Acute Assessment & Plan: -Cmp pending, glucometer reading 445 -SSI high dose -Aggressive hydration -Consider insulin drip if pt lab reflect DKA -r/o underlying cause, urinalysis essentially negative for infection, CXR pending, WBC WNL 10/15/22: -Blood glucose levels improving, DKA not noted on lab findings -No source of infection noted, will d/c rocephin for UTI as culture is negative -A1c elevated at 12.7 indicating poor glycemic control, discussed insulin modifications as well as diet/lifestyle modifications -Adjustments made to lispro 15u premeals, SSI moderate dosing, increase glargine to 64 units -Possible discharge tomorrow if improvement on re-evaluation Code(s): E11.65 - TYPE 2 DIABETES MELLITUS WITH HYPERGLYCEMIA (2) Nausea & vomiting Current Visit: No Status: Acute Assessment & Plan: -Most likely secondary to hyperglycemia -Zofran PRN Code(s): R11.2 - NAUSEA WITH VOMITING, UNSPECIFIED (3) Adrenal Chelsea's syndrome Current Visit: No Status: Acute Assessment & Plan: -noted, adds complexity, continue home meds Code(s): E24.9 - CHELSEA'S SYNDROME, UNSPECIFIED (4) Diabetes mellitus Current Visit: No Status: Chronic Qualifiers: Diabetes mellitus type: type 2 Diabetes mellitus manager intermediate insulin use: with [facility] use Diabetes mellitus complication status: with hyperglycemia Qualified Code(s): E11.65 - Type 2 diabetes mellitus with hyperglycemia; Z79.4 - manager intermediate (current) use of insulin Assessment & Plan: -see above Code(s): E11.9 - TYPE 2 DIABETES MELLITUS WITHOUT COMPLICATIONS
[2022-10-15] MEDS: Nitrostat 0.4 MG Tablet SL PRN ×2 (14:53→21:50)
[2022-10-15] MEDS: HUMALOG SQ SCH (16:46)
[2022-10-15] MEDS ORDERED: HUMALOG SQ SCH (17:00)
[2022-10-15] MEDS: Protonix 40MG Tablet PO SCH (21:52)
[2022-10-15] MEDS: Cozaar 50 MG PO SCH (21:52)
[2022-10-15] MEDS: Cyclobenzaprine 10 MG PO SCH (21:52)
[2022-10-15] MEDS: Bystolic 5 MG PO SCH (21:52)
[2022-10-15] MEDS: ZOCOR 20MG PO SCH (21:52)
[2022-10-15] MEDS: XANAX 1 MG PO SCH (21:53)
[2022-10-15] MEDS: CLARITIN 10 MG PO SCH (21:53)
[2022-10-15] MEDS: LYRICA 100MG PO SCH (21:53)
[2022-10-15] MEDS: Tricor 145 MG PO SCH (21:53)
[2022-10-15] MEDS: Paxil 20 MG PO SCH (21:53)
[2022-10-16] MEDS: HUMALOG SQ PRN ×4 (03:12→11:22)
[2022-10-16 06:17] LABS: Hematocrit 40.9 % (35-47); Hemoglobin 13.3 g/dL (12.0-16.0); Mean Cell Volume 85.4 fL (78-100); Mean Corpuscular Hemoglobin 27.8 pg (26-32); Mean Corpuscular Hgb Concent. 32.5 g/dL (32-36); Mean Platelet Volume 9.8 fL (7.5-11.0); Platelet Count 159 x10^3/uL (150-450); Red Blood Count 4.79 x10^6/uL (4.1-5.4); Red Cell Distribution Width 11.8 % (11.5-14.0); White Blood Count 5.4 x10^3/uL (4.0-10.5)
[2022-10-16 07:15] VITALS: RESP 17
[2022-10-16] MEDS ORDERED: HUMALOG SQ SCH (08:00)
[2022-10-16] MEDS: Acidophilus TABLET PO SCH (09:29)
[2022-10-16] MEDS ORDERED: Lantus Insulin SQ SCH (10:00)
[2022-10-16 11:19] VITALS: BP 123/62; PULSE 79; TEMP 97.1; O2SAT 94
[2022-10-16] MEDS: HUMALOG SQ SCH (11:25)
--- NOTE | 2022-10-16 11:54 | PCM.DS ---
Discharge Summary Date of Admission: 10/14/22 15:40 Date of Discharge: 10/16/22 Admitting Physician: LORI RENEE MD Primary Care Provider: MAVIS DILLARD, Allergies Allergies metoprolol Allergy (Mild, Verified 06/17/22 21:37) [facility] Summary - Hospital Course Hospital Course: is a 42 year old female with a pmhx of DM2, cushings disease, CAD, and IBS direct admission 10/14/22 from [facility], being admitted for hyperglycemia. Patient states she was in her usual state of health until this week she noticed her blood glucose levels were consistently in the 200's and today over 500. She reports that she checks her blood sugars in the morning and evening time. During this past week she has noticed an increase in mood swings, bladder spasms, fatigue, and today nausea/vomiting, and an episode of diarrhea. Home insulin is 25 units of lispro TID, glargine 32 units daily and trulicity 0.75mg sq weekly. Overnight blood glucose levels continue to stabilize now in the 200's but most recent blood glucose at 293. Adjustments made to insulin including premeal insulin at 15U, increased glargine to 64 units, and continue SSI moderate dosing. Patient will discharge with these adjustments. Additionally, patient having intermittent cp relieved by nitro, EKG and troponins unremarkable. Patient follows with Dr. Fisher (cardiology) as well as Dr. Noguera (endocrinology), and Mavis Dillard PCP, and advised follow up. Most recent assessment and plan: (1) Hyperglycemia due to diabetes mellitus Current Visit: No Status: Acute Assessment & Plan: -Cmp pending, glucometer reading 445 -SSI high dose -Aggressive hydration -Consider insulin drip if pt lab reflect DKA -r/o underlying cause, urinalysis essentially negative for infection, CXR pending, WBC WNL 10/15/22: -Blood glucose levels improving, DKA not noted on lab findings -No source of infection noted, will d/c rocephin for UTI as culture is negative -A1c elevated at 12.7 indicating poor glycemic control, discussed insulin modifications as well as diet/lifestyle modifications -Adjustments made to lispro 15u premeals, SSI moderate dosing, increase glargine to 64 units -Possible discharge tomorrow if improvement on re-evaluation Code(s): E11.65 - TYPE 2 DIABETES MELLITUS WITH HYPERGLYCEMIA (2) Nausea & vomiting Current Visit: No Status: Acute Assessment & Plan: -Most likely secondary to hyperglycemia -Zofran PRN Code(s): R11.2 - NAUSEA WITH VOMITING, UNSPECIFIED (3) Adrenal Elgin's syndrome Current Visit: No Status: Acute Assessment & Plan: -noted, adds complexity, continue home meds Code(s): E24.9 - YVONNE'S SYNDROME, UNSPECIFIED (4) Diabetes mellitus Current Visit: No Status: Chronic Qualifiers: Diabetes mellitus type: type 2 Diabetes mellitus alf insulin use: with [facility] Diabetes mellitus complication status: with hyperglycemia Qualified Code(s): E11.65 - Type 2 diabetes mellitus with hyperglycemia; Z79.4 - long-term (current) use of insulin Assessment & Plan: -see above Code(s): E11.9 - TYPE 2 DIABETES MELLITUS WITHOUT COMPLICATIONS New Diagnosis: Hyperglycemia/Chest pain New Meds: Changes to lispro/glargine as stated above Follow up: PCP/Cardiology/Endocrinology - Vitals & Intake/Output Vital Signs: Vital Signs Temperature 97.1 F 10/16/22 11:18 Pulse Rate 79 10/16/22 11:18 Respiratory Rate 17 10/16/22 11:18 Blood Pressure 123/62 10/16/22 11:18 O2 Sat by Pulse Oximetry 94 L 10/16/22 11:18 Intake & Output: Intake & Output 10/13/22 10/14/22 10/15/22 10/16/22 11:59 11:59 11:59 11:59 Intake Total 2464 1440 Output Total 2100 Balance 364 1440 Weight 127.5 kg - Lab Result Diagrams: 10/16/22 05:32 10/15/22 03:40 Lab Results-Last 24 Hrs: Lab Results-Last 24 Hours 10/15/22 10/15/22 10/15/22 Range/Units 14:50 16:27 19:25 WBC (4.0-10.5) x10^3/uL RBC (4.1-5.4) x10^6/uL Hgb (12.0-16.0) g/dL Hct (35-47) % MCV (78-100) fL MCH (26-32) pg MCHC (32-36) g/dL RDW (11.5-14.0) % Plt Count (150-450) x10^3/uL MPV (7.5-11.0) fL POC Glucometer 230 H (74 to 106) mg/dL Troponin I < 0.012 < 0.012 (0.000-0.034) ng/mL 10/15/22 10/15/22 10/15/22 Range/Units 20:26 22:41 23:12 WBC (4.0-10.5) x10^3/uL RBC (4.1-5.4) x10^6/uL Hgb (12.0-16.0) g/dL Hct (35-47) % MCV (78-100) fL MCH (26-32) pg MCHC (32-36) g/dL RDW (11.5-14.0) % Plt Count (150-450) x10^3/uL MPV (7.5-11.0) fL POC Glucometer 230 H 225 H (74 to 106) mg/dL Troponin I < 0.012 (0.000-0.034) ng/mL 10/16/22 10/16/22 10/16/22 Range/Units 04:22 05:32 06:53 WBC 5.4 (4.0-10.5) x10^3/uL RBC 4.79 (4.1-5.4) x10^6/uL Hgb 13.3 (12.0-16.0) g/dL Hct 40.9 (35-47) % MCV 85.4 (78-100) fL MCH 27.8 (26-32) pg MCHC 32.5 (32-36) g/dL RDW 11.8 (11.5-14.0) % Plt Count 159 (150-450) x10^3/uL MPV 9.8 (7.5-11.0) fL POC Glucometer 262 H 220 H (74 to 106) mg/dL Troponin I (0.000-0.034) ng/mL 10/16/22 Range/Units 11:08 WBC (4.0-10.5) x10^3/uL RBC (4.1-5.4) x10^6/uL Hgb (12.0-16.0) g/dL Hct (35-47) % MCV (78-100) fL MCH (26-32) pg MCHC (32-36) g/dL RDW (11.5-14.0) % Plt Count (150-450) x10^3/uL MPV (7.5-11.0) fL POC Glucometer 270 H (74 to 106) mg/dL Troponin I (0.000-0.034) ng/mL Micro Results-Entire Visit: Accuchecks Date 10/16/22 Date 10/16/22 Date 10/16/22 Date 10/15/22 Time 11:18 Time 07:14 Time 00:00 Time 16:29 - Radiology Exams Ordered Rad Exams-Entire Visit: Radiology Procedures Category Date Time Status CHEST 2 VIEWS (PA AND LAT) Stat Exams 10/14/22 16:03 Completed - Procedures and Test Procedures and Tests throughout Hospitalization: Therapy Orders & Screens 10/14/22 16:36 OT Screen per Nursing Assess ONCE Comment: Protocol Order Physician Instructions: Greater than 3 points order OT Admission Screening Reason For Exam: Triggered on Admission Diagnosis: Hyperglycemia Open Wound/Cellutlitis/Pressure Ulcers: No Acute Fx/ORIF/Change in wt bearing status: No Severe MUSCULOSKELETAL pain: No ADL Dysfunction: No Acute CVA w/Hemiparesis/Hemiplegia: No Decreased Functional Mobility/Strength: Yes Sprain/Strain: Yes Acute Post-op Mobility Dysfunction: No Total Points: 4 PT Screen per Nursing Assess ONCE Comment: Protocol Order Physician Instructions: Greater than 3 points order PT Admission Screenin Reason For Exam: Triggered on Admission Diagnosis: Hyperglycemia Open Wound/Cellutlitis/Pressure Ulcers: No Acute Fx/ORIF/Change in wt bearing status: No Severe MUSCULOSKELETAL pain: No ADL Dysfunction: No Acute CVA w/Hemiparesis/Hemiplegia: No Decreased Functional Mobility/Strength: Yes Sprain/Strain: Yes Acute Post-op Mobility Dysfunction: No Total Points: 4 10/15/22 03:28 EKG ONCE Comment: chest pain Diagnosis: Hyperglycemia 10/15/22 14:38 EKG STAT Comment: Diagnosis: Hyperglycemia Discharge Exam General Appearance: no apparent distress Neurologic Exam: alert, oriented x 3, cooperative Eye Exam: PERRL Respiratory Exam: normal breath sounds, lungs clear Cardiovascular Exam: regular rate/rhythm, normal heart sounds Gastrointestinal/Abdomen Exam: soft, normal bowel sounds Extremity Exam: normal inspection Skin Exam: normal color Final Diagnosis/Problem List - Final Discharge Diagnosis/Problem (1) Hyperglycemia due to diabetes mellitus Current Visit: No Status: Chronic Code(s): E11.65 - TYPE 2 DIABETES MELLITUS WITH HYPERGLYCEMIA (2) Nausea & vomiting Current Visit: No Status: Resolved Code(s): R11.2 - NAUSEA WITH VOMITING, UNSPECIFIED (3) Adrenal Elgin's syndrome Current Visit: No Status: Chronic Code(s): E24.9 - YVONNE'S SYNDROME, UNSPECIFIED (4) Diabetes mellitus Current Visit: No Status: Chronic Code(s): E11.9 - TYPE 2 DIABETES MELLITUS WITHOUT COMPLICATIONS (5) Chest pain Current Visit: No Status: Acute Code(s): R07.9 - CHEST PAIN, UNSPECIFIED (6) Chest pain Current Visit: No Status: Ruled-out Code(s): R07.9 - CHEST PAIN, UNSPECIFIED - Discharge Disposition: Home, Self-Care Condition: Stable Prescriptions: New Insulin Lispro [Humalog] 15 unit SQ AC 30 Days #3 ml Insulin Glargine [Lantus Insulin] 64 unit SQ QAM 30 Days #10 ml Continue PARoxetine HCL [Paroxetine HCl] 40 mg PO HS Nitroglycerin 0.4 mg Tablet [Nitrostat 0.4 MG Tablet] 0.4 mg SL UD PRN PRN Reason: Pain Nebivolol HCl 5 MG [Bystolic 5 MG] 5 mg PO HS ALPRAZolam 0.5 MG [xanAX 0.5 MG] 1 mg PO QHS Omeprazole 40 mg PO HS Rosuvastatin Calcium [Crestor] 20 mg PO QHS Losartan Potassium 50 mg PO QHS Fenofibrate 160 mg PO HS Pregabalin [Lyrica 100Mg] 100 mg PO HS Dulaglutide [Trulicity] 0.75 mg SQ WEEKLY Cyclobenzaprine HCl 10 mg [Cyclobenzaprine 10 MG] 5 mg PO HS Fexofenadine HCl [Alana Allergy] 60 mg PO HS Discontinued Insulin Glargine,Hum.rec.anlog [Basaglar Kwikpen U-100] 32 unit SQ DAILY Insulin Lispro [Humalog Kwikpen U-200] 25 units SQ TID Instructions: High Blood Sugar, Adult (DC) Additional Instructions: [facility] OFFERS DIABETIC TEACHING COURSES. THE NEXT COURSE DATE IS 11/27/22 FROM 1-3 PM. YOU MUST REGISTER AHEAD OF TIME BY CALLING EDUCATION DEPARTMENT AT [phone] Follow up with: NANCY JARRELL NP [NON-STAFF PHY W/O PRIVILEGES] - 10/22/22 10:30 am SKYE NOGUERA [NON-STAFF PHY W/O PRIVILEGES] - MARCELA FISHER [CONSULTING PHYSICIAN] -
== END 2022-10-16 12:59 | disposition home or self-care (01) ==
LOC: MED SURG 15:40
PROVIDERS: ADMIT Internal Medicine; ATTEND Internal Medicine
DX: E11.65 Type 2 diabetes mellitus with hyperglycemia (principal); R11.2 Nausea with vomiting, unspecified; E24.9 Cushing's syndrome, unspecified; R07.9 Chest pain, unspecified; I25.10 Atherosclerotic heart disease of native coronary artery without angina pectoris; E78.5 Hyperlipidemia, unspecified; I10 Essential (primary) hypertension; Z79.4 Long term (current) use of insulin; Z79.899 Other long term (current) drug therapy; Z20.828 Contact with and (suspected) exposure to other viral communicable diseases
CPT/HCPCS: 36415; 71046; 80053; 81001; 82947; 84484; 85027; 93005; 93268; G0378; G0379; Q3014; J0696; J1817; A9270-GY

== ENCOUNTER 2023-03-31 16:45 | Emergency (ER) | payer BC ==
[2023-03-31 17:04] VITALS: BP 179/84; PULSE 84; RESP 18; TEMP 98.3; O2SAT 96
[2023-03-31] MEDS ORDERED: BACTRIM DS TABLET PO ONE (17:27)
--- NOTE | 2023-03-31 17:29 | ERPHSYRPT ---
- History of Present Illness Time Seen by Provider: 03/31/23 17:00 Source: patient Exam Limitations: no limitations Patient Subjective Stated Complaint: Abscess Triage Nursing Assessment: Patient ambulated back to ED and transferred self to bed. Patient A+O X.3 Patient's skin pink, warm and dry. Patient complains of abscess to right underneath groin since August. Patient has been on several different atb. Patient complains of pain /. Abscess noted to right groin area that is red and hard with soft middle. 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 The wound has been present for several months. Patient has been through several rounds of antibiotics. The drainage transiently improves then recurs. Some local discomfort. Patient has been taking [id number] analgesics for pain control. No recent trauma no fever. No nausea vomiting or diaphoresis. Pain well localized at this time. Patient received a gram of ibuprofen for pain control. Patient has no other complaints. Portions of this note were created with voice recognition technology. There may be grammatical, spelling, punctuation or sound alike errors Timing/Duration: other (Several months) Severity: moderate Modifying Factors: Improves With: nothing Associated Symptoms: denies symptoms Allergies/Adverse Reactions: metoprolol Allergy (Mild, Verified 03/31/23 16:54) Hives Home Medications: ALPRAZolam 0.5 MG [xanAX 0.5 MG] 1 mg PO QHS 09/04/18 [History] Nebivolol HCl 5 MG [Bystolic 5 MG] 5 mg PO HS 09/04/18 [History] Nitroglycerin 0.4 mg Tablet [Nitrostat 0.4 MG Tablet] 0.4 mg SL UD PRN 09/04/18 [History] PARoxetine HCL [Paroxetine HCl] 40 mg PO HS 09/04/18 [History] Omeprazole 40 mg PO HS 11/09/18 [History] Rosuvastatin Calcium [Crestor] 20 mg PO QHS 11/02/19 [History] Losartan Potassium 50 mg PO QHS 03/06/20 [History] Fenofibrate 160 mg PO HS 02/25/21 [History] Pregabalin [Lyrica 100Mg] 100 mg PO HS 02/25/21 [History] Dulaglutide [Trulicity] 0.75 mg SQ WEEKLY 06/17/22 [History] Cyclobenzaprine HCl 10 mg [Cyclobenzaprine 10 MG] 5 mg PO HS 10/14/22 [History] Fexofenadine HCl [Alana Allergy] 60 mg PO HS 10/14/22 [History] Hx Tetanus, Diphtheria Vaccination/Date Given: Yes Hx Influenza Vaccination/Date Given: No Hx Pneumococcal Vaccination/Date Given: No Immunizations Up to Date: Yes Travel Risk - International Travel Have you traveled outside of the country in past 3 weeks: No - Coronavirus Screening Are you exhibiting any of the following symptoms?: No Close contact with a COVID-19 positive Pt in past 14-21 Days: No - Vaccine Status Have you recieved a Covid-19 vaccination: Yes Movement Education Specialist: Sweeten - Vaccination Dates Date of 2cond Vaccination (if applicable): unknown - Review of Systems Constitutional: No Symptoms, No Fever, No Chills Eyes: No Symptoms Ears, Nose, & Throat: No Symptoms Respiratory: No Symptoms, No Cough, No Dyspnea Cardiac: No Symptoms, No Chest Pain, No Edema, No Syncope Abdominal/Gastrointestinal: No Symptoms, No Abdominal Pain, No Nausea, No Vomiting, No Diarrhea Genitourinary Symptoms: No Symptoms, No Dysuria Musculoskeletal: No Symptoms, No Back Pain, No Neck Pain Skin: No Symptoms, No Rash Neurological: No Symptoms, No Dizziness, No Focal Weakness, No Sensory Changes Psychological: No Symptoms Endocrine: No Symptoms Hematologic/Lymphatic: No Symptoms Immunological/Allergic: No Symptoms All Other Systems: Reviewed and Negative - Past Medical History Pertinent Past Medical History: Yes Neurological History: No Pertinent History ENT History: No Pertinent History Cardiac History: Angina, Coronary Artery Disease, High Cholesterol, Hypertension Respiratory History: Sleep Apnea Endocrine Medical History: Diabetes Type II, Liver Disease Musculoskeletal History: Fractures GI Medical History: GERD, Irritable Bowel, Polyps History: No Pertinent History Psycho-Social History: Anxiety Female Reproductive Disorders: Fibroids Other Medical History: Cushions disease - Past Surgical History Past Surgical History: Yes Neuro Surgical History: No Pertinent History Cardiac: Cardiac Catheterization Respiratory: No Pertinent History Gastrointestinal: Cholecystectomy, Hernia Repair Genitourinary: No Pertinent History Musculoskeletal: Other Female Surgical History: Hysterectomy Other Surgical History: plantar fi - Social History Smoking Status: Never smoker Exposure to second hand smoke: No Drug Use: none Patient Lives Alone: No Significant Family History: no pertinent family hx - Female History Hx Last Menstrual Period: hysterectomy Hx Now: No - Nursing Vital Signs Nursing Vital Signs: Initial Vital Signs Temperature 98.3 F 03/31/23 16:55 Pulse Rate 84 03/31/23 16:55 Respiratory Rate 18 03/31/23 16:55 Blood Pressure 179/84 03/31/23 16:55 O2 Sat by Pulse Oximetry 96 03/31/23 16:55 Pain Scale Pain Intensity 3 - Physical Exam General Appearance: no apparent distress, alert Eye Exam: PERRL/EOMI, eyes nml inspection Ears, Nose, Throat Exam: normal ENT inspection Neck Exam: normal inspection, full range of motion Respiratory Exam: normal breath sounds, airway intact, No respiratory distress Cardiovascular Exam: regular rate/rhythm, normal heart sounds Gastrointestinal/Abdomen Exam: soft, normal bowel sounds, other (There is a 2.5 x 2.5 cm chronically draining lesion at the right groin area within the left fold of pannus. No obvious cellulitis.), No tenderness, No mass Pelvic Exam: not done Back Exam: normal inspection, normal range of motion, No CVA tenderness, No vertebral tenderness Extremity Exam: normal inspection, normal range of motion, pelvis stable Neurologic Exam: alert, oriented x 3, cooperative, normal mood/affect, sensation nml, No motor deficits Skin Exam: normal color, warm, dry, No rash Lymphatic Exam: No adenopathy SpO2 Interpretation: normal SpO2: 96 O2 Delivery: Room Air - Course Nursing assessment & vital signs reviewed: Yes Ordered Tests: Medication Summary Discontinued Medications Generic Name Dose Route Start Last Admin Trade Name Freq PRN Reason Stop Dose Admin Trimethoprim/Sulfamethoxazole 1 tab 03/31/23 17:19 Smz/Tmp Ds Tablet 1 Tablet PO 03/31/23 17:20 STAT STA - Progress Progress: improved Progress Note: Patient received a dose of Bactrim in our ED. We did not go with clindamycin as patient has a history of C. difficile colitis. Patient also received a dose of Tylenol for pain control. A prescription for Toradol forwarded to patient's pharmacy. A prescription for Keflex forwarded to patient's pharmacy. Patient referred to general surgery as this chronic recurrent drainage will likely require surgical debridement. Portions of this note were created with voice recognition technology. There may be grammatical, spelling, punctuation or sound alike errors Complexity problem addressed is low acute uncomplicated Complex of data reviewed and analyzed is none. Diagnosis made based on history and physical examination. No specialized testing ordered Risk complication and a risk morbidity/mortality patient management is moderate. A prescription for Toradol and Bactrim forwarded to patient's pharmacy. Vital stable. Time spent to discharge patient approximately 10 minutes. Plan of care established for shared decision making. No social determinants of health present impede follow-up. Portions of this note were created with voice recognition technology. There may be grammatical, spelling, punctuation or sound alike errors 03/31/23 17:33 Counseled pt/family regarding: diagnosis, need for follow-up - Departure Departure Disposition: Home Clinical Impression: chronic draining skin lesion, Abscess Condition: Stable Critical Care Time: No Referrals: NANCY JARRELL NP [Primary Care Provider] - Follow up/PCP as directed STEPHANIE KRAMER [ACTIVE STAFF] - Follow up/PCP as directed Additional Instructions: Discharge/Care Plan BRENDA OLSON was seen on 03/31/23 in the Emergency Room. The patient was counseled regarding Diagnosis,Lab results, Imaging studies, need for follow up and when to return to the Emergency Room. Prescriptions given: Discharge Note I have spoken with the patient and/or caregivers. I have explained the patient's condition, diagnosis and treatment plan based on the information available to me at this time. I have answered the patient's and/or caregiver's questions and addressed any concerns. The patient and/or caregivers have as good understanding of the patient's diagnosis, condition and treatment plan as can be expected at this point. The vital signs have been stable. The patient's condition is stable and appropriate for discharge from the emergency department. The patient will pursue further outpatient evaluation with the primary care physician or other designated or consulting physician as outlined in the discharge instructions. The patient and/or caregivers are agreeable to this plan of care and follow-up instructions have been explained in detail. The patient and/or caregivers have received these instruction. The patient/and or caregivers are aware that any significant change in condition or worsening of symptoms should prompt an immediate return to this or the closest emergency department or call 911. Prescriptions: Smz/Tmp Ds Tablet [Bactrim Ds Tablet] 1 udtab PO BID #14 tablet Ketorolac Trometh 10 mg Tab [TORAdol 10 MG TABLET] 10 mg PO TID 5 Days #15 tablet
[2023-03-31] MEDS: BACTRIM DS TABLET PO STA (17:30)
== END 2023-03-31 17:35 | disposition home or self-care (01) ==
LOC: ED 16:45
DX: L02.214 Cutaneous abscess of groin (principal); E78.5 Hyperlipidemia, unspecified; I10 Essential (primary) hypertension; E11.9 Type 2 diabetes mellitus without complications; Z79.85 Long-term (current) use of injectable non-insulin antidiabetic drugs; Z79.899 Other long term (current) drug therapy
CPT/HCPCS: 99281; A9270-GY

== ENCOUNTER 2023-08-13 08:17 | Emergency (ER) | payer BC ==
[2023-08-13 08:31] VITALS: TEMP 96.1
[2023-08-13] MEDS ORDERED: Zofran 4 MG/2 ML VIAL ONE (08:42)
[2023-08-13] MEDS ORDERED: Sodium Chloride 0.9% 1000 ML 1,000 ML ONE (08:42)
[2023-08-13] MEDS: Sodium Chloride 0.9% 1000 ML 1,000 ML IV STA (08:43)
[2023-08-13] MEDS: Zofran 4 MG/2 ML VIAL IV ONE (08:43)
[2023-08-13 08:49] LABS: Absolute Neutrophil Ct (ANC) 4.21 x10^3/uL (1.56-6.13); Basophil (Absolute #) 0 x10^3/uL (0.01-0.08); Eosinophil % 1.9 % (0.7-5.8); Eosinophil (Absolute #) 0.14 x10^3/uL (0.04-0.36); Hemoglobin 14.8 g/dL (11.2-15.7); IMMATURE GRAN # 0.03 x10^3u/L (0.001-0.031); IMMATURE GRAN % 0.4 % (0.001-0.429); Lymphocyte (Absolute #) 2.53 x10^3/uL (1.18-3.74); Lymphocytes % 34.1 % (19.3-51.7); Mean Cell Volume 84.9 fL (79.4-94.8); Mean Corpuscular Hemoglobin 27.9 pg (25.6-32.2); Mean Corpuscular Hgb Concent. 32.9 g/dL (32.2-35.5); Mean Platelet Volume 9.4 fL (9.4-12.3); Monocyte (Absolute #) 0.52 x10^3/uL (0.24-0.86); Neutrophil % 56.6 % (34.0-71.1); Platelet Count 241 x10^3/uL (182-369); Red Cell Distribution Width 12.6 % (11.7-14.4); White Blood Count 7.4 x10^3/uL (3.98-10.04)
[2023-08-13 08:58] LABS: ALBUMIN 4.9 g/dL (3.5-5.0); ANION GAP 17.6 MEQ/L (5-15); BILIRUBIN,TOTAL 0.7 mg/dL (0.2-1.3); Calcium 9.4 mg/dL (8.4-10.2); Creatinine 1 0.51 mg/dL (0.52-1.04); EST GLOMERULAR FILTRATION RATE 117.2 ML/MIN; Potassium 3.6 mmol/L (3.5-5.1); Total Protein 8.1 g/dL (6.3-8.2)
[2023-08-13 09:19] LABS: INFLUENZA A NEGATIVE (NEGATIVE); INFLUENZA B NEGATIVE (NEGATIVE); RESPIRATORY SYNCTIAL VIRUS NEGATIVE (NEGATIVE); SARS-CoV-2 Xpert Express NEGATIVE (NEGATIVE)
[2023-08-13 09:37] LABS: VBG CARBOXYHEMOGLOBIN 2.9 % T HGB (0.0-6.9); VBG HCO3- 26.9 meq/L (22-28); VBG HEMOGLOBIN 15.3; VBG O2 SATURATION 58.8 (95-100); VBG POTASSIUM 3.7 (3.5-5.1); VBG pH 7.33 (7.32-7.42)
--- NOTE | 2023-08-13 09:50 | XRAY ---
Indication: Abdominal pain, nausea, vomiting, and diarrhea. Multiple contiguous axial images obtained through the abdomen and pelvis without contrast. Comparison: April 11, 2021 Lung bases remain clear. Heart not enlarged. Noncontrasted stomach and bowel loops appear nonobstructed again with normal appendix. Again 24.4 cm fatty hepatomegaly, 13.8 cm splenomegaly, cholecystectomy, and hysterectomy. No free fluid/air. Remaining liver, pancreas, spleen, adrenal glands, kidneys, ureters, and bladder are unremarkable for noncontrast exam. Again minimal aortic calcifications without AAA. Osseous structures intact again with minimal dextroscoliosis centered at L3. No ventral or inguinal hernias. Impression: Again fatty hepatomegaly, splenomegaly, minimal arteriosclerotic disease, and minimal dextroscoliosis. No new/acute findings on this noncontrast exam.
[2023-08-13 10:08] LABS: 027 TOX PROD PRESUMPTIVE NEGATIVE (NEGATIVE); TOXIGENIC C. DIFF ORG NEGATIVE (NEGATIVE)
[2023-08-13 10:36] LABS: Appearance Clear (Clear); Bacteria Rare /HPF (None Seen); Bilirubin Negative (Negative); Blood Negative (Negative); Epithelial Cells None Seen /HPF (None Seen); Glucose, Urine >=1000 mg/dL (Negative); Hyaline Casts NONE SEEN /LPF (0-2); Ketones 15 (Negative); Leukocyte Esterase Negative (Negative); Nitrite Negative (Negative); Ph 5.5 (4.6-8.0); Protein,Urine Dip Negative (Negative); RBC 0-2 /HPF (0-5); Specific Gravity >=1.030 (1.005-1.030); Urobilinogen 0.2 mg/dL (0.2)
[2023-08-13] MEDS ORDERED: SUBLIMAZE 100 MCG/2 ML ONE (10:44)
[2023-08-13] MEDS: SUBLIMAZE 100 MCG/2 ML IV ONE (10:47)
[2023-08-13 10:55] LABS: ADD URINE CULTURE? NO (NO)
[2023-08-13 11:27] VITALS: RESP 17; O2SAT 95
--- NOTE | 2023-08-13 11:38 | ERPHSYRPT ---
- History of Present Illness Time Seen by Provider: 08/13/23 08:47 Historian: patient Exam Limitations: no limitations Patient Subjective Stated Complaint: Diarrhea Triage Nursing Assessment: Patient ambulated back to ED and transferred self to bed. Patient A+O X 3. Patient's skin pink, warm and dry. Patient complains of diarrhea, N/V that started Thursday. Patient complains of pain to abdomen, right flank and in between shoulder blades 5/10. Abdomen soft and round with BS X 4. Patient states she gave herself her 2nd dose of Mounjara on Thursday. Physician History: 43-year-old female with history of diabetes mellitus, recently started on Wegovy for weight loss presented in the ER with complaints of abdominal pain with nausea vomiting and diarrhea for the last 2 days. Patient reports multiple episodes of loose watery stool with associated nausea and few episodes of nonprojectile, nonbilious vomiting. Denies any hematochezia or hematemesis. Diffuse abdominal pain all over without distention. No fever or chills reported. Feels weak fatigued tired and dehydrated. Known sick contact. Patient reported this was her second shot of Wegovy. Allergies/Adverse Reactions: metoprolol Allergy (Mild, Verified 08/13/23 08:23) Hives Home Medications: ALPRAZolam 0.5 MG [xanAX 0.5 MG] 1 mg PO QHS 09/04/18 [History] Nebivolol HCl 5 MG [Bystolic 5 MG] 5 mg PO HS 09/04/18 [History] Nitroglycerin 0.4 mg Tablet [Nitrostat 0.4 MG Tablet] 0.4 mg SL UD PRN 09/04/18 [History] PARoxetine HCL [Paroxetine HCl] 40 mg PO HS 09/04/18 [History] Omeprazole 40 mg PO HS 11/09/18 [History] Rosuvastatin Calcium [Crestor] 20 mg PO QHS 11/02/19 [History] Losartan Potassium 50 mg PO QHS 03/06/20 [History] Fenofibrate 160 mg PO HS 02/25/21 [History] Pregabalin [Lyrica 100Mg] 100 mg PO HS 02/25/21 [History] Dulaglutide [Trulicity] 0.75 mg SQ WEEKLY 06/17/22 [History] Cyclobenzaprine HCl 10 mg [Cyclobenzaprine 10 MG] 5 mg PO HS 10/14/22 [His tory] Fexofenadine HCl [Alana Allergy] 60 mg PO HS 10/14/22 [History] Hx Tetanus, Diphtheria Vaccination/Date Given: Yes Hx Influenza Vaccination/Date Given: No Hx Pneumococcal Vaccination/Date Given: No Immunizations Up to Date: Yes Travel Risk - International Travel Have you traveled outside of the country in past 3 weeks: No - Emerging Infectious Disease Are you exhibiting symptoms associated with any current EIDs: No - Review of Systems Constitutional: Fatigue, Weakness Eyes: No Symptoms Ears, Nose, & Throat: No Symptoms Respiratory: No Symptoms Cardiac: No Symptoms Abdominal/Gastrointestinal: Abdominal Pain, Nausea, Vomiting, Diarrhea Genitourinary Symptoms: No Symptoms Musculoskeletal: No Symptoms Skin: No Symptoms Neurological: No Symptoms Psychological: No Symptoms Endocrine: No Symptoms Hematologic/Lymphatic: No Symptoms Immunological/Allergic: No Symptoms All Other Systems: Reviewed and Negative - Past Medical History Pertinent Past Medical History: Yes Neurological History: No Pertinent History ENT History: No Pertinent History Cardiac History: Angina, Coronary Artery Disease, High Cholesterol, Hypertension Respiratory History: Sleep Apnea Endocrine Medical History: Diabetes Type II, Liver Disease Musculoskeletal History: Fractures GI Medical History: GERD, Irritable Bowel, Polyps History: No Pertinent History Psycho-Social History: Anxiety Female Reproductive Disorders: Fibroids Other Medical History: Cushions disease - Past Surgical History Past Surgical History: Yes Neuro Surgical History: No Pertinent History Cardiac: Cardiac Catheterization Respiratory: No Pertinent History Gastrointestinal: Cholecystectomy, Hernia Repair Genitourinary: No Pertinent History Musculoskeletal: Other Female Surgical History: Hysterectomy Other Surgical History: plantar fi Significant Family History: no pertinent family hx - Female History Hx Last Menstrual Period: hysterectomy Hx Now: No - Social History Smoking Status: Never smoker Exposure to second hand smoke: No Drug Use: none Patient Lives Alone: No - Social Determinants of Health Will the patient participate in the screening: Yes Do you worry about a steady place to live?: No Do you have any problems with any of the following?: No known problems In the past 12 months,have you had to go without utilities?: No Transportation Issues: No Has anyone in your support network made you feel unsafe?: No Have you or anyone in your house had to go without enough: No - Nursing Vital Signs Nursing Vital Signs: Initial Vital Signs Temperature 96.1 F 08/13/23 08:24 Pulse Rate 97 H 08/13/23 08:24 Respiratory Rate 18 08/13/23 08:24 Blood Pressure 145/87 08/13/23 08:24 O2 Sat by Pulse Oximetry 95 08/13/23 08:24 Pain Scale Pain Intensity 5 - Physical Exam General Appearance: no apparent distress, alert Eye Exam: PERRL/EOMI, eyes nml inspection Ears, Nose, Throat Exam: normal ENT inspection, TMs normal, pharynx normal, moist mucous membranes Neck Exam: normal inspection, non-tender, supple, full range of motion Respiratory Exam: normal breath sounds, lungs clear Cardiovascular Exam: regular rate/rhythm, normal heart sounds Gastrointestinal/Abdomen Exam: soft, normal bowel sounds, tenderness (Generalized to deep palpation with no guarding or rebound) Back Exam: normal inspection, normal range of motion Extremity Exam: normal inspection, normal range of motion Neurologic Exam: alert, oriented x 3, cooperative Skin Exam: normal color SpO2 Interpretation: normal SpO2: 95 O2 Delivery: Room Air Ordered Tests: Active Orders 24 hr Category Date Time Status IV Insertion STAT Care 08/13/23 08:32 Active ABDOMEN AND PELVIS W/0 CONTRAS [CT] Stat Exams 08/13/23 08:40 Completed AMYLASE Stat Lab 08/13/23 08:35 Completed CBC W DIFF Stat Lab 08/13/23 08:35 Completed CMP Stat Lab 08/13/23 08:35 Completed LIPASE Stat Lab 08/13/23 08:35 Completed Lactic Acid Stat Lab 08/13/23 08:38 Completed UA W/RFX UR CULTURE Stat Lab 08/13/23 08:36 Completed VBG [VENOUS BLOOD GAS] Stat Lab 08/13/23 09:33 Completed Medication Summary Discontinued Medications Generic Name Dose Route Start Last Admin Trade Name Freq PRN Reason Stop Dose Admin Fentanyl Citrate 50 mcg 08/13/23 10:38 08/13/23 10:47 Fentanyl Citrate 100 Mcg/2 Ml* Vial IV 08/13/23 10:39 50 mcg STAT ONE Administration Fentanyl Citrate Confirm 08/13/23 10:44 Fentanyl Citrate 100 Mcg/2 Ml* Vial Administered 08/13/23 10:45 Dose 100 mcg .ROUTE .STK-MED ONE Sodium Chloride 1,000 mls @ 999 mls/hr 08/13/23 08:40 08/13/23 10:01 Sodium Chloride 0.9% 1000 Ml IV 08/13/23 09:40 Infused .Q1H1M STA Infusion Sodium Chloride Confirm 08/13/23 08:42 Sodium Chloride 0.9% 1000 Ml Administered 08/13/23 08:43 Dose 1,000 mls @ ud .ROUTE .STK-MED ONE Ondansetron HCl 4 mg 08/13/23 08:40 08/13/23 08:43 Ondansetron Hcl 4 Mg/2 Ml Vial IV 08/13/23 08:41 4 mg STAT ONE Administration Ondansetron HCl Confirm 08/13/23 08:42 Ondansetron Hcl 4 Mg/2 Ml Vial Administered 08/13/23 08:43 Dose 4 mg .ROUTE .STK-MED ONE Lab/Rad Data: Laboratory Result Diagrams 08/13/23 08:35 08/13/23 08:35 Laboratory Results 08/13/23 08/13/23 08/13/23 Range/Units 09:33 08:40 08:38 WBC (3.98-10.04) x10^3/uL RBC (3.93-5.22) x10^6/uL Hgb (11.2-15.7) g/dL Hct (34.1-44.9) % MCV (79.4-94.8) fL MCH (25.6-32.2) pg MCHC (32.2-35.5) g/dL RDW (11.7-14.4) % Plt Count (182-369) x10^3/uL MPV (9.4-12.3) fL Gran % (34.0-71.1) % Immature Gran % (Auto) (0.001-0.429) % Nucleat RBC Rel Count (0.00-0.2) % Eos # (Auto) (0.04-0.36) x10^3/uL Immature Gran # (Auto) (0.001-0.031) x10^3u/L Absolute Lymphs (auto) (1.18-3.74) x10^3/uL Absolute Monos (auto) (0.24-0.86) x10^3/uL Absolute Nucleated RBC (0.00-0.012) x10^3u/L Lymphocytes % (19.3-51.7) % Monocytes % (4.7-12.5) % Eosinophils % (0.7-5.8) % Basophils % (0.1-1.2) % Absolute Granulocytes (1.56-6.13) x10^3/uL Basophils # (0.01-0.08) x10^3/uL pO2/FiO2 Ratio 21.0 % VBG pH 7.33 (7.32-7.42) VBG pCO2 at Pat Temp 51 (42-55) mm/Hg VBG pO2 at Pat Temp 35 (25-40) mm/Hg VBG HCO3 26.9 (22-28) meq/L VBG O2 Sat (Yevgeniy) 58.8 L (95-100) VBG Base Excess 0.0 (-2.0-2.0) VBG Hemoglobin 15.3 VBG Carboxyhemoglobin 2.9 (0.0-6.9) % T HGB POC Potassium 3.7 (3.5-5.1) Sodium (135-145) mmol/L Potassium (3.5-5.1) mmol/L Chloride (98-107) mmol/L Carbon Dioxide (22-30) mmol/L Anion Gap (5-15) MEQ/L BUN (7-17) mg/dL Creatinine (0.52-1.04) mg/dL Estimated GFR ML/MIN Glucose (74-106) mg/dL Lactic Acid 2.4 H (0.4-2.0) Calcium (8.4-10.2) mg/dL Total Bilirubin (0.2-1.3) mg/dL AST (14-36) U/L ALT (0-35) U/L Alkaline Phosphatase (38-126) U/L Serum Total Protein (6.3-8.2) g/dL Albumin (3.5-5.0) g/dL Amylase (30-110) U/L Lipase (23-300) U/L Urine Color (Yellow) Urine Appearance (Clear) Urine pH (4.6-8.0) Ur Specific [place] (1.005-1.030) Urine Protein (Negative) Urine Glucose (UA) (Negative) mg/dL Urine Ketones (Negative) Urine Blood (Negative) Urine Nitrite (Negative) Urine Bilirubin (Negative) Urine Urobilinogen (0.2) mg/dL Ur Leukocyte Esterase (Negative) U Hyaline Cast (Auto) (0-2) /LPF Urine Microscopic RBC (0-5) /HPF Urine Microscopic WBC (0-5) /HPF Ur Epithelial Cells (None Seen) /HPF Urine Bacteria (None Seen) /HPF Urine Culture Reflexed (NO) C. difficile Screen (NEGATIVE) C.difficile 027-NAP1-B1 (NEGATIVE) Influenza Type A Ag NEGATIVE (NEGATIVE) Influenza Type B Ag NEGATIVE (NEGATIVE) RSV (PCR) NEGATIVE (NEGATIVE) SARS-CoV-2 (PCR) NEGATIVE (NEGATIVE) 08/13/23 08/13/23 08/13/23 Range/Units 08:36 08:35 08:35 WBC 7.4 (3.98-10.04) x10^3/uL RBC 5.30 H (3.93-5.22) x10^6/uL Hgb 14.8 (11.2-15.7) g/dL Hct 45.0 H (34.1-44.9) % MCV 84.9 (79.4-94.8) fL MCH 27.9 (25.6-32.2) pg MCHC 32.9 (32.2-35.5) g/dL RDW 12.6 (11.7-14.4) % Plt Count 241 (182-369) x10^3/uL MPV 9.4 (9.4-12.3) fL Gran % 56.6 (34.0-71.1) % Immature Gran % (Auto) 0.4 (0.001-0.429) % Nucleat RBC Rel Count 0.0 (0.00-0.2) % Eos # (Auto) 0.14 (0.04-0.36) x10^3/uL Immature Gran # (Auto) 0.03 (0.001-0.031) x10^3u/L Absolute Lymphs (auto) 2.53 (1.18-3.74) x10^3/uL Absolute Monos (auto) 0.52 (0.24-0.86) x10^3/uL Absolute Nucleated RBC 0.00 (0.00-0.012) x10^3u/L Lymphocytes % 34.1 (19.3-51.7) % Monocytes % 7.0 (4.7-12.5) % Eosinophils % 1.9 (0.7-5.8) % Basophils % 0.0 L (0.1-1.2) % Absolute Granulocytes 4.21 (1.56-6.13) x10^3/uL Basophils # 0 L (0.01-0.08) x10^3/uL pO2/FiO2 Ratio % VBG pH (7.32-7.42) VBG pCO2 at Pat Temp (42-55) mm/Hg VBG pO2 at Pat Temp (25-40) mm/Hg VBG HCO3 (22-28) meq/L VBG O2 Sat (Yevgeniy) (95-100) VBG Base Excess (-2.0-2.0) VBG Hemoglobin VBG Carboxyhemoglobin (0.0-6.9) % T HGB POC Potassium (3.5-5.1) Sodium 140 (135-145) mmol/L Potassium 3.6 (3.5-5.1) mmol/L Chloride 101 (98-107) mmol/L Carbon Dioxide 24 (22-30) mmol/L Anion Gap 17.6 H (5-15) MEQ/L BUN 16 (7-17) mg/dL Creatinine 0.51 L (0.52-1.04) mg/dL Estimated GFR 117.2 ML/MIN Glucose 154 H (74-106) mg/dL Lactic Acid (0.4-2.0) Calcium 9.4 (8.4-10.2) mg/dL Total Bilirubin 0.70 (0.2-1.3) mg/dL AST 25 (14-36) U/L ALT 36 H (0-35) U/L Alkaline Phosphatase 65 (38-126) U/L Serum Total Protein 8.1 (6.3-8.2) g/dL Albumin 4.9 (3.5-5.0) g/dL Amylase 55 (30-110) U/L Lipase 32 (23-300) U/L Urine Color Yellow (Yellow) Urine Appearance Clear (Clear) Urine pH 5.5 (4.6-8.0) Ur Specific [place] >=1.030 A (1.005-1.030) Urine Protein Negative (Negative) Urine Glucose (UA) >=1000 A (Negative) mg/dL Urine Ketones 15 A (Negative) Urine Blood Negative (Negative) Urine Nitrite Negative (Negative) Urine Bilirubin Negative (Negative) Urine Urobilinogen 0.2 (0.2) mg/dL Ur Leukocyte Esterase Negative (Negative) U Hyaline Cast (Auto) NONE SEEN (0-2) /LPF Urine Microscopic RBC 0-2 (0-5) /HPF Urine Microscopic WBC 3-5 (0-5) /HPF Ur Epithelial Cells None Seen (None Seen) /HPF Urine Bacteria Rare A (None Seen) /HPF Urine Culture Reflexed NO (NO) C. difficile Screen (NEGATIVE) C.difficile 027-NAP1-B1 (NEGATIVE) Influenza Type A Ag (NEGATIVE) Influenza Type B Ag (NEGATIVE) RSV (PCR) (NEGATIVE) SARS-CoV-2 (PCR) (NEGATIVE) 08/13/23 Range/Units 08:30 WBC (3.98-10.04) x10^3/uL RBC (3.93-5.22) x10^6/uL Hgb (11.2-15.7) g/dL Hct (34.1-44.9) % MCV (79.4-94.8) fL MCH (25.6-32.2) pg MCHC (32.2-35.5) g/dL RDW (11.7-14.4) % Plt Count (182-369) x10^3/uL MPV (9.4-12.3) fL Gran % (34.0-71.1) % Immature Gran % (Auto) (0.001-0.429) % Nucleat RBC Rel Count (0.00-0.2) % Eos # (Auto) (0.04-0.36) x10^3/uL Immature Gran # (Auto) (0.001-0.031) x10^3u/L Absolute Lymphs (auto) (1.18-3.74) x10^3/uL Absolute Monos (auto) (0.24-0.86) x10^3/uL Absolute Nucleated RBC (0.00-0.012) x10^3u/L Lymphocytes % (19.3-51.7) % Monocytes % (4.7-12.5) % Eosinophils % (0.7-5.8) % Basophils % (0.1-1.2) % Absolute Granulocytes (1.56-6.13) x10^3/uL Basophils # (0.01-0.08) x10^3/uL pO2/FiO2 Ratio % VBG pH (7.32-7.42) VBG pCO2 at Pat Temp (42-55) mm/Hg VBG pO2 at Pat Temp (25-40) mm/Hg VBG HCO3 (22-28) meq/L VBG O2 Sat (Yevgeniy) (95-100) VBG Base Excess (-2.0-2.0) VBG Hemoglobin VBG Carboxyhemoglobin (0.0-6.9) % T HGB POC Potassium (3.5-5.1) Sodium (135-145) mmol/L Potassium (3.5-5.1) mmol/L Chloride (98-107) mmol/L Carbon Dioxide (22-30) mmol/L Anion Gap (5-15) MEQ/L BUN (7-17) mg/dL Creatinine (0.52-1.04) mg/dL Estimated GFR ML/MIN Glucose (74-106) mg/dL Lactic Acid (0.4-2.0) Calcium (8.4-10.2) mg/dL Total Bilirubin (0.2-1.3) mg/dL AST (14-36) U/L ALT (0-35) U/L Alkaline Phosphatase (38-126) U/L Serum Total Protein (6.3-8.2) g/dL Albumin (3.5-5.0) g/dL Amylase (30-110) U/L Lipase (23-300) U/L Urine Color (Yellow) Urine Appearance (Clear) Urine pH (4.6-8.0) Ur Specific [place] (1.005-1.030) Urine Protein (Negative) Urine Glucose (UA) (Negative) mg/dL Urine Ketones (Negative) Urine Blood (Negative) Urine Nitrite (Negative) Urine Bilirubin (Negative) Urine Urobilinogen (0.2) mg/dL Ur Leukocyte Esterase (Negative) U Hyaline Cast (Auto) (0-2) /LPF Urine Microscopic RBC (0-5) /HPF Urine Microscopic WBC (0-5) /HPF Ur Epithelial Cells (None Seen) /HPF Urine Bacteria (None Seen) /HPF Urine Culture Reflexed (NO) C. difficile Screen NEGATIVE (NEGATIVE) C.difficile 027-NAP1-B1 PRESUMPTIVE NEGATIVE (NEGATIVE) Influenza Type A Ag (NEGATIVE) Influenza Type B Ag (NEGATIVE) RSV (PCR) (NEGATIVE) SARS-CoV-2 (PCR) (NEGATIVE) - Progress Progress: improved Progress Note: 08/13/23 11:39 43-year-old is evaluated in the ER with abdominal pain nausea vomiting and diarrhea. Patient is type II diabetic on Wegovy which was recently started and patient took second shot followed by abdominal pain vomiting and diarrhea. Patient is afebrile. Given fluids and symptomatic treatment, on reevaluation feeling much improved. Workup showed normal white count, chemistries with some element of dehydration but patient is not in DKA or HHS. Normal venous pH. Minimal ketones in the urine secondary to dehydration. Negative for C. difficile. Patient abdomen pelvis CT is negative for any acute abdominal pelvic findings. I believe patient has this secondary to side effects of Wegovy, recommended increase hydration, Tylenol/Zofran as needed and outpatient follow- up with primary care/endocrinology for further evaluation and discussion about switching to a different medication that Wegovy. Discussed signs symptoms of worsening needing return to ER which she seems understanding. Stable for discharge. Counseled pt/family regarding: lab results, diagnosis, need for follow-up, rad results Medical Desision Making - Diagnostic Testing Diagnostic test were ordered, analyzed, and reviewed by me: Yes Radiological Interpretation: Reviewed by me, Teleradiologist Report - Risk of complications The pt has a mod risk of morbidity or mortality based on: Need for prescription drug management - Departure Departure Disposition: Home Clinical Impression: Nausea and vomiting in adult patient, Dehydration, Diarrhea Condition: Stable Critical Care Time: No Referrals: NANCY JARRELL NP [Primary Care Provider] - Follow up with PCP 1 day Instructions: Diarrhea and Traveler's Diarrhea, Adult (DC) Additional Instructions: take tylenol / zofran as needed, follow up with pcp for re evaluation, talk to your pcp /endocrinology for re evaluation and about Wegovy. Return to ER for intractable nausea vomiting diarrhea/abdominal pain/dehydration. Drink plenty of fluids. Prescriptions: Ondansetron ODT 4 MG [Zofran Odt 4 mg] 1 ea PO QIDPRN PRN #7 tablet PRN Reason: n/v
[2023-08-13 11:50] VITALS: BP 118/63; PULSE 83
[2023-08-15 06:11] LABS: Adenovirus F40/41 Not Detected (Not Detected); Astrovirus Not Detected (Not Detected); Campylobacter Not Detected (Not Detected); Cryptosporidium Not Detected (Not Detected); Cyclospora cayetanensis Not Detected (Not Detected); Entamoeba histolytica Not Detected (Not Detected); Enteroaggregative E coli Not Detected (Not Detected); Enterpathogenic E coli Detected (Not Detected); Entertoxigenic E coli Not Detected (Not Detected); Giardia lamblia Not Detected (Not Detected); Norovirus GI/GII Not Detected (Not Detected); Plesiomonas shigelloides Not Detected (Not Detected); Rotavirus A Not Detected (Not Detected); Salmonella Not Detected (Not Detected); Shig-toxin-producing E coli Not Detected (Not Detected); Shigella/Enterinvasive E coli Not Detected (Not Detected); Vibrio Not Detected (Not Detected); Vibrio cholerae Not Detected (Not Detected); Yersinia enterocolitica Not Detected (Not Detected)
[2023-08-16 01:41] LABS: Sapovirus Not Detected (Not Detected)
== END 2023-08-13 12:00 | disposition home or self-care (01) ==
LOC: ED 08:17
DX: R11.2 Nausea with vomiting, unspecified (principal); E86.0 Dehydration; R19.7 Diarrhea, unspecified; R10.84 Generalized abdominal pain; R53.1 Weakness; E78.5 Hyperlipidemia, unspecified; I10 Essential (primary) hypertension; E11.9 Type 2 diabetes mellitus without complications; Z79.85 Long-term (current) use of injectable non-insulin antidiabetic drugs; Z79.899 Other long term (current) drug therapy
CPT/HCPCS: 0241U; 36000; 36415; 74176; 80053; 81001; 82150; 82805; 83605; 83690; 85025; 87493; 87507; 96374; 96375; 99284; J2405; J3010

== ENCOUNTER 2024-01-24 11:50 | Emergency (ER) | payer BC ==
[2024-01-24 12:12] VITALS: RESP 18; TEMP 97.6
[2024-01-24 12:30] LABS: Absolute Neutrophil Ct (ANC) 6.66 x10^3/uL (1.56-6.13); BASOPHIL % 0.5 % (0.1-1.2); Basophil (Absolute #) 0.04 x10^3/uL (0.01-0.08); Eosinophil % 1.4 % (0.7-5.8); Eosinophil (Absolute #) 0.12 x10^3/uL (0.04-0.36); Hematocrit 42.5 % (34.1-44.9); Hemoglobin 13.8 g/dL (11.2-15.7); IMMATURE GRAN # 0.03 x10^3u/L (0.001-0.031); IMMATURE GRAN % 0.3 % (0.001-0.429); Lymphocyte (Absolute #) 1.52 x10^3/uL (1.18-3.74); Lymphocytes % 17.2 % (19.3-51.7); Mean Cell Volume 84.7 fL (79.4-94.8); Mean Corpuscular Hemoglobin 27.5 pg (25.6-32.2); Mean Corpuscular Hgb Concent. 32.5 g/dL (32.2-35.5); Monocyte (Absolute #) 0.47 x10^3/uL (0.24-0.86); Monocytes % 5.3 % (4.7-12.5); Neutrophil % 75.3 % (34.0-71.1); Platelet Count 166 x10^3/uL (182-369); Red Blood Count 5.02 x10^6/uL (3.93-5.22); Red Cell Distribution Width 14.5 % (11.7-14.4); White Blood Count 8.8 x10^3/uL (3.98-10.04)
[2024-01-24] MEDS ORDERED: Sodium Chloride 0.9% 1000 ML 1,000 ML ONE (12:33)
[2024-01-24] MEDS: Sodium Chloride 0.9% 1000 ML 1,000 ML IV STA (12:34)
[2024-01-24 12:43] LABS: ALBUMIN 4.8 g/dL (3.5-5.0); ANION GAP 13.8 MEQ/L (5-15); BILIRUBIN,TOTAL 0.5 mg/dL (0.2-1.3); Calcium 9.7 mg/dL (8.4-10.2); Creatinine 1 0.55 mg/dL (0.52-1.04); EST GLOMERULAR FILTRATION RATE 115.1 ML/MIN; Total Protein 7.8 g/dL (6.3-8.2)
--- NOTE | 2024-01-24 12:50 | ERPHSYRPT ---
- History of Present Illness Time Seen by Provider: 01/24/24 12:48 Source: patient, family Exam Limitations: no limitations Patient Subjective Stated Complaint: c/o urinary retention Triage Nursing Assessment: patient brought to ED by with c/o urinary retention. patients stated that she had urgency t pee this morning and was only able to drbble. Patient stated when she wiped there was some blood. patient has abdominal pain/pressure and lower back pain. Patient had a BM this morning. Bowels sounds present in all 4 quads, gait steady, vitals wnl, skin w/n/d, pulses normal, pt doesn't appear to be in any distress at this time. Physician History: patient brought to ED by with c/o urinary retention. patients stated that she had urgency t pee this morning and was only able to drbble. Patient stated when she wiped there was some blood. patient has abdominal pain/pressure and lower back pain. Patient had a BM this morning. pt doesn't appear to be in any distress at this time. Timing/Duration: today Severity: mild Associated Symptoms: denies symptoms Allergies/Adverse Reactions: metoprolol Allergy (Mild, Verified 01/24/24 12:12) Hives Home Medications: ALPRAZolam 0.5 MG [xanAX 0.5 MG] 1 mg PO QHS 09/04/18 [History] Nebivolol HCl 5 MG [Bystolic 5 MG] 5 mg PO HS 09/04/18 [History] Nitroglycerin 0.4 mg Tablet [Nitrostat 0.4 MG Tablet] 0.4 mg SL UD PRN 09/04/18 [History] PARoxetine HCL [Paroxetine HCl] 40 mg PO HS 09/04/18 [History] Omeprazole 40 mg PO HS 11/09/18 [History] Rosuvastatin Calcium [Crestor] 20 mg PO QHS 11/02/19 [History] Losartan Potassium 50 mg PO QHS 03/06/20 [History] Fenofibrate 160 mg PO HS 02/25/21 [History] Pregabalin [Lyrica 100Mg] 100 mg PO HS 02/25/21 [History] Dulaglutide [Trulicity] 0.75 mg SQ WEEKLY 06/17/22 [History] Cyclobenzaprine HCl 10 mg [Cyclobenzaprine 10 MG] 5 mg PO HS 10/14/22 [History] Fexofenadine HCl [Alana Allergy] 60 mg PO HS 10/14/22 [History] Hx Tetanus, Diphtheria Vaccination/Date Given: Yes Hx Influenza Vaccination/Date Given: Yes Hx Pneumococcal Vaccination/Date Given: No Travel Risk - International Travel Have you traveled outside of the country in past 3 weeks: No - Emerging Infectious Disease Are you exhibiting symptoms associated with any current EIDs: Yes Symptoms: Abdominal Pain - Review of Systems Constitutional: No Fever, No Chills Eyes: No Symptoms Ears, Nose, & Throat: No Symptoms Respiratory: No Cough, No Dyspnea Cardiac: No Chest Pain, No Edema, No Syncope Abdominal/Gastrointestinal: Abdominal Pain, No Nausea, No Vomiting, No Diarrhea Genitourinary Symptoms: Urinary Retention Musculoskeletal: No Back Pain, No Neck Pain Skin: No Rash Neurological: No Dizziness, No Focal Weakness, No Sensory Changes Psychological: No Symptoms Endocrine: No Symptoms All Other Systems: Reviewed and Negative - Past Medical History Pertinent Past Medical History: Yes Neurological History: No Pertinent History ENT History: No Pertinent History Cardiac History: Angina, Coronary Artery Disease, High Cholesterol, Hypertension Respiratory History: Sleep Apnea Endocrine Medical History: Diabetes Type II, Liver Disease Musculoskeletal History: Fractures GI Medical History: GERD, Irritable Bowel, Polyps History: No Pertinent History Psycho-Social History: Anxiety Female Reproductive Disorders: Fibroids Other Medical History: Cushions disease, 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 - Past Surgical History Past Surgical History: Yes Neuro Surgical History: No Pertinent History Cardiac: Cardiac Catheterization Respiratory: No Pertinent History Gastrointestinal: Cholecystectomy, Hernia Repair Genitourinary: No Pertinent History Musculoskeletal: Other Female Surgical History: Hysterectomy Other Surgical History: plantar fi, GASTRIC BYPASS ON 2023 Significant Family History: no pertinent family hx - Female History Hx Last Menstrual Period: complete hysterectomy Hx Now: No - Social History Smoking Status: Never smoker Exposure to second hand smoke: No Drug Use: none Patient Lives Alone: No - Social Determinants of Health Will the patient participate in the screening: Yes Do you worry about a steady place to live?: No Do you have any problems with any of the following?: No known problems In the past 12 months,have you had to go without utilities?: No Transportation Issues: No Has anyone in your support network made you feel unsafe?: No Have you or anyone in your house had to go without enough: No - Nursing Vital Signs Nursing Vital Signs: Initial Vital Signs Temperature 97.6 F 01/24/24 11:55 Pulse Rate 86 01/24/24 11:55 Respiratory Rate 18 01/24/24 11:55 Blood Pressure 125/81 01/24/24 11:55 O2 Sat by Pulse Oximetry 98 01/24/24 11:55 Pain Scale Pain Intensity 5 - Physical Exam General Appearance: no apparent distress, alert Eye Exam: PERRL/EOMI, eyes nml inspection Ears, Nose, Throat Exam: normal ENT inspection, TMs normal, pharynx normal, moist mucous membranes Neck Exam: normal inspection, non-tender, supple, full range of motion Respiratory Exam: normal breath sounds, lungs clear, No respiratory distress Cardiovascular Exam: regular rate/rhythm, normal heart sounds, normal peripheral pulses Gastrointestinal/Abdomen Exam: soft, normal bowel sounds, No tenderness, No mass Back Exam: normal inspection, normal range of motion, No CVA tenderness, No vertebral tenderness Extremity Exam: normal inspection, normal range of motion, pelvis stable Neurologic Exam: alert, oriented x 3, cooperative, normal mood/affect, nml cerebellar function, nml station & gait, sensation nml, No motor deficits Skin Exam: normal color, warm, dry, No rash Lymphatic Exam: No adenopathy SpO2: 97 - Course Nursing assessment & vital signs reviewed: Yes Ordered Tests: Active Orders 24 hr Category Date Time Status AMYLASE Stat Lab 01/24/24 12:33 Completed CBC W DIFF Stat Lab 01/24/24 12:33 Completed CMP Stat Lab 01/24/24 12:33 Completed CULTURE,URINE Stat Lab 01/24/24 13:52 Received LIPASE Stat Lab 01/24/24 12:33 Completed UA W/RFX UR CULTURE Stat Lab 01/24/24 13:52 Completed Medication Summary Generic Name Dose Route Start Last Admin Trade Name Freq PRN Reason Stop Dose Admin Ceftriaxone Sodium 1 gm in 100 mls @ 200 mls/hr 01/24/24 14:28 01/24/24 14:31 Rocephin 1 Gm / 100 Ml Nacl IV 01/24/24 14:57 200 mls/hr STAT ONE 200 mls/hr Administration Discontinued Medications Generic Name Dose Route Start Last Admin Trade Name Freq PRN Reason Stop Dose Admin Sodium Chloride 1,000 mls @ 999 mls/hr 01/24/24 12:09 01/24/24 14:35 Sodium Chloride 0.9% 1000 Ml IV 01/24/24 13:09 Infused .Q1H1M STA Infusion Sodium Chloride Confirm 01/24/24 12:33 Sodium Chloride 0.9% 1000 Ml Administered 01/24/24 12:34 Dose 1,000 mls @ ud .ROUTE .STK-MED ONE Ceftriaxone Sodium Confirm 01/24/24 14:29 Rocephin 1 Gm / 100 Ml Nacl Administered 01/24/24 14:30 Dose 1 gm in 100 mls @ ud IV .STK-MED ONE Ketorolac Tromethamine 30 mg 01/24/24 13:35 01/24/24 13:53 Ketorolac Tromethamine 30 Mg/Ml Inj IV 01/24/24 13:36 30 mg STAT ONE Administration Ketorolac Tromethamine Confirm 01/24/24 13:49 Ketorolac Tromethamine 30 Mg/Ml Inj Administered 01/24/24 13:50 Dose 30 mg .ROUTE .STK-MED ONE Ondansetron HCl 4 mg 01/24/24 13:35 01/24/24 13:52 Ondansetron Hcl 4 Mg/2 Ml Vial IV 01/24/24 13:36 4 mg STAT ONE Administration Ondansetron HCl Confirm 01/24/24 13:48 Ondansetron Hcl 4 Mg/2 Ml Vial Administered 01/24/24 13:49 Dose 4 mg .ROUTE .STK-MED ONE Lab/Rad Data: Laboratory Result Diagrams 01/24/24 12:33 01/24/24 12:33 Laboratory Results 01/24/24 01/24/24 01/24/24 Range/Units 13:52 12:33 12:33 WBC 8.8 (3.98-10.04) x10^3/uL RBC 5.02 (3.93-5.22) x10^6/uL Hgb 13.8 (11.2-15.7) g/dL Hct 42.5 (34.1-44.9) % MCV 84.7 (79.4-94.8) fL MCH 27.5 (25.6-32.2) pg MCHC 32.5 (32.2-35.5) g/dL RDW 14.5 H (11.7-14.4) % Plt Count 166 L (182-369) x10^3/uL MPV 10.0 (9.4-12.3) fL Gran % 75.3 H (34.0-71.1) % Immature Gran % (Auto) 0.3 (0.001-0.429) % Nucleat RBC Rel Count 0.0 (0.00-0.2) % Eos # (Auto) 0.12 (0.04-0.36) x10^3/uL Immature Gran # (Auto) 0.03 (0.001-0.031) x10^3u/L Absolute Lymphs (auto) 1.52 (1.18-3.74) x10^3/uL Absolute Monos (auto) 0.47 (0.24-0.86) x10^3/uL Absolute Nucleated RBC 0.00 (0.00-0.012) x10^3u/L Lymphocytes % 17.2 L (19.3-51.7) % Monocytes % 5.3 (4.7-12.5) % Eosinophils % 1.4 (0.7-5.8) % Basophils % 0.5 (0.1-1.2) % Absolute Granulocytes 6.66 H (1.56-6.13) x10^3/uL Basophils # 0.04 (0.01-0.08) x10^3/uL Sodium 140 (135-145) mmol/L Potassium 4.0 (3.5-5.1) mmol/L Chloride 102 (98-107) mmol/L Carbon Dioxide 28 (22-30) mmol/L Anion Gap 13.8 (5-15) MEQ/L BUN 14 (7-17) mg/dL Creatinine 0.55 (0.52-1.04) mg/dL Estimated GFR 115.1 ML/MIN Glucose 130 H (74-106) mg/dL Calcium 9.7 (8.4-10.2) mg/dL Total Bilirubin 0.50 (0.2-1.3) mg/dL AST 74 H (14-36) U/L ALT 135 H (0-35) U/L Alkaline Phosphatase 75 (38-126) U/L Serum Total Protein 7.8 (6.3-8.2) g/dL Albumin 4.8 (3.5-5.0) g/dL Amylase 57 (30-110) U/L Lipase 59 (23-300) U/L Urine Color Dark Yellow A (Yellow) Urine Appearance Turbid A (Clear) Urine pH 5.5 (4.6-8.0) Ur Specific [place] 1.025 (1.005-1.030) Urine Protein 300 A (Negative) Urine Glucose (UA) Negative (Negative) mg/dL Urine Ketones 15 A (Negative) Urine Blood Large A (Negative) Urine Nitrite Negative (Negative) Urine Bilirubin Small A (Negative) Urine Urobilinogen 1.0 A (0.2) mg/dL Ur Leukocyte Esterase Large A (Negative) Urine Microscopic RBC >100 A (0-5) /HPF Urine Microscopic WBC >100 A (0-5) /HPF Ur Epithelial Cells Few (None Seen) /HPF Urine Bacteria Moderate A (None Seen) /HPF Urine Culture Reflexed ORDERED SEPARATELY (NO) - Progress Progress: improved, pain not gone completely Counseled pt/family regarding: lab results, diagnosis, need for follow-up Medical Desision Making - Independent Historian Additional History obtained from: Spouse, Family - Diagnostic Testing Diagnostic test were ordered, analyzed, and reviewed by me: Yes - Risk of complications Low Risk: Low risk of morbidity from additional dx testing or treatment - Departure Departure Disposition: Home Clinical Impression: Pyelonephritis Condition: Stable Critical Care Time: No Referrals: NANCY JARRELL NP [Primary Care Provider] - Follow up with PCP 7 days Instructions: Urinary tract infections in adults, Urinary tract infection - Discharge instructions Additional Instructions: Discharge/Care Plan WESLEYBRENDA SABINE was seen on 01/24/24 in the Emergency Room. The patient was counseled regarding Diagnosis,Lab results, Imaging studies, need for follow up and when to return to the Emergency Room. Prescriptions given: Discharge Note I have spoken with the patient and/or caregivers. I have explained the patient's condition, diagnosis and treatment plan based on the information available to me at this time. I have answered the patient's and/or caregiver's questions and addressed any concerns. The patient and/or caregivers have as good understanding of the patient's diagnosis, condition and treatment plan as can be expected at this point. The vital signs have been stable. The patient's condition is stable and appropriate for discharge from the emergency department. The patient will pursue further outpatient evaluation with the primary care physician or other designated or consulting physician as outlined in the discharge instructions. The patient and/or caregivers are agreeable to this plan of care and follow-up instructions have been explained in detail. The patient and/or caregivers have received these instruction. The patient/and or caregivers are aware that any significant change in condition or worsening of symptoms should prompt an immediate return to this or the closest emergency department or call 911. WESLEYBRENDA REGALADO was seen on 01/24/24 n the Emergency Room. At that time you were treated for an emergent condition, during your visit Laboratory, Radiology and/or other procedures may have been ordered. It is very important that you follow-up with your Primary Care Physician NANCY JARRELL within the next 24-48 hours to review your Emergency Room visit and the final results of testing that was ordered. Some test results such as Urine Cultures, Blood Cultures, and other cultures if ordered will not be finalized for 24-48 hours. If you do not have a Primary Care Provider please call the medical records department at [phone] ext [phone] to obtain a copy of your results or you may sign into our patient portal to obtain these results by visiting us @ [email or web address] and completing the following steps: 1. Click on the Patient Portal link 2. Click the Patient Self Enrollment Link to complete the enrollment form and entering your 3. Once the enrollment form is completed you will receive an email with a temporary ID and password at the email address you provided. 4. Next choose a user name and password. Your user name must be at least 4 characters long and your password must be at least 4 characters long. 5. Choose a security question from the list and provide your answer to the question. If you already have signed into the Health Portal you may access your Health Care Information 15/09 by the following steps: 1. Login to our website @ [email or web address] 2. Enter your original user name and password. FAQS The [facility] Health Portal is an online tool that contains your Lab Results, Radiology Reports, Visit History, Discharge Instructions and Health Summary Lab and Radiology Results will not be available for 72 hours on the portal. The Portal is a secure site, passwords are encryted and URLs are re-written so they cannot be copied and pasted. You and authorized family members are the only ones who can access your Portal. Also there is a timeout feature that protects your information if you leave the Portal page open. If you have technical difficulty please use the Contact Us link on the page this will allow you to submit any questions you have regarding the Portal or you may contact the Medical Record Department at [phone] ext [phone]. Prescriptions: Ciprofloxacin [Cipro 500 MG] 500 mg PO BIDAC #20 tablet
[2024-01-24] MEDS ORDERED: Zofran 4 MG/2 ML VIAL ONE (13:48)
[2024-01-24] MEDS ORDERED: TORAdol 30 mg Injection ONE (13:49)
[2024-01-24] MEDS: Zofran 4 MG/2 ML VIAL IV ONE (13:52)
[2024-01-24] MEDS: TORAdol 30 mg Injection IV ONE (13:53)
[2024-01-24 14:10] LABS: Appearance Turbid (Clear); Bilirubin Small (Negative); Blood Large (Negative); Epithelial Cells Few /HPF (None Seen); Glucose, Urine Negative (Negative); Ketones 15 (Negative); Leukocyte Esterase Large (Negative); Nitrite Negative (Negative); Ph 5.5 (4.6-8.0); Protein,Urine Dip 300 (Negative); RBC >100 /HPF (0-5); Specific Gravity 1.025 (1.005-1.030); WBC >100 /HPF (0-5)
[2024-01-24 14:22] LABS: Bacteria Moderate /HPF (None Seen)
[2024-01-24] MEDS ORDERED: ROCEPHIN 1 GM / 100 ML NaCl 1 GM/100 ML IVPB IV ONE (14:29)
[2024-01-24] MEDS: ROCEPHIN 1 GM / 100 ML NaCl 1 GM/100 ML IVPB IV ONE (14:31)
[2024-01-24 15:02] VITALS: BP 93/49; PULSE 71; O2SAT 96
== END 2024-01-24 15:27 | disposition home or self-care (01) ==
LOC: ED 11:50
DX: N12 Tubulo-interstitial nephritis, not specified as acute or chronic (principal); R33.9 Retention of urine, unspecified; M54.50 Low back pain, unspecified; Z79.899 Other long term (current) drug therapy
CPT/HCPCS: 36415; 80053; 81001; 82150; 83690; 85025; 87086; 96360; 96361; 96374; 96375; 99284; J0696; J1885; J2405

== ENCOUNTER 2024-05-25 15:00 | Emergency (ER) | payer BC ==
[2024-05-25 15:16] VITALS: TEMP 97.5
[2024-05-25] MEDS ORDERED: Zofran 4 MG/2 ML VIAL ONE (15:46)
[2024-05-25] MEDS ORDERED: PROTONIX 40 MG IV IV ONE (15:46)
[2024-05-25] MEDS ORDERED: XYLOCAINE VISCOUS 2% 15 ML CUP ONE (15:47)
[2024-05-25] MEDS ORDERED: MORPHINE SULFATE 4 MG INJ ONE ×2 (15:47→18:35)
[2024-05-25] MEDS ORDERED: MAALOX ES 30 ML UNIT DOSE ONE (15:47)
[2024-05-25] MEDS ORDERED: Sodium Chloride 0.9% 1000 ML 1,000 ML ONE (15:48)
[2024-05-25] MEDS: GI COCKTAIL 45 ML (Maalox/Lidocaine) PO ONE (15:56)
[2024-05-25] MEDS: Zofran 4 MG/2 ML VIAL IV ONE (15:59)
[2024-05-25] MEDS: PROTONIX 40 MG IV IV ONE (16:02)
[2024-05-25] MEDS: MORPHINE SULFATE 4 MG INJ IV ONE ×2 (16:05→18:36)
[2024-05-25] MEDS: Sodium Chloride 0.9% 1000 ML 1,000 ML IV STA (16:06)
[2024-05-25 16:22] LABS: Absolute Neutrophil Ct (ANC) 3.99 x10^3/uL (1.56-6.13); BASOPHIL % 0.6 % (0.1-1.2); Basophil (Absolute #) 0.04 x10^3/uL (0.01-0.08); Eosinophil % 1.7 % (0.7-5.8); Eosinophil (Absolute #) 0.11 x10^3/uL (0.04-0.36); Hematocrit 41.6 % (34.1-44.9); Hemoglobin 13.9 g/dL (11.2-15.7); IMMATURE GRAN # 0.02 x10^3u/L (0.001-0.031); IMMATURE GRAN % 0.3 % (0.001-0.429); Lymphocyte (Absolute #) 2.07 x10^3/uL (1.18-3.74); Lymphocytes % 31.6 % (19.3-51.7); Mean Cell Volume 86.3 fL (79.4-94.8); Mean Corpuscular Hemoglobin 28.8 pg (25.6-32.2); Mean Corpuscular Hgb Concent. 33.4 g/dL (32.2-35.5); Mean Platelet Volume 10.7 fL (9.4-12.3); Monocyte (Absolute #) 0.32 x10^3/uL (0.24-0.86); Monocytes % 4.9 % (4.7-12.5); Neutrophil % 60.9 % (34.0-71.1); Platelet Count 178 x10^3/uL (182-369); Red Blood Count 4.82 x10^6/uL (3.93-5.22); Red Cell Distribution Width 13.4 % (11.7-14.4); White Blood Count 6.6 x10^3/uL (3.98-10.04)
[2024-05-25 16:30] LABS: HCG SERUM TEST NEGATIVE (NEGATIVE)
[2024-05-25 16:33] LABS: ALBUMIN 4.5 g/dL (3.5-5.0); ANION GAP 18.3 MEQ/L (5-15); BILIRUBIN,TOTAL 0.5 mg/dL (0.2-1.3); Calcium 9.3 mg/dL (8.4-10.2); Creatinine 1 0.5 mg/dL (0.52-1.04); EST GLOMERULAR FILTRATION RATE 117.8 ML/MIN; Potassium 3.8 mmol/L (3.5-5.1); Total Protein 6.7 g/dL (6.3-8.2)
[2024-05-25 19:07] LABS: Appearance Clear (Clear); Bacteria None Seen /HPF (None Seen); Bilirubin Negative (Negative); Blood Negative (Negative); Epithelial Cells None Seen /HPF (None Seen); Glucose, Urine Negative (Negative); Hyaline Casts NONE SEEN /LPF (0-2); Ketones Negative (Negative); Leukocyte Esterase Negative (Negative); Nitrite Negative (Negative); Ph 5.5 (4.6-8.0); Protein,Urine Dip Negative (Negative); RBC 0-2 /HPF (0-5); Specific Gravity >=1.030 (1.005-1.030); Urobilinogen 0.2 mg/dL (0.2); WBC 0-2 /HPF (0-5)
--- NOTE | 2024-05-25 19:18 | ERPHSYRPT ---
- History of Present Illness Time Seen by Provider: 05/25/24 15:08 Historian: patient Exam Limitations: no limitations Patient Subjective Stated Complaint: upper epigastric abdominal pain that radiates to the back, pt had gastric bypass 10/2023 Triage Nursing Assessment: Pt was brought to the ER by her father, hypertensive, rates pain as 5/10, pulses normal, skin n/w/d, denies chest pain, no difficulty breathing, gets nauseated when she takes a drink, did vomit last night, saw Adelaide Jean NP this AM and she thought she may have gastritis, pt has put a call into her surgeon that did her gastric bypass Physician History: 43-year-old female with history of gastric bypass almost 6 months ago presented in the ER with complains of upper abdominal pain with some radiation to the back for almost 1 week. Patient reports moderate intensity dull to sharp pain after oral intake, reports severe nausea and did vomit once yesterday with no hematemesis. Denies any diarrhea but did have constipation, took Dulcolax with a good bowel movement. Patient called her primary surgeon but has not heard back from him. Allergies/Adverse Reactions: metoprolol Allergy (Mild, Verified 05/25/24 15:17) Hives sulfamethoxazole [From Bactrim] Allergy (Verified 05/25/24 15:17) trimethoprim [From Bactrim] Allergy (Verified 05/25/24 15:17) Home Medications: ALPRAZolam 0.5 MG [xanAX 0.5 MG] 1 mg PO QHS 09/04/18 [History] Nebivolol HCl 5 MG [Bystolic 5 MG] 2.5 mg PO HS 09/04/18 [History] Nitroglycerin 0.4 mg Tablet [Nitrostat 0.4 MG Tablet] 0.4 mg SL UD PRN 09/04/18 [History] PARoxetine HCL [Paroxetine HCl] 40 mg PO HS 09/04/18 [History] Cyclobenzaprine HCl 10 mg [Cyclobenzaprine 10 MG] 5 mg PO HS 10/14/22 [History] Hx Tetanus, Diphtheria Vaccination/Date Given: Yes Hx Influenza Vaccination/Date Given: Yes Hx Pneumococcal Vaccination/Date Given: No Travel Risk - International Travel Have you traveled outside of the country in past 3 weeks: No - Emerging Infectious Disease Are you exhibiting symptoms associated with any current EIDs: Yes Symptoms: Abdominal Pain - Review of Systems Constitutional: No Symptoms Eyes: No Symptoms Ears, Nose, & Throat: No Symptoms Respiratory: No Symptoms Cardiac: No Symptoms Abdominal/Gastrointestinal: Abdominal Pain, Nausea, Vomiting Genitourinary Symptoms: No Symptoms Musculoskeletal: No Symptoms Skin: No Symptoms Neurological: No Symptoms Endocrine: No Symptoms Hematologic/Lymphatic: No Symptoms Immunological/Allergic: No Symptoms - Past Medical History Pertinent Past Medical History: Yes Neurological History: No Pertinent History ENT History: No Pertinent History Cardiac History: Angina, Coronary Artery Disease, High Cholesterol, Hypertension Respiratory History: Sleep Apnea Endocrine Medical History: Diabetes Type II, Liver Disease Musculoskeletal History: Fractures GI Medical History: GERD, Irritable Bowel, Polyps History: No Pertinent History Psycho-Social History: Anxiety Female Reproductive Disorders: Fibroids Other Medical History: Cushions disease, 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 - Past Surgical History Past Surgical History: Yes Neuro Surgical History: No Pertinent History Cardiac: Cardiac Catheterization Respiratory: No Pertinent History Gastrointestinal: Cholecystectomy, Hernia Repair Genitourinary: No Pertinent History Musculoskeletal: Other Female Surgical History: Hysterectomy Other Surgical History: plantar fi, GASTRIC BYPASS ON 2023 Significant Family History: no pertinent family hx - Female History Hx Last Menstrual Period: complete hysterectomy Hx Now: (unkn) - Social History Smoking Status: Never smoker Exposure to second hand smoke: No Drug Use: none - Social Determinants of Health Will the patient participate in the screening: Yes Do you worry about a steady place to live?: No Do you have any problems with any of the following?: No known problems In the past 12 months,have you had to go without utilities?: No Transportation Issues: No Has anyone in your support network made you feel unsafe?: No Have you or anyone in your house had to go w/o enough food: No - Nursing Vital Signs Nursing Vital Signs: Initial Vital Signs Temperature 97.5 F 05/25/24 15:08 Pulse Rate 76 05/25/24 15:08 Respiratory Rate 20 05/25/24 15:08 Blood Pressure 143/89 05/25/24 15:08 O2 Sat by Pulse Oximetry 99 05/25/24 15:08 Pain Scale Pain Intensity 0 - Physical Exam General Appearance: no apparent distress Eye Exam: PERRL/EOMI Ears, Nose, Throat Exam: normal ENT inspection Neck Exam: normal inspection, full range of motion Respiratory Exam: normal breath sounds, lungs clear Cardiovascular Exam: regular rate/rhythm, normal heart sounds Gastrointestinal/Abdomen Exam: soft, normal bowel sounds, tenderness (Mild tenderness to deep palpation upper abdomen, hepatomegaly) Back Exam: normal inspection, normal range of motion Extremity Exam: normal inspection, normal range of motion Neurologic Exam: alert, oriented x 3, cooperative Skin Exam: normal color SpO2 Interpretation: normal SpO2: 99 O2 Delivery: Room Air - Course EKG Interpreted by Me: RATE (70), Sinus Rhythm, NORMAL AXIS, NORMAL INTERVALS, NORMAL QRS Ordered Tests: Active Orders 24 hr Category Date Time Status EKG-ER Only STAT Care 05/25/24 15:32 Completed IV Insertion STAT Care 05/25/24 15:39 Completed NPO (ED) STAT Care 05/25/24 15:39 Completed ABDOMEN AND PELVIS W CONTRAST [CT] Stat Exams 05/25/24 15:39 Taken CBC W DIFF Stat Lab 05/25/24 16:05 Completed CMP Stat Lab 05/25/24 16:05 Completed HCG QUALITATIVE, SERUM Stat Lab 05/25/24 16:05 Completed LIPASE Stat Lab 05/25/24 16:05 Completed TROPONIN Q4H Lab 05/25/24 16:05 Completed UA W/RFX UR CULTURE Stat Lab 05/25/24 15:45 Completed Medication Summary Discontinued Medications Generic Name Dose Route Start Last Admin Trade Name Freq PRN Reason Stop Dose Admin Al Hydrox/Mg Hydrox/Simethicone Confirm 05/25/24 15:47 Mag Hydrox/Al Hydrox/Simeth 30 Ml Udcup Administered 05/25/24 15:48 Dose 30 ml .ROUTE .STK-MED ONE Sodium Chloride 1,000 mls @ 999 mls/hr 05/25/24 15:39 05/25/24 19:00 Sodium Chloride 0.9% 1000 Ml IV 05/25/24 16:39 Infused .Q1H1M STA Infusion Sodium Chloride Confirm 05/25/24 15:48 Sodium Chloride 0.9% 1000 Ml Administered 05/25/24 15:49 Dose 1,000 mls @ ud .ROUTE .STK-MED ONE Lidocaine HCl Confirm 05/25/24 15:47 Lidocaine Hcl 2% Viscous 15 Ml Udcup Administered 05/25/24 15:48 Dose 15 ml .ROUTE .STK-MED ONE Magnesium Hydroxide 45 ml 05/25/24 15:39 05/25/24 15:56 Mag Hydrx/Alum Hyd/Simeth/Lido 45 Ml Bottle PO 05/25/24 15:40 45 ml STAT ONE Administration Morphine Sulfate 4 mg 05/25/24 15:39 05/25/24 16:05 Morphine Sulfate 4 Mg/Ml Injection IV 05/25/24 15:40 4 mg STAT ONE Administration Morphine Sulfate Confirm 05/25/24 15:47 Morphine Sulfate 4 Mg/Ml Injection Administered 05/25/24 15:48 Dose 4 mg .ROUTE .STK-MED ONE Morphine Sulfate 4 mg 05/25/24 18:19 05/25/24 18:36 Morphine Sulfate 4 Mg/Ml Injection IV 05/25/24 18:20 4 mg STAT ONE Administration Morphine Sulfate Confirm 05/25/24 18:35 Morphine Sulfate 4 Mg/Ml Injection Administered 05/25/24 18:36 Dose 4 mg .ROUTE .STK-MED ONE Ondansetron HCl 4 mg 05/25/24 15:39 05/25/24 15:59 Ondansetron Hcl 4 Mg/2 Ml Vial IV 05/25/24 15:40 4 mg STAT ONE Administration Ondansetron HCl Confirm 05/25/24 15:46 Ondansetron Hcl 4 Mg/2 Ml Vial Administered 05/25/24 15:47 Dose 4 mg .ROUTE .STK-MED ONE Pantoprazole Sodium 40 mg 05/25/24 15:39 05/25/24 16:02 Pantoprazole 40 Mg Vial IV 05/25/24 15:40 40 mg STAT ONE Administration Pantoprazole Sodium Confirm 05/25/24 15:46 Pantoprazole 40 Mg Vial Administered 05/25/24 15:47 Dose 40 mg IV .STK-MED ONE Lab/Rad Data: Laboratory Result Diagrams 05/25/24 16:05 05/25/24 16:05 Laboratory Results 05/25/24 05/25/24 05/25/24 Range/Units 16:05 16:05 16:05 WBC (3.98-10.04) x10^3/uL RBC (3.93-5.22) x10^6/uL Hgb (11.2-15.7) g/dL Hct (34.1-44.9) % MCV (79.4-94.8) fL MCH (25.6-32.2) pg MCHC (32.2-35.5) g/dL RDW (11.7-14.4) % Plt Count (182-369) x10^3/uL MPV (9.4-12.3) fL Gran % (34.0-71.1) % Immature Gran % (Auto) (0.001-0.429) % Nucleat RBC Rel Count (0.00-0.2) % Eos # (Auto) (0.04-0.36) x10^3/uL Immature Gran # (Auto) (0.001-0.031) x10^3u/L Absolute Lymphs (auto) (1.18-3.74) x10^3/uL Absolute Monos (auto) (0.24-0.86) x10^3/uL Absolute Nucleated RBC (0.00-0.012) x10^3u/L Lymphocytes % (19.3-51.7) % Monocytes % (4.7-12.5) % Eosinophils % (0.7-5.8) % Basophils % (0.1-1.2) % Absolute Granulocytes (1.56-6.13) x10^3/uL Basophils # (0.01-0.08) x10^3/uL Sodium 143 (135-145) mmol/L Potassium 3.8 (3.5-5.1) mmol/L Chloride 103 (98-107) mmol/L Carbon Dioxide 25 (22-30) mmol/L Anion Gap 18.3 H (5-15) MEQ/L BUN 15 (7-17) mg/dL Creatinine 0.50 L (0.52-1.04) mg/dL Estimated GFR 117.8 ML/MIN Glucose 88 (74-106) mg/dL Calcium 9.3 (8.4-10.2) mg/dL Total Bilirubin 0.50 (0.2-1.3) mg/dL AST 56 H (14-36) U/L ALT 87 H (0-35) U/L Alkaline Phosphatase 74 (38-126) U/L Troponin I < 0.012 (0.000-0.033) ng/mL Serum Total Protein 6.7 (6.3-8.2) g/dL Albumin 4.5 (3.5-5.0) g/dL Lipase 80 (23-300) U/L Serum HCG, Qual NEGATIVE (NEGATIVE) Urine Color (Yellow) Urine Appearance (Clear) Urine pH (4.6-8.0) Ur Specific [place] (1.005-1.030) Urine Protein (Negative) Urine Glucose (UA) (Negative) mg/dL Urine Ketones (Negative) Urine Blood (Negative) Urine Nitrite (Negative) Urine Bilirubin (Negative) Urine Urobilinogen (0.2) mg/dL Ur Leukocyte Esterase (Negative) U Hyaline Cast (Auto) (0-2) /LPF Urine Microscopic RBC (0-5) /HPF Urine Microscopic WBC (0-5) /HPF Ur Epithelial Cells (None Seen) /HPF Urine Bacteria (None Seen) /HPF Urine Culture Reflexed (NO) 05/25/24 05/25/24 Range/Units 16:05 15:45 WBC 6.6 (3.98-10.04) x10^3/uL RBC 4.82 (3.93-5.22) x10^6/uL Hgb 13.9 (11.2-15.7) g/dL Hct 41.6 (34.1-44.9) % MCV 86.3 (79.4-94.8) fL MCH 28.8 (25.6-32.2) pg MCHC 33.4 (32.2-35.5) g/dL RDW 13.4 (11.7-14.4) % Plt Count 178 L (182-369) x10^3/uL MPV 10.7 (9.4-12.3) fL Gran % 60.9 (34.0-71.1) % Immature Gran % (Auto) 0.3 (0.001-0.429) % Nucleat RBC Rel Count 0.0 (0.00-0.2) % Eos # (Auto) 0.11 (0.04-0.36) x10^3/uL Immature Gran # (Auto) 0.02 (0.001-0.031) x10^3u/L Absolute Lymphs (auto) 2.07 (1.18-3.74) x10^3/uL Absolute Monos (auto) 0.32 (0.24-0.86) x10^3/uL Absolute Nucleated RBC 0.00 (0.00-0.012) x10^3u/L Lymphocytes % 31.6 (19.3-51.7) % Monocytes % 4.9 (4.7-12.5) % Eosinophils % 1.7 (0.7-5.8) % Basophils % 0.6 (0.1-1.2) % Absolute Granulocytes 3.99 (1.56-6.13) x10^3/uL Basophils # 0.04 (0.01-0.08) x10^3/uL Sodium (135-145) mmol/L Potassium (3.5-5.1) mmol/L Chloride (98-107) mmol/L Carbon Dioxide (22-30) mmol/L Anion Gap (5-15) MEQ/L BUN (7-17) mg/dL Creatinine (0.52-1.04) mg/dL Estimated GFR ML/MIN Glucose (74-106) mg/dL Calcium (8.4-10.2) mg/dL Total Bilirubin (0.2-1.3) mg/dL AST (14-36) U/L ALT (0-35) U/L Alkaline Phosphatase (38-126) U/L Troponin I (0.000-0.033) ng/mL Serum Total Protein (6.3-8.2) g/dL Albumin (3.5-5.0) g/dL Lipase (23-300) U/L Serum HCG, Qual (NEGATIVE) Urine Color Yellow (Yellow) Urine Appearance Clear (Clear) Urine pH 5.5 (4.6-8.0) Ur Specific [place] >=1.030 A (1.005-1.030) Urine Protein Negative (Negative) Urine Glucose (UA) Negative (Negative) mg/dL Urine Ketones Negative (Negative) Urine Blood Negative (Negative) Urine Nitrite Negative (Negative) Urine Bilirubin Negative (Negative) Urine Urobilinogen 0.2 (0.2) mg/dL Ur Leukocyte Esterase Negative (Negative) U Hyaline Cast (Auto) NONE SEEN (0-2) /LPF Urine Microscopic RBC 0-2 (0-5) /HPF Urine Microscopic WBC 0-2 (0-5) /HPF Ur Epithelial Cells None Seen (None Seen) /HPF Urine Bacteria None Seen (None Seen) /HPF Urine Culture Reflexed NO (NO) - Progress Progress: pain not gone completely Progress Note: 05/25/24 19:16 43-year-old is evaluated in the ER for upper abdominal pain with nausea and worsening pain with oral intake. Patient has not been taking any antacids/PPIs. She is given fluids and symptomatic treatment with Protonix/GI cocktail along with pain medications, reevaluation her pain is better but still having some dull aching discomfort. Workup showed normal white count, chemistries consistent with some element of dehydration, no elevated lipase and mildly elevated transaminases. I have obtained CT abdomen pelvis with contrast is negative for any acute intra- abdominal pelvic findings, does have findings consistent with recent gastric bypass, hepatosplenomegaly which patient has been evaluated outpatient and has biopsy done. I believe patient's symptoms are more of a gastric ulcer, worsening with oral intake, I believe patient would benefit with Protonix and Carafate. Patient's primary bariatric surgeon has called in prescription for PPI and Protonix which she is going to case picker. I do not think patient needs any other workup and is stable for discharge. Discussed signs symptoms of worsening needing return to ER which she seems understanding. Complexity of problem addressed: High Complexity of data reviewed/analyzed: Extensive Risk of complication/morbidity reduced: Low to moderate Counseled pt/family regarding: lab results, diagnosis, need for follow-up, rad results Medical Desision Making - Diagnostic Testing Diagnostic test were ordered, analyzed, and reviewed by me: Yes Radiological Interpretation: Reviewed by me, Teleradiologist Report - Risk of complications The pt has a mod risk of morbidity or mortality based on: Need for prescription drug management - Departure Departure Disposition: Home Clinical Impression: Gastritis, Hepatosplenomegaly, Elevated transaminase level Condition: Stable Critical Care Time: No Referrals: NANCY JARRELL NP [Primary Care Provider] - Follow up with PCP 1 day Instructions: Peptic ulcers, Severe Abdominal Pain, Adult (DC) Additional Instructions: Follow-up with your bariatric surgeon in [place] and PCP for reevaluation. Continue with Protonix and Carafate. Return to ER for excruciating pain, vomiting, abdominal distention or if develop fever chills etc. drink plenty of fluids to keep yourself well-hydrated.
[2024-05-25 19:31] VITALS: BP 124/78; PULSE 81; RESP 18
[2024-05-25 19:54] VITALS: O2SAT 99
--- NOTE | 2024-05-26 08:41 | XRAY ---
Indication: Pain. Multiple contiguous axial images obtained through the abdomen and pelvis using 80 cc Isovue 370 contrast. Comparison: August 13, 2023 Lung bases remain clear. Heart not enlarged. There has been interval gastric bypass surgery. Noncontrasted stomach and bowel loops appear nonobstructed again with normal appendix. Mild diffuse colonic diarrhea. Again 20 cm hepatomegaly, 13 cm splenomegaly, cholecystectomy, and hysterectomy. No free fluid/air. Remaining liver, pancreas, spleen, adrenal glands, kidneys, ureters, and bladder are unremarkable. There remains minimal aortic calcifications. No AAA or pathologic retroperitoneal lymphadenopathy. Osseous structures intact again with minimal degenerative changes throughout spine and minimal dextroscoliosis. Impression: 1. New colonic diarrhea. 2. Again hepatomegaly, splenomegaly, arteriosclerotic disease, and chronic bony findings. 3. Remaining CT abdomen/pelvis with contrast exam is negative.
== END 2024-05-25 19:39 | disposition home or self-care (01) ==
LOC: ED 15:00
DX: K29.70 Gastritis, unspecified, without bleeding (principal); R16.2 Hepatomegaly with splenomegaly, not elsewhere classified; R74.01 Elevation of levels of liver transaminase levels; R10.10 Upper abdominal pain, unspecified; R11.2 Nausea with vomiting, unspecified; E78.5 Hyperlipidemia, unspecified; I10 Essential (primary) hypertension; E11.9 Type 2 diabetes mellitus without complications; Z79.899 Other long term (current) drug therapy; Z98.84 Bariatric surgery status
CPT/HCPCS: 36415; 74177; 80053; 81001; 83690; 84484; 84703; 85025; 93005; 96361; 96374; 96375; 96376; 99285; J2270; J2405; A9270-GY

== ENCOUNTER 2024-12-14 08:14 | Day surgery (SDC) | payer BC ==
[2024-12-14] MEDS ORDERED: Sodium Chloride 0.9(Preservative Free) 10 ML IJ ONE (08:15)
[2024-12-14] MEDS ORDERED: LIDOCAINE HCL 1% 50 MG/5 ML VL IJ ONE (08:15)
[2024-12-14] MEDS ORDERED: propofoL IV ONE (10:30)
[2024-12-14] MEDS ORDERED: MORPHINE SULFATE 4 MG INJ ONE (10:56)
--- NOTE | 2024-12-14 11:58 | XRAY ---
Indication: Right L4-S1 transforaminal ALAINA. Intraoperative fluoroscopy provided for 20 seconds. 5 digital spot images submitted for interpretation demonstrates right posterior needle tips projecting over expected right L4 and L5 nerve roots. Small amount of contrast injected for needle tip placement. Correlate with intraoperative findings/report.
--- NOTE | 2024-12-14 11:59 | XRAY ---
Indication: Right piriformis injection. Intraoperative fluoroscopy provided for 6 seconds. Single digital spot image submitted for interpretation demonstrates needle tip projecting over right piriformis. Small amount of contrast injected for needle tip placement. Correlate with intraoperative findings/report.
--- NOTE | 2024-12-14 12:32 | XRAY ---
20 seconds of fluoroscopy was used in surgery for a right L4-S1 transforaminal ALAINA.
--- NOTE | 2024-12-14 12:32 | XRAY ---
6 seconds of fluoroscopy was used in surgery for a right piriformis injection.
[2024-12-14] MEDS ORDERED: Lactated Ringers 1,000 ML IV ONE (14:01)
== END 2024-12-14 11:20 | disposition home or self-care (01) ==
LOC: SDC-PAIN 08:14
PROVIDERS: ATTEND Psychiatry & Neurology Pain Medicine
DX: M54.16 Radiculopathy, lumbar region (principal); M79.18 Myalgia, other site